=== PATIENT | male | born 1940 | race Caucasian/White ===

== ENCOUNTER 2023-10-21 14:47 | Inpatient (IN) ==
[2023-10-21 16:08] LABS: iSTAT Creatinine 1.4 mg/dl (0.6-1.3); iSTAT Hemoglobin 9.2 g/dl (14.0-18.0); iSTAT Ionized Calcium 1.21 mmol/l (1.12-1.32); iSTAT Potassium 4.6 mmol/L (3.3-5.0)
--- NOTE | 2023-10-21 16:14 | Electrocardiogram Report ---
Test Reason : Blood Pressure : / mmHG Vent. Rate : 064 BPM Atrial Rate : 064 BPM P-R Int : 126 ms QRS Dur : 084 ms QT Int : 400 ms P-R-T Axes : 073 031 023 degrees QTc Int : 412 ms Sinus rhythm with occasional Premature ventricular complexes Otherwise normal ECG When compared with ECG of 10-APR-2022 17:50, Sinus rhythm has replaced Atrial fibrillation Vent. rate has decreased BY 38 BPM Borderline criteria for Inferior infarct are no longer Present Confirmed by Porfirio Cervantes ([id number]) on 10/21/2023 4:14:47 PM Referred By: Confirmed By:Porfirio Cervantes
[2023-10-21] MEDS: ONDANSETRON INJ 2 MG/ML 2 ML VIAL IV STA (16:27)
[2023-10-21] MEDS: HYDROmorphone INJ 0.5 MG/0.5 ML SYR IV PRN (16:33)
[2023-10-21 16:44] LABS: Basophils # (auto) 0.04 K/uL (0.00-0.20); Basophils % (auto) 0.7 %; Eosinophils # (auto) 0.17 K/uL (0.00-0.50); Eosinophils % (auto) 2.8 %; Hematocrit (blood only) 29.3 % (42.0-52.0); Hemoglobin 9.7 g/dl (14.0-18.0); Immature Granulocytes # (auto) 0.02 K/uL (0.01-0.20); Immature Granulocytes % (auto) 0.3 %; Lymphocytes # (auto) 1.54 K/uL (1.20-3.40); Lymphocytes % (auto) 25.6 %; Mean Corpuscular Hemoglobin 31.5 pg (25.0-34.0); Mean Corpuscular Hgb Conc 33.1 g/dL (32.0-36.0); Mean Corpuscular Volume 95.1 fL (80.0-100.0); Mean Platelet Volume 9.3 fL (9.4-12.4); Monocytes # (auto) 0.56 K/uL (0.11-0.59); Monocytes % (auto) 9.3 %; Neutrophils # (auto) 3.68 K/uL (1.40-6.50); Neutrophils % (auto) 61.3 %; Platelet Count 253 K/uL (130-400); RDW Coefficient of Variation 13.7 % (11.5-14.5); RDW Standard Deviation 46.7 fL (36.4-46.3); Red Blood Count 3.08 M/uL (4.70-6.10); White Blood Count 6.01 K/ul (4.8-10.8)
[2023-10-21 16:53] LABS: Albumin Globulin Ratio 1.2 (0.9-2); Albumin Level 3.8 gm/dl (3.4-5.0); BUN Creatinine Ratio 17.5 (10-20); Bilirubin,Total 0.5 mg/dl (0.2-1.0); Calcium 9.2 mg/dl (8.6-10.3); Creatinine Clr Calc Pharmacy 45.1 ml/min; Est GFR (African American) 60.3 ml/min; Globulin 3.2 gm/dl (2.5-4.0); Potassium 4.5 mmol/L (3.5-5.1)
--- NOTE | 2023-10-21 17:25 | CT Scan Report ---
CT bony pelvis wo con CLINICAL HISTORY: fall last week, pain right hemipelvis, right hip r TECHNIQUE: Helical axial images of the pelvis were obtained and displayed at 5 and 1 mm intervals. Au tomated dose lowering techniques and/or adjustment according to patient size were utilized for this e xam. This exam was performed without intravenous contrast. CT DOSE: 949.3 mGy.cm COMPARISON: Comparison is made to CT abdomen pelvis 10/16/2023 FINDINGS: Bladder: Unremarkable. Reproductive organs: Unremarkable. Bowel: Diverticulosis is seen without diverticulitis. The appendix is normal. Lymph nodes Pelvic: Unremarkable. Mesenteric: Unremarkable. Peritoneum: Normal Vessels: Atherosclerotic calcifications are seen. Abdominal wall: Left fat containing inguinal hernia. Bones: Bilateral hip arthroplasties are seen. IMPRESSION: Degenerative changes are seen without evidence of acute fracture. Additional findings as above. ACT 112: Negative or not required by law. Electronically signed by: Flynn Ayoub M.D. 10/21/2023 5:23 PM
--- NOTE | 2023-10-21 19:27 | History & Physical Report ---
Date of Service October 21, 2023 Assessment & Plan (1) Type 2 diabetes mellitus: (2) Paroxysmal atrial fibrillation: (3) Lumbar transverse process fracture: (4) Coccyx contusion: Plan Patient is an 83-year-old gentleman man with acute lumbar pain and coccyx pain with ambulatory dysfunction secondary to a fall sustained approximately 10 days ago with imaging now revealing a right L5 transverse process fracture. Care for in the hospital Scheduled pain medications with Tylenol and tramadol, as needed oral Dilaudid Physical therapy and Occupational Therapy consultations Care management for home health versus rehab Continue home diabetes medications, his glucoses are well-controlled add sliding scale Continue other home medications as ordered. History of Present Illness Chief Complaint: Inability to walk and low back pain Primary Care Provider: Carroll Conley MD Patient is an 83-year-old gentleman presents to the emergency room with above complaint. He was in the emergency room on 10/16/2023 with similar complaint. Had a history at that time as at last week the patient was working out in the gym and weights slipped off as he was holding him and he fell down right on his coccyx. Imaging done on 10/16/2023 did not show any fracture. The patient was given some oxycodone and discharged home. Unfortunately, the patient's pain continued to increase. It was not responding to the oxycodone. Today he was found to be extremely difficult to walk. Return to the emergency room again for evaluation. Reimaging in the emergency room today showed a L5 transverse process fracture. Due to his uncontrolled pain and difficulty walking was referred to our service for further evaluation. Time my evaluation the patient's symptoms are significantly improved after receiving some Dilaudid. He otherwise he states has been doing well. Eating and drinking normally. Bowels and bladder been working normally for him. He denies any numbness or tingling down his legs and no weakness is set the pain was limiting his mobility. Allergies Allergy/AdvReac Type Severity Reaction Status Date / Time acetaminophen [From [place]] AdvReac Nausea Verified 04/25/23 14:22 hydrocodone [From [facility]] AdvReac Nausea Verified 04/25/23 14:22 Home Medications Medication Instructions Recorded Confirmed Type atorvastatin 80 mg tablet 80 mg PO DAILY 04/13/19 04/25/23 History metformin 500 mg tablet 1,000 mg PO BIDM 04/13/19 04/25/23 History nitroglycerin 0.4 mg sublingual 0.4 mg sublingual DIRECTED PRN 04/13/19 04/25/23 History tablet Chest Pain glimepiride 4 mg tablet 8 mg PO QAM 04/14/19 04/25/23 History zolpidem 5 mg tablet 5 mg PO HS PRN Sleep 04/14/19 04/25/23 History linagliptin 5 mg tablet (Tradjenta) 5 mg PO DAILY #90 tabs 03/31/20 04/25/23 Rx aspirin 81 mg tablet,delayed 81 mg PO DAILY PRN 04/01/21 04/25/23 History release (Adult Low Dose Aspirin) metoprolol succinate 25 mg 25 mg PO DAILY #90 tabs 11/06/22 04/25/23 Rx tablet,extended release 24 hr clopidogrel 75 mg tablet 75 mg PO DAILY #90 tabs 12/28/22 04/25/23 Rx oxycodone 5 mg tablet 5 mg PO Q8H PRN pain (scale score 10/16/23 Rx 7-10) #10 tabs Past Med/Surg History Problem List (Updated 10/21/23 @ 19:26 by Jacek Enriquez DO) Coccyx contusion Lumbar transverse process fracture Buttock pain (Acute) Fall (Acute) Syncope and collapse Paroxysmal atrial fibrillation Lightheadedness S/P TAVR (transcatheter aortic valve replacement) Exertional angina Type 2 diabetes mellitus GI bleed (Acute) Atrial fibrillation (Acute) Aortic stenosis S/P coronary artery stent placement CAD (coronary artery disease) Hypertension (Chronic) Hypercholesteremia (Chronic) Medical History Paroxysmal atrial fibrillation Paroxysmal ventricular tachycardia Aortic stenosis CAD (coronary artery disease) Osteoarthritis GERD (gastroesophageal reflux disease) Diabetes mellitus, type 2 Hypertension Hyperlipidemia GI bleed Surgical History H/O cataract extraction RIGHT EYE (02/01/18, [facility] [place] History of cardiac cath 2009 History of colonoscopy History of tonsillectomy History of total hip arthroplasty RT S/P coronary artery stent placement S/P inguinal hernia repair S/P TAVR (transcatheter aortic valve replacement) Social History Smoking Status: Never smoker Second Hand Exposure: No; Do You Dip or Chew Tobacco: No; Hx Alcohol Use: Yes Alcohol type: wine Hx Substance Use: No Preferred Language: Guyanese Communication Ability: Effective Doctor Of Radiology Required: No Beliefs That Will Affect Care: None Current Living Situation: Other Current Living Situation Comment: 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 Sclera clear Neck: Soft, no adenopathy Lungs: Clear to auscultation, decreased, no wheezes rales or rhonchi CV: S1-S2, regular Abdomen: Soft, nontender, nondistended Extremities: No significant edema Musculoskeletal: No significant joint tenderness, some mild tenderness to palpation over the lumbar sacral junction. Some mild paravertebral muscle tenderness, definitely improved since patient received pain medication Neuro: No focal deficits Psych: Cooperative, normal mood Results & Data Results & Data Vital Signs (Past 12 Hours) Vital Signs Temp Pulse Pulse Resp BP BP Pulse Ox 10/21/23 19:16 70 20 110/45 L 97 10/21/23 19:11 70 20 110/45 L 97 10/21/23 17:03 64 12 117/58 L 99 10/21/23 16:37 60 16 119/66 97 10/21/23 15:58 10/21/23 15:18 65 10/21/23 15:09 10/21/23 14:57 10/21/23 14:56 36.8 C 73 18 144/94 H 99 O2 Del Method 10/21/23 19:16 Room Air 10/21/23 19:11 Room Air 10/21/23 17:03 Room Air 10/21/23 16:37 Room Air 10/21/23 15:58 Room Air 10/21/23 15:18 10/21/23 15:09 Room Air 10/21/23 14:57 Room Air 10/21/23 14:56 Room Air Diagnostic Findings Reviewed imaging, laboratory and diagnostic studies. Pertinent findings as below. Pelvic CT did show a right L5 transverse process not on displaced fracture Personally reviewed EKG, sinus rhythm Reviewed records in [facility], baseline creatinine 1.3-1.4 Creatinine 1.26 Glucose 131 Hemoglobin 9.7
--- NOTE | 2023-10-21 19:46 | Emergency Department Note ---
Impression & Plan Fracture of L5 vertebra, Fall, Ambulatory dysfunction ED Provider Note NAME: DONNA CEBALLOS AGE: 83 SEX: Male INFORMANT: Patient ED PROVIDER(S): William Ureña MD CHIEF COMPLAINT: Right low back and hip pain PLAN: Disposition: Admitted Outpatient prescription management: none Referral: None MEDICAL DECISION MAKING: Patient presented because of pain. He notes the oxycodone given to him here did not help. He could not walk. Prior visit record reviewed. Patient had unremarkable labs done today. He was treated with Dilaudid and Zofran. He did feel somewhat better with this. I repeated CT imaging and found that the patient had an L5 transverse process fracture that was not seen previously. Suspect that this is the etiology of his pain as he is tender in that area. Given the fact that he cannot ambulate safely discussed further management in the hospital and patient in agreement. [facility] Patient was evaluated in the ER and admitted for further management. Care/management discussed with: integrated campaign manager Level of care consideration(s): After review of the information above and other included data, I feel the patient requires escalation of care to admission Triage Nursing notes: reviewed and agree them. Vital Signs: reviewed and remarkable for no significant abnormalities Additional History obtained from: none Chronic Medical/Social Conditions affecting care: CAD, hypertension Prior/ Outside/ External records reviewed: none Differential Diagnosis: Musculoskeletal, disc herniation, fracture, metastatic disease, cord compression, discitis, sciatica, cauda equina, infection, aortic disease, renal colic, gastrointestinal, as well as other pathologies. Diagnostics, independently interpreted by me: ECG: none Cardiac Monitoring: Cardiac monitoring ordered by me: The patient was placed on continuous cardiac monitoring and observed. It revealed a normal sinus rhythm at 70 beats per minute without ectopy or evidence of dysrhythmia. Medical decision rules: none Imaging studies: CT as above. Right L 5 transverse process fracture. HPI: 83 year old Male arrives for evaluation of right back and hip pain.. Patient was seen on the for similar complaints. CT imaging of the time was done and negative. Musculoskeletal source considered. Patient was given oxycodone. Despite that oxycodone he noted pain was not controlled. Describes his initial injury as falling several days prior to the ED visit on the . He states he fell backwards and landed on his buttocks. Patient denied any other injury or any new fall. He notes pain is at the point now where he cannot ambulate safely. Pt denies LOC, headache, visual changes, neck pain, chest pain, breathing difficulties, nausea, vomiting, abdominal pain, other extremity pain, numbness, urinary symptoms, bowel or bladder dysfunction, weakness, open wounds, active bleeding, or other complaints. PAST MEDICAL HISTORY: See Below, A-fib PAST SURGICAL HISTORY: See Below, TAVR SOCIAL HISTORY: See Below, retired HOME MEDICATIONS: See Below ALLERGIES: See Below VITALS: See Below PHYSICAL EXAMINATION: GENERAL: Awake, alert, uncomfortable-appearing, in no distress HENT: Normocephalic, atraumatic. Oropharynx unremarkable. EYES: Normal conjunctiva. Sclera non-icteric. NECK: Inspection normal. Non-tender. Supple. No nuchal rigidity. FROM. No masses. RESPIRATORY: Clear to auscultation. No wheezes. No rales. Normal respiratory effort. CARDIAC: Normal rate. Normal rhythm. No murmurs. No rubs. Extremities warm and well perfused. Pulses equal. No JVD. GI: Soft, non-distended. No tenderness to palpation. No rebound or guarding. No masses. RECTAL: Deferred. MUSCULOSKELETAL: Atraumatic. The back is symmetrical on inspection without obvious abnormality. There is no CVA tenderness to palpation. No joint edema. There is tenderness to palpation at the lumbosacral junction on the right. Mild right hip tenderness with range of motion well-preserved. Pelvis stable to rock. LOWER EXTREMITIES: Calves are equal size bilaterally and non-tender. No edema. No discoloration. NEURO: Normal sensorium. No sensory or motor deficits noted. No saddle anesthesia. SKIN: No rash or jaundice noted. PROCEDURES: none CRITICAL CARE: none OBSERVATION NOTE: none Past Med/Surg History Problem List (Updated 10/21/23 @ 19:46 by William Ureña MD) Ambulatory dysfunction (Acute) Fracture of L5 vertebra (Acute) Coccyx contusion Lumbar transverse process fracture Buttock pain (Acute) Fall (Acute) Syncope and collapse Paroxysmal atrial fibrillation Lightheadedness S/P TAVR (transcatheter aortic valve replacement) Exertional angina Type 2 diabetes mellitus GI bleed (Acute) Atrial fibrillation (Acute) Aortic stenosis S/P coronary artery stent placement CAD (coronary artery disease) Hypertension (Chronic) Hypercholesteremia (Chronic) Medical History Paroxysmal atrial fibrillation Paroxysmal ventricular tachycardia Aortic stenosis CAD (coronary artery disease) Osteoarthritis GERD (gastroesophageal reflux disease) Diabetes mellitus, type 2 Hypertension Hyperlipidemia GI bleed Surgical [place] [facility] [place] of cardiac cath 2009 History of colonoscopy History of tonsillectomy History of total hip arthroplasty RT S/P coronary artery stent placement S/P inguinal hernia repair S/P TAVR (transcatheter aortic valve replacement) Social History Smoking Status: Never smoker Second Hand Exposure: No; Do You Dip or Chew Tobacco: No; Hx Alcohol Use: Yes Alcohol type: wine Hx Substance Use: No Preferred Language: Nepalese Communication Ability: Effective Central Sterilization Technician Required: No Beliefs That Will Affect Care: None Current Living Situation: Other Current Living Situation Comment: 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 Feels Safe at Home: Yes Assistive Devices: None Allergies Allergies Allergy/AdvReac Type Severity Reaction Status Date / Time acetaminophen [From [place]] AdvReac Nausea Verified 04/25/23 14:22 hydrocodone [From [place]] AdvReac Nausea Verified 04/25/23 14:22 Home Meds Home Medications Medication Instructions Recorded Confirmed atorvastatin 80 mg tablet 80 mg PO DAILY 04/13/19 04/25/23 metformin 500 mg tablet 1,000 mg PO BIDM 04/13/19 04/25/23 nitroglycerin 0.4 mg sublingual 0.4 mg sublingual DIRECTED PRN 04/13/19 04/25/23 tablet Chest Pain glimepiride 4 mg tablet 8 mg PO QAM 04/14/19 04/25/23 zolpidem 5 mg tablet 5 mg PO HS PRN Sleep 04/14/19 04/25/23 aspirin 81 mg tablet,delayed 81 mg PO DAILY PRN 04/01/21 04/25/23 release (Adult Low Dose Aspirin) Previous Rx's Medication Instructions Recorded linagliptin 5 mg tablet (Tradjenta) 5 mg PO DAILY #90 tabs 03/31/20 metoprolol succinate 25 mg 25 mg PO DAILY #90 tabs 11/06/22 tablet,extended release 24 hr clopidogrel 75 mg tablet 75 mg PO DAILY #90 tabs 12/28/22 oxycodone 5 mg tablet 5 mg PO Q8H PRN pain (scale score 10/16/23 7-10) #10 tabs Results & Data (ED) Vital Signs Vital Signs - 24 hr 10/21/23 14:56 10/21/23 14:57 10/21/23 15:09 Temperature 36.8 C Temperature Source Oral Pulse Rate 73 Pulse Rate [Apical] Pulse Rate from SpO2 Sensor Pulse Rhythm [Apical] Pulse Strength [Apical] Respiratory Rate 18 Respiratory Effort / Characteristics Non-Labored Spontaneous Respiratory Depth Normal Blood Pressure 144/94 H Blood Pressure [Right Arm] Blood Pressure Mean 110 Blood Pressure Mean [Right Arm] Blood Pressure Position [Right Arm] Pulse Oximetry 99 Oxygen Delivery Method Room Air Room Air Room Air Sepsis Recent Fever Within 48 Hours No Sepsis New/Unexplained Change in Mental Status No Sepsis Action Taken by Nursing No Action Required 10/21/23 15:18 10/21/23 15:58 10/21/23 16:37 Temperature Temperature Source Pulse Rate 65 Pulse Rate [Apical] 60 Pulse Rate from SpO2 Sensor Pulse Rhythm [Apical] Pulse Strength [Apical] Respiratory Rate 16 Respiratory Effort / Characteristics Non-Labored Spontaneous Respiratory Depth Normal Blood Pressure Blood Pressure [Right Arm] 119/66 Blood Pressure Mean Blood Pressure Mean [Right Arm] 83 Blood Pressure Position [Right Arm] Pulse Oximetry 97 Oxygen Delivery Method Room Air Room Air Sepsis Recent Fever Within 48 Hours Sepsis New/Unexplained Change in Mental Status Sepsis Action Taken by Nursing 10/21/23 17:03 10/21/23 19:11 10/21/23 19:16 Temperature Temperature Source Pulse Rate 64 Pulse Rate [Apical] 70 70 Pulse Rate from SpO2 Sensor 60 Pulse Rhythm [Apical] Regular Regular Pulse Strength [Apical] Normal Normal Respiratory Rate 12 20 20 Respiratory Effort / Characteristics Non-Labored Spontaneous Non-Labored Spontaneous Respiratory Depth Normal Normal Blood Pressure 117/58 L Blood Pressure [Right Arm] 110/45 L 110/45 L Blood Pressure Mean 77 Blood Pressure Mean [Right Arm] 66 66 Blood Pressure Position [Right Arm] Sitting Pulse Oximetry 99 97 97 Oxygen Delivery Method Room Air Room Air Room Air Sepsis Recent Fever Within 48 Hours Sepsis New/Unexplained Change in Mental Status Sepsis Action Taken by Nursing Laboratory Data 10/21/23 15:12 10/21/23 15:12 Lab Results 10/21/23 10/21/23 Range/Units 15:12 15:23 WBC 6.01 (4.8-10.8) K/ul RBC 3.08 L (4.70-6.10) M/uL Hgb 9.7 L (14.0-18.0) g/dl POC Hgb 9.2 L (14.0-18.0) g/dl Hct 29.3 L (42.0-52.0) % POC Hct 27 L (42-52) % MCV 95.1 (80.0-100.0) fL MCH 31.5 (25.0-34.0) pg MCHC 33.1 (32.0-36.0) g/dL RDW Std Deviation 46.7 H (36.4-46.3) fL RDW Coeff of Jasvir 13.7 (11.5-14.5) % Plt Count 253 (130-400) K/uL MPV 9.3 L (9.4-12.4) fL Immature Gran % (Auto) 0.3 % Neut % (Auto) 61.3 % Lymph % (Auto) 25.6 % [place] % (Auto) 9.3 % Eos % (Auto) 2.8 % Baso % (Auto) 0.7 % Neut # (Auto) 3.68 (1.40-6.50) K/uL Lymph # (Auto) 1.54 (1.20-3.40) K/uL [place] # (Auto) 0.56 (0.11-0.59) K/uL Eos # (Auto) 0.17 (0.00-0.50) K/uL Baso # (Auto) 0.04 (0.00-0.20) K/uL Immature Gran # (Auto) 0.02 (0.01-0.20) K/uL POC Sodium 138 (135-144) mmol/L Sodium 137 (136-145) mmol/L POC Potassium 4.6 (3.3-5.0) mmol/L Potassium 4.5 (3.5-5.1) mmol/L POC Chloride 105 (101-112) mmol/L Chloride 106 (98-107) mmol/L Carbon Dioxide 24 (21-32) mmol/L POC Total CO2 22 L (24-31) mmol/L Anion Gap 7 (3-11) POC Anion Gap 17.0 (16-25) mmol/L POC BUN 20 H (7-18) mg/dl BUN 22 (6-23) mg/dl Creatinine 1.26 (0.6-1.4) mg/dl POC Creatinine 1.4 H (0.6-1.3) mg/dl Est Cr Clr Drug Dosing 45.1 ml/min Est GFR ( Amer) 60.3 ml/min Est GFR (Non-Af Amer) 52.0 ml/min BUN/Creatinine Ratio 17.5 (10-20) Glucose 131 H (70-99(Fasting)) mg/dl POC Glucose (other) 139 H (70-99) mg/dl Calcium 9.2 (8.6-10.3) mg/dl POC Ioniz Calcium Hermann 1.21 (1.12-1.32) mmol/l Total Bilirubin 0.5 (0.2-1.0) mg/dl AST 13 (13-39) U/L ALT 11 (7-52) U/L Alkaline Phosphatase 93 (34-104) U/L Total Protein 7.0 (6.0-8.3) gm/dl Albumin 3.8 (3.4-5.0) gm/dl Globulin 3.2 (2.5-4.0) gm/dl Albumin/Globulin Ratio 1.2 (0.9-2) Administered Medications Hydromorphone HCl (Hydromorphone Inj 0.5 Mg/0.5 Ml Syr) 0.5 mg IV Q15M PRN PRN Reason: Pain Stop: 11/04/23 16:02 Last Admin: 10/21/23 16:33 Dose: 0.5 mg Documented By: Discontinued Medications Ondansetron HCl (Ondansetron Inj 2 Mg/Ml 2 Ml Vial) 4 mg IV NOW STA Stop: 10/21/23 16:04 Last Admin: 10/21/23 16:27 Dose: 4 mg Documented By: Imaging Data Radiologist's Impression: Pelvis CT 10/21/23 16:03 CT bony pelvis wo con CLINICAL HISTORY: fall last week, pain right hemipelvis, right hip r TECHNIQUE: Helical axial images of the pelvis were obtained and displayed at 5 and 1 mm intervals. Automated dose lowering techniques and/or adjustment according to patient size were utilized for this exam. This exam was performed without intravenous contrast. CT DOSE: 949.3 mGy.cm COMPARISON: Comparison is made to CT abdomen pelvis 10/16/2023 FINDINGS: Bladder: Unremarkable. Reproductive organs: Unremarkable. Bowel: Diverticulosis is seen without diverticulitis. The appendix is normal. Lymph nodes Pelvic: Unremarkable. Mesenteric: Unremarkable. Peritoneum: Normal Vessels: Atherosclerotic calcifications are seen. Abdominal wall: Left fat containing inguinal hernia. Bones: Bilateral hip arthroplasties are seen. IMPRESSION: Degenerative changes are seen without evidence of acute fracture. Additional findings as above. ACT 112: Negative or not required by law. Electronically signed by: Flynn Ayoub M.D. 10/21/2023 5:23 PM Discharge Plan Visit Data Chief Complaint: Trauma Stated Complaint: TRAUMA ED Provider: William Ureña Discharge Problem: Fracture of L5 vertebra, Fall, Ambulatory dysfunction Forms Stand Alone Forms: [facility] [employer] Prescriptions Prescriptions: No Action metoprolol succinate 25 mg tablet extended release 24 hr 25 mg PO DAILY Qty: 90 3RF clopidogrel 75 mg tablet 75 mg PO DAILY Qty: 90 3RF Tradjenta 5 mg tablet 5 mg PO DAILY Qty: 90 3RF aspirin [Adult Low Dose Aspirin] 81 mg tablet,delayed release (DR/EC) 81 mg PO DAILY PRN glimepiride 4 mg tablet 8 mg PO QAM zolpidem 5 mg tablet 5 mg PO HS PRN (Reason: Sleep) atorvastatin 80 mg Tablet 80 mg PO DAILY metformin 500 mg Tablet 1,000 mg PO BIDM nitroglycerin 0.4 mg Tablet, Sublingual 0.4 mg sublingual DIRECTED PRN (Reason: Chest Pain) oxycodone 5 mg tablet 5 mg PO Q8H PRN (Reason: pain (scale score 7-10)) Qty: 10 0RF Rx Instructions: May cause sedation. Referrals Referrals: Carroll Conley MD [Primary Care Provider] -
--- OUTSIDE RECORDS SUMMARY | 2023-10-21 20:46 | External Medical Summary | Summary of Care ---
Author Name Unknown Organization [facility] Address [address] [place] [address] Phone [phone] Care Team Providers Care Drawing Kiln Operator Name Role Phone Carroll Conley MD Primary Care Provider + Reason for Visit * Reason Onset Date Comments Med Request 10/19/2023 Encounter Details Date Type Department Care Team (Late st Contact Info) Description 10/19/2023 Telephone [facility] [address] [facility] [place] [address] Inessa Still MD [address] [place] [address] Med Request Allergies Active Allergy Reactions Criticality Noted Date Comments Hydrocodone-Acetaminophen High 05/29/2019 Vomiting, dizziness, loss of balance, unable to stand, documented as of this encounter (statuses as of 10/20/2023) Medications Medication Sig Dispensed Refills Start Date End Date Status nitroglycerin (NITROSTAT) 0.4 MG SUBLIndications:Acu te RI ([facility]) 1 Tab Sublingual Every 5 minutes as needed for chest discomfort 25 Tab 6 04/07/2015 Active ONETOUCH DELICA LANCETS 33G MISCIndications:Typ e 2 diabetes mellitus with hemoglobin A1c goal of less than 8.0% ([facility]) Use to test blood once daily. Dx: E11.9 90 Each 3 02/23/2019 Active Glucose Blood In Vitro StripIndications:DM type 2 nursing care encounter ([facility]) tesing blood sugars once daily; E 11.9; non-insulin dependent 90 Strip 3 02/23/2019 Active Blood Glucose Monitoring Suppl (GIDEEN ULTRA 2) w/Device KITIndications:Type 2 diabetes mellitus with hemoglobin A1c goal of less than 8.0% ([facility]) Use to test blood glucose 2 times daily. Dx: E11.9 1 Kit 06/08/2019 Active Additional Information Patient taking differently: Use to test blood glucose one time daily. Dx: E11.9, Informant: Patient, Reported on 08/19/2020 clopidogrel (PLAVIX) 75 MG TabletIndications:T ype 2 diabetes mellitus with hemoglobin A1c goal of less than 7.0% (HCC) TAKE 1 TABLET BY MOUTH EVERY DAY 90 Tab 3 12/14/2019 Active Vitamin B 12 500 MCG Oral Tablet Take 2 Tabs by mouth daily. 05/22/2020 Active Amoxicillin 500 MG Oral Capsule (Amoxil)Indications :S/P TAVR (transcatheter aortic valve replacement) Take 4 capsules by mouth 1 hour prior to dental work 4 Cap 5 07/24/2020 Active Vitamin D 25 MCG (1000 UT) Oral TabletIndications:C losed fracture of sacrum, unspecified portion of sacrum, initial encounter ([facility]) TAKE 1 TABLET BY MOUTH EVERY DAY 90 Tablet 1 02/16/2021 Active Metoprolol Succinate ER 25 MG Oral Tablet Extended Release 24 Hour (toPROL XL) TAKE 1 TABLET BY MOUTH EVERY DAY 90 Tablet 3 02/24/2021 Active Zolpidem Tartrate 5 MG Oral Tablet (Ambien)Indications :Chronic insomnia TAKE 1 TABLET BY MOUTH EVERY DAY AT BEDTIME NEEDED FOR SLEEP 30 Tablet 06/03/2022 Active Acetaminophen 500 MG Oral Tablet (Tylenol)Indication s:History of total hip replacement, bilateral,Hip pain, right Take 2 Tablets by mouth every 8 hours as needed for Pain, Moderate. 100 Tablet 08/02/2022 Active Benzonatate 200 MG Oral CapsuleIndications: Upper respiratory tract infection, unspecified type Take 1 Capsule by mouth 3 times a day as needed for Cough. 50 Capsule 1 03/29/2023 Active metFORMIN HCl 500 MG Oral Tablet (Glucophage)Indicat ions:Type 2 diabetes mellitus with hemoglobin A1c goal of less than 7.0% ([facility]) TAKE 2 TABLETS BY MOUTH TWICE A DAY 360 Tablet 1 06/13/2023 Active Tradjenta 5 MG Oral Tablet (linaGLIPtin)Indica tions:Type 2 diabetes mellitus with hemoglobin A1c goal of less than 8.0% (HCC) TAKE 1 TABLET BY MOUTH EVERY DAY IN THE MORNING 90 Tablet 1 07/11/2023 Active Atorvastatin Calcium 80 MG Oral Tablet (Lipitor)Indication s:Dyslipidemia, goal LDL below 70 TAKE 1 TABLET BY MOUTH EVERY DAY 90 Tablet 1 08/05/2023 Active Glimepiride 4 MG Oral Tablet (Amaryl)Indications :Type 2 diabetes mellitus with hemoglobin A1c goal of less than 8.0% (HCC) TAKE 2 TABLETS BY MOUTH DAILY WITH BREAKFAST 180 Tablet 2 10/11/2023 Active oxyCODONE HCl 5 MG Oral Tablet (Oxy IR)Indications:Butt ock pain Take 1 Tablet by mouth every 8 hours as needed for Pain, Severe. 30 Tablet 10/19/2023 Active documented as of this encounter (statuses as of 10/20/2023) Active Problems Problem Noted Date Diagnosed Date Type 2 diabetes mellitus wit h stage 3a chronic kidney disease, without long-term current use of insulin 04/06/2023 Multiple thyroid nodules 04/06/2023 Chronic kidney disease, stage 3a 04/13/2021 Overview: Per CKD protocol Elevated prostate specific antigen (PSA) 021 BPH without obstruction/lower urinary tract symp toms 12/31/2020 S/P TAVR (transcatheter aortic valve replacement ) 07/10/2020 Atherosclerosis of [place] co ronary artery of [place] heart without angina pectoris 05/29/2019 PAF (paroxysmal atrial fibrillation) 12/30/2017 History of GI bleed 04/19/2017 Old RI (myocardial infarction) 04/19/2017 Mixed hearing loss of right ear 01/22/2016 History of placement of ear tubes 01/22/2016 S/P total hip arthroplasty 10/10/2014 Type 2 diabetes mellitus wit h hemoglobin A1c goal of less than 8.0% 12/25/2013 Overview: ICD-10 update of inactive term S/P angioplasty with stent 01/30/2011 Overview: GUNNER LM & p LAD in 01/2011 Stent to RCA and LAD x 3 on 01/23/2020 Dyslipidemia, goal LDL below 70 01/28/2011 documented as of this encounter (statuses as of 10/20/2023) Resolved Problems Problem Noted Date Diagnosed Date Resolved Date Sacral fracture, closed 12/31/202001/03 Atherosclerotic heart diseas e of [place] coronary artery with other forms of angina pectoris 01/21/2020 04/06/2023 Aortic valve stenosis 10/19/20192023 Type 2 diabetes mellitus with hyperglycemia 05/29/2019 05/20/2020 Thyroid nodule 06/08/2018 10/11/2023 Postoperative anemia due to acute blood loss 9 07/08/2021 Impacted cerumen of right ear 01/22/2016 10/19/2017 Gastrointestinal hemorrhage with melena 11/16/2014 04/19/2017 Anemia 11/16/2014 12/31/2020 Postoperative hemorrhagic shock 10/11/2014 04/19/2017 Osteoarthritis of right hip 10/10/2014 04/06/2023 CAD (coronary artery disease ), [place] coronary artery 10/10/2014 12/31/2014 Chronic serous otitis media 05/11/2014 04/06/2023 Hip pain 05/21/2013 04/19/2017 Loss of height 04/05/2013 04/19/2017 Accelerate Clinical Trial*[id number] 10/02/2012 04/23/2015 Overview: ACCELERATE STUDY. Project # [id number], ASSISTANT PLANT CONTROL OPERATOR: Chepe Campos MD. CRC: ANIL Daniels. SUMMARY: To test the hypothesis that Evacetrapib 130 mg, in comparison to placebo, reduces the risk of major adverse coronary events in high-risk vascular disease patients. CONTACTS: During normal business hours, contact study staff at ; after hours Pharmacist Critical Care via the [facility] hospital cherry picker operator [phone]. 24-hour Global Study Helpline: [phone]. Lipid levels should not be ordered/obtained while this subject is in the Accelerate study. Lipids are being managed in a blinded fashion. If lipid levels are inadvertently obtained, it is important that test results are NOT provided to the patient, study doctor, medical staff services coordinator, or other study team members. Restricted meds while in the study: 1) niacin > 250 mg, 2) gemfibrozil with a potent [id number]. Type 2 diabetes mellitus wit h hemoglobin A1c goal of 7.0%-8.0% 09/17/2012 12/25/2013 Overview: ICD-10 update of inactive term Type 2 diabetes mellitus wit h hemoglobin A1c goal of 7.0%-8.0% 06/16/2012 09/17/2012 Overview: ICD-10 update of inactive term Acute inferolateral myocardial infarction 01/28/2011 04/19/2017 CAD. Inferolateral RI treate d with bare metal stenting of distal RCA at [facility] on 01/24/2011. Severe left main and LAD disease noted at that time 01/28/2011 07/23/2022 Overview: And 2020: drug eluting stent x 1 to right coronary artery and drug eluting stents x 3 to left anterior descending coronary artery on 01/23/[address] Ulloa SUDDEN HEARING LOSS (left) 04/21/2009 0 09/12/2018 Type 2 diabetes mellitus wit h hemoglobin A1c goal of less than 7.0% 04/16/2009 06/16/2012 Overview: ICD-10 update of inactive term documented as of this encounter (statuses as of 10/20/2023) Immunizations Name Administration Dates Next Due COVID-19 mRNA, LNP-s, No Pre serve, 2-Dose Series ([employer] Public Safety) 02/04/2021,06/13/2020,05/17/2020 Pneumococcal Conjugate Vacc, 13 Valent (Prevnar) 06/10/2014 Pneumococcal Polysaccharide PPV23 (Pneumovax) 03/21/2013 Season Influenza, Quad, PF, Adjuvanted, 65+ Yrs, IM (FLUAD) 01/21/2020 Seasonal Influenza Virus Vac cine, Unspecified Formulation 12/31/2020,01/21/2020,02/23/2019,12/22,01/13/2017,01/07/2016,02/08/2011 Seasonal Influenza, PF, 6 M & above, IM , (FluLaval or Fluzone) 12/22/2017,01/13/2017 Seasonal Influenza, Quadriva lent Hd (Fluzone Hd) 12/13/2022,01/29/2022,12/31/2020 Seasonal Influenza, Quadriva lent Hd, 65+ Yrs 01/29/2022,12/31/2020,01/21/2020,02/23 Seasonal Influenza, Quadriva lent, No Preserve, IM 01/07/2016,12/31/2014 Seasonal Influenza, Split, I IV3, With Preserve, Inj 04/18/2014,12/19/2012,02/03/2012,02/08 Seasonal Influenza, Trivalen t, Adjuvanted, 65+ yrs 02/23/2019 TDAP (age 10 and older)(Boostrix) 07/08/2021 documented as of this encounter Social History Tobacco Use Types Packs/Day Years Used Date Smoking Tobacco: Never Smokeless Tobacco: Never Alcohol Use Standard Drinks/Week Comments Yes 0 (1 standard drink = 0.6 oz pure alcohol) 1 glass of wine per week per patient PHQ-2 Answer Date Recorded PHQ Adult Total Score 1 10/11/2023 Hunger Vital Sign Answer Date Recorded Within the past 12 months, y ou worried that your food would run out before you got the money to buy more. Never true 08/03/19 23 Within the past 12 months, t he food you bought just didn't last and you didn't have money to get more. Never true 08/02/2022 Utilities Answer Date Recorded Do you have trouble paying y our heating, water, or electric bill? (Adult - for ages 18 years and over) Not on file 09/20/2023 Is your family able to pay t he heat, water, or electric bill? (Household - for ages 0-17 years) Not on file 09/20/2023 Does your family have access to good internet? (Household - for ages 0-17 years) Not on file 09/20/2023 Social Connections Answer Date Recorded How often do you feel lonely or isolated from those around you? (Adult - for ages 18 years and over) Not on file 09/20/2023 Sex and Gender Information Value Date Recorded Sex Assigned at Male 09/12/2018 1:59 PM EDT Gender Identity Male 09/12/2018 1:59 PM EDT Sexual Orientation Straight 09/12/2018 1: 59 PM EDT Job Start Date Occupation Industry Not on file Not on file Not on file documented as of this encounter Functional Status Functional Status Response Date of Assess ment Are you deaf or do you have serious difficulty hearing? No-hearring aids 04/17/2018 Are you blind or do you have serious difficulty seeing, even when wearing glasses? No 04/17/2018 Do you have serious difficul ty walking or climbing stairs? (5 years old or older) Yes 04/17/2018 Do you have difficulty dress ing or bathing? (5 years old or older) No 04/17/2018 Because of a physical, menta l, or emotional condition, do you have difficulty doing errands alone such as visiting a doctor s office or shopping? (15 years old or older) No 04/17/19 19 Cognitive Status Response Date of Assessm ent Because of a physical, menta l, or emotional condition, do you have serious difficulty concentrating, remembering, or making decisions? (5 years old or older) No 04/17/2018 documented as of this encounter Miscellaneous Notes * Telephone Encounter - Mery Tony MED ASSIST - 10/20/2023 7:40 AM EDT Called patient, left message to return call. Myg sent * Addendum Note - Inessa Still MD - 10/19/2023 6:20 PM EDTAddended by: INESSA STILL on: 10/19/2023 06:20 PM Modules accepted: Orders * Telephone Encounter - Inessa Still MD - 10/19/2023 6:19 PM EDT Noted. Yes, we did talk about continuing oxycodone and use it for few more days. If no further improvement or symptoms gets worse, to let us or PCP know and ER if severe s/s any time. Script sent to [facility]. Please inform. Thanks. * Telephone Encounter - Nhi Morin LPN - 10/19/2023 5:54 PM EDT Patient was seen by Dr. Still yesterday. It was discussed how he was given 10 tabs of Oxycodone 5 mg and he needed more but the note does not specifically state whether Dr. Still was going to order the medication for the patient. Dr. Still, please advise. * Telephone Encounter - Nasrin Randolph PHARM Tech - 10/19/2023 5:33 PM EDT Pt requesting HIGH PRIORITY due to severe pain Pt went to Yesterday and asked for a pain medication to be prescribed. Pt called today yelling that he went to the pharmacy and there was no prescription . Pt is in severe pain Pt asking for a pain medication to be sent to pharmacy tomorrow Please advise pt when approved Thank you, Nasrin Randolph [facility] Prop Worker II [facility] 10/19/2023,5:36 PM documented in this encounter Plan of Treatment Upcoming Encounters Date Type Department Care Team (Late st Contact Info) Description 01/03/2024 1:40 PM EDT Office Visit Podiatry [facility] [address] [facility] [place] [address] Julia Livingston DPM [address] [place] [phone] 05/29/2024 2:40 PM EST Office Visit General Internal Medicine [facility] Yin [facility] [address] [facility] [place] [address] Carroll Conley MD [address] [facility] [place] [address] Health Maintenance Due Date Last Done Comments Zoster Vaccines (1 of 2) 1989 COVID-19 Vaccine (2022- season) 2022 02/04/2021, 06/13/2020, 05/17/2020 Influenza Vaccine (FLU shot) (#1) 2023 12/13/2022, 01/29/2022, 01/29/2022, Additional history exists B-12 04/06/2024 04/06/2023, 05/0 04/2022, 01/29/2022, Additional history exists Diabetic Eye Exam 04/11/2024 04/11/2023, , 04/09/2022, Additional history exists GFR 04/12/2024 10/11/2023, 0 06/2023, 03/31/2023, Additional history exists HbA1c 04/12/2024 10/11/2023, 0 06/2023, 08/02/2022, Additional history exists Albumin/Creatinine Ratio 10/10/2024 024, 08/02/2022, 07/08/2021, Additional history exists CKD HGB USE SMARTSET 47545 10/10/202410/10, 10/11/2023, 03/31/2023, Additional history exists CKD PHOS USE SMARTSET 05467 10/10/2024 07/0 12/2023, 08/02/2022, 07/08/2021, Additional history exists Depression Screening 10/10/2024 10/11/2023, 01/01/20 15 Diabetic Foot Exam 10/10/2024 10/11/2023, 1 , 08/19/2020, Additional history exists DTaP,Tdap,and Td Vaccines (2 - Td or Tdap) 07/09/2031 07/08/2021 Pneumococcal Vaccine: 65+ Years Completed 06/10/2014, 03/21/2013 RETIRED - COLONOSCOPY-EVERY 5 YRS AGES 18-100 Discontinued 03/25/2015, 10/23/2009 HPV (Gardasil) Vaccine Aged Out No lo nger eligible based on patient's age to complete this topic Hepatitis B Vaccine Aged Out No longe r eligible based on patient's age to complete this topic MENINGOCOCCAL (MENACTRA/MENVEO) Aged Out No longer eligible based on patient's age to complete this topic documented as of this encounter Medical Devices Implanted Type Area Booker Device Identifier Shelf Expiration Date Model / Serial / Lot Pope Catarino Martinez Implanted:Qty: 1 on 05/13/2014 by Jose Alejandro Olivo MD at OR [facility] Right: Ear 07/03/2023 [id number] / / [id number] Trident Fermín Cluster Cup 60 - [id number] Implanted:Qty: 1 on 10/10/2014 by Jose Burton MD at OR [facility] Right: Hip [employer]IX[employer] : ORTHOPAEDICS 502-03-60F / / Screw Acetabular 6.5mm Tricia 25m - [id number] Implanted:Qty: 2 on 10/10/2014 by Jose Burton MD at OR [facility] Right: Hip [employer] : ORTHOPAEDICS 1445-3494-1 / / Trident Acetabular X3 0 36 F - [id number] Implanted:Qty: 1 on 10/10/2014 by Jose Burton MD at OR [facility] Right: Hip [employer]IX[employer] : ORTHOPAEDICS 623-00-36F / / Hip Hd Jeremiah Chaney Md D 36/+75 - [id number] Implanted:Qty: 1 on 10/10/2014 by Jose Burton MD at OR [facility] Right: Hip [employer]IX[employer] : ORTHOPAEDICS 07/03/2019 6570-0-736 / / [id number] Stem Hip Sz6 - [id number] Implanted:Qty: 1 on 10/10/2014 by Jose Burton MD at OR [facility] Right: Hip [employer] : ORTHOPAEDICS 08/02/2019 [id number] / / [id number] Screw Acetabular 6.5mm Tricia 25m - [id number] Implanted:Qty: 1 on 04/17/2018 by Ismael Schroeder MD at OR [facility] Left: Hip [employer] : ORTHOPAEDICS 06/05/[id number] / / [id number] Bone Screw Cancellous 65 16 - [id number] Implanted:Qty: 1 on 04/17/2018 by Ismael Schroeder MD at OR [facility] Left: Hip [employer] : ORTHOPAEDICS 11/03/202220296925-8306-1 / / [id number] Hip Stem Secur Max Ang 127 10 - [id number] Implanted:Qty: 1 on 04/17/2018 by Ismael Schroeder MD at OR [facility] Left: Hip [employer] : ORTHOPAEDICS 10/23/2022 [id number] / / [id number] Windmill Mechanic Plt Trochan 100 2 2 Cable - [id number] Implanted:Qty: 1 on 04/17/2018 by Ismael Schroeder MD at OR [facility] Left: Hip [employer] : ORTHOPAEDICS 12/21/2022 6704-3-082 / / [id number] Sleeve Cable 2.0mm - [id number] Implanted:Qty: 1 on 04/17/2018 by Ismael Schroeder MD at OR [facility] Left: Hip [employer]IXON : ORTHOPAEDICS 10/25/2022 6704-8-240 / / [id number] Hip Fem Hd Blox D Uni Taper 40 - [id number] Implanted:Qty: 1 on 04/17/2018 by Ismael Schroeder MD at OR [facility] Left: Hip [employer] : ORTHOPAEDICS 12/21/2022 6519-1-040 / / [id number] Sleeve Adptr +5 Univ C Taper - [id number] Implanted:Qty: 1 on 04/17/2018 by Ismael Schroeder MD at OR [facility] Left: Hip [employer] : ORTHOPAEDICS 10/14/2021 19-0005T / / [id number] Hip Trident Fermín Cluster 60 - [id number] Implanted:Qty: 1 on 04/17/2018 by Ismael Schroeder MD at OR [facility] Left: Hip [employer] : ORTHOPAEDICS 05/23/2022 502-11-60G / / [id number] Trident Acetabular X3 0 40 G - [id number] Implanted:Qty: 1 on 04/17/2018 by Ismael Schroeder MD at OR [facility] Left: Hip [employer]IX[employer] : ORTHOPAEDICS 12/23/2022 623-00-40G / / [id number] Screw Acetabular 6.5mm Tricia 25m - [id number] Implanted:Qty: 1 on 04/17/2018 by Ismael Schroeder MD at OR [facility] Left: Hip [employer] : ORTHOPAEDICS 01/15/2023 6789-9346-1 / / [id number] Balloon Cath Pacing 6zyo000gb - [id number] Implanted:Qty: 1 on 07/10/2020 at CARDIAC [facility]S [facility] CR BARD : MEDICAL [id number] 06/01/2022 [id number] / / [id number] Proglide Perclose 60913-43 X10 - [id number] Implanted:Qty: 1 on 07/10/2020 at [facility]IAC [facility]S [facility] : VASCULAR DEVICES [id number] 08/01/2021 59560-94 / / [id number] Proglide Perclose 56003-62 X10 - [id number] Implanted:Qty: 1 on 07/10/2020 at [facility]AC [facility]S [facility] : VASCULAR DEVICES [id number] 08/01/2021 56039-22 / / [id number] Valve Waleska 3 Ultra 26mm - [id number] Implanted:Qty: 1 on 07/10/2020 at CARD[facility]AC [facility]S [facility] [employer] [id number] / / Proglide Perclose 41291-92 X10 - [id number] Implanted:Qty: 1 on 07/10/2020 at [facility]AC [facility]S [facility] : VASCULAR DEVICES [id number] 01/01/2022 58429-93 / / [id number] documented as of this encounter Visit Diagnoses Diagnosis Buttock pain- Primary Mylagia and myositis, unspecified documented in this encounter Advance Directives * Full Code (Latest Code Status on File) Date Activated Date Inactivated Comments 07/10/2020 3:43 PM 07/11/2020 5:11 PM This order ref lects the patients wishes and were consensually agreed upon. * Full Code Date Activated Date Inactivated Comments 01/23/2020 11:43 AM 01/24/2020 5:05 PM This orde r reflects the patients wishes and were consensually agreed upon. Question Answer Comments Discussion of Advance Directives occurred with: Not Discussed Does the patient have a Living Will? No Does the patient have Health Care Power of Attor mary? No * Full Code Date Activated Date Inactivated Comments 04/17/2018 10:32 PM 04/21/2018 6:25 PM This order reflects the patients wishes and were consensually agreed upon. Question Answer Comments Discussion of Advance Directives occurred with: Patient Does the patient have a Living Will? No Does the patient have Health Care Power of Attor mary? No * Full Code Date Activated Date Inactivated Comments 11/16/2014 6:44 PM 11/18/2014 6:26 PM This order r eflects the patients wishes and were consensually agreed upon. Question Answer Comments Discussion of Advance Directives occurred with: Patient Does the patient have a Living Will? No Does the patient have Health Care Power of Attor mary? No * Full Code Date Activated Date Inactivated Comments 10/10/2014 11:22 AM 10/12/2014 8:13 PM This order r eflects the patients wishes and were consensually agreed upon. Question Answer Comments Discussion of Advance Directives occurred with: Not Discussed Does the patient have a Living Will? No Does the patient have Health Care Power of Attor mary? No Care Teams Drawing Kiln Operator Relationship Specialty Start Date End Date Carroll Conley MD [address] [place] [address] PCP - General Internal Medicine 06/16/12 documented as of this encounter
--- OUTSIDE RECORDS SUMMARY | 2023-10-21 20:46 | External Medical Summary | Summary of Care ---
Author Name Unknown Organization [facility] Address [address] [place] [address] Phone [phone] Care Team Providers Care Metal Polisher Name Role Phone Carroll Conley MD Primary Care Provider + Reason for Visit * Reason Onset Date Comments Med Request 10/19/2023 Encounter Details Date Type Department Care Team (Late st Contact Info) Description 10/19/2023 Telephone General Internal Medicine [facility] [address] [facility] [place] [address] Inessa Still MD [address] [place] [address] Med Request Allergies Active Allergy Reactions Criticality Noted Date Comments Hydrocodone-Acetaminophen High 05/29/2019 Vomiting, dizziness, loss of balance, unable to stand, documented as of this encounter (statuses as of 10/19/2023) Medications Medication Sig Dispensed Refills Start Date End Date Status nitroglycerin (NITROSTAT) 0.4 MG SUBLIndications:Acu te VT ([facility]) 1 Tab Sublingual Every 5 minutes as needed for chest discomfort 25 Tab 6 04/07/2015 Active ONETOUCH DELICA LANCETS 33G MISCIndications:Typ e 2 diabetes mellitus with hemoglobin A1c goal of less than 8.0% ([facility]) Use to test blood once daily. Dx: E11.9 90 Each 3 02/23/2019 Active Glucose Blood In Vitro StripIndications:DM type 2 nursing care encounter ([facility]) tesing blood sugars once daily; E 11.9; non-insulin dependent 90 Strip 3 02/23/2019 Active Blood Glucose Monitoring Suppl (Hair Scynce ULTRA 2) w/Device KITIndications:Type 2 diabetes mellitus with hemoglobin A1c goal of less than 8.0% ([facility]) Use to test blood glucose 2 times [...] sacrum, unspecified portion of sacrum, initial encounter ([facility]) TAKE 1 TABLET BY MOUTH EVERY DAY [...] hemoglobin A1c goal of less than 7.0% ([facility]) TAKE 2 TABLETS BY MOUTH TWICE A [...] as of this encounter (statuses as of 10/19/2023) Active Problems Problem Noted Date Diagnosed Date Type 2 diabetes mellitus wit h stage 3a chronic kidney disease, without long-term current use of insulin 04/06/2023 Multiple thyroid nodules 04/06/2023 Chronic kidney disease, stage 3a 04/13/2021 Overview: Per CKD protocol Elevated prostate specific antigen (PSA) 021 BPH without obstruction/lower urinary tract symp toms 12/31/2020 S/P TAVR (transcatheter aortic valve replacement ) 07/10/2020 Atherosclerosis of [place] 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 05/29/2019 PAF (paroxysmal atrial fibrillation) 12/30/2017 History of GI bleed 04/19/2017 Old VT (myocardial infarction) 04/19/2017 Mixed hearing loss of [...] as of this encounter (statuses as of 10/19/2023) Resolved Problems Problem Noted Date Diagnosed Date Resolved Date Sacral fracture, closed 12/31/202001/03 Atherosclerotic heart diseas e of [place] coronary artery with other forms of angina [...] 10/10/2014 04/06/2023 CAD (coronary artery disease ), [place] coronary artery 10/10/2014 12/31/2014 Chronic serous otitis media 05/11/2014 04/06/2023 Hip pain 05/21/2013 04/19/2017 Loss of height 04/05/2013 04/19/2017 Accelerate Clinical Trial*[id number] 10/02/2012 04/23/2015 Overview: ACCELERATE STUDY. Project # [id number], ORGANIZATIONAL EFFECTIVENESS CONSULTANT: Chepe Campos MD. CRC: ANIL Daniels. SUMMARY: To test the hypothesis that Evacetrapib 130 mg, in comparison to placebo, reduces the risk of major adverse coronary events in high-risk vascular disease patients. CONTACTS: During normal business hours, contact study staff at ; after hours Putty Maker via the [facility] [place] heading machine operator [phone]. 24-hour Global Study Helpline: [phone]. Lipid levels should not be ordered/obtained while this subject is in the Accelerate study. Lipids are being managed in a blinded fashion. If lipid levels are inadvertently obtained, it is important that test results are NOT provided to the patient, study doctor, cash applications coordinator, or other study team members. Restricted meds while in the study: 1) niacin > 250 mg, 2) gemfibrozil with a potent MTL4G-imqaapoze. Type 2 diabetes mellitus wit h hemoglobin A1c goal of 7.0%-8.0% 09/17/2012 12/25/2013 Overview: ICD-10 update of inactive term Type 2 diabetes mellitus wit h hemoglobin A1c goal of 7.0%-8.0% 06/16/2012 09/17/2012 Overview: ICD-10 update of inactive term Acute inferolateral myocardial infarction 01/28/2011 04/19/2017 CAD. Inferolateral VT treate d with bare metal stenting of distal RCA at [facility] on 01/24/2011. Severe left main and LAD [...] as of this encounter (statuses as of 10/19/2023) Immunizations Name Administration Dates Next Due COVID-19 mRNA, LNP-s, No Pre serve, 2-Dose Series (boolino) 02/04/2021,06/13/2020,05/17/2020 Pneumococcal Conjugate Vacc, 13 Valent (Prevnar) [...] as of this encounter Miscellaneous Notes * Addendum Note - Inessa Still MD [...] severe s/s any time. Script sent to [facility]. Please inform. Thanks. * Telephone Encounter - [...] advise pt when approved Thank you, Nasrin Randolph, commutator v ring assembler Regulatory Administrator II [facility]) 10/19/2023,5:36 PM documented in this encounter Plan of Treatment Upcoming Encounters Date Type Department Care Team (Late st Contact Info) Description 01/03/2024 1:40 PM EDT Office Visit Podiatry [facility] [address] [facility] [place] [phone] Julia Livingston DPM [address] [facility] [place] [address] 05/29/2024 2:40 PM EST Office Visit General Internal Medicine [facility] [address] [facility] [place] [address] Carroll Conley MD [address] [facility] [place] [address] Health Maintenance Due Date Last Done Comments Zoster Vaccines (1 of 2) 1989 COVID-19 Vaccine (2022- season) 2022 02/04/2021, 06/13/2020, 05/17/2020 Influenza Vaccine (FLU shot) (#1) 2023 12/13/2022, 01/29/2022, 01/29/2022, Additional history exists B-12 04/06/2024 04/06/2023, 050 04/2022, 01/29/2022, Additional history exists Diabetic Eye Exam 04/11/2024 04/11/2023, , 04/09/2022, Additional history exists GFR 04/12/2024 10/11/2023, 0 06/2023, 03/31/2023, Additional history exists HbA1c 04/12/2024 10/11/2023, 0 06/2023, 08/02/2022, Additional history exists Albumin/Creatinine Ratio 10/10/2024 024, 08/02/2022, 07/08/2021, Additional history exists CKD HGB USE SMARTSET 39349 10/10/202410/10, 10/11/2023, 03/31/2023, Additional history exists CKD PHOS USE SMARTSET 06504 10/10/20240 12/2023, 08/02/2022, 07/08/2021, Additional history exists Depression [...] this encounter Medical Devices Implanted Type Area Associate Director Of Development Device Identifier Shelf Expiration Date Model / Serial / Lot Brenner Beveled Grommet Implanted:Qty: 1 on 05/13/2014 by Jose Alejandro Olivo MD at [facility] Right: Ear 07/03/2023 [id number] / / [id number] Trident Fermín Cluster Cup 60 - [id number] Implanted:Qty: 1 on 10/10/2014 [place] Burton [place] [facility] [place]: Hip [employer] : ORTHOPAEDICS 502-03-60F / / Screw Acetabular 6.5mm Tricia 25m - [id number] Implanted:Qty: 2 on 10/10/2014 by Jose Burton MD [place] [facility] [place]: Hip [employer] : ORTHOPAEDICS 1563-2818-1 / / Trident Acetabular X3 0 36 F - [id number] Implanted:Qty: 1 on 10/10/2014 by Jose Burton MD at [place] [facility] [place]: Hip [employer] : ORTHOPAEDICS 623-00-36F / / Hip Hd Jeremiah Alumina Md D 36/+75 - [id number] Implanted:Qty: 1 on 10/10/2014 by Jose Burton MD at [place] [facility] [place]: Hip [employer] : ORTHOPAEDICS 07/03/2019 6570-0-736 / / [id number] Stem Hip Sz6 - [id number] Implanted:Qty: 1 on 10/10/2014 by Jose Burton MD at [place] [facility] [place]: Hip [employer] : ORTHOPAEDICS 08/02/2019 0406-8288 / / [id number] Screw Acetabular 6.5mm Tricia 25m - [id number] Implanted:Qty: 1 on 04/17/2018 by Ismael Schroeder MD at [place] [facility] [place]: Hip [employer] : ORTHOPAEDICS 06/05/202220294136-1439- / / [id number] Bone Screw Cancellous 65 16 - [id number] Implanted:Qty: 1 on 04/17/2018 by Ismael Schroeder MD at [place] [facility] [place]: Hip [employer] : ORTHOPAEDICS 11/03/20227460-6825- / / [id number] Hip Stem Secur Max Ang 127 10 - [id number] Implanted:Qty: 1 on 04/17/2018 by Ismael Schroeder MD at [place] [facility] [place]: Hip [employer] : ORTHOPAEDICS 10/23/2022 6052-1035S / / [id number] Customer Advocate Plt Trochan 100 2 2 Cable - [id number] Implanted:Qty: 1 on 04/17/2018 by Ismael Schroeder MD at [place] [facility] [place]: Hip [employer] : ORTHOPAEDICS 12/21/2022 6704-3-082 / / [id number] Sleeve Cable 2.0mm - [id number] Implanted:Qty: 1 on 04/17/2018 by Ismael Schroeder MD [place] [facility] [place]: Hip [employer] : ORTHOPAEDICS 10/25/2022 6704-8-240 / / [id number] Hip Fem Hd Blox D Uni Taper 40 - [id number] Implanted:Qty: 1 on 04/17/2018 by Ismael Schroeder MD at [place] [facility] [place]: Hip [employer] : ORTHOPAEDICS 12/21/2022 6519-1-040 / / [id number] Sleeve Adptr +5 Univ C Taper - [id number] Implanted:Qty: 1 on 04/17/2018 by Ismael Schroeder MD at [place] [facility] [place]: Hip [employer] : ORTHOPAEDICS 10/14/2021 19-0005T / / [id number] Hip Trident Fermín Cluster 60 - [id number] Implanted:Qty: 1 on 04/17/2018 by Ismael Schroeder MD at [place] [facility] [place]: Hip [employer] : ORTHOPAEDICS 05/23/2022 502-11-60G / / [id number] Trident Acetabular X3 0 40 G - [id number] Implanted:Qty: 1 on 04/17/2018 by Ismael Schroeder MD at [place] [facility] [place]: Hip [employer] : ORTHOPAEDICS 12/23/2022 623-00-40G / / [id number] Screw Acetabular 6.5mm Tricia 25m - [id number] Implanted:Qty: 1 on 04/17/2018 by Ismael Schroeder MD at [place] [facility] [place]: Hip [employer] : ORTHOPAEDICS 01/15/2023 5930-9407-1 / / [id number] Balloon Cath Pacing 2idr571pi - [id number] Implanted:Qty: 1 on 07/10/2020 at [facility] MEDICAL [id number] 06/01/2022 [id number] / / [id number] Proglide Perclose 42416-24 X10 - [id number] Implanted:Qty: 1 on 07/10/2020 at [facility] VASCULAR DEVICES [id number] 08/01/2021 99239-74 / / [id number] Proglide Perclose 84944-70 X10 - [id number] Implanted:Qty: 1 on 07/10/2020 at [facility] VASCULAR DEVICES [id number] 08/01/2021 95546-11 / / [id number] Valve [place] 3 Ultra 26mm - [id number] Implanted:Qty: 1 on 07/10/2020 at [facility] [employer] [id number] / / Proglide Perclose 89491-38 X10 - [id number] Implanted:Qty: 1 on 07/10/2020 at [facility] VASCULAR DEVICES [id number] 01/01/2022 25075-07 / / [id number] documented as of this encounter Visit Diagnoses [...] Power of Attor mary? No Care Teams Metal Polisher Relationship Specialty Start Date End Date Carroll Conley MD [address] [place] [address] PCP - General Internal Medicine 06/16/12 documented as of this encounter
--- OUTSIDE RECORDS SUMMARY | 2023-10-21 20:46 | External Medical Summary | Summary of Care ---
Author Name Unknown Organization [facility] Address [address] [place] [address] Phone [phone] Care Team Providers Care Parts Inspector Name Role Phone Carroll Conley MD Primary Care Provider + Reason for Visit * Reason Comments Emergency Department Follow-Up Continues to have lower back pain-requesting refills of oxycodone Encounter Details Date Type Department Care Team (Late st Contact Info) Description 10/18/2023 1:20 PM EDT Office Visit General Internal Medicine [facility] [place] [address] [place] [address] Inessa Still MD [address] [place] [address] Buttock pain*; Personal history of fall Allergies Active Allergy Reactions Criticality Noted Date Comments Hydrocodone-Acetaminophen High 05/29/2019 Vomiting, dizziness, loss of balance, unable to stand, documented as of this encounter (statuses as of 10/19/2023) Medications Medication Sig Dispensed Refills Start Date End Date Status nitroglycerin (NITROSTAT) 0.4 MG SUBLIndications:Acu te CT ([facility]) 1 Tab Sublingual Every 5 minutes as needed for chest discomfort 25 Tab 6 04/07/2015 Active ONETOUCH DELICA LANCETS 33G MISCIndications:Typ e 2 diabetes mellitus with hemoglobin A1c goal of less than 8.0% ([facility]) Use to test blood once daily. Dx: E11.9 90 Each 3 02/23/2019 Active Glucose Blood In Vitro StripIndications:DM type 2 nursing care encounter (HCC) tesing blood sugars once daily; E 11.9; non-insulin dependent 90 Strip 3 02/23/2019 Active Blood Glucose Monitoring Suppl (ElyssafregoriUCH ULTRA 2) w/Device KITIndications:Type 2 diabetes mellitus with hemoglobin A1c goal of less than 8.0% (HCC) Use to test blood glucose 2 times daily. Dx: E11.9 1 Kit 06/08/2019 Active Additional Information Patient taking differently: Use to test blood glucose one time daily. Dx: E11.9, Informant: Patient, Reported on 08/19/2020 clopidogrel (PLAVIX) 75 MG TabletIndications:T ype 2 diabetes mellitus with hemoglobin A1c goal of less than 7.0% ([facility]) TAKE 1 TABLET BY MOUTH EVERY DAY [...] portion of sacrum, initial encounter ([facility]) TAKE 1 TABLET BY MOUTH EVERY DAY [...] goal of less than 7.0% ([facility]) TAKE 2 TABLETS BY MOUTH TWICE A [...] WITH BREAKFAST 180 Tablet 2 10/11/2023 Active documented as of this encounter (statuses [...] aortic valve replacement ) 07/10/2020 Atherosclerosis of [place] co ronary artery of [place] heart without angina pectoris 05/29/2019 PAF (paroxysmal atrial fibrillation) 12/30/2017 History of GI bleed 04/19/[address] (myocardial infarction) 04/19/2017 Mixed hearing loss of [...] closed 12/31/202001/03 Atherosclerotic heart diseas e of [place] coronary artery with other forms of angina [...] 10/10/2014 04/06/2023 CAD (coronary artery disease ), [place] coronary artery 10/10/2014 12/31/2014 Chronic serous otitis media 05/11/2014 04/06/2023 Hip pain 05/21/2013 04/19/2017 Loss of height 04/05/2013 04/19/2017 Accelerate Clinical Trial*[id number] 10/02/2012 04/23/2015 Overview: ACCELERATE STUDY. Project # [id number], CUTTER APPRENTICE HAND: Chepe Campos MD. CRC: ANIL Daniels. SUMMARY: To test the hypothesis that Evacetrapib 130 mg, in comparison to placebo, reduces the risk of major adverse coronary events in high-risk vascular disease patients. CONTACTS: During normal business hours, contact study staff at ; after hours Benefit Specialist via the [facility] hospital rip/mould operator [phone]. 24-hour Global Study Helpline: [phone]. Lipid levels should not be ordered/obtained while this subject is in the Accelerate study. Lipids are being managed in a blinded fashion. If lipid levels are inadvertently obtained, it is important that test results are NOT provided to the patient, study doctor, implant coordinator, or other study team members. Restricted meds while in the study: 1) niacin > 250 mg, 2) gemfibrozil with a potent [id number]. Type 2 diabetes mellitus wit h hemoglobin A1c goal of 7.0%-8.0% 09/17/2012 12/25/2013 Overview: ICD-10 update of inactive term Type 2 diabetes mellitus wit h hemoglobin A1c goal of 7.0%-8.0% 06/16/2012 09/17/2012 Overview: ICD-10 update of inactive term Acute inferolateral myocardial infarction 01/28/2011 04/19/[address] treate d with bare metal stenting of distal RCA at [facility] on 01/24/2011. Severe left main and LAD [...] mRNA, LNP-s, No Pre serve, 2-Dose Series (Ranku) 02/04/2021,06/13/2020,05/17/2020 Pneumococcal Conjugate Vacc, 13 Valent (Prevnar) [...] on file documented as of this encounter Last Filed Vital Signs Vital Sign Reading Time Taken Comments Blood Pressure 102/58 10/18/2023 1:06 PM EDT Pulse 84 10/18/2023 1:06 PM EDT Temperature 36.6 C (97.8 F) 10/18/2023 1:06 PM ED T Respiratory Rate 16 10/18/2023 1:06 PM EDT Oxygen Saturation - - Inhaled Oxygen Concentration - - Weight 75.8 kg (167 lb) 10/18/2023 1:06 PM EDT Height 177.8 cm (5' 10") 10/18/2023 1:06 PM EDT Body Mass Index 23.96 10/18/2023 1:06 PM EDT documented in this encounter Functional Status Functional Status Response [...] No 04/17/2018 documented as of this encounter Progress Notes * Inessa Still MD - 10/18/2023 1:03 PM EDT HPI: Michele Rivers is a 83 year old male with history of type 2 diabetes mellitus, CAD, history ofold CT, paroxysmal atrial fibrillation, status post TAVR, BPH, CKD, history of multiple thyroid nodules, hyperlipidemia, history of angioplasty with stent, history of GI bleed, status post total hip arthroplasty who presents with: No chief complaint on file. As per review of the chart and discussion with the patient, he ended up in [facility] ER on 10/16/23 as had worsening pain in buttock region. Pt states 4 day sprior to going to ER he was at the gym. He was pulling the equipment, it was malfunctioned and pt fell backwards onto his buttocks and no head injuries. Pt was able to stand though and walk. He had ongoing pain locally especially when he sits or with certain movements. Pt was using lidocaine topically. Has hx of intolerance to vicodin but was able to use oxycodone inthe past. CT Abd pelvis was done to rule out pelvic fracture but it turned to be negative.pt had large fat containing left inguinal hernia. Moderate to severe multi level degenerative changes of lumber spine. Severe atherosclerotic disease. No aneurysm. Vitals were stable in ER. Received a dose of po oxycodone in ER. Pt was discharged home on oxycodone 5 mg orally every 8 hourly dispense 10. Pt was advised to continue all the other regular meds. Denies any dizziness, chestpain, sob, palpitation. Discussed to watch bp as its on low side today. 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 History of placement of ear tubes History of GI bleed Old CT (myocardial infarction) PAF (paroxysmal atrial fibrillation) ([facility]) Atherosclerosis of [place] coronary artery of [place] heart without angina pectoris S/P TAVR (transcatheter aortic valve replacement) Elevated prostate specific antigen (PSA) BPH without obstruction/lower urinary tract symptoms Chronic kidney disease, stage 3a ([facility]) Type 2 diabetes mellitus with stage 3a chronic kidney disease, without long-term current use of insulin ([facility]) Multiple thyroid nodules Current Outpatient Medications Medication Sig Dispense Refill nitroglycerin (NITROSTAT) 0.4 MG SUBL 1 Tab Sublingual Every 5 minutes as needed for chest discomfort 25 Tab 6 ONETOUCH DELICA LANCETS 33G MIS Use to test blood once daily. Dx: E11.9 90 Each 3 Glucose Blood In Vitro Strip tesing blood sugars once daily; E 11.9; non-insulin dependent 90 Strip3 Blood Glucose Monitoring Suppl (TuggTOUCH ULTRA 2) w/Device KIT Use to test blood glucose 2 times daily. Dx: E11.9 (Patient taking differently: Use to test blood glucose one time daily. Dx: E11.9) 1 Kit 0 clopidogrel (PLAVIX) 75 MG Tablet TAKE 1 TABLET BY MOUTH EVERY DAY 90 Tab 3 Vitamin B 12 500 MCG Oral Tablet Take 2 Tabs by mouth daily. Amoxicillin 500 MG Oral Capsule (Amoxil) Take 4 capsules by mouth 1 hour prior to dental work 4 Cap5 Vitamin D 25 MCG (1000 UT) Oral Tablet TAKE 1 TABLET BY MOUTH EVERY DAY 90 Tablet 1 Metoprolol Succinate ER 25 MG Oral Tablet Extended Release 24 Hour (toPROL XL) TAKE 1 TABLET BY MOUTH EVERY DAY 90 Tablet 3 Zolpidem Tartrate 5 MG Oral Tablet (Ambien) TAKE 1 TABLET BY MOUTH EVERY DAY AT BEDTIME NEEDED FOR SLEEP 30 Tablet 0 Acetaminophen 500 MG Oral Tablet (Tylenol) Take 2 Tablets by mouth every 8 hours as needed for Pain, Moderate. 100 Tablet 0 Benzonatate 200 MG Oral Capsule Take 1 Capsule by mouth 3 times a day as needed for Cough. 50 Capsule 1 metFORMIN HCl 500 MG Oral Tablet (Glucophage) TAKE 2 TABLETS BY MOUTH TWICE A DAY 360 Tablet 1 Tradjenta 5 MG Oral Tablet (linaGLIPtin) TAKE 1 TABLET BY MOUTH EVERY DAY IN THE MORNING 90 Tablet 1 Atorvastatin Calcium 80 MG Oral Tablet (Lipitor) TAKE 1 TABLET BY MOUTH EVERY DAY 90 Tablet 1 Glimepiride 4 MG Oral Tablet (Amaryl) TAKE 2 TABLETS BY MOUTH DAILY WITH BREAKFAST 180 Tablet 2 No current facility-administered medications for this visit. The patient's medication list was reviewed and updated as needed. Review of patient's allergies indicates: Allergen Reactions [place] [Hydrocodone-Acetaminophen] Vomiting, dizziness, loss of balance, unable to stand, Past Medical History: Diagnosis Date Acute CT, inferolateral wall (HCC) 01/24/2011 3 stents (RCA at [facility], LAD, left main [facility]) Aortic valve stenosis 10/19/2019 Atherosclerosis of [place] coronary artery of [place] heart without angina pectoris 05/29/2019 BPH without obstruction/lower urinary tract symptoms 12/31/2020 Chronic serous otitis media DM type 2, goal A1C below 8.0 12/25/2013 Dyslipidemia, goal LDL below 70 01/28/2011 History of GI bleed 04/19/[address] (myocardial infarction) 04/19/2017 Osteoarthritis of right hip PAF (paroxysmal atrial fibrillation) (HCC) 12/30/2017 Postoperative anemia due to acute blood loss 04/18/2018 SUDDEN HEARING LOSS (left) 02/27/2008 Social History Socioeconomic History Marital status: Single Number of children: 0 Occupational History 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 Employer: [employer] 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 Employer: [employer] Tobacco Use Smoking status: Never Smokeless tobacco: Never Vaping Use Vaping status: Never Used Substance and Sexual Activity Alcohol use: Yes Comment: 1 glass of wine per week per patient Drug use: No Sexual activity: Yes Partners: Female Social Determinants of Health Food Insecurity: No Food Insecurity (08/02/2022) Hunger Vital Sign Worried About Running Out of Food in the Last Year: Never true Ran Out of Food in the Last Year: Never true Social Connections Family History Problem Relation Name Age of Onset Other (dementia) Mother Heart Disorder Father Hypertension Father grandmother Other ( of natural causes) Father both parents All system negative except as per hpi. OBJECTIVE: Blood pressure 102/58, pulse 84, temperature 36.6 C (97.8 F), resp. rate 16, height 1.778 m (5'10"), weight 75.8 kg (167 lb). PHYSICAL EXAM: Lungs Clear Heart s2 s2 normal. Gait normal but slow Defer gluteal area or local check up. States no bruise or open area. ASSESSMENT AND PLAN: Buttock pain (Primary) Slightly better. Advised local ice pack. Avoid local pressure. Strongly advised to use cane or walker all the time. States percocet helps him and needs more pills. Advised stool softner to use as needed. Fall precautions and hydration advied. Personal history of fall As above. Bp is slightly low today while on current dose fo metoprolol. No dizziness, chestpain, sob. Continue hydration, if needed, can cut down the dose of metoprolol to half pill daily. Keep f/u with cardiology. States sees [facility]. Recent 2 D echo last week was stable. Discussed bp check in 2 weeks with us. Inessa Still MD documented in this encounter Nursing Notes * Alina Arroyo LPN - 10/18/2023 1:06 PM EDT The patient has been properly identified by confirmation of name and date of . Chief Complaint Patient presents with Emergency Department Follow-Up Continues to have lower back pain-requesting refills of oxycodone documented in this encounter Plan of Treatment Upcoming Encounters Date Type Department Care Team (Late st Contact Info) Description 01/03/2024 1:40 PM EDT Office Visit Podiatry [facility] [address] [place] [address] Julia Livingston DPM [address] [place] [address] 05/29/2024 2:40 PM EST Office Visit General Internal Medicine [facility] [address] [place] [address] [facility]ley [facility] [address] [facility] [address] Health Maintenance Due Date Last Done Comments Zoster Vaccines (1 of 2) 1989 COVID-19 Vaccine ( season) 2022 02/04/2021, 06/13/2020, 05/17/2020 Influenza Vaccine (FLU shot) (#1) 2023 12/13/2022, 01/29/2022, 01/29/2022, Additional history exists B-12 04/06/2024 04/06/2023, 05/04/2022, 01/29/2022, Additional history exists Diabetic Eye Exam 04/11/2024 04/11/2023, , 04/09/2022, Additional history exists GFR 04/12/2024 10/11/2023, 0 06/2023, 03/31/2023, Additional history exists HbA1c 04/12/2024 10/11/2023, 0 06/2023, 08/02/2022, Additional history exists Albumin/Creatinine Ratio 10/10/2024 072 024, 08/02/2022, 07/08/2021, Additional history exists CKD HGB USE SMARTSET 84745 10/10/202410/10, 10/11/2023, 03/31/2023, Additional history exists CKD PHOS USE SMARTSET 70528 10/10/2024 07/0 12/2023, 08/02/2022, 07/08/2021, Additional history [...] this encounter Medical Devices Implanted Type Area Substation Technician Device Identifier Shelf Expiration Date Model / Serial / Lot Pope Catarino Tylermmet Implanted:Qty: 1 on 05/13/2014 by Jose Alejandro Olivo MD [place] [facility] [place]: Ear 07/03/2023 [id number] / / [id number] Trident Fermín Cluster Cup 60 - [id number] Implanted:Qty: 1 on 10/10/2014 by Jose Burton MD [place] [facility] Right: Hip [place] : ORTHOPAEDICS 502-03-60F / / Screw Acetabular 6.5mm Tricia 25m - [id number] Implanted:Qty: 2 on 10/10/2014 by Jose Burton MD [place] [facility] [place]: Hip [place] : ORTHOPAEDICS 3819-9800-1 / / Trident Acetabular X3 0 36 F - [id number] Implanted:Qty: 1 on 10/10/2014 by Jose Burton MD [place] [facility] [place]: Hip [place] : ORTHOPAEDICS 623-00-36F / / Hip Hd Jeremiah Rivera 36/+75 - [id number] Implanted:Qty: 1 on 10/10/2014 by Jose Burton MD [place] [facility] [place]: Hip [place] : ORTHOPAEDICS 07/03/2019 6570-0-736 / / [id number] Stem Hip Sz6 - [id number] Implanted:Qty: 1 on 10/10/2014 by Jose Burton MD [place] [facility] [place]: Hip [place] : ORTHOPAEDICS 08/02/2019 2965-6958 / / [id number] Screw Acetabular 6.5mm Tricia 25m - [id number] Implanted:Qty: 1 on 04/17/2018 by Ismael Schroeder MD [place] [facility] [place]: Hip [place] : ORTHOPAEDICS 06/05/202220294807-9410-1 / / [id number] Screw Cancellous 65 16 - [id number] Implanted:Qty: 1 on 04/17/2018 by Ismael Schroeder MD [place] [facility] [place]: Hip [employer] : ORTHOPAEDICS 11/03/202220298305-6316-1 / / [id number] Hip Stem Secur Max Ang 127 10 - [id number] Implanted:Qty: 1 on 04/17/2018 by Ismael Schroeder MD [place] [facility] [place]: Hip [place] : ORTHOPAEDICS 10/23/2022 [id number] / / [id number] Inside Sales Agent Plt Trochan 100 2 2 Cable - [id number] Implanted:Qty: 1 on 04/17/2018 by Ismael Scrhoeder MD at [place] [facility] [place]: Hip [employer] : ORTHOPAEDICS 12/21/2022 6704-3-082 / / [id number] Sleeve Cable 2.0mm - [id number] Implanted:Qty: 1 on 04/17/2018 by Ismael Schroeder MD [place] [facility] [place]: Hip [place] : ORTHOPAEDICS 10/25/2022 6704-8-240 / / [id number] Hip Fem Hd Blox D Uni Taper 40 - [id number] Implanted:Qty: 1 on 04/17/2018 by Ismael Schroeder MD at [place] [facility] [place]: Hip [place] : ORTHOPAEDICS 12/21/2022 6519-1-040 / / [id number] Sleeve Adptr +5 Univ C Taper - [id number] Implanted:Qty: 1 on 04/17/2018 by Ismael Schroeder MD at [place] [facility] [place]: Hip [place] : ORTHOPAEDICS 10/14/2021 19-0005T / / [id number] Hip Trident Fermín Cluster 60 - [id number] Implanted:Qty: 1 on 04/17/2018 by Ismael Schroeder MD [place] [facility] [place]: Hip [place] : ORTHOPAEDICS 05/23/2022 502-11-60G / / [id number] Trident Acetabular X3 0 40 G - [id number] Implanted:Qty: 1 on 04/17/2018 by Ismael Schroeder MD [place] [facility] [place]: Hip [place] : ORTHOPAEDICS 12/23/2022 623-00-40G / / [id number] Screw Acetabular 6.5mm Tricia 25m - [id number] Implanted:Qty: 1 on 04/17/2018 by Ismael Schroeder MD at [place] [facility] [place]: Hip [place] : ORTHOPAEDICS 01/15/2023 7009-0634-1 / / [id number] Balloon Cath Pacing [id number] - [id number] Implanted:Qty: 1 on 07/10/2020 at [facility] : MEDICAL [id number] 06/01/2022 [id number] / / [id number] Proglide Perclose 98170-65 X10 - [id number] Implanted:Qty: 1 on 07/10/2020 at [facility] : VASCULAR DEVICES [id number] 08/01/2021 79798-23 / / [id number] Proglide Perclose 83212-22 X10 - [id number] Implanted:Qty: 1 on 07/10/2020 at [facility] : VASCULAR DEVICES [id number] 08/01/2021 66991-05 / / [id number] Valve [place] 3 Ultra 26mm - [id number] Implanted:Qty: 1 on 07/10/2020 at [facility] [employer] [id number] / / Proglide Perclose 98997-20 X10 - [id number] Implanted:Qty: 1 on 07/10/2020 at [facility] : VASCULAR DEVICES [id number] 01/01/2022 93856-95 / / [id number] documented as of this encounter Visit Diagnoses Diagnosis Buttock pain- Primary Mylagia and myositis, unspecified Personal history of fall documented in this encounter Advance Directives * [...] Power of Attor mary? No Care Teams Parts Inspector Relationship Specialty Start Date End Date Carroll Conley MD [address] [place] [address] PCP - General Internal Medicine 06/16/12 documented as of this encounter
--- OUTSIDE RECORDS SUMMARY | 2023-10-21 20:46 | External Medical Summary | Summary of Care ---
Author Name Unknown Organization [facility] Address [address] [place] [address] Phone [phone] Care Team Providers Care Commissioned Sales Associate Name Role Phone Carroll Conley MD Primary Care Provider + Reason for Visit * Reason Onset Date Comments Med Request 10/19/2023 Encounter Details Date Type Department Care Team (Late st Contact Info) Description 10/19/2023 [facility] [place] [address] Inessa Still MD [address] [place] [address] Med Request Allergies Active Allergy Reactions Criticality Noted Date Comments Hydrocodone-Acetaminophen High 05/29/2019 Vomiting, dizziness, loss of balance, unable to stand, documented as of this encounter (statuses as of 10/19/2023) Medications Medication Sig Dispensed Refills Start Date End Date Status nitroglycerin (NITROSTAT) 0.4 MG SUBLIndications:Acu te OR ([facility]) 1 Tab Sublingual Every 5 minutes as needed for chest discomfort 25 Tab 6 04/07/2015 Active ONETOUCH DELICA LANCETS 33G MISCIndications:Typ e 2 diabetes mellitus with hemoglobin A1c goal of less than 8.0% ([facility]) Use to test blood once daily. Dx: E11.9 90 Each 3 02/23/2019 Active Glucose Blood In Vitro StripIndications:DM type 2 nursing care encounter ([facility]) tesing blood sugars once daily; E 11.9; non-insulin dependent 90 Strip 3 02/23/2019 Active Blood Glucose Monitoring Suppl (MarketPage ULTRA 2) w/Device KITIndications:Type 2 diabetes mellitus with hemoglobin A1c goal of less than 8.0% ([facility]) Use to test blood glucose 2 times [...] sacrum, unspecified portion of sacrum, initial encounter ([facility]) TAKE 1 TABLET BY MOUTH EVERY DAY [...] hemoglobin A1c goal of less than 7.0% ([facility]) TAKE 2 TABLETS BY MOUTH TWICE A [...] aortic valve replacement ) 07/10/2020 Atherosclerosis of [place] ronary artery of [place] heart without angina pectoris 05/29/2019 PAF (paroxysmal atrial fibrillation) 12/30/2017 History of GI bleed 04/19/2017 Old OR (myocardial infarction) 04/19/2017 Mixed hearing loss of [...] closed 12/31/202001/03 Atherosclerotic heart diseas e of [place] coronary artery with other forms of angina [...] 10/10/2014 04/06/2023 CAD (coronary artery disease ), [place] coronary artery 10/10/2014 12/31/2014 Chronic serous otitis media 05/11/2014 04/06/2023 Hip pain 05/21/2013 04/19/2017 Loss of height 04/05/2013 04/19/2017 Accelerate Clinical Trial*[id number] 10/02/2012 04/23/2015 Overview: ACCELERATE STUDY. Project # [id number], WAREHOUSE SPECIALIST: Chepe Campos MD. CRC: ANIL Daniels. SUMMARY: To test the hypothesis that Evacetrapib 130 mg, in comparison to placebo, reduces the risk of major adverse coronary events in high-risk vascular disease patients. CONTACTS: During normal business hours, contact study staff at ; after hours Dairy Cattle Farm Worker via the [facility] hospital facsimile operator [phone]. 24-hour Global Study Helpline: [phone]. Lipid levels should not be ordered/obtained while this subject is in the Accelerate study. Lipids are being managed in a blinded fashion. If lipid levels are inadvertently obtained, it is important that test results are NOT provided to the patient, study doctor, junior project coordinator, or other study team members. Restricted meds while in the study: 1) niacin > 250 mg, 2) gemfibrozil with a potent [id number]. Type 2 diabetes mellitus wit h hemoglobin A1c goal of 7.0%-8.0% 09/17/2012 12/25/2013 Overview: ICD-10 update of inactive term Type 2 diabetes mellitus wit h hemoglobin A1c goal of 7.0%-8.0% 06/16/2012 09/17/2012 Overview: ICD-10 update of inactive term Acute inferolateral myocardial infarction 01/28/2011 04/19/2017 CAD. Inferolateral OR treate d with bare metal stenting of distal RCA at [facility] on 01/24/2011. Severe left main and LAD disease noted at that time 01/28/2011 07/23/2022 Overview: duplicate And 2020: drug eluting stent x 1 [...] mRNA, LNP-s, No Pre serve, 2-Dose Series ([place]) 02/04/2021,06/13/2020,05/17/2020 Pneumococcal Conjugate Vacc, 13 Valent (Prevnar) [...] encounter Miscellaneous Notes * Telephone Encounter - [facility] [...] pt when approved Thank you, Nasrin Randolph [facility] Toll Transmission Worker II [facility] 10/19/2023,5:36 PM documented in this encounter Plan of Treatment Upcoming Encounters Date Type Department Care Team (Late st Contact Info) Description 01/03/2024 1:40 PM EDT Office Visit Podiatry [facility] [address] [place] [address] Julia Livingston DPM [address] [address] 05/29/2024 2:40 PM EST Office Visit General Internal Medicine [facility] [address] [place] [address] Carroll Conley MD 200 [facility] [place] [address] Health Maintenance Due Date Last Done Comments Zoster Vaccines (1 of 2) 1989 COVID-19 Vaccine ( - 2022-24 season) 2022 02/04/2021, 06/13/2020, 05/17/2020 Influenza Vaccine (FLU shot) (#1) 2023 12/13/2022, 01/29/2022, 01/29/2022, Additional history exists B-12 04/06/2024 04/06/2023, 05/0 04/2022, 01/29/2022, Additional history exists Diabetic Eye Exam 04/11/2024 04/11/2023, , 04/09/2022, Additional history exists GFR 04/12/2024 10/11/2023, 0 06/2023, 03/31/2023, Additional history exists HbA1c 04/12/2024 10/11/2023, 0 06/2023, 08/02/2022, Additional history exists Albumin/Creatinine Ratio 10/10/2024 07 024, 08/02/2022, 07/08/2021, Additional history exists CKD HGB USE SMARTSET 31677 10/10/202410/10, 10/11/2023, 03/31/2023, Additional history exists CKD PHOS USE SMARTSET 73726 10/10/2024 07/0 12/2023, 08/02/2022, 07/08/2021, Additional history [...] this encounter Medical Devices Implanted Type Area Mainspring Torque Tester Device Identifier Shelf Expiration Date Model / Serial / Lot Beveled Grommet Implanted:Qty: 1 on 05/13/2014 by Jose Alejandro Olivo MD at OR [facility] Right: Ear 07/03/2023 [id number] / / [id number] Trident Fermín Cluster Cup 60 - [id number] Implanted:Qty: 1 on 10/10/2014 by Jose Burton MD at OR [facility] Right: Hip NIXON : ORTHOPAEDICS 50203-60F / / Screw Acetabular 6.5mm Tricia 25m - [id number] Implanted:Qty: 2 on 10/10/2014 by Jose Burton MD at OR [facility] Right: Hip NIXON : ORTHOPAEDICS / / Trident Acetabular X3 0 36 F - [id number] Implanted:Qty: 1 on 10/10/2014 by Jose Burton MD at OR [facility] Right: Hip NIXON : ORTHOPAEDICS 623-00-36F / / Hip Lul Chaney Md D 36/+75 - [id number] Implanted:Qty: 1 on 10/10/2014 by Jose Burton MD at OR [facility] Right: Hip NIXON : ORTHOPAEDICS 07/03/2019 6570-0-736 / / [id number] Stem Hip Sz6 - [id number] Implanted:Qty: 1 on 10/10/2014 by Jose Burton MD at OR [facility] Right: Hip NIXON : ORTHOPAEDICS 08/02/2019 9715-6152 / / [id number] Screw Acetabular 6.5mm Tricia 25m - [id number] Implanted:Qty: 1 on 04/17/2018 by Ismael Schroeder MD at OR [facility] Left: Hip NIXON : ORTHOPAEDICS 06/05/20227592-3514-1 / / [id number] Bone Screw Cancellous 65 16 - [id number] Implanted:Qty: 1 on 04/17/2018 by Ismael Schroeder MD at OR [facility] Left: Hip NIXON : ORTHOPAEDICS 11/03/2022 7843-0690-1 / / [id number] Hip Stem Secur Max Ang 127 10 - [id number] Implanted:Qty: 1 on 04/17/2018 by Ismael Schroeder MD at OR [facility] Left: Hip NIXON : ORTHOPAEDICS 10/23/2022 6052-1035S / / [id number] Hotel Attendant Plt Trochan 100 2 2 Cable - [id number] Implanted:Qty: 1 on 04/17/2018 by Ismael Schroeder MD at OR [facility] Left: Hip NIXON : ORTHOPAEDICS 12/21/2022 6704-3-082 / / [id number] Sleeve Cable 2.0mm - [id number] Implanted:Qty: 1 on 04/17/2018 by Ismael Schroeder MD at OR [facility] Left: Hip NIXON : ORTHOPAEDICS 10/25/2022 6704-8-240 / / [id number] Hip Fem Hd Blox D Uni Taper 40 - [id number] Implanted:Qty: 1 on 04/17/2018 by Ismael Schroeder MD at OR [facility] Left: Hip NIXON : ORTHOPAEDICS 12/21/2022 6519-1-040 / / [id number] Sleeve Adptr +5 Univ C Taper - [id number] Implanted:Qty: 1 on 04/17/2018 by Ismael Schroeder MD at OR [facility] Left: Hip NIXON : ORTHOPAEDICS 10/14/2021 19-0005T / / [id number] Hip Trident Fermín Cluster 60 - [id number] Implanted:Qty: 1 on 04/17/2018 by Ismael Schroeder MD at OR [facility] Left: Hip NIXON : ORTHOPAEDICS 05/23/2022 502-11-60G / / [id number] Trident Acetabular X3 0 40 G - [id number] Implanted:Qty: 1 on 04/17/2018 by Ismael Schroeder MD at OR [facility] Left: Hip NIXON : ORTHOPAEDICS 12/23/2022 623-00-40G / / [id number] Screw Acetabular 6.5mm Tricia 25m - [id number] Implanted:Qty: 1 on 04/17/2018 by Ismael Schroeder MD at OR [facility] Left: Hip NIXON : ORTHOPAEDICS 01/15/2023 5525-6595-1 / / [id number] Balloon Cath Pacing 8aip085ai - [id number] Implanted:Qty: 1 on 07/10/2020 at [facility] BARD : MEDICAL [id number] 06/01/2022 191593D / / [id number] Proglide Perclose 12925-21 X10 - [id number] Implanted:Qty: 1 on 07/10/2020 at [facility] : VASCULAR DEVICES [id number] 08/01/2021 61174-85 / / [id number] Proglide Perclose 70317-49 X10 - [id number] Implanted:Qty: 1 on 07/10/2020 at [facility] : VASCULAR DEVICES [id number] 08/01/2021 71601-47 / / [id number] Valve [place] 3 Ultra 26mm - [id number] Implanted:Qty: 1 on 07/10/2020 at [facility] [employer] [id number] / / Proglide Perclose 46211-89 X10 - [id number] Implanted:Qty: 1 on 07/10/2020 at [facility] : VASCULAR DEVICES [id number] 01/01/2022 05667-20 / / [id number] documented as of this encounter Advance Directives * Full Code [...] Power of Attor mary? No Care Teams Commissioned Sales Associate Relationship Specialty Start Date End Date Carroll Conley MD [address] [place] [address] PCP - General Internal Medicine 06/16/12 documented as of this encounter
--- OUTSIDE RECORDS SUMMARY | 2023-10-21 20:46 | External Medical Summary | Summary of Care ---
Author Name Unknown Organization [facility] Address [address] [place] [address] Phone [phone] Care Team Providers Care Medical Lab Technician Name Role Phone Carroll Conley MD Primary Care Provider + Reason for Visit * Reason Comments Emergency Department Follow-Up Continues to have lower back pain-requesting refills of oxycodone Encounter Details Date Type Department Care Team (Late st Contact Info) Description 10/18/2023 1:20 PM EDT Office Visit General Internal Medicine [facility] [address] [facility] [address] [place] [address] Inessa Still MD [address] [facility] [place] [address] Buttock pain*; Personal history of fall Allergies Active Allergy Reactions Criticality Noted Date Comments Hydrocodone-Acetaminophen High 05/29/2019 Vomiting, dizziness, loss of balance, unable to stand, documented as of this encounter (statuses as of 10/18/2023) Medications Medication Sig Dispensed Refills Start Date End Date Status nitroglycerin (NITROSTAT) 0.4 MG SUBLIndications:Acu te SC ([facility]) 1 Tab Sublingual Every 5 minutes as needed for chest discomfort 25 Tab 6 04/07/2015 Active ONETOUCH DELICA LANCETS 33G MISCIndications:Typ e 2 diabetes mellitus with hemoglobin A1c goal of less than 8.0% ([facility]) Use to test blood once daily. Dx: E11.9 90 Each 3 02/23/2019 Active Glucose Blood In Vitro StripIndications:DM type 2 nursing care encounter (HCC) tesing blood sugars once daily; E 11.9; non-insulin dependent 90 Strip 3 02/23/2019 Active Blood Glucose Monitoring Suppl (CatervaUCH ULTRA 2) w/Device KITIndications:Type 2 diabetes mellitus [...] hemoglobin A1c goal of less than 7.0% ([facility]) TAKE 1 TABLET BY MOUTH EVERY DAY [...] sacrum, unspecified portion of sacrum, initial encounter ([facility]) TAKE 1 TABLET BY MOUTH EVERY DAY [...] hemoglobin A1c goal of less than 7.0% ([facility]) TAKE 2 TABLETS BY MOUTH TWICE A [...] as of this encounter (statuses as of 10/18/2023) Active Problems Problem Noted Date Diagnosed Date Type 2 diabetes mellitus wit h stage 3a chronic kidney disease, without long-term current use of insulin 04/06/2023 Multiple thyroid nodules 04/06/2023 Chronic kidney disease, stage 3a 04/13/2021 Overview: Per CKD protocol Elevated prostate specific antigen (PSA) 021 BPH without obstruction/lower urinary tract symp toms 12/31/2020 S/P TAVR (transcatheter aortic valve replacement ) 07/10/2020 Atherosclerosis of [place] co ronary artery of [place] heart without angina pectoris 05/29/2019 PAF (paroxysmal atrial fibrillation) 12/30/2017 History of GI bleed 04/19/2017 Old SC (myocardial infarction) 04/19/2017 Mixed hearing loss of [...] as of this encounter (statuses as of 10/18/2023) Resolved Problems Problem Noted Date Diagnosed Date Resolved Date Sacral fracture, closed 12/31/202001/03 Atherosclerotic heart diseas e of [place] coronary artery with other forms of angina [...] 10/10/2014 04/06/2023 CAD (coronary artery disease ), [place] coronary artery 10/10/2014 12/31/2014 Chronic serous otitis media 05/11/2014 04/06/2023 Hip pain 05/21/2013 04/19/2017 Loss of height 04/05/2013 04/19/2017 Accelerate Clinical Trial*[id number] 10/02/2012 04/23/2015 Overview: ACCELERATE STUDY. Project # [id number], BUCKLE INSPECTOR: Chepe Campos MD. CRC: ANIL Daniels. SUMMARY: To test the hypothesis that Evacetrapib 130 mg, in comparison to placebo, reduces the risk of major adverse coronary events in high-risk vascular disease patients. CONTACTS: During normal business hours, contact study staff at ; after hours Boil Off Worker via the [facility] hospital operator assistant i cementing [phone]. 24-hour Global Study Helpline: [phone]. Lipid levels should not be ordered/obtained while this subject is in the Accelerate study. Lipids are being managed in a blinded fashion. If lipid levels are inadvertently obtained, it is important that test results are NOT provided to the patient, study doctor, program coordinator, or other study team members. Restricted meds while in the study: 1) niacin > 250 mg, 2) gemfibrozil with a potent [id number]-lttgwicze. Type 2 diabetes mellitus wit h hemoglobin A1c goal of 7.0%-8.0% 09/17/2012 12/25/2013 Overview: ICD-10 update of inactive term Type 2 diabetes mellitus wit h hemoglobin A1c goal of 7.0%-8.0% 06/16/2012 09/17/2012 Overview: ICD-10 update of inactive term Acute inferolateral myocardial infarction 01/28/2011 04/19/2017 CAD. Inferolateral SC treate d with bare metal stenting of distal RCA at [facility] on 01/24/2011. Severe left main and LAD [...] as of this encounter (statuses as of 10/18/2023) Immunizations Name Administration Dates Next Due COVID-19 mRNA, LNP-s, No Pre serve, 2-Dose Series (BotanoCap) 02/04/2021,06/13/2020,05/17/2020 Pneumococcal Conjugate Vacc, 13 Valent (Prevnar) [...] type 2 diabetes mellitus, CAD, history ofold SC, paroxysmal atrial fibrillation, status post TAVR, BPH, CKD, history of multiple thyroid nodules, hyperlipidemia, history of angioplasty with stent, history of GI bleed, status post total hip arthroplasty who presents with: No chief complaint on file. As per review of the chart and discussion with the patient, he ended up in [facility] ER on 10/16/23 as had worsening pain [...] hemoglobin A1c goal of less than 8.0% ([facility]) S/P total hip arthroplasty Mixed hearing loss of right ear History of placement of ear tubes History of GI bleed Old SC (myocardial infarction) PAF (paroxysmal atrial fibrillation) ([facility]) Atherosclerosis of [place] coronary artery of [place] heart without angina pectoris S/P TAVR (transcatheter aortic valve replacement) Elevated prostate specific antigen (PSA) BPH without obstruction/lower urinary tract symptoms Chronic kidney disease, stage 3a ([facility]) Type 2 diabetes mellitus with stage 3a chronic kidney disease, without long-term current use of insulin ([facility]) Multiple thyroid nodules Current Outpatient Medications Medication [...] dependent 90 Strip3 Blood Glucose Monitoring Suppl (PBC LasersTOUCH ULTRA 2) w/Device KIT Use to test [...] Review of patient's allergies indicates: Allergen Reactions Aubrey [Hydrocodone-Acetaminophen] Vomiting, dizziness, loss of balance, unable to stand, Past Medical History: Diagnosis Date Acute SC, inferolateral wall (HCC) 01/24/2011 3 stents (RCA at [facility], LAD, left main [facility]) Aortic valve stenosis 10/19/2019 Atherosclerosis of [place] coronary artery of [place] heart without angina pectoris 05/29/2019 BPH without obstruction/lower urinary tract symptoms 12/31/2020 Chronic serous otitis media DM type 2, goal A1C below 8.0 12/25/2013 Dyslipidemia, goal LDL below 70 01/28/2011 History of GI bleed 04/19/2017 Old SC (myocardial infarction) 04/19/2017 Osteoarthritis of right hip PAF (paroxysmal atrial fibrillation) (HCC) 12/30/2017 Postoperative anemia due to acute blood loss 04/18/2018 SUDDEN HEARING LOSS (left) 02/27/2008 Social History Socioeconomic History Marital status: Single Number of children: 0 Occupational History 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 Keep f/u with cardiology. [facility]. Recent 2 D echo last week was stable. Discussed bp check in 2 weeks with us. Inesas Still MD documented in this encounter Nursing [...] 01/03/2024 1:40 PM EDT Office Visit Podiatry [facility] [address] [place] [address] Julia Livingston DPM [address] [place] [address] 05/29/2024 2:40 PM EST Office Visit General Internal Medicine [facility] [address] [facility] [place] [address] Carroll Conley MD [address] [facility] [address] Health Maintenance Due Date Last Done Comments [...] Additional history exists CKD HGB USE SMARTSET 07875 10/10/202410/10, 10/11/2023, 03/31/2023, Additional history exists CKD PHOS USE SMARTSET 06725 10/10/2024 07/0 12/2023, 08/02/2022, 07/08/2021, Additional history [...] this encounter Medical Devices Implanted Type Area Grails Web Application Developer Device Identifier Shelf Expiration Date Model / Serial / Lot Pope Catarino Tylermmet Implanted:Qty: 1 on 05/13/2014 by Jose Alejandro Olivo MD at OR [facility] Right: Ear 07/03/2023 [id number] / / [id number] Trident Fermín Cluster Cup 60 - [id number] Implanted:Qty: 1 on 10/10/2014 by Jose Burton MD at OR [facility] Right: Hip NIXON : ORTHOPAEDICS 502-03-60F / / Screw Acetabular 6.5mm Tricia 25m - [id number] Implanted:Qty: 2 on 10/10/2014 by Jose Burton MD at OR [facility] Right: Hip NIXON : ORTHOPAEDICS 5354-0095-1 / / Trident Acetabular X3 0 36 F - [id number] Implanted:Qty: 1 on 10/10/2014 by Jose Burton MD at OR [facility] Right: Hip NIXON : ORTHOPAEDICS 623-00-36F / / Hip Hd Jeremiah Rivera 36/+75 - [id number] Implanted:Qty: 1 on 10/10/2014 by Jose Burton MD at OR [facility] Right: Hip NIXON : ORTHOPAEDICS 07/03/2019 6570-0-736 / / [id number] Stem Hip Sz6 - [id number] Implanted:Qty: 1 on 10/10/2014 by Jose Burton MD at OR [facility] Right: Hip NIXON : ORTHOPAEDICS 08/02/2019 6611-1118 / / [id number] Screw Acetabular 6.5mm Tricia 25m - [id number] Implanted:Qty: 1 on 04/17/2018 by Ismael Schroeder MD at OR [facility] Left: Hip NIXON : ORTHOPAEDICS 06/05/202220298964-3060-1 / / [id number] Bone Screw Cancellous 65 16 - [id number] Implanted:Qty: 1 on 04/17/2018 by Ismael Schroeder MD at OR [facility] Left: Hip NIXON : ORTHOPAEDICS 11/03/202220293351-1506-1 / / [id number] Hip Stem Secur Max Ang 127 10 - [id number] Implanted:Qty: 1 on 04/17/2018 by Ismael Schroeder MD at OR [facility] Left: Hip NIXON : ORTHOPAEDICS 10/23/2022 6052-1035S / / [id number] Streetcar Motorman Plt Trochan 100 2 2 Cable - [id number] Implanted:Qty: 1 on 04/17/2018 by Ismael Schroeder MD at OR [facility] Left: Hip NIXON : ORTHOPAEDICS 12/21/2022 6704-3-082 / / [id number] Sleeve Cable 2.0mm - [id number] Implanted:Qty: 1 on 04/17/2018 by Ismael Schroeder MD at OR [facility] Left: Hip NIXON : ORTHOPAEDICS 10/25/2022 6704-8-240 / / [id number] Hip Fem Hd Blox D Uni Taper 40 - [id number] Implanted:Qty: 1 on 04/17/2018 by Ismael Schroeder MD at OR [facility] Left: Hip NIXON : ORTHOPAEDICS 12/21/2022 6519-1-040 / / [id number] Sleeve Adptr +5 Univ C Taper - [id number] Implanted:Qty: 1 on 04/17/2018 by Ismael Schroeder MD at OR [facility] Left: Hip NIXON : ORTHOPAEDICS 10/14/2021 19-0005T / / [id number] Hip Trident Fermín Cluster 60 - [id number] Implanted:Qty: 1 on 04/17/2018 by Ismael Schroeder MD at OR [facility] Left: Hip NIXON : ORTHOPAEDICS 05/23/2022 502-11-60G / / [id number] Trident Acetabular X3 0 40 G - [id number] Implanted:Qty: 1 on 04/17/2018 by Ismael Schroeder MD at OR [facility] Left: Hip NIXON : ORTHOPAEDICS 12/23/2022 623-00-40G / / [id number] Screw Acetabular 6.5mm Tricia 25m - [id number] Implanted:Qty: 1 on 04/17/2018 by Ismael Schroeder MD at OR [facility] Left: Hip NIXON : ORTHOPAEDICS 01/15/2023 5745-9973-1 / / [id number] Balloon Cath Pacing [id number] - [id number] Implanted:Qty: 1 on 07/10/2020 at [facility] BARD : MEDICAL [id number] 06/01/2022 443130L / / [id number] Proglide Perclose 62719-40 X10 - [id number] Implanted:Qty: 1 on 07/10/2020 at [facility] : VASCULAR DEVICES [id number] 08/01/2021 53069-87 / / [id number] Proglide Perclose 99536-78 X10 - [id number] Implanted:Qty: 1 on 07/10/2020 at [facility] : VASCULAR DEVICES [id number] 08/01/2021 80218-67 / / [id number] Valve Wales[place] 3 Ultra 26mm - [id number] Implanted:Qty: 1 on 07/10/2020 at [facility] [employer] [id number] / / Proglide Perclose 05149-57 X10 - [id number] Implanted:Qty: 1 on 07/10/2020 at [facility] : VASCULAR DEVICES [id number] 01/01/2022 44272-08 / / [id number] documented as of this encounter Visit Diagnoses [...] Power of Attor mary? No Care Teams Medical Lab Technician Relationship Specialty Start Date End Date Carroll Conley MD [address] [place] [address] PCP - General Internal Medicine 06/16/12 documented as of this encounter
--- OUTSIDE RECORDS SUMMARY | 2023-10-21 20:46 | External Medical Summary | Summary of Care ---
Author Name Unknown Organization [facility] Address [address] [place] [address] Phone [phone] Care Team Providers Care Care Advocate Name Role Phone Carroll Conley MD Primary Care Provider + Reason for Visit * Reason Onset Date Comments Med Request 10/19/2023 Encounter Details Date Type Department Care Team (Late st Contact Info) Description 10/19/2023 [facility]phone [facility] [place] [address] Inessa Still MD [address] [place] [address] Med Request Allergies Active Allergy Reactions Criticality Noted Date Comments Hydrocodone-Acetaminophen High 05/29/2019 Vomiting, dizziness, loss of balance, unable to stand, documented as of this encounter (statuses as of 10/19/2023) Medications Medication Sig Dispensed Refills Start Date End Date Status nitroglycerin (NITROSTAT) 0.4 MG SUBLIndications:Acu te [place] ([facility]) 1 Tab Sublingual Every 5 minutes as needed for chest discomfort 25 Tab 6 04/07/2015 Active ONETOUCH DELICA LANCETS 33G MISCIndications:Typ e 2 diabetes mellitus with hemoglobin A1c goal of less than 8.0% ([facility]) Use to test blood once daily. Dx: E11.9 90 Each 3 02/23/2019 Active Glucose Blood In Vitro StripIndications:DM type 2 nursing care encounter ([facility]) tesing blood sugars once daily; E 11.9; non-insulin dependent 90 Strip 3 02/23/2019 Active Blood Glucose Monitoring Suppl (Connectipity ULTRA 2) w/Device KITIndications:Type 2 diabetes mellitus with hemoglobin A1c goal of less than 8.0% ([facility]) Use to test blood glucose 2 times [...] sacrum, unspecified portion of sacrum, initial encounter ([facility]) TAKE 1 TABLET BY MOUTH EVERY DAY [...] hemoglobin A1c goal of less than 7.0% ([facility]) TAKE 2 TABLETS BY MOUTH TWICE A [...] aortic valve replacement ) 07/10/2020 Atherosclerosis of [place] co ronary artery of [place] heart without angina pectoris 05/29/2019 PAF (paroxysmal atrial fibrillation) 12/30/2017 History of GI bleed 04/19/2017 Old [place] (myocardial infarction) 04/19/2017 Mixed hearing loss of [...] closed 12/31/202001/03 Atherosclerotic heart diseas e of [place] coronary artery with other forms of angina [...] 10/10/2014 04/06/2023 CAD (coronary artery disease ), [place] coronary artery 10/10/2014 12/31/2014 Chronic serous otitis media 05/11/2014 04/06/2023 Hip pain 05/21/2013 04/19/2017 Loss of height 04/05/2013 04/19/2017 Accelerate Clinical Trial*[id number] 10/02/2012 04/23/2015 Overview: ACCELERATE STUDY. Project # [id number], CRYSTAL GROWER: Chepe Campos MD. CRC: ANIL Daniels. SUMMARY: To test the hypothesis that Evacetrapib 130 mg, in comparison to placebo, reduces the risk of major adverse coronary events in high-risk vascular disease patients. CONTACTS: During normal business hours, contact study staff at ; after hours Meat Carrier via the [facility] hospital stitch bonder machine operator helper [phone]. 24-hour Global Study Helpline: [phone]. Lipid levels should not be ordered/obtained while this subject is in the Accelerate study. Lipids are being managed in a blinded fashion. If lipid levels are inadvertently obtained, it is important that test results are NOT provided to the patient, study doctor, store coordinator, or other study team members. Restricted meds while in the study: 1) niacin > 250 mg, 2) gemfibrozil with a potent [id number]. Type 2 diabetes mellitus wit h hemoglobin A1c goal of 7.0%-8.0% 09/17/2012 12/25/2013 Overview: ICD-10 update of inactive term Type 2 diabetes mellitus wit h hemoglobin A1c goal of 7.0%-8.0% 06/16/2012 09/17/2012 Overview: ICD-10 update of inactive term Acute inferolateral myocardial infarction 01/28/2011 04/19/2017 CAD. Inferolateral [place] treate d with bare metal stenting of distal RCA at [facility] on 01/24/2011. Severe left main [...] mRNA, LNP-s, No Pre serve, 2-Dose Series (MyBuys) 02/04/2021,06/13/2020,05/17/2020 Pneumococcal Conjugate Vacc, 13 Valent (Prevnar) [...] encounter Miscellaneous Notes * Telephone Encounter - Nhi Morin LPN [...] pt when approved Thank you, Nasrin Randolph CPhT Retail Stock Clerk II [facility]) 10/19/2023,5:36 PM documented in this encounter Plan of Treatment Upcoming Encounters Date Type Department Care Team (Late st Contact Info) Description 01/03/2024 1:40 PM EDT Office Visit Podiatry [facility] [address] [place] [address] Julia Livingston, AUBREY [address] [place] [address] 05/29/2024 2:40 PM EST Office Visit General Internal Medicine [facility] 200 [facility] [place] [address] Carroll Conley MD 200 [facility] [place] [address] Health Maintenance Due Date Last Done Comments [...] 03/31/2023, Additional history exists HbA1c 04/12/2024 10/11/2023, 01/0 06/2023, 08/02/2022, Additional history exists Albumin/Creatinine Ratio 10/10/2024 072 024, 08/02/2022, 07/08/2021, Additional history exists CKD HGB USE SMARTSET 16973 10/10/202410/10, 10/11/2023, 03/31/2023, Additional history exists CKD PHOS USE SMARTSET 15135 10/10/2024 07/0 12/2023, 08/02/2022, 07/08/2021, Additional history [...] this encounter Medical Devices Implanted Type Area Software Solutions Architect Device Identifier Shelf Expiration Date Model / Serial / Lot Brenner Beveled Grommet Implanted:Qty: 1 on 05/13/2014 by Jose Alejandro Olivo MD at OR [facility] Right: Ear 07/03/2023 [id number] / / [id number] Trident Fermín Cluster Cup 60 - [id number] Implanted:Qty: 1 on 10/10/2014 by Jose Burton MD at OR [facility] Right: Hip NIXON : ORTHOPAEDICS 502-03-60F / / Screw Acetabular 6.5mm Tricia 25m - [id number] Implanted:Qty: 2 on 10/10/2014 by Jose Burton MD at OR [facility] Right: Hip NIXON : ORTHOPAEDICS 4331-2032-1 / / Trident Acetabular X3 0 36 F - [id number] Implanted:Qty: 1 on 10/10/2014 by Jose Burton MD at OR [facility] Right: Hip NIXON : ORTHOPAEDICS 623-00-36F / / Hip Lul Chaney Md D 36/+75 - [id number] Implanted:Qty: 1 on 10/10/2014 by Jose Burton MD at OR [facility] Right: Hip NIXON : ORTHOPAEDICS 07/03/2019 6570-0-736 / / [id number] Stem Hip Sz6 - [id number] Implanted:Qty: 1 on 10/10/2014 by Jose Burton MD at OR [facility] Right: Hip NIXON : ORTHOPAEDICS 08/02/2019 8596-3022 / / [id number] Screw Acetabular 6.5mm Tricia 25m - [id number] Implanted:Qty: 1 on 04/17/2018 by Ismale Schroeder MD at OR [facility] Left: Hip NIXON : ORTHOPAEDICS 06/05/202220298219-3955-1 / / [id number] Bone Screw Cancellous 65 16 - [id number] Implanted:Qty: 1 on 04/17/2018 by Ismael Schroeder MD at OR [facility] Left: Hip NIXON : ORTHOPAEDICS 11/03/202220295782-6951-1 / / [id number] Hip Stem Secur Max Ang 127 10 - [id number] Implanted:Qty: 1 on 04/17/2018 by Ismael Schroeder MD at OR [facility] Left: Hip NIXON : ORTHOPAEDICS 10/23/2022 6052-1035S / / [id number] Touch Up Edger Plt Trochan 100 2 2 Cable - [id number] Implanted:Qty: 1 on 04/17/2018 by Ismael Schroeder MD at OR [facility] Left: Hip NIXON : ORTHOPAEDICS 12/21/2022 6704-3-082 / / [id number] Sleeve Cable 2.0mm - [id number] Implanted:Qty: 1 on 04/17/2018 by Ismael Schroeder MD at OR [facility] Left: Hip NIXON : ORTHOPAEDICS 10/25/2022 6704-8-240 / / [id number] Hip Fem Hd Blox D Uni Taper 40 - [id number] Implanted:Qty: 1 on 04/17/2018 by Ismael Schroeder MD at OR [facility] Left: Hip NIXON : ORTHOPAEDICS 12/21/2022 6519-1-040 / / [id number] Sleeve Adptr +5 Univ C Taper - [id number] Implanted:Qty: 1 on 04/17/2018 by Ismael Schroeder MD at OR [facility] Left: Hip NIXON : ORTHOPAEDICS 10/14/2021 19-0005T / / [id number] Hip Trident Fermín Cluster 60 - [id number] Implanted:Qty: 1 on 04/17/2018 by Ismael Schroeder MD at OR [facility] Left: Hip NIXON : ORTHOPAEDICS 05/23/2022 502-11-60G / / [id number] Trident Acetabular X3 0 40 G - [id number] Implanted:Qty: 1 on 04/17/2018 by Ismael Schroeder MD at OR [facility] Left: Hip NIXON : ORTHOPAEDICS 12/23/2022 623-00-40G / / [id number] Screw Acetabular 6.5mm Tricia 25m - [id number] Implanted:Qty: 1 on 04/17/2018 by Ismael Schroeder MD at OR [facility] Left: Hip NIXON : ORTHOPAEDICS 01/15/2023 1848-0796-1 / / [id number] Balloon Cath Pacing [id number] - [id number] Implanted:Qty: 1 on 07/10/2020 at [facility] : MEDICAL [id number] 06/01/2022 576754T / / [id number] Proglide Perclose 45218-43 X10 - [id number] Implanted:Qty: 1 on 07/10/2020 at [facility] : VASCULAR DEVICES [id number] 08/01/2021 06658-90 / / [id number] Proglide Perclose 77522-39 X10 - [id number] Implanted:Qty: 1 on 07/10/2020 at [facility] : VASCULAR DEVICES [id number] 08/01/2021 97561-63 / / [id number] Valve Waleska 3 Ultra 26mm - [id number] Implanted:Qty: 1 on 07/10/2020 at [facility] [employer] [id number] / / Proglide Perclose 25722-72 X10 - [id number] Implanted:Qty: 1 on 07/10/2020 at [facility] : VASCULAR DEVICES [id number] 01/01/2022 67410-92 / / [id number] documented as of this encounter Advance Directives [...] Power of Attor mary? No Care Teams Care Advocate Relationship Specialty Start Date End Date Carroll Conley MD 200 [facility] [place], [place] [address] PCP - General Internal Medicine 06/16/12 documented as of this encounter
--- OUTSIDE RECORDS SUMMARY | 2023-10-21 20:46 | External Medical Summary | Summary of Care ---
Author Name Unknown Organization [facility] Address [address] [place] [address] Phone [phone] Care Team Providers Care Snaker Driving Horses Name Role Phone Carroll Conley MD Primary Care Provider + Reason for Visit * Reason Comments Emergency Department Follow-Up Continues to have lower back pain-requesting refills of oxycodone Encounter Details Date Type Department Care Team (Late st Contact Info) Description 10/18/2023 1:20 PM EDT Office Visit General Internal Medicine [facility] [address] [facility] [address] [place] [address] Inessa Still MD [address] [facility] [place] [address] Buttock pain*; Personal history of fall Allergies Active Allergy Reactions Criticality Noted Date Comments Hydrocodone-Acetaminophen High 05/29/2019 Vomiting, dizziness, loss of balance, unable to stand, documented as of this encounter (statuses as of 10/18/2023) Medications Medication Sig Dispensed Refills Start Date End Date Status nitroglycerin (NITROSTAT) 0.4 MG SUBLIndications:Acu te [place] ([facility]) 1 Tab Sublingual Every 5 minutes as needed for chest discomfort 25 Tab 6 04/07/2015 Active ONETOUCH DELICA LANCETS 33G MISCIndications:Typ e 2 diabetes mellitus with hemoglobin A1c goal of less than 8.0% ([facility]) Use to test blood once daily. Dx: E11.9 90 Each 3 02/23/2019 Active Glucose Blood In Vitro StripIndications:DM type 2 nursing care encounter (HCC) tesing blood sugars once daily; E 11.9; non-insulin dependent 90 Strip 3 02/23/2019 Active Blood Glucose Monitoring Suppl (CombiMatrixUCH ULTRA 2) w/Device KITIndications:Type 2 diabetes mellitus [...] hemoglobin A1c goal of less than 7.0% ([facility]) TAKE 1 TABLET BY MOUTH EVERY DAY [...] sacrum, unspecified portion of sacrum, initial encounter ([facility]) TAKE 1 TABLET BY MOUTH EVERY DAY [...] hemoglobin A1c goal of less than 7.0% ([facility]) TAKE 2 TABLETS BY MOUTH TWICE A [...] aortic valve replacement ) 07/10/2020 Atherosclerosis of [place] co ronary artery of [place] heart without angina pectoris 05/29/2019 PAF (paroxysmal atrial fibrillation) 12/30/2017 History of GI bleed 04/19/2017 Old [place] (myocardial infarction) 04/19/2017 Mixed hearing loss of [...] closed 12/31/202001/03 Atherosclerotic heart diseas e of [place] coronary artery with other forms of angina [...] 10/10/2014 04/06/2023 CAD (coronary artery disease ), [place] coronary artery 10/10/2014 12/31/2014 Chronic serous otitis media 05/11/2014 04/06/2023 Hip pain 05/21/2013 04/19/2017 Loss of height 04/05/2013 04/19/2017 Accelerate Clinical Trial*[id number] 10/02/2012 04/23/2015 Overview: ACCELERATE STUDY. Project # [id number], ACROBATIC DANCER: Chepe Campos MD. CRC: ANIL Daniels. SUMMARY: To test the hypothesis that Evacetrapib 130 mg, in comparison to placebo, reduces the risk of major adverse coronary events in high-risk vascular disease patients. CONTACTS: During normal business hours, contact study staff at ; after hours Central Office Equipment Engineer via the [facility] hospital catalyst operator chief [phone]. 24-hour Global Study Helpline: [phone]. Lipid levels should not be ordered/obtained while this subject is in the Accelerate study. Lipids are being managed in a blinded fashion. If lipid levels are inadvertently obtained, it is important that test results are NOT provided to the patient, study doctor, medical education coordinator, or other study team members. Restricted meds while in the study: 1) niacin > 250 mg, 2) gemfibrozil with a potent [id number]. Type 2 diabetes mellitus wit h hemoglobin A1c goal of 7.0%-8.0% 09/17/2012 12/25/2013 Overview: ICD-10 update of inactive term Type 2 diabetes mellitus wit h hemoglobin A1c goal of 7.0%-8.0% 06/16/2012 09/17/2012 Overview: ICD-10 update of inactive term Acute inferolateral myocardial infarction 01/28/2011 04/19/2017 CAD. Inferolateral [place] treate d with bare metal stenting of distal RCA at [facility] on 01/24/2011. Severe left main and [...] mRNA, LNP-s, No Pre serve, 2-Dose Series ([employer]) 02/04/2021,06/13/2020,05/17/2020 Pneumococcal Conjugate Vacc, 13 Valent (Prevnar) [...] as of this encounter Progress Notes * Insesa Still MD - 10/18/2023 1:03 PM EDT HPI: Michele Rivers is a 83 year old male with history of type 2 diabetes mellitus, CAD, history ofold [place], paroxysmal atrial fibrillation, status post TAVR, BPH, CKD, history of multiple thyroid nodules, hyperlipidemia, history of angioplasty with stent, history of GI bleed, status post total hip arthroplasty who presents with: No chief complaint on file. As per review of the chart and discussion with the patient, he ended up in [facility] ER on 10/16/23 as had worsening pain [...] hemoglobin A1c goal of less than 8.0% ([facility]) S/P total hip arthroplasty Mixed hearing loss of right ear History of placement of ear tubes History of GI bleed [place] (myocardial infarction) PAF (paroxysmal atrial fibrillation) ([facility]) Atherosclerosis of [place] coronary artery of [place] heart without angina pectoris S/P TAVR (transcatheter aortic valve replacement) Elevated prostate specific antigen (PSA) BPH without obstruction/lower urinary tract symptoms Chronic kidney disease, stage 3a ([facility]) Type 2 diabetes mellitus with stage 3a chronic kidney disease, without long-term current use of insulin ([facility]) Multiple thyroid nodules Current Outpatient Medications Medication [...] dependent 90 Strip3 Blood Glucose Monitoring Suppl ([employer]en [employer] CapitalTOUCH ULTRA 2) w/Device KIT Use to test [...] Review of patient's allergies indicates: Allergen Reactions [place] [Hydrocodone-Acetaminophen] Vomiting, dizziness, loss of balance, unable to stand, Past Medical History: Diagnosis Date Acute [place], inferolateral wall (HCC) 01/24/2011 3 stents (RCA at [facility], LAD, left main [facility]) Aortic valve stenosis 10/19/2019 Atherosclerosis of [place] coronary artery of [place] heart without angina pectoris 05/29/2019 BPH without obstruction/lower urinary tract symptoms 12/31/2020 Chronic serous otitis media DM type 2, goal A1C below 8.0 12/25/2013 Dyslipidemia, goal LDL below 70 01/28/2011 History of GI bleed 04/19/2017 Old [place] (myocardial infarction) 04/19/2017 Osteoarthritis of right hip PAF (paroxysmal atrial fibrillation) (HCC) 12/30/2017 Postoperative anemia due to acute blood loss 04/18/2018 SUDDEN HEARING LOSS (left) 02/27/2008 Social History Socioeconomic History Marital status: Single Number of children: 0 Occupational History 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 Keep f/u with cardiology. States sees [facility]. Recent 2 D echo last week [...] 01/03/2024 1:40 PM EDT Office Visit Podiatry [facility] [address] [place] [address] Julia Livingston DPM [address] [place] [address] 05/29/2024 2:40 PM EST Office Visit General Internal Medicine [facility] [address] [facility] [place] [address] Carroll Conley MD [facility] [address] Health Maintenance Due Date Last Done Comments [...] Additional history exists CKD HGB USE SMARTSET 84903 10/10/202410/10, 10/11/2023, 03/31/2023, Additional history exists CKD PHOS USE SMARTSET 77714 10/10/2024 07/0 12/2023, 08/02/2022, 07/08/2021, Additional history [...] this encounter Medical Devices Implanted Type Area Hypoid Gear Generator Device Identifier Shelf Expiration Date Model / Serial / Lot Pope Catarino Tylermmet Implanted:Qty: 1 on 05/13/2014 by Jose Alejandro Olivo MD at [place] [facility] Right: Ear 07/03/2023 [id number] / / [id number] Trident Fermín Cluster Cup 60 - [id number] Implanted:Qty: 1 on 10/10/2014 by Jose Burton MD at OR [facility] Right: Hip NIXON : ORTHOPAEDICS 502-03-60F / / Screw Acetabular 6.5mm Tricia 25m - [id number] Implanted:Qty: 2 on 10/10/2014 by Jose Burton MD at OR [facility] Right: Hip NIXON : ORTHOPAEDICS 6752-1643-1 / / Trident Acetabular X3 0 36 F - [id number] Implanted:Qty: 1 on 10/10/2014 by Jose Burton MD at OR [facility] Right: Hip NIXON : ORTHOPAEDICS 623-00-36F / / Hip Hd Jeremiah Rivera 36/+75 - [id number] Implanted:Qty: 1 on 10/10/2014 by Jose Burton MD at OR [facility] Right: Hip NIXON : ORTHOPAEDICS 07/03/2019 6570-0-736 / / [id number] Stem Hip Sz6 - [id number] Implanted:Qty: 1 on 10/10/2014 by Jose Burton MD at OR [facility] Right: Hip NIXON : ORTHOPAEDICS 08/02/2019 7144-2910 / / [id number] Screw Acetabular 6.5mm Tricia 25m - [id number] Implanted:Qty: 1 on 04/17/2018 by Ismael Schroeder MD at OR [facility] Left: Hip NIXON : ORTHOPAEDICS 06/05/202220291261-8666-1 / / [id number] Bone Screw Cancellous 65 16 - [id number] Implanted:Qty: 1 on 04/17/2018 by Ismael Schroeder MD at OR [facility] Left: Hip NIXON : ORTHOPAEDICS 11/03/202220298420-1856-1 / / [id number] Hip Stem Secur Max Ang 127 10 - [id number] Implanted:Qty: 1 on 04/17/2018 by Ismael Schroeder MD at OR [facility] Left: Hip NIXON : ORTHOPAEDICS 10/23/2022 6052-1035S / / [id number] Video Game Producer Plt Trochan 100 2 2 Cable - [id number] Implanted:Qty: 1 on 04/17/2018 by Ismael Schroeder MD at OR [facility] Left: Hip NIXON : ORTHOPAEDICS 12/21/2022 6704-3-082 / / [id number] Sleeve Cable 2.0mm - [id number] Implanted:Qty: 1 on 04/17/2018 by Ismael Schroeder MD at OR [facility] Left: Hip NIXON : ORTHOPAEDICS 10/25/2022 6704-8-240 / / [id number] Hip Fem Hd Blox D Uni Taper 40 - [id number] Implanted:Qty: 1 on 04/17/2018 by Ismael Schroeder MD at OR [facility] Left: Hip NIXON : ORTHOPAEDICS 12/21/2022 6519-1-040 / / [id number] Sleeve Adptr +5 Univ C Taper - [id number] Implanted:Qty: 1 on 04/17/2018 by Ismael Schroeder MD at OR [facility] Left: Hip NIXON : ORTHOPAEDICS 10/14/2021 19-0005T / / [id number] Hip Trident Fermín Cluster 60 - [id number] Implanted:Qty: 1 on 04/17/2018 by Ismael Schroeder MD at OR [facility] Left: Hip NIXON : ORTHOPAEDICS 05/23/2022 502-11-60G / / [id number] Trident Acetabular X3 0 40 G - [id number] Implanted:Qty: 1 on 04/17/2018 by Ismael Schroeder MD at OR [facility] Left: Hip NIXON : ORTHOPAEDICS 12/23/2022 623-00-40G / / [id number] Screw Acetabular 6.5mm Tricia 25m - [id number] Implanted:Qty: 1 on 04/17/2018 by Ismael Schroeder MD at OR [facility] Left: Hip NIXON : ORTHOPAEDICS 01/15/2023 1557-5461-1 / / [id number] Balloon Cath Pacing [id number] - [id number] Implanted:Qty: 1 on 07/10/2020 at [facility] : MEDICAL [id number] 06/01/2022 544777Z / / [id number] Proglide Perclose 85694-15 X10 - [id number] Implanted:Qty: 1 on 07/10/2020 at [facility] : VASCULAR DEVICES [id number] 08/01/2021 86194-34 / / [id number] Proglide Perclose 94035-31 X10 - [id number] Implanted:Qty: 1 on 07/10/2020 at [facility] : VASCULAR DEVICES [id number] 08/01/2021 94654-02 / / [id number] Valve Waleska 3 Ultra 26mm - [id number] Implanted:Qty: 1 on 07/10/2020 at [facility] [employer] [id number] / / Proglide Perclose 57800-99 X10 - [id number] Implanted:Qty: 1 on 07/10/2020 at [facility] VASCULAR DEVICES [id number] 01/01/2022 21048-94 / / [id number] documented as of this encounter Visit Diagnoses [...] Power of Attor mary? No Care Teams Snaker Driving Horses Relationship Specialty Start Date End Date Carroll Conley MD [address] [place] [address] PCP - General Internal Medicine 06/16/12 documented as of this encounter
[2023-10-21] MEDS: ENOXAPARIN INJ 40 MG/0.4 ML SYR SQ SCH (20:53)
[2023-10-21] MEDS ORDERED: ZOLPIDEM TARTRATE 5 MG TAB PO PRN (21:12)
[2023-10-21] MEDS ORDERED: GLUCAGON FOR INJ 1 MG VIAL SQ PRN (21:12)
[2023-10-21] MEDS ORDERED: DEXTROSE 50% 50 ML SYRINGE IV PRN (21:12)
[2023-10-21] MEDS ORDERED: GLUCOSE 10 TAB/TUBE PO PRN (21:12)
[2023-10-21] MEDS ORDERED: CARBOHYDRATES FOR HYPOGLYCEMIA PO PRN (21:12)
[2023-10-21] MEDS ORDERED: POLYETHYLENE (MIRALAX) 17 GM PACK PO PRN (21:12)
[2023-10-21] MEDS ORDERED: ALUMINUM/MAGNESIUM SUSP 30 ML UDC PO PRN (21:12)
[2023-10-21] MEDS ORDERED: ONDANSETRON INJ 2 MG/ML 2 ML VIAL IV PRN (21:12)
[2023-10-21] MEDS ORDERED: GLUCOSE 40% GEL 15 GM TUBE PO PRN (21:12)
[2023-10-21] MEDS: ACETAMINOPHEN 500 MG TAB PO SCH (21:34)
[2023-10-21] MEDS: traMADol HCL 50 MG TABLET PO SCH (21:34)
[2023-10-21] MEDS: INSULIN ASPART PER UNIT CHARGE SC SCH (21:58)
[2023-10-21] MEDS: HYDROmorphone HCL 2 MG TAB PO PRN (22:36)
[2023-10-22 07:52] LABS: BUN Creatinine Ratio 21.5 (10-20); Calcium 8.8 mg/dl (8.6-10.3); Creatinine Clr Calc Pharmacy 43.7 ml/min; Est GFR (African American) 58.1 ml/min; Est GFR (Non-African American) 50.1 ml/min; Potassium 4.6 mmol/L (3.5-5.1)
[2023-10-22] MEDS ORDERED: metFORMIN HCL 500 MG TAB PO SCH (08:00)
[2023-10-22] MEDS: METOPROLOL SUCC 25MG EXT REL TAB PO SCH (08:24)
[2023-10-22] MEDS: ATORVASTATIN 40 MG TAB PO SCH (08:24)
[2023-10-22] MEDS: CLOPIDOGREL BISULFATE 75 MG TAB PO SCH (08:25)
[2023-10-22] MEDS ORDERED: NON-FORMULARY MEDICATION (Linagliptin [Tradjenta] 5 mg tablet) PO SCH (09:00)
[2023-10-22] MEDS ORDERED: GLIMEPIRIDE 2 MG TAB PO SCH (09:00)
--- NOTE | 2023-10-22 11:43 | Orthopedic Consultation ---
Date of Service October 22, 2023 Assessment & Plan (1) Buttock pain: (2) Fall: (3) Lumbar transverse process fracture: (4) Low back pain: History of Present Illness Reason for Consultation: L5 transverse process fracture right, low back pain. Requesting Physician: . Attending Physician: Hudson Stacy MD 83 year old Male arrives for evaluation of right back and hip pain.. Patient was seen on the for similar complaints. CT imaging of the time was done and negative. Musculoskeletal source considered. Patient was given oxycodone. Despite that oxycodone he noted pain was not controlled. Describes his initial injury as falling several days prior to the ED visit on the . He states he fell backwards and landed on his buttocks. Patient denied any other injury or any new fall. Patient states that he was not having any significant symptoms prior to the fall, he notes this morning his symptoms are improved versus yesterday when he arrived at the emergency room. He denies any significant lower extremities but states the pain starts in his lumbosacral spine on the right will radiate to the buttock upper posterior thigh. Exam reveals the patient to have pain indicated in the area as stated, he has strength that is 5/5 for E[facility] ankle plantar dorsiflexion, knee extension and flexion, hip flexion. He does have some pain on elevating the right leg mostly in the lumbosacral spine buttock region. No focal areas of sensory loss. CT bony pelvis wo con October, CLINICAL HISTORY: fall last week, pain right hemipelvis, right hip r TECHNIQUE: Helical axial images of the pelvis were obtained and displayed at 5 and 1 mm intervals. Automated dose lowering techniques and/or adjustment according to patient size were utilized for this exam. This exam was performed without intravenous contrast. CT DOSE: 949.3 mGy.cm COMPARISON: Comparison is made to CT abdomen pelvis 10/16/2023 FINDINGS: Bladder: Unremarkable. Reproductive organs: Unremarkable. Bowel: Diverticulosis is seen without diverticulitis. The appendix is normal. Lymph nodes Pelvic: Unremarkable. Mesenteric: Unremarkable. Peritoneum: Normal Vessels: Atherosclerotic calcifications are seen. Abdominal wall: Left fat containing inguinal hernia. Bones: Bilateral hip arthroplasties are seen. IMPRESSION: Degenerative changes are seen with right L5 transverse process nondisplaced fracture is seen. CT scans of the pulmonary pelvis along with review of review of CT scan of the abdomen and pelvis from October 15 was performed, this my separate interpretation, this reveals the patient to have a right transverse process fracture at L5. There are degenerative changes at the remaining levels, but no evidence of compression fracture. Some disc degeneration is established chronic in nature at L5-S1, due to disc space loss height there is some foraminal narrowing. Impression: 6 days from fall with continued low back pain is the main complaint in the right lumbosacral spine with radiation to the upper right thigh. Plan: In talking with the patient today, he notes that he is improved today versus he was yesterday, and Occupational Therapy had just completed and with assistance he was able to mobilize with a walker but only to the bathroom. I related to the patient that I would have recommendations of additional medication options, these might be helpful relative to reducing his symptoms, and if he is able to get to a reasonable level of mobilization may be able to be discharged to home with appropriate medications, or considerations might need to be made for rehab. Eventual follow-up in the office with any additional imaging can be performed the patient does not continue to to improve. In addition to the oxycodone and Dilaudid, consideration could be made for a muscle relaxer, tizanidine 4 mg 1 3 times daily, and considerations for a taper dose steroid or Toradol. Allergies Allergy/AdvReac Type Severity Reaction Status Date / Time acetaminophen [From [place]] AdvReac Nausea Verified 04/25/23 14:22 hydrocodone [From [place]] AdvReac Nausea Verified 04/25/23 14:22 Home Medications Medication Instructions Recorded Confirmed Type atorvastatin 80 mg tablet 80 mg PO DAILY 04/13/19 10/21/23 History metformin 500 mg tablet 1,000 mg PO BIDM 04/13/19 10/21/23 History nitroglycerin 0.4 mg sublingual 0.4 mg sublingual DIRECTED PRN 04/13/19 10/21/23 History tablet Chest Pain glimepiride 4 mg tablet 8 mg PO QAM 04/14/19 10/21/23 History zolpidem 5 mg tablet 5 mg PO HS PRN Sleep 04/14/19 10/21/23 History linagliptin 5 mg tablet (Tradjenta) 5 mg PO DAILY #90 tabs 03/31/20 10/21/23 Rx aspirin 81 mg tablet,delayed 81 mg PO DAILY PRN Other 04/01/21 10/21/23 History release (Adult Low Dose Aspirin) metoprolol succinate 25 mg 25 mg PO DAILY #90 tabs 11/06/22 10/21/23 Rx tablet,extended release 24 hr clopidogrel 75 mg tablet 75 mg PO DAILY #90 tabs 12/28/22 10/21/23 Rx oxycodone 5 mg tablet 5 mg PO Q8H PRN pain (scale score 10/16/23 10/21/23 Rx 7-10) #10 tabs Past Med/Surg History Problem List (Updated 10/22/23 @ 11:53 by Armand Barnes MD) Low back pain Ambulatory dysfunction (Acute) Fracture of L5 vertebra (Acute) Coccyx contusion Lumbar transverse process fracture Buttock pain (Acute) Fall (Acute) Syncope and collapse Paroxysmal atrial fibrillation Lightheadedness S/P TAVR (transcatheter aortic valve replacement) Exertional angina Type 2 diabetes mellitus GI bleed (Acute) Atrial fibrillation (Acute) Aortic stenosis S/P coronary artery stent placement CAD (coronary artery disease) Hypertension (Chronic) Hypercholesteremia (Chronic) Medical History Paroxysmal atrial fibrillation Paroxysmal ventricular tachycardia Aortic stenosis CAD (coronary artery disease) Osteoarthritis GERD (gastroesophageal reflux disease) Diabetes mellitus, type 2 Hypertension Hyperlipidemia GI bleed Surgical [place] [facility] [place] of cardiac cath 2010 History of colonoscopy History of tonsillectomy History of total hip arthroplasty RT S/P coronary artery stent placement S/P inguinal hernia repair S/P TAVR (transcatheter aortic valve replacement) Social History Smoking Status: Never smoker Second Hand Exposure: No; Do You Dip or Chew Tobacco: No; Hx Alcohol Use: Yes Alcohol type: wine Hx Substance Use: No Preferred Language: Danish Communication Ability: Effective Manager Books Required: No Beliefs That Will Affect Care: None Current Living Situation: Other Current Living Situation Comment: 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 Physical Exam . Results & Data Results & Data Laboratory Results . Diagnostic Findings . PG Care Time/CCT Total # of Minutes Spent Total Time Spent with Patient: Total time spent is greater than 50% in coordination of care (as documented) at patient's floor/unit and/or counseling patient: Coding Level of Care Code 71004 IN/OBS CONSULT LVL 3,45M Diagnoses Buttock pain M79.18 Fall W19.XXXA Lumbar transverse process fracture S32.009A Low back pain M54.50
--- NOTE | 2023-10-22 15:19 | Hospitalist Progress Note ---
Date of Service October 22, 2023 Assessment & Plan (1) Fall: Plan: Patient is an 83-year-old gentleman man with acute lumbar pain and coccyx pain with ambulatory dysfunction secondary to a fall sustained approximately 10 days ago with imaging now revealing a right L5 transverse process fracture. Status post mechanical fall about 6 days prior to admission Acute back pain with radiation to the right leg significant since yesterday Noted to have fracture of right lumbar 5 transverse process Pain is reasonably controlled with current medication Denies any bladder and/or bowel problem and does not have any focal neurodeficit on examination Appreciate orthospine input and recommendation Will start muscle relaxants and tapering course of prednisone PT OT evaluation and possible placement (2) Lumbar transverse process fracture: Plan: As above (3) Type 2 diabetes mellitus: Plan: Continue home diabetes medications, his glucoses are well-controlled add sliding scale Continue other home medications as ordered. (4) Paroxysmal atrial fibrillation: Plan: Rate is controlled Not on any anticoagulation Continue beta-eric (5) Coccyx contusion: (6) Aortic stenosis: Plan: No acute symptoms (7) S/P TAVR (transcatheter aortic valve replacement): Plan: Will continue aspirin and Plavix Plan DVT prophylaxis subcu Lovenox CODE STATUS full Admission and Anticipated Discharge Date Admission Date: October 21, 2023 Subjective ,10/22/2023 The patient was seen and examined in medical floor He has had a fall with right-sided lower back pain and radiation to the legs No symptoms prior to the fall,he is as tripped and fell Pain seems to be under control Review of Systems Review of Systems: All systems reviewed and are unremarkable except as noted below Physical Exam Physical Exam: Lying in bed without any acute distress Constitutional: well developed, well nourished, + ill appearing and average body habitus Eyes: PERRL, conjunctivae normal, anicteric sclerae ENMT: external ear and nose normal, oropharynx normal Neck: trachea midline, no thyromegaly Respiratory: no respiratory distress Auscultation: lungs clear to auscultation bilaterally Cardiovascular: Rate/Rhythm: regular rate and regular rhythm Heart Sounds: normal S1 and normal S2; no murmur Extremities: no edema Gastrointestinal (Abdomen): Inspection/Auscultation: normal bowel sounds; abdomen not distended Percussion/Palpation: abdomen soft; abdomen nontender Musculoskeletal: No significant localized tenderness and does not have any radiation of pain during my examination Neurologic: normal touch/pain/proprioception and moves all extremities; no focal motor deficits Psychiatric: A+Ox3, euthymic affect Lymphatic: no cervical or axillary lymphadenopathy Results & Data Results & Data Vital Signs (Past 12 Hours) Vital Signs Temp Pulse Resp BP Pulse Ox O2 Del Method 10/22/23 14:29 36.6 C 85 16 110/68 96 Room Air 10/22/23 08:24 68 95 Room Air 10/22/23 07:16 36.4 C L 58 L 16 109/64 96 Room Air Laboratory Results Short CBC 10/21/23 Range/Units 15:12 WBC 6.01 (4.8-10.8) K/ul Hgb 9.7 L (14.0-18.0) g/dl Hct 29.3 L (42.0-52.0) % Plt Count 253 (130-400) K/uL BMP 10/21/23 10/22/23 15:12 06:36 Sodium 137 139 Potassium 4.5 4.6 Chloride 106 107 Carbon Dioxide 24 27 BUN 22 28 H Creatinine 1.26 1.30 Glucose 131 H 253 H Calcium 9.2 8.8 Liver Function 10/21/23 Range/Units 15:12 Total Bilirubin 0.5 (0.2-1.0) mg/dl AST 13 (13-39) U/L ALT 11 (7-52) U/L Alkaline Phosphatase 93 (34-104) U/L Albumin 3.8 (3.4-5.0) gm/dl Medications Administered Current Inpatient Medications Acetaminophen (Acetaminophen 500 Mg Tab) 1,000 mg PO TID [facility] Stop: 11/20/23 21:11 Last Admin: 10/22/23 13:30 Dose: 1,000 mg Al Hydrox/Mg Hydrox/Simethicone (Aluminum/Magnesium Susp 30 Ml Udc) 30 ml PO Q6H PRN PRN Reason: Dyspepsia Stop: 11/20/23 21:11 Atorvastatin Calcium (Atorvastatin 40 Mg Tab) 80 mg PO DAILY [facility] Stop: 11/21/23 08:59 Last Admin: 10/22/23 08:24 Dose: 80 mg Clopidogrel Bisulfate (Clopidogrel Bisulfate 75 Mg Tab) 75 mg PO DAILY [facility] Stop: 11/21/23 08:59 Last Admin: 10/22/23 08:25 Dose: 75 mg Dextrose (Dextrose 50% 50 Ml Syringe) 25 - 50 ml IV UD PRN; Protocol PRN Reason: Hypoglycemia Protocol Stop: 11/20/23 21:11 Enoxaparin Sodium (Enoxaparin Inj 40 Mg/0.4 Ml Syr) 40 mg SQ Q24H [facility] Stop: 11/20/23 19:59 Last Admin: 10/21/23 20:53 Dose: Not Given Glucagon (Glucagon For Inj 1 Mg Vial) 1 mg SQ UD PRN; Protocol PRN Reason: Hypoglycemia Protocol Stop: 11/20/23 21:11 Glucose (Glucose 40% Gel 15 Gm Tube) 15 - 30 gm PO UD PRN; Protocol PRN Reason: Hypoglycemia Protocol Stop: 11/20/23 21:11 Glucose (Glucose 10 Tab/Tube) 4 - 8 tab PO UD PRN; Protocol PRN Reason: Hypoglycemia Treatment Stop: 11/20/23 21:11 Hydromorphone HCl (Hydromorphone Hcl 2 Mg Tab) 2 mg PO Q3H PRN PRN Reason: severe Pain Stop: 11/04/23 21:11 Last Admin: 10/22/23 11:16 Dose: 2 mg Insulin Aspart (Insulin Aspart Per Unit Charge) 0 units SC ACHS [facility] Stop: 11/20/23 21:11 Last Admin: 10/22/23 12:04 Dose: Not Given Metoprolol Succinate (Metoprolol Succ 25mg Ext Rel Tab) 25 mg PO DAILY [facility] Stop: 11/21/23 08:59 Last Admin: 10/22/23 08:24 Dose: 25 mg Miscellaneous (Carbohydrates For Hypoglycemia ) 15 - 30 gm PO UD PRN PRN Reason: Hypoglycemia Protocol Stop: 11/20/23 21:11 Ondansetron HCl (Ondansetron Inj 2 Mg/Ml 2 Ml Vial) 4 mg IV Q6H PRN PRN Reason: Nausea Stop: 11/20/23 21:11 Polyethylene Glycol (Polyethylene (Miralax) 17 Gm Pack) 17 gm PO DAILY PRN PRN Reason: Constipation Stop: 11/20/23 21:11 Tramadol HCl (Tramadol Hcl 50 Mg Tablet) 25 mg PO TID [facility] Stop: 11/20/23 21:11 Last Admin: 10/22/23 13:30 Dose: 25 mg Zolpidem Tartrate (Zolpidem Tartrate 5 Mg Tab) 5 mg PO HS PRN PRN Reason: Sleep Stop: 11/20/23 21:11
[2023-10-22] MEDS: predniSONE 20 MG TAB PO SCH (16:03)
[2023-10-22] MEDS: tiZANidine HCL 4 MG TABLET PO SCH (20:50)
[2023-10-23] MEDS: oxyCODONE HCL IR 5 MG TAB (IMMEDIATE RELEASE) PO PRN (10:37)
--- NOTE | 2023-10-23 16:00 | Hospitalist Progress Note ---
Date of Service October 23, 2023 Assessment & Plan (1) Fall: Plan: Patient is an 83-year-old gentleman man with acute lumbar pain and coccyx pain with ambulatory dysfunction secondary to a fall sustained approximately 10 days ago with imaging now revealing a right L5 transverse process fracture. Status post mechanical fall about 6 days prior to admission Acute back pain with radiation to the right leg significant since yesterday Noted to have fracture of right lumbar 5 transverse process Pain is reasonably controlled with current medication Denies any bladder and/or bowel problem and does not have any focal neurodeficit on examination Appreciate orthospine input and recommendation Will start muscle relaxants and tapering course of prednisone PT OT evaluation and possible placement Remains medically stable Started oral oxycodone for better pain control as he was taking that medicine at home Likely discharge tomorrow May need placement (2) Lumbar transverse process fracture: Plan: As above (3) Type 2 diabetes mellitus: Plan: Continue home diabetes medications, his glucoses are well-controlled add sliding scale Continue other home medications as ordered. (4) Paroxysmal atrial fibrillation: Plan: Rate is controlled Not on any anticoagulation Continue beta-eric (5) Coccyx contusion: (6) Aortic stenosis: Plan: No acute symptoms (7) S/P TAVR (transcatheter aortic valve replacement): Plan: Will continue aspirin and Plavix Plan DVT prophylaxis subcu Lovenox CODE STATUS full Admission and Anticipated Discharge Date Admission Date: October 21, 2023 Subjective ,10/22/2023 The patient was seen and examined in medical floor He has had a fall with right-sided lower back pain and radiation to the legs No symptoms prior to the fall,he is as tripped and fell Pain seems to be under control 10/23/2023 The patient was seen and examined in the medical floor His pain in the lower back has increased today and all primary is not taking care of the pain He was taking oxycodone at home and will be rescheduled Denies any other symptoms Review of Systems Review of Systems: All systems reviewed and are unremarkable except as noted below Physical Exam Physical Exam: Lying in bed without any acute distress Constitutional: well developed, well nourished, + ill appearing and average body habitus Eyes: PERRL, conjunctivae normal, anicteric sclerae ENMT: external ear and nose normal, oropharynx normal Neck: trachea midline, no thyromegaly Respiratory: no respiratory distress Auscultation: lungs clear to auscultation bilaterally Cardiovascular: Rate/Rhythm: regular rate and regular rhythm Heart Sounds: normal S1 and normal S2; no murmur Extremities: no edema Gastrointestinal (Abdomen): Inspection/Auscultation: normal bowel sounds; abdomen not distended Percussion/Palpation: abdomen soft; abdomen nontender Neurologic: normal touch/pain/proprioception and moves all extremities; no focal motor deficits Psychiatric: A+Ox3, euthymic affect Lymphatic: no cervical or axillary lymphadenopathy Results & Data Results & Data Vital Signs (Past 12 Hours) Vital Signs Temp Pulse Resp BP Pulse Ox O2 Del Method 10/23/23 14:30 36.6 C 71 16 94/50 L 94 Room Air 10/23/23 10:41 Room Air 10/23/23 10:08 75 10/23/23 07:05 36.4 C L 58 L 16 106/64 95 Room Air Medications Administered Current Inpatient Medications Acetaminophen (Acetaminophen 500 Mg Tab) 1,000 mg PO TID [facility] Stop: 11/20/23 21:11 Last Admin: 10/23/23 13:21 Dose: 1,000 mg Al Hydrox/Mg Hydrox/Simethicone (Aluminum/Magnesium Susp 30 Ml Udc) 30 ml PO Q6H PRN PRN Reason: Dyspepsia Stop: 11/20/23 21:11 Atorvastatin Calcium (Atorvastatin 40 Mg Tab) 80 mg PO DAILY [facility] Stop: 11/21/23 08:59 Last Admin: 10/23/23 07:42 Dose: 80 mg Clopidogrel Bisulfate (Clopidogrel Bisulfate 75 Mg Tab) 75 mg PO DAILY [facility] Stop: 11/21/23 08:59 Last Admin: 10/23/23 07:43 Dose: 75 mg Dextrose (Dextrose 50% 50 Ml Syringe) 25 - 50 ml IV UD PRN; Protocol PRN Reason: Hypoglycemia Protocol Stop: 11/20/23 21:11 Enoxaparin Sodium (Enoxaparin Inj 40 Mg/0.4 Ml Syr) 40 mg SQ Q24H [facility] Stop: 11/20/23 19:59 Last Admin: 10/22/23 20:51 Dose: Not Given Glucagon (Glucagon For Inj 1 Mg Vial) 1 mg SQ UD PRN; Protocol PRN Reason: Hypoglycemia Protocol Stop: 11/20/23 21:11 Glucose (Glucose 40% Gel 15 Gm Tube) 15 - 30 gm PO UD PRN; Protocol PRN Reason: Hypoglycemia Protocol Stop: 11/20/23 21:11 Glucose (Glucose 10 Tab/Tube) 4 - 8 tab PO UD PRN; Protocol PRN Reason: Hypoglycemia Treatment Stop: 11/20/23 21:11 Hydromorphone HCl (Hydromorphone Hcl 2 Mg Tab) 2 mg PO Q3H PRN PRN Reason: severe Pain Stop: 11/04/23 21:11 Last Admin: 10/23/23 13:20 Dose: 2 mg Insulin Aspart (Insulin Aspart Per Unit Charge) 0 units SC ACHS [facility] Stop: 11/20/23 21:11 Last Admin: 10/23/23 12:10 Dose: 7 units Metoprolol Succinate (Metoprolol Succ 25mg Ext Rel Tab) 25 mg PO DAILY [facility] Stop: 11/21/23 08:59 Last Admin: 10/23/23 10:25 Dose: 25 mg Miscellaneous (Carbohydrates For Hypoglycemia ) 15 - 30 gm PO UD PRN PRN Reason: Hypoglycemia Protocol Stop: 11/20/23 21:11 Ondansetron HCl (Ondansetron Inj 2 Mg/Ml 2 Ml Vial) 4 mg IV Q6H PRN PRN Reason: Nausea Stop: 11/20/23 21:11 Oxycodone HCl (Oxycodone Hcl Ir 5 Mg Tab (Immediate Release)) 5 mg PO Q8H PRN PRN Reason: pain (scale score 7-10) Stop: 11/06/23 10:23 Last Admin: 10/23/23 10:37 Dose: 5 mg Polyethylene Glycol (Polyethylene (Miralax) 17 Gm Pack) 17 gm PO DAILY PRN PRN Reason: Constipation Stop: 11/20/23 21:11 Prednisone (Prednisone 20 Mg Tab) 40 mg PO DAILY [facility] Stop: 11/21/23 15:29 Last Admin: 10/23/23 07:44 Dose: 40 mg Tizanidine HCl (Tizanidine Hcl 4 Mg Tablet) 4 mg PO TID [facility] Stop: 11/21/23 20:59 Last Admin: 10/23/23 13:21 Dose: 4 mg Zolpidem Tartrate (Zolpidem Tartrate 5 Mg Tab) 5 mg PO HS PRN PRN Reason: Sleep Stop: 11/20/23 21:11
--- NOTE | 2023-10-24 13:10 | Hospitalist Progress Note ---
Date of Service October 24, 2023 Assessment & Plan (1) Fall: Plan: Patient is an 83-year-old gentleman man with acute lumbar pain and coccyx pain with ambulatory dysfunction secondary to a fall sustained approximately 10 days ago with imaging now revealing a right L5 transverse process fracture. Status post mechanical fall about 6 days prior to admission Acute back pain with radiation to the right leg significant since yesterday Noted to have fracture of right lumbar 5 transverse process Pain is reasonably controlled with current medication Denies any bladder and/or bowel problem and does not have any focal neurodeficit on examination Appreciate orthospine input and recommendation Will start muscle relaxants and tapering course of prednisone PT OT evaluation and possible placement Remains medically stable Started oral oxycodone for better pain control as he was taking that medicine at home His pain seems to be reasonably controlled He has had physical therapy and recommended home (2) Lumbar transverse process fracture: Plan: As above (3) Type 2 diabetes mellitus: Plan: Continue home diabetes medications, his glucoses are well-controlled add sliding scale Continue other home medications as ordered. (4) Paroxysmal atrial fibrillation: Plan: Rate is controlled Not on any anticoagulation Continue beta-eric (5) Coccyx contusion: (6) Aortic stenosis: Plan: No acute symptoms (7) S/P TAVR (transcatheter aortic valve replacement): Plan: Will continue aspirin and Plavix Plan DVT prophylaxis subcu Lovenox CODE STATUS full Admission and Anticipated Discharge Date Admission Date: October 21, 2023 Subjective ,10/22/2023 The patient was seen and examined in medical floor He has had a fall with right-sided lower back pain and radiation to the legs No symptoms prior to the fall,he is as tripped and fell Pain seems to be under control 10/23/2023 The patient was seen and examined in the medical floor His pain in the lower back has increased today and all primary is not taking care of the pain He was taking oxycodone at home and will be rescheduled Denies any other symptoms 10/24/2023 The patient was seen and examined in medical floor Denies any significant symptoms Has been ambulating in the room without difficulties Review of Systems Review of Systems: All systems reviewed and are unremarkable except as noted below Physical Exam Physical Exam: Lying in bed without any acute distress Constitutional: well developed, well nourished, + ill appearing and average body habitus Eyes: PERRL, conjunctivae normal, anicteric sclerae ENMT: external ear and nose normal, oropharynx normal Neck: trachea midline, no thyromegaly Respiratory: no respiratory distress Auscultation: lungs clear to auscultation bilaterally Cardiovascular: Rate/Rhythm: regular rate and regular rhythm Heart Sounds: normal S1 and normal S2; no murmur Extremities: no edema Gastrointestinal (Abdomen): Inspection/Auscultation: normal bowel sounds; abdomen not distended Percussion/Palpation: abdomen soft; abdomen nontender Neurologic: normal touch/pain/proprioception and moves all extremities; no focal motor deficits Psychiatric: A+Ox3, euthymic affect Lymphatic: no cervical or axillary lymphadenopathy Results & Data Results & Data Vital Signs (Past 12 Hours) Vital Signs Temp Pulse Resp BP Pulse Ox O2 Del Method 10/24/23 11:19 36.5 C 57 L 17 94/54 L 96 Room Air 10/24/23 08:44 72 150/70 H 10/24/23 07:23 36.5 C 56 L 17 154/72 H 97 Room Air
--- NOTE | 2023-10-25 08:15 | Discharge Summary ---
Date of Service October 25, 2023 Admission HPI Per Admitting Provider Patient is an 83-year-old gentleman presents to the emergency room with above complaint. He was in the emergency room on 10/16/2023 with similar complaint. Had a history at that time as at last week the patient was working out in the gym and weights slipped off as he was holding him and he fell down right on his coccyx. Imaging done on 10/16/2023 did not show any fracture. The patient was given some oxycodone and discharged home. Unfortunately, the patient's pain continued to increase. It was not responding to the oxycodone. Today he was found to be extremely difficult to walk. Return to the emergency room again for evaluation. Reimaging in the emergency room today showed a L5 transverse process fracture. Due to his uncontrolled pain and difficulty walking was referred to our service for further evaluation. Time my evaluation the patient's symptoms are significantly improved after receiving some Dilaudid. He otherwise he states has been doing well. Eating and drinking normally. Bowels and bladder been working normally for him. He denies any numbness or tingling down his legs and no weakness is set the pain was limiting his mobility. Admission Exam Per Admitting Provider Physical Exam: Constitutional: Alert, nontoxic HEENT: Mucous membranes moist. Sclera clear Neck: Soft, no adenopathy Lungs: Clear to auscultation, decreased, no wheezes rales or rhonchi CV: S1-S2, regular Abdomen: Soft, nontender, nondistended Extremities: No significant edema Musculoskeletal: No significant joint tenderness, some mild tenderness to palpation over the lumbar sacral junction. Some mild paravertebral muscle tenderness, definitely improved since patient received pain medication Neuro: No focal deficits Psych: Cooperative, normal mood Principal Diagnosis Status post fall,# Rt L5 transverse process Discharge Exam Lying in bed without any acute distress Constitutional well developed, well nourished, + ill appearing and average body habitus Eyes PERRL, conjunctivae normal, anicteric sclerae ENMT external ear and nose normal, oropharynx normal Neck trachea midline, no thyromegaly Respiratory no respiratory distress Auscultation: lungs clear to auscultation bilaterally Cardiovascular Rate/Rhythm: regular rate and regular rhythm Heart Sounds: normal S1 and normal S2; no murmur Extremities: no edema Gastrointestinal (Abdomen) Inspection/Auscultation: normal bowel sounds; abdomen not distended Percussion/Palpation: abdomen soft; abdomen nontender Neurologic normal touch/pain/proprioception and moves all extremities; no focal motor deficits Psychiatric A+Ox3, euthymic affect Lymphatic no cervical or axillary lymphadenopathy Discharge Data Allergies Allergy/AdvReac Type Severity Reaction Status Date / Time acetaminophen [From [place]] AdvReac Nausea Verified 04/25/23 14:22 hydrocodone [From [place]] AdvReac Nausea Verified 04/25/23 14:22 Consultations 10/21/23 18:43 ED Decision to Admit Stat 10/22/23 08:56 Consult Orthopedic Spine Surgery Routine Ordered Studies 10/21/23 16:03 CT bony pelvis wo con Stat Hospital Course (1) Fall: Patient is an 83-year-old gentleman man with acute lumbar pain and coccyx pain with ambulatory dysfunction secondary to a fall sustained approximately 10 days ago with imaging now revealing a right L5 transverse process fracture. Status post mechanical fall about 6 days prior to admission Acute back pain with radiation to the right leg significant since yesterday Noted to have fracture of right lumbar 5 transverse process Pain is reasonably controlled with current medication Denies any bladder and/or bowel problem and does not have any focal neurodeficit on examination Appreciate orthospine input and recommendation Will start muscle relaxants and tapering course of prednisone PT OT evaluation and possible placement Remains medically stable Started oral oxycodone for better pain control as he was taking that medicine at home His pain seems to be reasonably controlled He has had physical therapy and recommended home (2) Lumbar transverse process fracture: As above (3) Type 2 diabetes mellitus: Continue home diabetes medications, his glucoses are well-controlled add sliding scale Continue other home medications as ordered. (4) Paroxysmal atrial fibrillation: Rate is controlled Not on any anticoagulation Continue beta-eric (5) Coccyx contusion: (6) Aortic stenosis: No acute symptoms (7) S/P TAVR (transcatheter aortic valve replacement): Will continue aspirin and Plavix Plan DVT prophylaxis subcu Lovenox CODE STATUS full Total Time Total Time Spent Total Time Spent (In Minutes): 35 minutes Discharge Plan Discharge Items Patient Disposition: Home - Self-Care Reason For Visit: BACK PAIN Discharge Diagnosis: Status post fall,# Rt L5 transverse process Condition on Discharge: Fair Activity: Resume your previous activity Non-emergency contact: Primary Care Provider Call non-emergency contact if: you have any medication questions and your symptoms worsen Follow-up/Referrals: Carroll Conley MD [Primary Care Provider] - (Date & Time 11/02/2023 5:20 PM Provider Carroll Conley MD Department General Internal Medicine [facility] ) Diet: Carb Consistent or DM2 Addtl Attending Provider Instructions: Please take precautions to avoid falls Try to use less of narcotic pain medications to avoid constipation, confusion falls and addiction Please keep appointment with your healthcare providers If your back pain is not any better please make an appointment with orthopedic surgeon for a follow-up Pending Studies at Discharge: No Stand-Alone Forms: My DocSend, Smoking Cessation Medications and DC Order Prescriptions: New tizanidine 4 mg Tablet 4 mg PO TID PRN (Reason: Spasms) Qty: 30 0RF prednisone 10 mg tablet 10 mg PO UD Qty: 18 0RF Rx Instructions: 3 p.o. daily for 2 days, 2 p.o. daily for 2 days, 1 p.o. daily for 2 days Continued clopidogrel 75 mg tablet 75 mg PO DAILY Qty: 90 3RF metoprolol succinate 25 mg tablet extended release 24 hr 25 mg PO DAILY Qty: 90 3RF Rx Instructions: last filled 07/24/23 Tradjenta 5 mg tablet 5 mg PO DAILY Qty: 90 3RF aspirin [Adult Low Dose Aspirin] 81 mg tablet,delayed release (DR/EC) 81 mg PO DAILY PRN (Reason: Other) Rx Instructions: unable to verify glimepiride 4 mg tablet 8 mg PO QAM zolpidem 5 mg tablet 5 mg PO HS PRN (Reason: Sleep) Rx Instructions: unable to verify atorvastatin 80 mg Tablet 80 mg PO DAILY metformin 500 mg Tablet 1,000 mg PO BIDM nitroglycerin 0.4 mg Tablet, Sublingual 0.4 mg sublingual DIRECTED PRN (Reason: Chest Pain) Rx Instructions: unable to verify oxycodone 5 mg tablet 5 mg PO Q8H PRN (Reason: pain (scale score 7-10)) Qty: 10 0RF Rx Instructions: May cause sedation. Discharge Orders: Discharge Order (Routine); Ordered 10/24/23 Ordered By: Hudson Stacy Admission Data Admit Date/Time: 10/21/23 20:00 Attending Provider: Hudson Stacy Admit Provider: Jacek Enriquez Primary Care Provider: Carroll Conley Other Providers: Jacek Enriquez; Armand Barnes Other Interventions: Discharge Summary Assessment (RN) Last Done: 10/24/23 16:07
== END 2023-10-24 18:46 | disposition home health service (06) | DRG 552 ==
LOC: ED 14:47 → SUATTDRO 20:00 → 3W 20:00

== ENCOUNTER 2024-05-27 21:59 | Observation (INO) ==
--- OUTSIDE RECORDS SUMMARY | 2024-05-27 22:04 | External Medical Summary | Summary of Care ---
Author Name Unknown Organization [facility] Address [address] [place] [address] Phone [phone] Care Team Providers Care Accountant Tax Name Role Phone Carroll Conley MD Primary Care Provider + Reason for Visit * Reason Onset Date Comments Medication Question 05/17/2024 Encounter Details Date Type Department Care Team (Late st Contact Info) Description 05/17/2024 Telephone General Internal Medicine [facility] [place] [address] [facility] [place] [phone] Carroll Conley MD [address] [facility] [place] [address] Medication Question Allergies Active Allergy Reactions Criticality Noted Date Comments Acetaminophen Nausea/vomiting 11/04/2021 Hydrocodone Nausea/vomiting 11/04/2021 Hydrocodone-Acetaminophen High 05/29/2019 Vomiting, dizziness, loss of balance, unable to stand, documented as of this encounter (statuses as of 05/22/2024) Medications nitroglycerin (NITROSTAT) 0.4 MG SUBLIndications :Acute ME ([facility]) 1 Tab Sublingual Every 5 minutes as needed for chest discomfort 25 Tab 6 6 Active ONETOUCH DELICA LANCETS 33G MISCIndications :Type 2 diabetes mellitus with hemoglobin A1c goal of less than 8.0% ([facility]) Use to test blood once daily. Dx: E11.9 90 Each 3 9 Active Glucose Blood In Vitro StripIndication s:DM type 2 nursing care encounter (HCC) tesing blood sugars once daily; E 11.9; non-insulin dependent 90 Strip 3 9 Active Blood Glucose Monitoring Suppl (Mastodon C ULTRA 2) w/Device KITIndications: Type 2 diabetes mellitus with hemoglobin A1c goal of less than 8.0% (HCC) Use to test blood glucose 2 times daily. Dx: E11.9 1 Kit 0 Active Additional Information Patient taking differently: Use to test blood glucose one time daily. Dx: E11.9, Informant: Patient, Reported on 05/15/2024 clopidogrel (PLAVIX) 75 MG TabletIndicatio ns:Type 2 diabetes mellitus with hemoglobin A1c goal of less than 7.0% ([facility]) TAKE 1 TABLET BY MOUTH EVERY DAY 90 Tab 3 0 Active Vitamin B 12 500 MCG Oral Tablet Take 2 Tabs by mouth daily. 1 Active Amoxicillin 500 MG Oral Capsule (Amoxil)Indicat ions:S/P TAVR (transcatheter aortic valve replacement) Take 4 capsules by mouth 1 hour prior to dental work 4 Cap 5 1 Active Vitamin D 25 MCG (1000 UT) Oral TabletIndicatio ns:Closed fracture of sacrum, unspecified portion of sacrum, initial encounter ([facility]) TAKE 1 TABLET BY MOUTH EVERY DAY 90 Tablet 1 1 Active Zolpidem Tartrate 5 MG Oral Tablet (Ambien)Indicat ions:Chronic insomnia TAKE 1 TABLET BY MOUTH EVERY DAY AT BEDTIME NEEDED FOR SLEEP 30 Tablet 3 Active Acetaminophen 500 MG Oral Tablet (Tylenol)Indica tions:History of total hip replacement, bilateral,Hip pain, right Take 2 Tablets by mouth every 8 hours as needed for Pain, Moderate. 100 Tablet 3 Active Glimepiride 4 MG Oral Tablet (Amaryl)Indicat ions:Type 2 diabetes mellitus with hemoglobin A1c goal of less than 8.0% ([facility]) TAKE 2 TABLETS BY MOUTH DAILY WITH BREAKFAST 180 Tablet 2 4 Active Aspirin 81 MG Oral Tablet Delayed Release (Aspirin 81) Take 1 Tablet by mouth in the morning. Active Lidocaine 4 % External Patch (Salonpas Pain Relieving)Indic ations:Closed fracture of transverse process of lumbar vertebra with routine healing, subsequent encounter,Perso nal history of fall,Hospital discharge follow-up Place 1 Patch over 12 hours topically on the skin daily. Use till better 30 Patch 4 Active Additional Information Patient not taking.Reported on 05/15/2024 metFORMIN HCl 500 MG Oral Tablet (Glucophage)Ind ications:Type 2 diabetes mellitus with hemoglobin A1c goal of less than 7.0% (HCC) TAKE 2 TABLETS BY MOUTH TWICE A DAY 360 Tablet 1 4 Active Atorvastatin Calcium 80 MG Oral Tablet (Lipitor)Indica tions:Dyslipide omar, goal LDL below 70 TAKE 1 TABLET BY MOUTH EVERY DAY 90 Tablet 3 4 Active linaGLIPtin 5 MG Oral Tablet (Tradjenta)Chen cations:Type 2 diabetes mellitus with hemoglobin A1c goal of less than 8.0% (HCC) Take 1 Tablet by mouth in the morning. 90 Tablet 1 4 Active tiZANidine HCl 4 MG Oral Tablet (Zanaflex)Indic ations:Closed fracture of transverse process of lumbar vertebra with routine healing, subsequent encounter,Perso nal history of fall,Hospital discharge follow-up TAKE 1/2-1 TABLET BY MOUTH EVERY 8 HOURS NEEDED FOR PAIN 30 Tablet 4 Active Metoprolol Succinate ER 25 MG Oral Tablet Extended Release 24 Hour (toPROL XL) Take 1 Tablet by mouth in the morning. 90 Tablet 3 5 Active Gabapentin 100 MG Oral Capsule (Neurontin) Take 1 capsule by mouth in the morning, 1 capsule by mouth in the afternoon, and 3 capsules by mouth at bedtime 150 Capsule 5 Active oxyCODONE HCl 5 MG Oral Tablet (Oxy IR)Indications: Buttock pain Take 1 Tablet by mouth every 8 hours as needed for Pain, Severe. 9 Tablet 5 Active oxyCODONE HCl 5 MG Oral Tablet (Oxy IR)Indications: Buttock pain Take 1 Tablet by mouth every 8 hours as needed for Pain, Severe. 30 Tablet 5 025 Discontin ued(Refil l) documented as of this encounter (statuses as of 05/22/2024) Active Problems Problem Noted Date Diagnosed Date Mild nonproliferative diabet ic retinopathy of both eyes without macular edema associated with type 2 diabetes mellitus 04/13/2024 Essential (primary) hypertension 03/20/2024 Type 2 diabetes mellitus wit h stage 3a chronic kidney disease, without long-term current use of insulin 04/06/2023 Multiple thyroid nodules 04/06/2023 Chronic kidney disease, stage 3a 04/13/2021 Overview: Per CKD protocol Elevated prostate specific antigen (PSA) 021 BPH without obstruction/lower urinary tract symp toms 12/31/2020 S/P TAVR (transcatheter aortic valve replacement ) 07/10/2020 Atherosclerosis of [place] co ronary artery of [place] heart without angina pectoris 05/29/2019 PAF (paroxysmal atrial fibrillation) 12/30/2017 History of GI bleed 04/19/2017 Old ME (myocardial infarction) 04/19/2017 Mixed hearing loss of right ear 01/22/2016 History of placement of ear tubes 01/22/2016 S/P total hip arthroplasty 10/10/2014 Type 2 diabetes mellitus wit h hemoglobin A1c goal of less than 8.0% 12/25/2013 Overview (07/31/2015): ICD-10 update of inactive term S/P angioplasty with stent 01/30/2011 Overview (01/23/2020): GUNNER LM & p LAD in 01/2011 Stent to RCA and LAD x 3 on 01/23/2020 Dyslipidemia, goal LDL below 70 01/28/2011 documented as of this encounter (statuses as of 05/22/2024) Resolved Problems Problem Noted Date Diagnosed Date Resolved Date Sacral fracture, closed 12/31/202001/03 Atherosclerotic heart diseas e of [place] coronary artery with other forms of angina [...] 10/10/2014 04/06/2023 CAD (coronary artery disease ), [place] coronary artery 10/10/2014 12/31/2014 Chronic serous otitis media 05/11/2014 04/06/2023 Hip pain 05/21/2013 04/19/2017 Loss of height 04/05/2013 04/19/2017 Accelerate Clinical Trial*[id number] 10/02/2012 04/23/2015 Overview (10/02/2012): ACCELERATE STUDY. Project # [id number], HEALTH AND FITNESS PROFESSOR: Chepe Campos MD. CRC: ANIL Daniels. SUMMARY: To test the hypothesis that Evacetrapib 130 mg, in comparison to placebo, reduces the risk of major adverse coronary events in high-risk vascular disease patients. CONTACTS: During normal business hours, contact study staff at ; after hours [employer] via the [facility] foxing cutting machine operator [phone]. 24-hour Global Study Helpline: [phone]. Lipid levels should not be ordered/obtained while this subject is in the Accelerate study. Lipids are being managed in a blinded fashion. If lipid levels are inadvertently obtained, it is important that test results are NOT provided to the patient, study doctor, electronic funds transfer coordinator, or other study team members. Restricted meds while in the study: 1) niacin > 250 mg, 2) gemfibrozil with a potent [id number]-tzetetyey. Type 2 diabetes mellitus wit h hemoglobin A1c goal of 7.0%-8.0% 09/17/2012 12/25/2013 Overview (07/31/2015): ICD-10 update of inactive term Type 2 diabetes mellitus wit h hemoglobin A1c goal of 7.0%-8.0% 06/16/2012 09/17/2012 Overview (07/31/2015): ICD-10 update of inactive term Acute inferolateral myocardial infarction 01/28/2011 04/19/2017 CAD. Inferolateral ME treate d with bare metal stenting of distal RCA at [facility] on 01/24/2011. Severe left main and LAD disease noted at that time 01/28/2011 07/23/2022 Overview (07/23/2022): And 2019: drug eluting stent x 1 to right coronary artery and drug eluting stents x 3 to left anterior descending coronary artery on 01/23/[address] Ulloa SUDDEN HEARING LOSS (left) 04/21/2009 0 09/12/2018 Type 2 diabetes mellitus wit h hemoglobin A1c goal of less than 7.0% 04/16/2009 06/16/2012 Overview (07/29/2015): ICD-10 update of inactive term documented as of this encounter (statuses as of 05/22/2024) Immunizations Name Administration Dates Next Due COVID-19 mRNA, LNP-s, No Pre serve, 2-Dose Series (Resourcing Edge) 02/04/2021,06/13/2020,05/17/2020 Pneumococcal Conjugate Vacc, 13 Valent (Prevnar) 06/10/2014 Pneumococcal Polysaccharide PPV23 (Pneumovax) 03/21/2013 Season Influenza, Quad, PF, Adjuvanted, 65+ Yrs, IM (FLUAD) 01/21/2020 Seasonal Influenza Vac., MDV , IM, 0.5 mL (Fluzone) 04/18/2014,12/19/2012,02/03/2012,02/08 Seasonal Influenza Virus Vac cine, Unspecified Formulation 12/31/2020,01/21/2020,02/23/2019,12/22,01/13/2017,01/07/2016,02/08/2011 Seasonal Influenza, High Dos e, Trivalent, PF, IM (Fluzone HD) 01/11/2024 Seasonal Influenza, PF, 6 M & above, IM , (FluLaval or Fluzone) 12/22/2017,01/13/2017 Seasonal Influenza, Quadriva lent Hd (Fluzone Hd) 12/13/2022,01/29/2022,12/31/2020 Seasonal Influenza, Quadriva lent Hd, 65+ Yrs 01/29/2022,12/31/2020,01/21/2020,02/23 Seasonal Influenza, Quadriva lent, No Preserve, IM 01/07/2016,12/31/2014 Seasonal Influenza, Trivalen t, Adjuvanted, 65+ YRS, PF, (Fluad) 02/23/2019 TDAP (age 10 and older)(Boostrix) 07/08/2021 documented as of this encounter Social History Tobacco Use Types Packs/Day Years Used Date Smoking Tobacco: Never Smokeless Tobacco: Never Alcohol Use Standard Drinks/Week Comments Yes 0 (1 standard drink = 0.6 oz pure alcohol) 1 glass of wine per week per patient PHQ-2 Answer Date Recorded PHQ Adult Total Score 0 03/07/2024 Hunger Vital Sign Answer Date Recorded Within the past 12 months, y ou worried that your food would run out before you got the money to buy more. Never true 12/22/19 24 Within the past 12 months, t he food you bought just didn't last and you didn't have money to get more. Never true 12/22/2023 Childcare Answer Date Recorded Do you feel overwhelmed with taking care of a child, family member or friend? No 12/22/2023 Does your family need help f inding childcare? (Household - for ages 0-17 years) Not on file 12/22/2023 Clothing Answer Date Recorded Have you been unable to get clothing when it was really needed? No 12/22/2023 Is your family able to get c lothes or diapers when needed? (Household - for ages 0-17 years) Not on file 12/22/2023 Personal Safety Answer Date Recorded Do you feel unsafe or have concerns for your saf ety? No 12/22/2023 Do you have concerns for you r family's safety? (Household - for ages 0-17 years) Not on file 12/22/2023 Utilities Answer Date Recorded Do you have trouble paying y our heating, water, or electric bill? No 12/22/2023 Is your family able to pay t he heat, water, or electric bill? (Household - for ages 0-17 years) Not on file 12/22/2023 Does your family have access to good internet? (Household - for ages 0-17 years) Not on file 12/22/2023 Employment Status Answer Date Recorded Are you unemployed or without regular income? No 12/22/2023 Does the household have a re gular source of income? (Household - for ages 0-17 years) Not on file 12/22/2023 Social Connections Answer Date Recorded How often do you feel lonely or isolated from th ose around you? Rarely 12/22/2023 Financial Resource Strain Answer Date R ecorded Do you have any trouble payi ng for your medications, or do you think you might in the future? No 12/22/2023 Does your family have troubl e paying for medicine? (Household - for ages 0-17 years) Not on file 12/22/2023 Transportation Needs Answer Date Record ed Do you have trouble getting a ride to medical visits or work? (Adult - for ages 18 years and over) Not on file 12/22/2023 Does your family have a hard time getting a ride to doctors visits? (Household - for ages 0-17 years) Not on file 12/22/2023 Has lack of transportation k ept you from medical appointments, meetings, work, or from getting things needed for daily living? Check all that apply. No 12/22/2023 Do you (or your family) have trouble finding or paying for a ride (transportation)? (Household - for ages 0-17 years) Not on file 12/22/2023 Housing Stability Answer Date Recorded Do you currently live in a s helter or have no steady place to sleep at night? No 12/22/2023 Do you think you are at risk of becoming homeless? (Adult - for ages 18 years and over) Not on file 12/22/2023 Does your family worry about paying for your home or becoming homeless? (Household - for ages 0-17 years) Not on file 0 12/22/2023 Are you homeless or worried that you might be in the future? No 12/22/2023 Are you (or your family) jordan eless or worried that you might be in the future? (Household - for ages 0-17 years) Not on file Food Insecurity Answer Date Recorded Do you need food for this week? No 12/22/2023 Are you able to get enough f ood for your family? (Household - for ages 0-17 years) Not on file 12/22/2023 Does your family need food t his week? (Household - for ages 0-17 years) Not on file 12/22/2023 Do you always have enough fo od for your family? (Household - for ages 0-17 years) Not on file 12/22/2023 Food Insecurity Answer Date Recorded Within the past 12 months, y ou worried that your food would run out before you got the money to buy more. Never true 12/22/19 24 Within the past 12 months, t he food you bought just didn't last and you didn't have money to get more. Never true 12/22/2023 Do you need food for this week? 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 Answer Date of Assessment Author No 04/17/2018 10:44 PM Thea Gonzales RN * Are you blind or do you have serious difficulty seeing, even when wearing glasses? Answer Date of Assessment Author No 04/17/2018 10:44 PM Thea Gonzales RN * Do you have serious difficulty walking or climbing stairs? (5 years old or older) Answer Date of Assessment Author Yes 04/17/2018 10:44 PM Thea Gonzales RN * Do you have difficulty dressing or bathing? (5 years old or older) Answer Date of Assessment Author No 04/17/2018 10:44 PM Thea Gonzales RN * Because of a physical, mental, or emotional condition, do you have difficulty doing errands alone such as visiting a doctors office or shopping? (15 years old or older) Answer Date of Assessment Author No 04/17/2018 10:44 PM Thea Gonzales RN documented as of this encounter Mental Status * Because of a physical, mental, or emotional condition, do you have serious difficulty concentrating, remembering, or making decisions? (5 years old or older) Answer Entry Date Author No 04/17/2018 10:44 PM EST Garrett, Thea C, RN documented in this encounter Miscellaneous Notes * Telephone Encounter - Jeff MaribellGYPSY Powers - 05/22/2024 1:41 PM EST Pt returning call, advised PCP called in rest of Oxycodone. Pt verbalized understanding. Thank you, Maribell Aguilar Senior Net Developer [facility] 05/22/2024, 1:41 PM * Telephone Encounter - Keon Wang RN - 05/18/2024 2:01 PM EST Attempted to call patient, there was no answer, left voicemail. When patient returns call, ok for DAVID to relay message, please refer to below documentation. If needed, can transfer to dedicated nurse line. Please inform patient that Dr. Conley sent in prescription for the rest of the oxycodone. * Telephone Encounter - Carroll Conley MD - 05/18/2024 1:48 PM EST Done I have reviewed the patients controlled substance dispensing history in the Prescription Drug Monitoring Program in compliance with the [place] regulations before prescribing a controlled substance. Last Tox Screen Results: No results found. However, due to the size of the patient record, not all encounters were searched.Please check Results Review for a complete set of results. * Telephone Encounter - Jonathan Botello forging press lever tender - 05/17/2024 5:25 PM EST Pt called stating he was shorted by 9 pills last month for his RX Oxycodone 5 mg. Called [facility] and confirmed this. PT needs DR to write script for last 9 tabs and send in for fill.Any questions please contact pt . Thank You, Jonathan Botello [facility] Senior Net Developer [facility] 05/17/2024, 5:28 PM documented in this encounter Plan of Treatment Upcoming Encounters Date Type Department Care Team (Late st Contact Info) Description 05/29/2024 2:40 PM EST Office Visit General Internal Medicine [facility] [place] [address] [place] [address] Carroll Conley MD [address] [facility] [place] [address] 06/02/2024 4:00 PM EST Imaging Radiology [facility] [address] [place] [phone] 06/08/2024 2:00 PM EST Office Visit Interventional Pain Center [facility] [address] [place] [phone] Noris Alford PA-C [address] [place] [address] 07/10/2024 1:20 PM EDT Office Visit Podiatry [facility] [address] [place] [phone] Julia Livingston DPM [address] [place] [address] 03/12/2025 1:30 PM EST Nurse Only Ancillary [facility] [place] [address] [place] [address] [place], Nurse Annual Wellness [facility] [address] [facility] [place] [address] Health Maintenance Due Date Last Done Comments B-12 04/06/2024 04/06/2023, 0504/2022, 01/29/2022, Additional history exists GFR 04/12/2024 10/11/2023, 0 06/2023, 03/31/2023, Additional history exists HbA1c 04/12/2024 10/11/2023, 06/2023, 08/02/2022, Additional history exists Albumin/Creatinine Ratio 10/10/2024 024, 08/02/2022, 07/08/2021, Additional history exists CKD HGB USE SMARTSET 05789 10/10/202410/10, 10/11/2023, 03/31/2023, Additional history exists CKD PHOS USE SMARTSET 69718 10/10/2024 07/0 12/2023, 08/02/2022, 07/08/2021, Additional history exists Diabetic Foot Exam 10/10/2024 10/11/2023, 1 , 08/19/2020, Additional history exists Adult Wellness Visit 03/07/2025 03/07/2024, 05/28/19 22 Depression Screening 03/07/2025 03/07/2024, 10/11/2023, 12/31/2014 Diabetic Eye Exam 04/12/2025 04/12/2024, , 04/09/2022, Additional history exists DTap/Tdap Vaccines (2 - Td or Tdap) 07/09/2031 07/08/2021 Pneumococcal Vaccine: 50+ Years Completed 06/10/2014, 03/21/2013 RETIRED - COLONOSCOPY-EVERY 5 YRS AGES 18-100 Discontinued 03/25/2015, 10/23/2009 COVID-19 Vaccine Discontinued 02/04/2021, 03/2021, 05/17/2020 Influenza Vaccine (FLU shot) Completed 01/11/2024, 01/11/2024, 12/13/2022, Additional history exists HPV (Gardasil) Vaccine Aged Out No lo nger eligible based on patient's age to complete this topic Hepatitis B Vaccine Aged Out No longe r eligible based on patient's age to complete this topic MENINGOCOCCAL (MENACTRA/MENVEO) Aged Out No longer eligible based on patient's age to complete this topic Meningitis B Vaccine (Bexsero/Trumemba) Aged Out No longer eligible based on patient's age to complete this topic Zoster Vaccines Discontinued documented as of this encounter Medical Devices Implanted Type Area Marketing Project Manager Device Identifier Shelf Expiration Date Model / Serial / Lot Brenner Beveled Grommet Implanted:Qty: 1 on 05/13/2014 by Jose Alejandro Olivo MD [place] [facility] [place]: Ear 07/03/2023 [id number] / / [id number] Trident Fermín Cluster Cup 60 - [id number] Implanted:Qty: 1 on 10/10/2014 by Jose Burton MD at [place] [facility] Right: Hip [employer] : ORTHOPAEDICS 502-03-60F / / Screw Acetabular 6.5mm Tricia 25m - [id number] Implanted:Qty: 2 on 10/10/2014 by Jose Burton MD at [place] [facility] Right: Hip [employer] : ORTHOPAEDICS 2505-2821-1 / / Trident Acetabular X3 0 36 F - [id number] Implanted:Qty: 1 on 10/10/2014 by Jose Burton MD at [place] [facility] Right: Hip [employer] : ORTHOPAEDICS 623-00-36F / / Hip Hd Jeremiah Chaney Md D 36/+75 - [id number] Implanted:Qty: 1 on 10/10/2014 by Jose Burton MD at [place] [facility] Right: Hip [employer] : ORTHOPAEDICS 07/03/2019 6570-0-736 / / [id number] Stem Hip Sz6 - [id number] Implanted:Qty: 1 on 10/10/2014 by Jose Burton MD at [place] [facility] Right: Hip [employer] : ORTHOPAEDICS 08/02/2019 0158-8828 / / [id number] Screw Acetabular 6.5mm Tricia 25m - [id number] Implanted:Qty: 1 on 04/17/2018 by Ismael Schroeder MD at [place] [facility] Left: Hip [employer] : ORTHOPAEDICS 06/05/202220291297-0786-1 / / [id number] Bone Screw Cancellous 65 16 - [id number] Implanted:Qty: 1 on 04/17/2018 by Ismael Schroeder MD at [place] [facility] Left: Hip [employer] : ORTHOPAEDICS 11/03/202220298541-3552-1 / / [id number] Hip Stem Secur Max Ang 127 10 - [id number] Implanted:Qty: 1 on 04/17/2018 by Ismael Schroeder MD at [place] [facility] Left: Hip [employer] : ORTHOPAEDICS 10/23/2022 [id number] / / [id number] Potato Seed Cutter Plt Trochan 100 2 2 Cable - [id number] Implanted:Qty: 1 on 04/17/2018 by Ismael Schroeder MD at [place] [facility] Left: Hip [employer] : ORTHOPAEDICS 12/21/2022 6704-3-082 / / [id number] Sleeve Cable 2.0mm - [id number] Implanted:Qty: 1 on 04/17/2018 by Ismael Schroeder MD at [place] [facility] Left: Hip [employer] : ORTHOPAEDICS 10/25/2022 6704-8-240 / / [id number] Hip Fem Hd Blox D Uni Taper 40 - [id number] Implanted:Qty: 1 on 04/17/2018 by Ismael Schroeder MD at [place] [facility] Left: Hip [employer] : ORTHOPAEDICS 12/21/2022 6519-1-040 / / [id number] Sleeve Adptr +5 Univ C Taper - [id number] Implanted:Qty: 1 on 04/17/2018 by Ismael Schroeder MD at [place] [facility] Left: Hip [employer] : ORTHOPAEDICS 10/14/2021 [id number] / / [id number] Hip Trident Fermín Cluster 60 - [id number] Implanted:Qty: 1 on 04/17/2018 by Ismael Schroeder MD at [place] [facility] [place]: Hip [employer] : ORTHOPAEDICS 05/23/2022 502-11-60G / / [id number] Trident Acetabular X3 0 40 G - [id number] Implanted:Qty: 1 on 04/17/2018 by Ismael Schroeder MD at [place] [facility] [place]: Hip [employer] : ORTHOPAEDICS 12/23/2022 623-00-40G / / [id number] Screw Acetabular 6.5mm Tricia 25m - [id number] Implanted:Qty: 1 on 04/17/2018 by Ismael Schroeder MD at [place] [facility] [place]: Hip [employer] : ORTHOPAEDICS 01/15/2023 8577-5124-1 / / [id number] Balloon Cath Pacing [id number] - [id number] Implanted:Qty: 1 on 07/10/2020 at [facility] [place] BARD : MEDICAL [id number] 06/01/2022 [id number] / / [id number] Proglide Perclose 27297-51 X10 - [id number] Implanted:Qty: 1 on 07/10/2020 at [facility] : VASCULAR DEVICES [id number] 08/01/2021 36342-60 / / [id number] Proglide Perclose 11569-84 X10 - [id number] Implanted:Qty: 1 on 07/10/2020 at [facility] : VASCULAR DEVICES [id number] 08/01/2021 75378-27 / / [id number] Valve [place] 3 Ultra 26mm - [id number] Implanted:Qty: 1 on 07/10/2020 at [facility] [employer] [id number] / / Proglide Perclose 64137-62 X10 - [id number] Implanted:Qty: 1 on 07/10/2020 at [facility] VASCULAR DEVICES [id number] 01/01/2022 73537-53 / / [id number] documented as of this encounter Visit Diagnoses Diagnosis Buttock pain Mylagia and myositis, unspecified documented in this [...] Power of Attor mary? No Care Teams Accountant Tax Relationship Specialty Start Date End Date Carroll Conley MD [address] [place] [address] PCP - General Internal Medicine 06/16/12 documented as of this encounter
--- OUTSIDE RECORDS SUMMARY | 2024-05-27 22:05 | External Medical Summary | Summary of Care ---
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 Name Role Phone Carroll Conley MD Primary Care Provider + Reason for Visit * Reason Onset Date Comments Medication Question 05/17/2024 Encounter Details Date Type Department Care Team (Late st Contact Info) Description 05/17/2024 [facility]phone [facility] [address] [facility] [place] [address] Carroll Conley MD [address] [facility] [place] [address] Medication Question Allergies Active Allergy Reactions Criticality Noted Date Comments Acetaminophen Nausea/vomiting 11/04/2021 Hydrocodone Nausea/vomiting 11/04/2021 Hydrocodone-Acetaminophen High 05/29/2019 Vomiting, dizziness, loss of balance, unable to stand, documented as of this encounter (statuses as of 05/18/2024) Medications nitroglycerin (NITROSTAT) 0.4 MG SUBLIndications :Acute LA ([facility]) 1 Tab Sublingual Every 5 minutes as needed for chest discomfort 25 Tab 6 6 Active ONETOUCH DELICA LANCETS 33G MISCIndications :Type 2 diabetes mellitus with hemoglobin A1c goal of less than 8.0% ([facility]) Use to test blood once daily. Dx: E11.9 90 Each 3 9 Active Glucose Blood In Vitro StripIndication s:DM type 2 nursing care encounter (HCC) tesing blood sugars once daily; E 11.9; non-insulin dependent 90 Strip 3 9 Active Blood Glucose Monitoring Suppl ([employer] ULTRA 2) w/Device KITIndications: Type 2 diabetes [...] hemoglobin A1c goal of less than 7.0% ([facility]) TAKE 1 TABLET BY MOUTH EVERY DAY [...] sacrum, unspecified portion of sacrum, initial encounter ([facility]) TAKE 1 TABLET BY MOUTH EVERY DAY [...] hemoglobin A1c goal of less than 8.0% ([facility]) TAKE 2 TABLETS BY MOUTH DAILY WITH [...] as of this encounter (statuses as of 05/18/2024) Active Problems Problem Noted Date Diagnosed Date [...] aortic valve replacement ) 07/10/2020 Atherosclerosis of [place] co ronary artery of [place] heart without angina pectoris 05/29/2019 PAF (paroxysmal atrial fibrillation) 12/30/2017 History of GI bleed 04/19/2017 Old LA (myocardial infarction) 04/19/2017 Mixed hearing loss of [...] as of this encounter (statuses as of 05/18/2024) Resolved Problems Problem Noted Date Diagnosed Date Resolved Date Sacral fracture, closed 12/31/202001/03 Atherosclerotic heart diseas e of [place] coronary artery with other forms of angina [...] 10/10/2014 04/06/2023 CAD (coronary artery disease ), [place] coronary artery 10/10/2014 12/31/2014 Chronic serous otitis media 05/11/2014 04/06/2023 Hip pain 05/21/2013 04/19/2017 Loss of height 04/05/2013 04/19/2017 Accelerate Clinical Trial*[id number] 10/02/2012 04/23/2015 Overview (10/02/2012): ACCELERATE STUDY. Project # [id number], ONLINE MERCHANDISER: Chepe Campos MD. CRC: ANIL Daniels. SUMMARY: To test the hypothesis that Evacetrapib 130 mg, in comparison to placebo, reduces the risk of major adverse coronary events in high-risk vascular disease patients. CONTACTS: During normal business hours, contact study staff at ; after hours [place] [employer] Captain via the [facility] hospital necktie operator pockets and pieces [phone]. 24-hour Global Study Helpline: [phone]. Lipid levels should not be ordered/obtained while this subject is in the Accelerate study. Lipids are being managed in a blinded fashion. If lipid levels are inadvertently obtained, it is important that test results are NOT provided to the patient, study doctor, cosmetic account coordinator, or other study team members. Restricted meds while in the study: 1) niacin > 250 mg, 2) gemfibrozil with a potent [id number]-mihnkoiae. Type 2 diabetes mellitus wit h hemoglobin A1c goal of 7.0%-8.0% 09/17/2012 12/25/2013 Overview (07/31/2015): ICD-10 update of inactive term Type 2 diabetes mellitus wit h hemoglobin A1c goal of 7.0%-8.0% 06/16/2012 09/17/2012 Overview (07/31/2015): ICD-10 update of inactive term Acute inferolateral myocardial infarction 01/28/2011 04/19/2017 CAD. Inferolateral LA treate d with bare metal stenting of distal RCA at [facility] on 01/24/2011. 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 Last Tox Screen Results: No results found. However, due to the size of the patient record, not all encounters were searched.Please check Results Review for a complete set of results. * Telephone Encounter - Jonathan Botello credit collections specialist - 05/17/2024 5:25 PM EST Pt called stating he was shorted by 9 pills last month for his RX Oxycodone 5 mg. Called [facility] and confirmed this. PT needs DR to write script for last 9 tabs and send in for fill.Any questions please contact pt . Thank You, Jonathan Botello [facility] Pressure Washer II [facility] 05/17/2024, 5:28 PM documented in this encounter Plan of Treatment Upcoming Encounters Date Type Department Care Team (Late st Contact Info) Description 05/21/2024 2:00 PM EST Office Visit Orthopaedics [facility] [address] [place] [phone] Franklin Jain MD [address] [place] [phone] 05/29/2024 2:40 PM EST Office Visit General Internal Medicine [facility] [address] [place] [address] Carroll Conley MD [address] [facility] [place] [address] 06/02/2024 4:00 PM EST Imaging Radiology [address] [place] [phone] 06/08/2024 2:00 PM EST Office Visit Interventional Pain Center [facility] [address] [place] [phone] Noris Alford PA-C [address] [place] [address] 07/10/2024 1:20 PM EDT Office Visit Podiatry [facility] [address] [place] [phone] Julia Livingston DPM [address] [place] [address] 03/12/2025 1:30 PM EST Nurse Only Ancillary [facility] [address] [facility] [place] [address] Park, Nurse Annual Wellness [address] [facility] [place] [address] Health Maintenance Due Date Last Done Comments B-12 04/06/2024 04/06/2023, 04/2022, 01/29/2022, Additional history exists GFR 04/12/2024 10/11/2023, 06/2023, 03/31/2023, Additional history exists HbA1c 04/12/2024 10/11/2023, 06/2023, 08/02/2022, Additional history exists Albumin/Creatinine Ratio 10/10/2024 072 024, 08/02/2022, 07/08/2021, Additional history exists CKD HGB USE SMARTSET 04836 10/10/202410/10, 10/11/2023, 03/31/2023, Additional history exists CKD PHOS USE SMARTSET 59490 10/10/2024 07/0 12/2023, 08/02/2022, 07/08/2021, Additional history exists Diabetic Foot Exam 10/10/2024 10/11/2023, 1 , 08/19/2020, Additional history exists Adult Wellness Visit 03/07/2025 03/07/2024, 05/28/19 Depression Screening 03/07/2025 03/07/2024, 10/11/2023, 12/31/2014 Diabetic [...] this encounter Medical Devices Implanted Type Area Rice Drier Device Identifier Shelf Expiration Date Model / Serial / Lot Brenner Beveled Grommet Implanted:Qty: 1 on 05/13/2014 by Jose Alejandro Olivo MD at [facility] Right: Ear 07/03/2023 [id number] / / [id number] Trident Fermín Cluster Cup 60 - [id number] Implanted:Qty: 1 on 10/10/2014 by Jose Burton MD at [facility] Right: Hip NIXON : ORTHOPAEDICS 502-03-60F / / Screw Acetabular 6.5mm Tricia 25m - [id number] Implanted:Qty: 2 on 10/10/2014 by Jose Burton MD at [facility] Right: Hip NIXON : ORTHOPAEDICS 7918-6336-1 / / Trident Acetabular X3 0 36 F - [id number] Implanted:Qty: 1 on 10/10/2014 by Jose Burton MD at [facility] Right: Hip NIXON : ORTHOPAEDICS 623-00-36F / / Hip Hd Nk Alumina Md D 36/+75 - [id number] Implanted:Qty: 1 on 10/10/2014 by Jose Burton MD at [facility] Right: Hip NIXON : ORTHOPAEDICS 07/03/2019 6570-0-736 / / [id number] Stem Hip Sz6 - [id number] Implanted:Qty: 1 on 10/10/2014 by Jose Burton MD at [facility] Right: Hip [employer]IXON : ORTHOPAEDICS 08/02/2019 8225-1570 / / [id number] Screw Acetabular 6.5mm Tricia 25m - [id number] Implanted:Qty: 1 on 04/17/2018 by Ismael Schroeder MD at [facility] Left: Hip NIXON : ORTHOPAEDICS 06/05/202220290185-7145-1 / / [id number] Bone Screw Cancellous 65 16 - [id number] Implanted:Qty: 1 on 04/17/2018 by Ismael Schroeder MD at [facility] Left: Hip NIXON : ORTHOPAEDICS 11/03/202220293971-2726-1 / / [id number] Hip Stem Secur Max Ang 127 10 - [id number] Implanted:Qty: 1 on 04/17/2018 by Ismael Schroeder MD at [facility] Left: Hip NIXON : ORTHOPAEDICS 10/23/2022 6052-1035S / / [id number] Farm Equipment Assembler Plt Trochan 100 2 2 Cable - [id number] Implanted:Qty: 1 on 04/17/2018 by Ismael Schroeder MD at [facility] Left: Hip NIXON : ORTHOPAEDICS 12/21/2022 6704-3-082 / / [id number] Sleeve Cable 2.0mm - [id number] Implanted:Qty: 1 on 04/17/2018 by Ismael Schroeder MD at [facility] Left: Hip NIXON : ORTHOPAEDICS 10/25/2022 6704-8-240 / / [id number] Hip Fem Hd Blox D Uni Taper 40 - [id number] Implanted:Qty: 1 on 04/17/2018 by Ismael Schroeder MD at [facility] Left: Hip NIXON : ORTHOPAEDICS 12/21/2022 6519-1-040 / / [id number] Sleeve Adptr +5 Univ C Taper - [id number] Implanted:Qty: 1 on 04/17/2018 by Ismael Schroeder MD at [facility] Left: Hip NIXON : ORTHOPAEDICS 10/14/2021 19-0005T / / [id number] Hip Trident Fermín Cluster 60 - [id number] Implanted:Qty: 1 on 04/17/2018 by Ismael Schroeder MD at [facility] Left: Hip NIXON : ORTHOPAEDICS 05/23/2022 502-11-60G / / [id number] Trident Acetabular X3 0 40 G - [id number] Implanted:Qty: 1 on 04/17/2018 by Ismael Schroeder MD at [facility] Left: Hip NIXON : ORTHOPAEDICS 12/23/2022 623-00-40G / / [id number] Screw Acetabular 6.5mm Tricia 25m - [id number] Implanted:Qty: 1 on 04/17/2018 by Ismael Schroeder MD at [facility] Left: Hip NIXON : ORTHOPAEDICS 01/15/2023 7227-3254-1 / / [id number] Balloon Cath Pacing [id number] - [id number] Implanted:Qty: 1 on 07/10/2020 at [facility] CR BARD : MEDICAL [id number] 06/01/2022 [id number] / / [id number] Proglide Perclose 12370-57 X10 - [id number] Implanted:Qty: 1 on 07/10/2020 at [facility] VASCULAR DEVICES [id number] 08/01/2021 63330-18 / / [id number] Proglide Perclose 89898-08 X10 - [id number] Implanted:Qty: 1 on 07/10/2020 at [facility] VASCULAR DEVICES [id number] 08/01/2021 84483-86 / / [id number] Valve [place] 3 Ultra 26mm - [id number] Implanted:Qty: 1 on 07/10/2020 at [facility] [employer] [id number] / / Proglide Perclose 78978-17 X10 - [id number] Implanted:Qty: 1 on 07/10/2020 at [facility] VASCULAR DEVICES [id number] 01/01/2022 30600-71 / / [id number] documented as of this encounter Visit Diagnoses [...] Power of Attor mary? No Care Teams Dry Cell Assembly Machine Tender Relationship Specialty Start Date End Date Carroll Conley MD [address] [place] [address] PCP - General Internal Medicine 06/16/12 documented as of this encounter
--- NOTE | 2024-05-27 22:12 | Emergency Department Note ---
Impression & Plan Syncope, Atrial fibrillation with rapid ventricular response, Elevated troponin I level, Acute hyperglycemia ED Provider Note NAME: DONNA CEBALLOS AGE: 83 SEX: M : 1940 ARRIVES VIA: Ambulance INFORMANT: Patient, EMS ED PROVIDER(S): Porfirio Dueñas DO CHIEF COMPLAINT: Near syncope HPI: The patient is an 83-year-old male who presented to the emergency department by ambulance after having an episode of near syncope. The patient was shopping. He became very weak and lightheaded. He went to sit down at the store and thinks he may have passed out. The patient did not look well to the people working at the store so he was brought in by ambulance. The workers called 911. The patient at this time states he feels much better. He denies having any headache nausea or vomiting. He denies having any chest pain or difficulty breathing. He does feel that his heart is racing. ROS: See above HPI for pertinent positives & negatives. A total of 10 systems reviewed and were otherwise negative. PAST MEDICAL HISTORY: See Below PAST SURGICAL HISTORY: See Below FAMILY HISTORY: See Below SOCIAL HISTORY: See Below HOME MEDICATIONS: See Below ALLERGIES: See Below VITALS: See Below PHYSICAL EXAMINATION: GENERAL: Patient is awake alert in no acute distress patient is resting comfortably and showing no signs of anxiety EYES: The conjunctivae are clear. The pupils are round and reactive. EARS, NOSE, MOUTH AND THROAT: The nose is without any evidence of any deformity. NECK: The neck is nontender and supple. RESPIRATORY: Normal respiratory effort is noted there is no evidence of wheezing rhonchi or rales CARDIOVASCULAR: Tachycardic and irregular heart sounds were noted auscultation. There is no definite murmur. GASTROINTESTINAL: The abdomen is soft. Abdomen is nontender. MUSCULOSKELETAL/EXTREMITIES: There is no evidence of gross deformity full range of motion is noted in the hips and shoulders. SKIN: There was a shingles rash on the left side of the chest. NEUROLOGIC: Patient is awake alert and oriented x3. Strength was symmetric. Speech was clear. There is no facial droop. MEDICAL DECISION MAKING: The patient is an 84-year-old male who was recently diagnosed with shingles who presented to the emergency department after having a near syncope/syncopal episode. The patient has been taking pain medication as well as steroids. He has lots of pain over the area where the rashes. He was at a local store and had an episode where he became very weak. He also had palpitations and appeared to be in rapid atrial fibrillation upon arrival. The patient was treated with IV fluids IV magnesium as well as IV Cardizem. He was reevaluated multiple times. I discussed the patient's laboratory and radiographic studies with him. Given his new diagnosis of the shingles I think this is why his condition may be out of control. His blood sugar is elevated likely because of the steroids. He was feeling much better on reevaluation and his heart rate was improved. I discussed his condition with the on-call [facility]. They have agreed to evaluate the patient in the emergency department. Triage Nursing notes reviewed. Prior medical records reviewed Vital Signs: reviewed and remarkable for no significant abnormalities Differential diagnosis: Premature contractions, electrolyte abnormality, cardiac dysrhythmia, thyroid dysfunction, pulmonary embolism, infection, gastrointestinal, as well as other pathologies. ER treatment provided: See below Diagnostics interpreted by me: ECG: EKG was obtained in the emergency department. My interpretation is atrial fibrillation with RVR and a pulse rate of [address] abnormalities were noted. There were no PVCs noted. Cardiac Monitoring: An order was placed for continuous cardiac monitoring. The monitor shows a rate of 73 bpm with sinus rhythm. Laboratory studies: As stated above and show below. Imaging studies: See below. Radiographic imaging was reviewed by myself Consultation(s): I discussed this case with Dr. Martines who is on-call for the [facility] group. ED COURSE: Procedures: none Critical Care: I have personally spent greater than 35 minutes of critical care time in the direct management of this patient. This includes bedside care, interpretation of diagnostic studies, and testing, discussion with consultants, patient, and family members, and other required patient management activities. This 35 minutes is in excess of all separately billable procedures. Past Med/Surg History Problem List (Updated 05/27/24 @ 23:45 by Porfirio Dueñas DO) Acute hyperglycemia (Acute) Elevated troponin I level (Acute) Atrial fibrillation with rapid ventricular response (Acute) Syncope (Acute) Herpes zoster (Acute) Ischial bursitis Piriformis syndrome Low back pain Ambulatory dysfunction (Acute) Fracture of L5 vertebra (Acute) Coccyx contusion Lumbar transverse process fracture Fall (Acute) Syncope and collapse Paroxysmal atrial fibrillation Lightheadedness S/P TAVR (transcatheter aortic valve replacement) Exertional angina Type 2 diabetes mellitus GI bleed (Acute) Atrial fibrillation (Acute) Aortic stenosis S/P coronary artery stent placement CAD (coronary artery disease) Hypertension (Chronic) Hypercholesteremia (Chronic) Medical History Paroxysmal ventricular tachycardia Osteoarthritis GERD (gastroesophageal reflux disease) Diabetes mellitus, type 2 Hypertension Hyperlipidemia Surgical History S/P inguinal hernia repair H/O cataract extraction RIGHT E[place]02[place]/18[place] [facility] [place] History of total hip arthroplasty RT History of colonoscopy History of tonsillectomy History of cardiac cath 2010 Social History Smoking Status: Never smoker Second Hand Exposure: No; Do You Dip or Chew Tobacco: No; Hx Alcohol Use: Yes Alcohol type: wine Hx Substance Use: No Preferred Language: Syriac Communication Ability: Effective Sports Physiologist Required: No Beliefs That Will Affect Care: None Current Living Situation: Other Current Living Situation Comment: 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 Feels Safe at Home: Yes Assistive Devices: None, Cane and Walker Allergies Allergies Allergy/AdvReac Type Severity Reaction Status Date / Time acetaminophen [From [facility]] AdvReac Nausea Verified 12/19/23 09:26 hydrocodone [From [facility]] AdvReac Nausea Verified 12/19/23 09:26 Home Meds Home Medications Medication Instructions Recorded Confirmed atorvastatin 80 mg tablet 80 mg PO DAILY 04/13/19 12/19/23 metformin 500 mg tablet 1,000 mg PO BIDM 04/13/19 12/19/23 nitroglycerin 0.4 mg sublingual 0.4 mg sublingual DIRECTED PRN 04/13/19 12/19/23 tablet Chest Pain glimepiride 4 mg tablet 8 mg PO QAM 04/14/19 12/19/23 zolpidem 5 mg tablet 5 mg PO HS PRN Sleep 04/14/19 12/19/23 aspirin 81 mg tablet,delayed 81 mg PO DAILY PRN Other 04/01/21 12/19/23 release (Adult Low Dose Aspirin) Previous Rx's Medication Instructions Recorded linagliptin 5 mg tablet (Tradjenta) 5 mg PO DAILY #90 tabs 03/31/20 oxycodone 5 mg tablet 5 mg PO Q8H PRN pain (scale score 10/16/23 7-10) #10 tabs tizanidine 4 mg tablet 4 mg PO TID PRN Spasms #30 tabs 10/24/23 metoprolol succinate 25 mg 25 mg PO DAILY #90 tabs 10/25/23 tablet,extended release 24 hr clopidogrel 75 mg tablet 75 mg PO DAILY #90 tabs 03/12/24 methylprednisolone 4 mg tablets in 4 mg PO DIRECTED #21 ea 05/19/24 a dose pack (Medrol (Josemanuel)) oxycodone-acetaminophen 5 mg-325 1 tab PO Q6H PRN pain #10 tabs 05/19/25 mg tablet (Percocet) oxycodone-acetaminophen 5 mg-325 1 tab PO Q6H PRN pain #20 tabs 05/19/25 mg tablet (Percocet) Results & Data (ED) Vital Signs Vital Signs - 24 hr 05/27/24 22:09 05/27/24 22:09 05/27/24 22:09 Temperature 37 C Temperature Source Oral Pulse Rate 136 H Pulse Rate from SpO2 Sensor Pulse Rhythm Irregular Respiratory Rate 18 Respiratory Effort / Characteristics Non-Labored Respiratory Depth Normal Respiratory Pattern Regular Blood Pressure 144/93 H Blood Pressure Mean 110 Pulse Oximetry 98 Oxygen Delivery Method Room Air Room Air Room Air Sepsis Recent Fever Within 48 Hours No Sepsis New/Unexplained Change in Mental Status No Sepsis Action Taken by Nursing No Action Required 05/27/24 22:14 05/27/24 22:30 05/27/24 23:00 Temperature Temperature Source Pulse Rate 147 H Pulse Rate from SpO2 Sensor Pulse Rhythm Respiratory Rate Respiratory Effort / Characteristics Respiratory Depth Respiratory Pattern Blood Pressure 124/85 133/87 Blood Pressure Mean 90 97 Pulse Oximetry Oxygen Delivery Method Sepsis Recent Fever Within 48 Hours Sepsis New/Unexplained Change in Mental Status Sepsis Action Taken by Nursing 05/27/24 23:15 Temperature Temperature Source Pulse Rate 99 H Pulse Rate from SpO2 Sensor 51 L Pulse Rhythm Respiratory Rate 20 Respiratory Effort / Characteristics Respiratory Depth Respiratory Pattern Blood Pressure Blood Pressure Mean Pulse Oximetry 98 Oxygen Delivery Method Room Air Sepsis Recent Fever Within 48 Hours Sepsis New/Unexplained Change in Mental Status Sepsis Action Taken by Half-Way Medications Current Medication List: was personally reviewed by me Laboratory Data Attestation: I reviewed the patient's lab results. 05/27/24 22:20 05/27/24 22:20 Lab Results 05/27/24 Range/Units 22:20 WBC 8.29 (4.8-10.8) K/ul RBC 3.91 L (4.70-6.10) M/uL Hgb 12.1 L (14.0-18.0) g/dl Hct 35.5 L (42.0-52.0) % MCV 90.8 (80.0-100.0) fL MCH 30.9 (25.0-34.0) pg MCHC 34.1 (32.0-36.0) g/dL RDW Std Deviation 44.4 (36.4-46.3) fL RDW Coeff of Jasvir 14.0 (11.5-14.5) % Plt Count 164 (130-400) K/uL MPV 9.4 (9.4-12.4) fL Immature Gran % (Auto) 0.5 % Neut % (Auto) 68.9 % Lymph % (Auto) 21.7 % [place] % (Auto) 7.2 % Eos % (Auto) 1.3 % Baso % (Auto) 0.4 % Neut # (Auto) 5.71 (1.40-6.50) K/uL Lymph # (Auto) 1.80 (1.20-3.40) K/uL [place] # (Auto) 0.60 H (0.11-0.59) K/uL Eos # (Auto) 0.11 (0.00-0.50) K/uL Baso # (Auto) 0.03 (0.00-0.20) K/uL Immature Gran # (Auto) 0.04 (0.01-0.20) K/uL PT Cancelled INR Cancelled APTT Cancelled PTT Ratio Cancelled Sodium 134 L (136-145) mmol/L Potassium 4.0 (3.5-5.1) mmol/L Chloride 96 L (98-107) mmol/L Carbon Dioxide 29 (21-32) mmol/L Anion Gap 9 (3-11) BUN 28 H (6-23) mg/dl Creatinine 1.46 H (0.6-1.4) mg/dl Est Cr Clr Drug Dosing 32.2 ml/min eGFR 47.13 BUN/Creatinine Ratio 19.2 (10-20) Glucose 397 H* (70-99(Fasting)) mg/dl Calcium 9.5 (8.6-10.3) mg/dl Magnesium 1.6 L (1.7-2.4) mg/dl Total Bilirubin 0.9 (0.2-1.0) mg/dl AST 14 (13-39) U/L ALT 17 (7-52) U/L Alkaline Phosphatase 76 (34-104) U/L Troponin I High Sens 68.1 H* (0-20) pg/ml Total Protein 6.9 (6.0-8.3) gm/dl Albumin 4.0 (3.4-5.0) gm/dl Globulin 2.9 (2.5-4.0) gm/dl Albumin/Globulin Ratio 1.4 (0.9-2) TSH 2.038 (0.300-4.500) uIu/ml Administered Medications Magnesium Sulfate/Dextrose (Magnesium Sulfate / D5w) 1 gm in 100 mls @ 100 mls/hr IV NOW STA Stop: 05/28/24 00:38 Last Admin: 05/28/24 00:07 Dose: 100 mls/hr Documented By: Discontinued Medications Diltiazem HCl (Diltiazem Hcl 5 Mg/Ml 5 Ml Vial) 10 mg IV NOW STA Stop: 05/27/24 22:13 Last Admin: 05/27/24 22:28 Dose: 10 mg Documented By: DARLING Co-signed By: JAIMIE Diltiazem HCl (Diltiazem Hcl 5 Mg/Ml 5 Ml Vial) 10 mg IV NOW STA Stop: 05/27/24 23:44 Last Admin: 05/28/24 00:08 Dose: 10 mg Documented By: Co-signed By: COURTNEY Sodium Chloride (Nss) 500 mls @ 999 mls/hr IV .Q31M ONE Stop: 05/27/24 22:42 Last Infusion: 05/27/24 23:01 Dose: Infused Documented By: Admin: 05/27/24 22:28 Dose: 999 mls/hr Documented By: DARLING Sodium Chloride (Nss) 500 mls @ 999 mls/hr IV .Q31M ONE Stop: 05/28/24 00:09 Last Admin: 05/28/24 00:07 Dose: 999 mls/hr Documented By: Oxycodone HCl (Oxycodone Hcl Ir 5 Mg Tab (Immediate Release)) 5 mg PO NOW STA Stop: 05/27/24 23:44 Last Admin: 05/28/24 00:06 Dose: 5 mg Documented By: Imaging Data Attestation: I personally reviewed and interpreted this imaging study as follows: My Impression: 1 view chest x-ray was obtained in the emergency department. My interpretation is no free air or definite infiltrate, final report below. Radiologist's Impression: Chest X-Ray 05/27/24 22:09 Exam(s): XR CXR 1 VIEW EXAM: XR Chest, 1 View CLINICAL HISTORY: Reason for exam: weakness. TECHNIQUE: Frontal view of the chest. COMPARISON: No relevant prior studies available. FINDINGS: Lungs: Slightly coarse interstitial markings in the lungs. No acute focal infiltrate or consolidation is seen. Pleural space: Unremarkable. No pneumothorax. Heart: Previous coronary stenting. No cardiomegaly. Mediastinum: Unremarkable. Normal mediastinal contour. Bones/joints: Mild degenerative changes in both shoulders. No acute fracture. Vasculature: The aortic arch is mildly calcified. Tubes, lines and devices: Previous transcatheter aortic valvuloplasty. Upper abdomen: Unremarkable as visualized. No pneumoperitoneum under the diaphragm. IMPRESSION: No acute findings in the chest. Electronically signed by: Abrahan Guaman MD 05/28/24 00:06 AM Discharge Plan Visit Data Chief Complaint: Weakness Stated Complaint: WEAKNESS, NEAR SYNCOPAL ED Provider: Porfirio Dueñas Discharge Problem: Syncope, Atrial fibrillation with rapid ventricular response, Elevated troponin I level, Acute hyperglycemia Patient Disposition: Being Evaluated by Hospitalist Forms Stand Alone Forms: My [facility] Prescriptions Prescriptions: No Action metoprolol succinate 25 mg tablet extended release 24 hr 25 mg PO DAILY Qty: 90 3RF Rx Instructions: last filled 07/24/23 clopidogrel 75 mg tablet 75 mg PO DAILY Qty: 90 3RF Tradjenta 5 mg tablet 5 mg PO DAILY Qty: 90 3RF aspirin [Adult Low Dose Aspirin] 81 mg tablet,delayed release (DR/EC) 81 mg PO DAILY PRN (Reason: Other) Rx Instructions: unable to verify glimepiride 4 mg tablet 8 mg PO QAM zolpidem 5 mg tablet 5 mg PO HS PRN (Reason: Sleep) Rx Instructions: unable to verify atorvastatin 80 mg Tablet 80 mg PO DAILY metformin 500 mg Tablet 1,000 mg PO BIDM nitroglycerin 0.4 mg Tablet, Sublingual 0.4 mg sublingual DIRECTED PRN (Reason: Chest Pain) Rx Instructions: unable to verify oxycodone 5 mg tablet 5 mg PO Q8H PRN (Reason: pain (scale score 7-10)) Qty: 10 0RF Rx Instructions: May cause sedation. tizanidine 4 mg Tablet 4 mg PO TID PRN (Reason: Spasms) Qty: 30 0RF oxycodone-acetaminophen [Percocet] 5-325 mg tablet 1 tab PO Q6H PRN (Reason: pain) Qty: 20 0RF methylprednisolone [Medrol (Josemanuel)] 4 mg tablets,dose pack 4 mg PO DIRECTED Qty: 21 0RF oxycodone-acetaminophen [Percocet] 5-325 mg tablet 1 tab PO Q6H PRN (Reason: pain) Qty: 10 0RF Referrals Referrals: Carroll Conley MD [Primary Care Provider] -
[2024-05-27] MEDS: SODIUM CHLORIDE 0.9% 500 ML IV ONE (22:28)
[2024-05-27] MEDS: dilTIAZem HCl 5 MG/ML 5 ML VIAL IV STA (22:28)
[2024-05-27 22:46] LABS: Basophils # (auto) 0.03 K/uL (0.00-0.20); Basophils % (auto) 0.4 %; Eosinophils # (auto) 0.11 K/uL (0.00-0.50); Eosinophils % (auto) 1.3 %; Hematocrit (blood only) 35.5 % (42.0-52.0); Hemoglobin 12.1 g/dl (14.0-18.0); Immature Granulocytes # (auto) 0.04 K/uL (0.01-0.20); Immature Granulocytes % (auto) 0.5 %; Lymphocytes % (auto) 21.7 %; Mean Corpuscular Hemoglobin 30.9 pg (25.0-34.0); Mean Corpuscular Hgb Conc 34.1 g/dL (32.0-36.0); Mean Corpuscular Volume 90.8 fL (80.0-100.0); Mean Platelet Volume 9.4 fL (9.4-12.4); Monocytes % (auto) 7.2 %; Neutrophils # (auto) 5.71 K/uL (1.40-6.50); Neutrophils % (auto) 68.9 %; Platelet Count 164 K/uL (130-400); RDW Standard Deviation 44.4 fL (36.4-46.3); Red Blood Count 3.91 M/uL (4.70-6.10); White Blood Count 8.29 K/ul (4.8-10.8)
[2024-05-27 23:36] LABS: Albumin Globulin Ratio 1.4 (0.9-2); BUN Creatinine Ratio 19.2 (10-20); Bilirubin,Total 0.9 mg/dl (0.2-1.0); Calcium 9.5 mg/dl (8.6-10.3); Creatinine Clr Calc Pharmacy 32.2 ml/min; Globulin 2.9 gm/dl (2.5-4.0); Magnesium 1.6 mg/dl (1.7-2.4); Thyroid Stimulating Hormone 2.038 uIu/ml (0.300-4.500); Total Protein 6.9 gm/dl (6.0-8.3); Troponin I High Sensitivity 68.1 pg/ml (0-20)
[2024-05-28] MEDS: oxyCODONE HCL IR 5 MG TAB (IMMEDIATE RELEASE) PO STA (00:06)
[2024-05-28] MEDS: SODIUM CHLORIDE 0.9% 500 ML IV ONE (00:07)
[2024-05-28] MEDS: MAGNESIUM SULFATE / D5W 1 GM/100 ML BAG IV STA (00:07)
--- NOTE | 2024-05-28 00:07 | XRay Report ---
Exam(s): XR CXR 1 VIEW EXAM: XR Chest, 1 View CLINICAL HISTORY: Reason for exam: weakness. TECHNIQUE: Frontal view of the chest. COMPARISON: No relevant prior studies available. FINDINGS: Lungs: Slightly coarse interstitial markings in the lungs. No acute focal infiltrate or consolidation is seen. Pleural space: Unremarkable. No pneumothorax. Heart: Previous coronary stenting. No cardiomegaly. Mediastinum: Unremarkable. Normal mediastinal contour. Bones/joints: Mild degenerative changes in both shoulders. No acute fracture. Vasculature: The aortic arch is mildly calcified. Tubes, lines and devices: Previous transcatheter aortic valvuloplasty. Upper abdomen: Unremarkable as visualized. No pneumoperitoneum under the diaphragm. IMPRESSION: No acute findings in the chest. Electronically signed by: Abrahan Guaman MD 05/28/24 00:06 AM
[2024-05-28] MEDS: dilTIAZem HCl 5 MG/ML 5 ML VIAL IV STA (00:08)
[2024-05-28] MEDS ORDERED: DEXTROSE 50% 50 ML SYRINGE IV PRN (00:37)
[2024-05-28] MEDS ORDERED: GLUCOSE 40% GEL 15 GM TUBE PO PRN (00:37)
[2024-05-28] MEDS ORDERED: GLUCOSE 10 TAB/TUBE PO PRN (00:37)
[2024-05-28] MEDS ORDERED: CARBOHYDRATES FOR HYPOGLYCEMIA PO PRN (00:37)
[2024-05-28] MEDS ORDERED: GLUCAGON FOR INJ 1 MG VIAL SQ PRN (00:37)
[2024-05-28 01:02] LABS: Partial Thromboplastin Ratio 0.9; Partial Thromboplastin Time 23 Seconds (21-31); Prothrombin Time 11.1 Seconds (9.0-12.0)
[2024-05-28] MEDS: LANTUS PER UNIT CHARGE SQ STA (01:26)
[2024-05-28] MEDS: INSULIN ASPART PER UNIT CHARGE SC SCH (01:27)
[2024-05-28] MEDS: SODIUM CHLORIDE 0.9% 1,000 ML IV ONE (01:30)
[2024-05-28 03:09] LABS: Appearance Urine Clear (Clear); Bacteria Urine Automated None Seen (None Seen); Bilirubin Urine Negative (Negative); Blood Urine Negative (Negative); Cast Urine Automated 0-2 /lpf (0-2); Color Urine Yellow; Epithelial Cell Urine Auto 0-2 /hpf (0-2); Glucose Urine UA 3+ (Negative); Ketones Urine 1+ (Negative); Leukocyte Esterase Urine Negative (Negative); Nitrite Urine Negative (Negative); Protein Urine Trace (Negative); RBC Urine Automated 0-2 /hpf (0-2); Specific Gravity Urine 1.022 (1.000-1.030); Urobilinogen Urine Negative (Negative); WBC Urine Automated 0-5 /hpf (0-5)
--- NOTE | 2024-05-28 04:08 | History & Physical Report ---
Date of Service May 28, 2024 Assessment & Plan (1) Atrial fibrillation with rapid ventricular response: Plan: Recurrent atrial flutter secondary to hyperglycemia status post recent steroid Rx for shingles, DM2 on oral medications, suboptimal control as of last hemoglobin A1c of 7.8 last year. Patient not on anticoagulation secondary to bleeding risk as per records. chronic diastolic heart failure (EF 60 to 65%, TTE 2023 ), patient on the dry side Troponin elevation secondary to illness in the setting of kidney dysfunction hx CAD status post stent aortic stenosis status post TAVR, mild MR hypertension, stable hyperlipidemia, on statin Rx OBS Admit to PCU Titrate home beta-eric Cardiology consult re: recurrent AF/AFl (Patient known to [facility].) Monitor creatinine response to IVF Basal bolus insulin, ISS BG goal 1 10-1 40, carb count coverage, updating hemoglobin A1c DVT prophylaxis. Heparin subcu Full code Text document was generated using waygum voice recognition software. It may contain grammatical or spelling errors. Kindly contact undersigned for clarification of any documentation item in question. History of Present Illness Chief Complaint: Near syncope, Primary Care Provider: Carroll Conley MD History obtained from patient and records. Medical history significant for chronic diastolic heart failure (EF 60 to 65%, TTE 2023 ), CAD status post stent, aortic stenosis status post TAVR, mild MR, PAF not on anticoagulation secondary to bleeding risk, hypertension, hyperlipidemia, duodenal ulcer as per records, DM2 on oral medications, BPH. Last confinement October 2023 for lumbar fracture secondary to fall. For lumbar fracture secondary to fall. 3 weeks ago, patient noted painful rash on his left back and torso. Valtrex and gabapentin course prescribed by PCP. Lesions drying already but patient with worsening chest pain over lesion site. Patient consulted ER 10 days ago. Discharged on Medrol Dosepak. Patient was shopping yesterday when he experienced generalized weakness and lightheadedness. He had to sit down at a store because he thought he was going to pass out. Denies chest pain or SOB. Polyuria noted at home. Patient noted to be in rapid A-fib upon arrival at the ER Heart rate 130s. Diltiazem bolus administered at the ER. Heart rate currently 80s. 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 Allergies Allergy/AdvReac Type Severity Reaction Status Date / Time acetaminophen [From [place]] AdvReac Nausea Verified 12/19/23 09:26 hydrocodone [From [place]] AdvReac Nausea Verified 12/19/23 09:26 Home Medications Medication Instructions Recorded Confirmed Type atorvastatin 80 mg tablet 80 mg PO DAILY 04/13/19 05/28/24 History metformin 500 mg tablet 1,000 mg PO BIDM 04/13/19 05/28/24 History nitroglycerin 0.4 mg sublingual 0.4 mg sublingual DIRECTED PRN 04/13/1905/28 History tablet Chest Pain glimepiride 4 mg tablet 8 mg PO QDB 04/14/19 05/28/24 History zolpidem 5 mg tablet 5 mg PO HS PRN Sleep 04/14/19 05/28/24 History oxycodone 5 mg tablet 5 mg PO Q8H PRN pain (scale score 10/16/23 05/28/24 Rx 7-10) #10 tabs clopidogrel 75 mg tablet 75 mg PO DAILY #90 tabs 03/12/24 05/28/24 Rx acetaminophen 500 mg tablet 500 mg PO Q8 PRN mod pain 05/28/24 05/28/24 History gabapentin 300 mg capsule 100 mg PO UD 05/28/24 05/28/24 History linagliptin 5 mg tablet (Tradjenta) 5 mg PO QAM 05/28/24 05/28/24 History metoprolol succinate 25 mg 25 mg PO QAM 05/28/24 05/28/24 History tablet,extended release 24 hr tizanidine 4 mg tablet 2 - 4 mg PO Q8 PRN Pain 05/28/24 05/28/24 History Past Med/Surg History Problem List (Updated 05/27/24 @ 23:45 by Porfirio Dueñas DO) Acute hyperglycemia (Acute) Elevated troponin I level (Acute) Atrial fibrillation with rapid ventricular response (Acute) Syncope (Acute) Herpes zoster (Acute) Ischial bursitis Piriformis syndrome Low back pain Ambulatory dysfunction (Acute) Fracture of L5 vertebra (Acute) Coccyx contusion Lumbar transverse process fracture Fall (Acute) Syncope and collapse Paroxysmal atrial fibrillation Lightheadedness S/P TAVR (transcatheter aortic valve replacement) Exertional angina Type 2 diabetes mellitus GI bleed (Acute) Atrial fibrillation (Acute) Aortic stenosis S/P coronary artery stent placement CAD (coronary artery disease) Hypertension (Chronic) Hypercholesteremia (Chronic) Medical History Paroxysmal ventricular tachycardia Osteoarthritis GERD (gastroesophageal reflux disease) Diabetes mellitus, type 2 Hypertension Hyperlipidemia Surgical History S/P inguinal hernia repair H/O cataract extraction RIGHT EYE (02/01/18, [facility] [place]) History of total hip arthroplasty RT History of colonoscopy History of tonsillectomy History of cardiac cath 2009 Social History Smoking Status: Never smoker Second Hand Exposure: No; Do You Dip or Chew Tobacco: No; Hx Alcohol Use: No Hx Substance Use: No Preferred Language: Sri Lankan Communication Ability: Effective Chauffeur Required: No Beliefs That Will Affect Care: None Current Living Situation: Other Current Living Situation Comment: Roommate Other Information That Helps Us Care for You: No Feels Safe at Home: Yes Safety Concerns: Feels Safe At This Time Assistive Devices: Glasses, Hearing Aid - Bilateral and Walker Review of Systems Review of Systems: As per HPI, all other systems reviewed and negative Physical Exam Physical Exam: GENERAL: Comfortable, pleasant, no respiratory distress SKIN: Normal color, warm HEENT: Alopecia, pink palpebral conjunctivae, no ptosis, dry buccal mucosa NECK : Supple, no tenderness CHEST : Dried crusting lesions over back, CTA, no tenderness HEART : irregular, systolic murmur ABDOMEN: Some distention, nontender EXTREMITIES : No LE swelling/tenderness, palpable pulses, no other conspicuous deformities noted NEUROLOGIC : Coherent, no facial asymmetry, no other gross focality Results & Data Results & Data Vital Signs (Past 12 Hours) Vital Signs Temp Pulse Resp BP Pulse Ox O2 Del Method 05/28/24 03:00 108/68 05/28/24 03:00 75 18 98 Room Air 05/28/24 02:30 137/81 05/28/24 02:30 79 05/28/24 01:30 75 14 98 Room Air 05/28/24 01:00 133/79 05/28/24 01:00 74 17 05/28/24 00:48 84 05/27/24 23:15 99 H 20 98 Room Air 05/27/24 23:00 133/87 05/27/24 22:30 124/85 05/27/24 22:14 147 H 05/27/24 22:09 Room Air 05/27/24 22:09 Room Air 05/27/24 22:09 37 C 136 H 18 144/93 H 98 Room Air Laboratory Results Laboratory Results WBC 8.29 K/ul (4.8-10.8) 05/27/24 22:20 RBC 3.91 M/uL (4.70-6.10) L 05/27/24 22:20 Hgb 12.1 g/dl (14.0-18.0) L 05/27/24 22:20 Hct 35.5 % (42.0-52.0) L 05/27/24 22:20 MCV 90.8 fL (80.0-100.0) 05/27/24 22:20 MCH 30.9 pg (25.0-34.0) 05/27/24 22:20 MCHC 34.1 g/dL (32.0-36.0) 05/27/24 22:20 RDW Std Deviation 44.4 fL (36.4-46.3) 05/27/24 22:20 RDW Coeff of Jasvir 14.0 % (11.5-14.5) 05/27/24 22:20 Plt Count 164 K/uL (130-400) 05/27/24 22:20 MPV 9.4 fL (9.4-12.4) 05/27/24 22:20 Immature Gran % (Auto) 0.5 % 05/27/24 22:20 Neut % (Auto) 68.9 % 05/27/24 22:20 Lymph % (Auto) 21.7 % 05/27/24 22:20 [place] % (Auto) 7.2 % 05/27/24 22:20 Eos % (Auto) 1.3 % 05/27/24 22:20 Baso % (Auto) 0.4 % 05/27/24 22:20 Neut # (Auto) 5.71 K/uL (1.40-6.50) 05/27/24 22:20 Lymph # (Auto) 1.80 K/uL (1.20-3.40) 05/27/24 22:20 [place] # (Auto) 0.60 K/uL (0.11-0.59) H 05/27/24 22:20 Eos # (Auto) 0.11 K/uL (0.00-0.50) 05/27/24 22:20 Baso # (Auto) 0.03 K/uL (0.00-0.20) 05/27/24 22:20 Immature Gran # (Auto) 0.04 K/uL (0.01-0.20) 05/27/24 22:20 PT 11.1 Seconds (9.0-12.0) 05/28/24 00:10 INR 1.0 (0.9-1.1) 05/28/24 00:10 APTT 23 Seconds (21-31) 05/28/24 00:10 PTT Ratio 0.9 05/28/24 00:10 Sodium 134 mmol/L (136-145) L 05/27/24 22:20 Potassium 4.0 mmol/L (3.5-5.1) 05/27/24 22:20 Chloride 96 mmol/L (98-107) L 05/27/24 22:20 Carbon Dioxide 29 mmol/L (21-32) 05/27/24 22:20 Anion Gap 9 (3-11) 05/27/24 22:20 BUN 28 mg/dl (6-23) H 05/27/24 22:20 Creatinine 1.46 mg/dl (0.6-1.4) H 05/27/24 22:20 Est Cr Clr Drug Dosing 32.2 ml/min 05/27/24 22:20 eGFR 47.13 05/27/24 22:20 BUN/Creatinine Ratio 19.2 (10-20) 05/27/24 22:20 Glucose 397 mg/dl (70-99(Fasting)) H* 05/27/24 22:20 POC Glucose 367 mg/dl (70-99) H* 05/28/24 01:18 Calcium 9.5 mg/dl (8.6-10.3) 05/27/24 22:20 Magnesium 1.6 mg/dl (1.7-2.4) L 05/27/24 22:20 Total Bilirubin 0.9 mg/dl (0.2-1.0) 05/27/24 22:20 AST 14 U/L (13-39) 05/27/24 22:20 ALT 17 U/L (7-52) 05/27/24 22:20 Alkaline Phosphatase 76 U/L (34-104) 05/27/24 22:20 Troponin I High Sens 69.1 pg/ml (0-20) H* 05/28/24 00:10 Total Protein 6.9 gm/dl (6.0-8.3) 05/27/24 22:20 Albumin 4.0 gm/dl (3.4-5.0) 05/27/24 22:20 Globulin 2.9 gm/dl (2.5-4.0) 05/27/24 22:20 Albumin/Globulin Ratio 1.4 (0.9-2) 05/27/24 22:20 TSH 2.038 uIu/ml (0.300-4.500) 05/27/24 22:20 Urine Color Yellow 05/28/24 02:56 Urine Appearance Clear (Clear) 05/28/24 02:56 Urine pH 6.0 (4.5-7.5) 05/28/24 02:56 Ur Specific [place] 1.022 (1.000-1.030) 05/28/24 02:56 Urine Protein Trace (Negative) H 05/28/24 02:56 Urine Glucose (UA) 3+ (Negative) H 05/28/24 02:56 Urine Ketones 1+ (Negative) H 05/28/24 02:56 Urine Blood Negative (Negative) 05/28/24 02:56 Urine Nitrite Negative (Negative) 05/28/24 02:56 Urine Bilirubin Negative (Negative) 05/28/24 02:56 Urine Urobilinogen Negative (Negative) 05/28/24 02:56 Ur Leukocyte Esterase Negative (Negative) 05/28/24 02:56 Urine WBC (Auto) 0-5 /hpf (0-5) 05/28/24 02:56 Urine RBC (Auto) 0-2 /hpf (0-2) 05/28/24 02:56 U Hyaline Cast (Auto) 0-2 /lpf (0-2) 05/28/24 02:56 U Epithel Cells (Auto) 0-2 /hpf (0-2) 05/28/24 02:56 Urine Bacteria (Auto) None Seen (None Seen) 05/28/24 02:56 Impressions Chest X-Ray 05/27/24 22:09 Exam(s): XR CXR 1 VIEW EXAM: XR Chest, 1 View CLINICAL HISTORY: Reason for exam: weakness. TECHNIQUE: Frontal view of the chest. COMPARISON: No relevant prior studies available. FINDINGS: Lungs: Slightly coarse interstitial markings in the lungs. No acute focal infiltrate or consolidation is seen. Pleural space: Unremarkable. No pneumothorax. Heart: Previous coronary stenting. No cardiomegaly. Mediastinum: Unremarkable. Normal mediastinal contour. Bones/joints: Mild degenerative changes in both shoulders. No acute fracture. Vasculature: The aortic arch is mildly calcified. Tubes, lines and devices: Previous transcatheter aortic valvuloplasty. Upper abdomen: Unremarkable as visualized. No pneumoperitoneum under the diaphragm. IMPRESSION: No acute findings in the chest. Electronically signed by: Abrahan Guaman MD 05/28/24 00:06 AM Diagnostic Findings EKG as per my interpretation :Rate 130, atrial flutter normal axis, nonspecific T wave abnormalities
[2024-05-28] MEDS ORDERED: ZOLPIDEM TARTRATE 5 MG TAB PO PRN (04:11)
[2024-05-28] MEDS ORDERED: PROMETHAZINE 6.25 MG/50.25 ML BAG IV PRN (04:12)
[2024-05-28] MEDS ORDERED: ACETAMINOPHEN 325 MG TAB PO PRN (04:41)
[2024-05-28] MEDS: oxyCODONE HCL IR 5 MG TAB (IMMEDIATE RELEASE) PO PRN (06:08)
[2024-05-28] MEDS: HEPARIN SOD 5,000 UNIT/0.5 ML VIAL SQ SCH (06:37)
[2024-05-28 08:07] LABS: Basophils # (auto) 0.03 K/uL (0.00-0.20); Basophils % (auto) 0.4 %; Eosinophils # (auto) 0.11 K/uL (0.00-0.50); Eosinophils % (auto) 1.5 %; Hematocrit (blood only) 32.1 % (42.0-52.0); Hemoglobin 11.1 g/dl (14.0-18.0); Immature Granulocytes # (auto) 0.03 K/uL (0.01-0.20); Immature Granulocytes % (auto) 0.4 %; Lymphocytes # (auto) 2.17 K/uL (1.20-3.40); Lymphocytes % (auto) 30.2 %; Mean Corpuscular Hemoglobin 31.6 pg (25.0-34.0); Mean Corpuscular Hgb Conc 34.6 g/dL (32.0-36.0); Mean Corpuscular Volume 91.5 fL (80.0-100.0); Mean Platelet Volume 9.5 fL (9.4-12.4); Monocytes # (auto) 0.63 K/uL (0.11-0.59); Monocytes % (auto) 8.8 %; Neutrophils # (auto) 4.22 K/uL (1.40-6.50); Neutrophils % (auto) 58.7 %; Platelet Count 166 K/uL (130-400); RDW Coefficient of Variation 13.7 % (11.5-14.5); RDW Standard Deviation 43.7 fL (36.4-46.3); Red Blood Count 3.51 M/uL (4.70-6.10); White Blood Count 7.19 K/ul (4.8-10.8)
[2024-05-28] MEDS ORDERED: PHARMACY GLYCEMIC MGMT CONSULT PRN (08:42)
[2024-05-28 08:51] LABS: Estimated Average Glucose 318 mg/dl; Hemoglobin A1C 12.7 % (4.5-5.6)
[2024-05-28] MEDS ORDERED: GABAPENTIN 300 MG CAP PO SCH ×2 (09:00→21:00)
[2024-05-28 09:07] LABS: BUN Creatinine Ratio 18.9 (10-20); Creatinine Clr Calc Pharmacy 42.3 ml/min; Potassium 3.9 mmol/L (3.5-5.1)
[2024-05-28] MEDS: ATORVASTATIN 40 MG TAB PO SCH (09:13)
[2024-05-28] MEDS: GABAPENTIN 100 MG CAP PO SCH (09:13)
[2024-05-28] MEDS: CLOPIDOGREL BISULFATE 75 MG TAB PO SCH (09:13)
[2024-05-28] MEDS: METOPROLOL SUCC 25MG EXT REL TAB PO SCH (09:13)
[2024-05-28] MEDS: METOPROLOL TARTRATE 1 MG/ML VIAL IV STA (09:57)
--- NOTE | 2024-05-28 11:05 | Cardiology Consultation ---
Date of Consultation May 28, 2024 Assessment & Plan (1) Atrial fibrillation with rapid ventricular response: Pt has known cardiac history of CAD, coronary stents in 2010, and s/p TAVR for aortic stenosis, and paroxysmal ventricular tachycardia and a-fib. Pt is rate controlled on metoprolol 25mg at home, but not taking anticoagulation due to increased bleeding risk. Pt was diagnosed with herpes zoster in early May and placed on oral prednisone and oxycodone by his PCP. Pt reports finishing predni briane a few days ago, but continues on oxycodone daily for pain. In ED, pt was found to be dehydrated with elevated BSG and given 2L IVF. Pt also presented with elevated troponin in setting of a-fib with RVR. He was given IV magnesium and cardizem. Today, patient remains in a-fib with intermittent RVR, however he is reportedly asymptomatic. BP's have been soft in the 110s/60s. - Increase PO metoprolol by 12.5 mg q6h starting at 37.5mg until rate is controlled - Diltazem 10mg IV PRN for RVR >180 Supervising Physician Co-Signing Physician Notes Pt seen and examined. Agree with assessment and plan as outlined by Dr. Tobin. Impression 1. Atrial flutter with a rapid ventricular response -Would increase his beta-eric dose. -No long-term anticoagulation as he had a life-threatening GI bleed previously. 2. Coronary artery disease -Quiescent on medical management. 3. s/p TAVR -Proper function on echocardiogram performed back in October. History of Present Illness Reason for Consultation: Afib with RVR Requesting Physician: Shawn John MD Attending Physician: Charanjit Capps MD History of Present Illness Pt is an 84 yo male with PMH of OA, GERD. DM2, HTN, HLD, paroxysmal ventricular tachycardia, paroxysmal afib, s/p coronary stents in 2010, aortic stenosis s/p TAVR, recently dx with herpes zoster and treated with prednisone and oxycodone. Pt reports making at trip the the supermarket yesterday and suddenly feeling tired and weak. He sat on a bench in the store and found he was too weak to stand back up and walk to his car. He believes at one point he passed out, but denies fall or trauma. Store employees called EMS and he was transported to [facility] ED. Since IVF in the ED, he has felt that his strength and energy have returned to normal. During his episode at the store, he denies chest pain, radiating pain to shoulder/jaw/back, palpitations, dizziness, nausea, or numbness/tingling. Currently, pt's primary complaint is pain from shingles rash at left sided mid back. Allergies Allergy/AdvReac Type Severity Reaction Status Date / Time acetaminophen [From [place]] AdvReac Nausea Verified 12/19/23 09:26 hydrocodone [From [place]] AdvReac Nausea Verified 12/19/23 09:26 Home Medications Medication Instructions Recorded Confirmed Type atorvastatin 80 mg tablet 80 mg PO DAILY 04/13/19 05/28/24 History metformin 500 mg tablet 1,000 mg PO BIDM 04/13/19 05/28/24 History nitroglycerin 0.4 mg sublingual 0.4 mg sublingual DIRECTED PRN 04/13/19 05/28/24 History tablet Chest Pain glimepiride 4 mg tablet 8 mg PO QDB 04/14/19 05/28/24 History zolpidem 5 mg tablet 5 mg PO HS PRN Sleep 04/14/19 05/28/24 History oxycodone 5 mg tablet 5 mg PO Q8H PRN pain (scale score 10/16/23 05/28/24 Rx 7-10) #10 tabs clopidogrel 75 mg tablet 75 mg PO DAILY #90 tabs 03/12/24 05/28/24 Rx acetaminophen 500 mg tablet 500 mg PO Q8 PRN mod pain 05/28/24 05/28/24 History gabapentin 300 mg capsule 100 mg PO UD 05/28/24 05/28/24 History linagliptin 5 mg tablet (Tradjenta) 5 mg PO QAM 05/28/24 05/28/24 History metoprolol succinate 25 mg 25 mg PO QAM 05/28/24 05/28/24 History tablet,extended release 24 hr tizanidine 4 mg tablet 2 - 4 mg PO Q8 PRN Pain 05/28/24 05/28/24 History Patient History Medical History Paroxysmal ventricular tachycardia Osteoarthritis GERD (gastroesophageal reflux disease) Diabetes mellitus, type 2 Hypertension Hyperlipidemia Surgical History S/P inguinal hernia repair H/O cataract extraction RIGHT EYE (02/01/18, [facility] [place] History of total hip arthroplasty RT History of colonoscopy History of tonsillectomy History of cardiac cath 2010 Social History Smoking Status: Never smoker Second Hand Exposure: No; Do You Dip or Chew Tobacco: No; Hx Alcohol Use: No Hx Substance Use: No Preferred Language: Vietnamese Communication Ability: Effective Group Exercise Instructor Required: No Beliefs That Will Affect Care: None Current Living Situation: Other Current Living Situation Comment: Roommate Other Information That Helps Us Care for You: No Feels Safe at Home: Yes Safety Concerns: Feels Safe At This Time Assistive Devices: Glasses, Hearing Aid - Bilateral and Walker Review of Systems Constitutional: As per HPI Physical Exam Physical Exam: Vital signs reviewed. General: Well-appearing, in no significant distress. He is in hospital bed leaning to right side. HEENT: No scleral icterus, PERRLA, neck supple. No JVD noted. Mucus membranes are moist. Cardiovascular: Irregular rate and rhythm noted on monitor during exam as well as with auscultation and manual pulse check, no extra sounds. 2+ radial and pedal pulses Pulmonary: Clear to auscultation bilaterally, normal work of breathing. Abdomen: Soft, nontender, nondistended, positive bowel sounds. Musculoskeletal: Atraumatic, no peripheral edema. Neurologic: Patient awake alert and oriented x 3, full strength in all 4 extremities. Cranial nerves II through VII grossly intact. Skin: Warm, dry, vesicular rash noted at left posterior torso at approx T8-9 dermatome Results & Data Vital Signs (Past 12 Hours) Vital Signs Temp Pulse Pulse Resp BP BP Pulse Ox 05/28/24 07:39 102 H 05/28/24 06:14 36.4 C L 80 18 112/73 98 05/28/24 04:32 76 05/28/24 03:00 108/68 05/28/24 03:00 75 18 98 05/28/24 02:30 137/81 05/28/24 02:30 79 05/28/24 01:30 75 14 98 05/28/24 01:00 133/79 05/28/24 01:00 74 17 05/28/24 00:48 84 05/27/24 23:15 99 H 20 98 05/27/24 23:00 133/87 O2 Del Method 05/28/24 07:39 05/28/24 06:14 Room Air 05/28/24 04:32 05/28/24 03:00 05/28/24 03:00 Room Air 05/28/24 02:30 05/28/24 02:30 05/28/24 01:30 Room Air 05/28/24 01:00 05/28/24 01:00 05/28/24 00:48 05/27/24 23:15 Room Air 05/27/24 23:00 Laboratory Results 05/28/24 05/28/24 05/28/24 Range/Units 08:33 07:07 02:56 WBC 7.19 (4.8-10.8) K/ul RBC 3.51 L (4.70-6.10) M/uL Hgb 11.1 L (14.0-18.0) g/dl Hct 32.1 L (42.0-52.0) % MCV 91.5 (80.0-100.0) fL MCH 31.6 (25.0-34.0) pg MCHC 34.6 (32.0-36.0) g/dL RDW Std Deviation 43.7 (36.4-46.3) fL RDW Coeff of Jasvir 13.7 (11.5-14.5) % Plt Count 166 (130-400) K/uL MPV 9.5 (9.4-12.4) fL Immature Gran % (Auto) 0.4 % Neut % (Auto) 58.7 % Lymph % (Auto) 30.2 % [place] % (Auto) 8.8 % Eos % (Auto) 1.5 % Baso % (Auto) 0.4 % Neut # (Auto) 4.22 (1.40-6.50) K/uL Lymph # (Auto) 2.17 (1.20-3.40) K/uL [place] # (Auto) 0.63 H (0.11-0.59) K/uL Eos # (Auto) 0.11 (0.00-0.50) K/uL Baso # (Auto) 0.03 (0.00-0.20) K/uL Immature Gran # (Auto) 0.03 (0.01-0.20) K/uL PT INR APTT PTT Ratio Sodium 139 (136-145) mmol/L Potassium 3.9 (3.5-5.1) mmol/L Chloride 104 (98-107) mmol/L Carbon Dioxide 30 (21-32) mmol/L Anion Gap 5 (3-11) BUN 21 (6-23) mg/dl Creatinine 1.11 D (0.6-1.4) mg/dl Est Cr Clr Drug Dosing 42.3 ml/min eGFR 65.07 BUN/Creatinine Ratio 18.9 (10-20) Glucose 98 (70-99(Fasting)) mg/dl POC Glucose 162 H (70-99) mg/dl Estimat Average Glucose mg/dl Hemoglobin A1c (4.5-5.6) % Calcium 9.0 (8.6-10.3) mg/dl Magnesium (1.7-2.4) mg/dl Total Bilirubin (0.2-1.0) mg/dl AST (13-39) U/L ALT (7-52) U/L Alkaline Phosphatase (34-104) U/L Troponin I High Sens (0-20) pg/ml Total Protein (6.0-8.3) gm/dl Albumin (3.4-5.0) gm/dl Globulin (2.5-4.0) gm/dl Albumin/Globulin Ratio (0.9-2) TSH (0.300-4.500) uIu/ml Urine Color Yellow Urine Appearance Clear (Clear) Urine pH 6.0 (4.5-7.5) Ur Specific [place] 1.022 (1.000-1.030) Urine Protein Trace H (Negative) Urine Glucose (UA) 3+ H (Negative) Urine Ketones 1+ H (Negative) Urine Blood Negative (Negative) Urine Nitrite Negative (Negative) Urine Bilirubin Negative (Negative) Urine Urobilinogen Negative (Negative) Ur Leukocyte Esterase Negative (Negative) Urine WBC (Auto) 0-5 (0-5) /hpf Urine RBC (Auto) 0-2 (0-2) /hpf U Hyaline Cast (Auto) 0-2 (0-2) /lpf U Epithel Cells (Auto) 0-2 (0-2) /hpf Urine Bacteria (Auto) None Seen (None Seen) 05/28/24 05/28/24 05/28/24 Range/Units 01:18 01:17 00:10 WBC (4.8-10.8) K/ul RBC (4.70-6.10) M/uL Hgb (14.0-18.0) g/dl Hct (42.0-52.0) % MCV (80.0-100.0) fL MCH (25.0-34.0) pg MCHC (32.0-36.0) g/dL RDW Std Deviation (36.4-46.3) fL RDW Coeff of Jasvir (11.5-14.5) % Plt Count (130-400) K/uL MPV (9.4-12.4) fL Immature Gran % (Auto) % Neut % (Auto) % Lymph % (Auto) % [place] % (Auto) % Eos % (Auto) % Baso % (Auto) % Neut # (Auto) (1.40-6.50) K/uL Lymph # (Auto) (1.20-3.40) K/uL [place] # (Auto) (0.11-0.59) K/uL Eos # (Auto) (0.00-0.50) K/uL Baso # (Auto) (0.00-0.20) K/uL Immature Gran # (Auto) (0.01-0.20) K/uL PT 11.1 INR 1.0 APTT 23 PTT Ratio 0.9 Sodium (136-145) mmol/L Potassium (3.5-5.1) mmol/L Chloride (98-107) mmol/L Carbon Dioxide (21-32) mmol/L Anion Gap (3-11) BUN (6-23) mg/dl Creatinine (0.6-1.4) mg/dl Est Cr Clr Drug Dosing ml/min eGFR BUN/Creatinine Ratio (10-20) Glucose (70-99(Fasting)) mg/dl POC Glucose 367 H* 375 H* (70-99) mg/dl Estimat Average Glucose mg/dl Hemoglobin A1c (4.5-5.6) % Calcium (8.6-10.3) mg/dl Magnesium (1.7-2.4) mg/dl Total Bilirubin (0.2-1.0) mg/dl AST (13-39) U/L ALT (7-52) U/L Alkaline Phosphatase (34-104) U/L Troponin I High Sens 69.1 H* (0-20) pg/ml Total Protein (6.0-8.3) gm/dl Albumin (3.4-5.0) gm/dl Globulin (2.5-4.0) gm/dl Albumin/Globulin Ratio (0.9-2) TSH (0.300-4.500) uIu/ml Urine Color Urine Appearance (Clear) Urine pH (4.5-7.5) Ur Specific [place] (1.000-1.030) Urine Protein (Negative) Urine Glucose (UA) (Negative) Urine Ketones (Negative) Urine Blood (Negative) Urine Nitrite (Negative) Urine Bilirubin (Negative) Urine Urobilinogen (Negative) Ur Leukocyte Esterase (Negative) Urine WBC (Auto) (0-5) /hpf Urine RBC (Auto) (0-2) /hpf U Hyaline Cast (Auto) (0-2) /lpf U Epithel Cells (Auto) (0-2) /hpf Urine Bacteria (Auto) (None Seen) 05/27/24 Range/Units 22:20 WBC 8.29 (4.8-10.8) K/ul RBC 3.91 L (4.70-6.10) M/uL Hgb 12.1 L (14.0-18.0) g/dl Hct 35.5 L (42.0-52.0) % MCV 90.8 (80.0-100.0) fL MCH 30.9 (25.0-34.0) pg MCHC 34.1 (32.0-36.0) g/dL RDW Std Deviation 44.4 (36.4-46.3) fL RDW Coeff of Jasvir 14.0 (11.5-14.5) % Plt Count 164 (130-400) K/uL MPV 9.4 (9.4-12.4) fL Immature Gran % (Auto) 0.5 % Neut % (Auto) 68.9 % Lymph % (Auto) 21.7 % [place] % (Auto) 7.2 % Eos % (Auto) 1.3 % Baso % (Auto) 0.4 % Neut # (Auto) 5.71 (1.40-6.50) K/uL Lymph # (Auto) 1.80 (1.20-3.40) K/uL [place] # (Auto) 0.60 H (0.11-0.59) K/uL Eos # (Auto) 0.11 (0.00-0.50) K/uL Baso # (Auto) 0.03 (0.00-0.20) K/uL Immature Gran # (Auto) 0.04 (0.01-0.20) K/uL PT Cancelled INR Cancelled APTT Cancelled PTT Ratio Cancelled Sodium 134 L (136-145) mmol/L Potassium 4.0 (3.5-5.1) mmol/L Chloride 96 L (98-107) mmol/L Carbon Dioxide 29 (21-32) mmol/L Anion Gap 9 (3-11) BUN 28 H (6-23) mg/dl Creatinine 1.46 H (0.6-1.4) mg/dl Est Cr Clr Drug Dosing 32.2 ml/min eGFR 47.13 BUN/Creatinine Ratio 19.2 (10-20) Glucose 397 H* (70-99(Fasting)) mg/dl POC Glucose (70-99) mg/dl Estimat Average Glucose 318 mg/dl Hemoglobin A1c 12.7 H (4.5-5.6) % Calcium 9.5 (8.6-10.3) mg/dl Magnesium 1.6 L (1.7-2.4) mg/dl Total Bilirubin 0.9 (0.2-1.0) mg/dl AST 14 (13-39) U/L ALT 17 (7-52) U/L Alkaline Phosphatase 76 (34-104) U/L Troponin I High Sens 68.1 H* (0-20) pg/ml Total Protein 6.9 (6.0-8.3) gm/dl Albumin 4.0 (3.4-5.0) gm/dl Globulin 2.9 (2.5-4.0) gm/dl Albumin/Globulin Ratio 1.4 (0.9-2) TSH 2.038 (0.300-4.500) uIu/ml Urine Color Urine Appearance (Clear) Urine pH (4.5-7.5) Ur Specific [place] (1.000-1.030) Urine Protein (Negative) Urine Glucose (UA) (Negative) Urine Ketones (Negative) Urine Blood (Negative) Urine Nitrite (Negative) Urine Bilirubin (Negative) Urine Urobilinogen (Negative) Ur Leukocyte Esterase (Negative) Urine WBC (Auto) (0-5) /hpf Urine RBC (Auto) (0-2) /hpf U Hyaline Cast (Auto) (0-2) /lpf U Epithel Cells (Auto) (0-2) /hpf Urine Bacteria (Auto) (None Seen) PG Care Time/CCT Total # of Minutes Spent Total Time Spent with Patient: Total time spent is greater than 50% in coordination of care (as documented) at patient's floor/unit and/or counseling patient: Coding Level of Care Code 77276 INT INP/OBS CARE MIN Diagnoses Atrial fibrillation with rapid ventricular response I48.91
--- NOTE | 2024-05-28 13:18 | Pharmacy Report ---
Pharmacy Glycemic Short Note 2 - Date of Service May 28, 2024 - Glycemic Short BSG Results (Last 24 hours): 05/27/24 05/28/24 05/28/24 22:20 01:17 01:18 Glucose 397 H* POC Glucose 375 H* 367 H* 05/28/24 05/28/24 05/28/24 07:07 08:33 12:18 Glucose 98 POC Glucose 162 H 180 H OUTPATIENT ANTIDIABETIC REGIMEN: * Metformin 1 gm BID, Tradjenta 5 mg qAM, glimeperide 8 mg * A1c 12.7% 05/27/24 ASSESSMENT: * Patient admitted with Afib with RVR. Initial BSG on labs elevated in the high 300s. Improved this morning. BSGs have been 162-180 mg/dL * Received 15 units of lantus this morning, will set scale for PM up to weight based stress of 2, hold if BSGs < 160 mg/dL * Tightened carb ratio and loosened correction factor; now ~ weight stress of 2- will monitor change PLAN FOR INPATIENT GLYCEMIC CONTROL: * Hold outpatient oral diabetes medications * Basal insulin * Lantus 15 units this AM, lantus scale PM 0-5-10 units x 1 hs * Bolus insulin * NovoLog per scale ACHS or Q6hrs while NPO * Goal Range: Low 110 mg/dL - High 140 mg/dL * Correction Factor: 30 mg/dL/unit * Nutritional / Prandial insulin per carb ratio of 1 unit per 11 grams CHO consumed
--- NOTE | 2024-05-28 15:36 | Hospitalist Progress Note ---
Date of Service May 28, 2024 Assessment & Plan (1) Atrial fibrillation with rapid ventricular response: Plan: Per admitting service notes with addendum: Recurrent atrial flutter secondary to hyperglycemia status post recent steroid Rx for shingles, DM2 on oral medications, suboptimal control as of last hemoglobin A1c of 7.8 last year. Patient not on anticoagulation secondary to bleeding risk as per records. Currently heart rate controlled Continue unusual Toprol-XL 25 mg p.o. daily Cardiology service consult chronic diastolic heart failure (EF 60 to 65%, TTE 2023 ), patient on the dry side Troponin elevation secondary to illness in the setting of kidney dysfunction -- 68, 69 hx CAD status post stent aortic stenosis status post TAVR, mild MR hypertension, stable hyperlipidemia, on statin Rx Hyperglycemia Likely secondary to prednisone Check A1c Insulin sliding scale Pharmacy glycemic control DVT prophylaxis. Heparin subcu Full code Admission and Anticipated Discharge Date Admission Date: May 28, 2024 Subjective Follow-up for A-fib, etc. Seen resting in bed, comfortable, reading newspaper States he feels better overall Denies chest pain, shortness of breath, palpitations, dizziness Denies headache, cough, fevers or chills No other new symptom Review of Systems Review of Systems: all noted and negative except for above Physical Exam Physical Exam: General- oriented x 3, not in distress, speaks in sentences with no effort or accessory muscle use Eyes- anicteric Neck- no JVD Lungs- clear breath sounds bilaterally, no rales/wheezes Heart- normal rate, irregularly irregular rhythm; no murmurs Abdomen- normal bowel sounds, nondistended, soft, nontender Extremities- no pretibial edema, no calf tenderness Back-healing rash, with erythema, scab Neuro- alert, oriented x 3; no gross focal neurologic deficits Skin- warm & dry Results & Data Results & Data Vital Signs (Past 12 Hours) Vital Signs Temp Pulse Pulse Resp BP BP Pulse Ox 05/28/24 13:00 77 05/28/24 13:00 05/28/24 11:45 36.8 C 05/28/24 11:36 77 17 98 05/28/24 11:20 116/66 05/28/24 10:30 105/64 05/28/24 10:03 103 H 19 05/28/24 10:00 122/60 05/28/24 08:30 78 19 108/67 05/28/24 07:57 120 H 18 100/74 92 05/28/24 07:39 102 H 05/28/24 06:14 36.4 C L 80 18 112/73 98 05/28/24 04:32 76 O2 Del Method 05/28/24 13:00 05/28/24 13:00 Room Air 05/28/24 11:45 05/28/24 11:36 Room Air 05/28/24 11:20 05/28/24 10:30 05/28/24 10:03 05/28/24 10:00 05/28/24 08:30 05/28/24 07:57 Room Air 05/28/24 07:39 05/28/24 06:14 Room Air 05/28/24 04:32 all noted and reviewed including below
--- NOTE | 2024-05-28 15:47 | Electrocardiogram Report ---
Test Reason : Blood Pressure : */* mmHG Vent. Rate : 128 BPM Atrial Rate : 300 BPM P-R Int : * ms QRS Dur : 78 ms QT Int : 280 ms P-R-T Axes : 211 30 87 degrees QTcB Int : 408 ms Atrial flutter with variable A-V block Nonspecific T wave abnormality Abnormal ECG When compared with ECG of 21-Oct-2023 15:17, Atrial flutter has replaced Sinus rhythm Vent. rate has increased by 64 bpm Nonspecific T wave abnormality, worse in Inferior leads Nonspecific T wave abnormality now evident in Lateral leads Confirmed by Porfirio Cervantes ([id number]) on 05/28/2024 3:46:31 PM Referred By: REFERRED SELF Confirmed By: Porfirio Cervantes
[2024-05-28] MEDS: LANTUS PER UNIT CHARGE SQ SCH (20:39)
[2024-05-28] MEDS: GABAPENTIN 300 MG CAP PO SCH (20:41)
[2024-05-29 07:21] LABS: Basophils # (auto) 0.03 K/uL (0.00-0.20); Basophils % (auto) 0.4 %; Eosinophils # (auto) 0.15 K/uL (0.00-0.50); Eosinophils % (auto) 2.1 %; Hematocrit (blood only) 32.9 % (42.0-52.0); Hemoglobin 11.3 g/dl (14.0-18.0); Immature Granulocytes # (auto) 0.02 K/uL (0.01-0.20); Immature Granulocytes % (auto) 0.3 %; Lymphocytes # (auto) 1.84 K/uL (1.20-3.40); Lymphocytes % (auto) 25.4 %; Mean Corpuscular Hemoglobin 31.4 pg (25.0-34.0); Mean Corpuscular Hgb Conc 34.3 g/dL (32.0-36.0); Mean Corpuscular Volume 91.4 fL (80.0-100.0); Mean Platelet Volume 9.3 fL (9.4-12.4); Monocytes # (auto) 0.58 K/uL (0.11-0.59); Neutrophils # (auto) 4.61 K/uL (1.40-6.50); Neutrophils % (auto) 63.8 %; Platelet Count 147 K/uL (130-400); RDW Coefficient of Variation 13.9 % (11.5-14.5); RDW Standard Deviation 45.2 fL (36.4-46.3); White Blood Count 7.23 K/ul (4.8-10.8)
[2024-05-29 07:37] LABS: BUN Creatinine Ratio 20.7 (10-20); Calcium 8.2 mg/dl (8.6-10.3); Creatinine Clr Calc Pharmacy 39.3 ml/min; Magnesium 1.8 mg/dl (1.7-2.4); Potassium 3.6 mmol/L (3.5-5.1)
[2024-05-29] MEDS: MAGNESIUM SULFATE / D5W 1 GM/100 ML BAG IV SCH (08:19)
[2024-05-29] MEDS: POTASSIUM CHLORIDE CRTAB 20 MEQ TABCR PO STA (08:19)
[2024-05-29] MEDS: LANTUS PER UNIT CHARGE SQ SCH (08:20)
[2024-05-29] MEDS ORDERED: METOPROLOL TARTRATE 1 MG/ML VIAL IV STA (08:40)
[2024-05-29 10:58] VITALS: BP 154/74; PULSE 89; RESP 16; TEMP 97.9; O2SAT 96
--- NOTE | 2024-05-29 13:24 | Discharge Summary ---
Discharge Summary Date of Service May 29, 2024 Principal Dx & Hospital Course #1 = Principal Diagnosis (1) Atrial fibrillation with rapid ventricular response: Per admitting service notes with addendum: Recurrent atrial flutter secondary to hyperglycemia status post recent steroid Rx for shingles, DM2 on oral medications, suboptimal control as of last hemoglobin A1c of 7.8 last year. Patient not on anticoagulation secondary to bleeding risk as per records. Currently heart rate controlled -Cardiology service consult, appreciate recs -discharge on slightly higher dose of metoprolol chronic diastolic heart failure (EF 60 to 65%, TTE 2023 ), patient on the dry side Troponin elevation secondary to illness in the setting of kidney dysfunction hx CAD status post stent aortic stenosis status post TAVR, mild MR hypertension, stable hyperlipidemia, on statin Rx Hyperglycemia Likely secondary to prednisone Check A1c Insulin sliding scale Pharmacy glycemic control Notes For Next Care Provider 84-year-old male with past medical history of chronic diastolic heart failure (EF 60 to 65%, TTE 2023 ), CAD status post stent, aortic stenosis status post TAVR, mild MR, PAF not on anticoagulation secondary to bleeding risk, hypertension, hyperlipidemia, duodenal ulcer as per records, DM2 on oral medications, BPH who presented for fall. Found to be in afib with RVR, admitted to PCU for further workup. Cardiology consulted, rates much improved. On 05/29/2024 after discussion with cardiology patient medically stable for discharge home. Medication Changes From Visit -increased metroprolol Admission HPI Per Admitting Provider History obtained from patient and records. Medical history significant for chronic diastolic heart failure (EF 60 to 65%, TTE 2023 ), CAD status post stent, aortic stenosis status post TAVR, mild MR, PAF not on anticoagulation secondary to bleeding risk, hypertension, hyperlipidemia, duodenal ulcer as per records, DM2 on oral medications, BPH. Last confinement October 2023 for lumbar fracture secondary to fall. For lumbar fracture secondary to fall. 3 weeks ago, patient noted painful rash on his left back and torso. Valtrex and gabapentin course prescribed by PCP. Lesions drying already but patient with worsening chest pain over lesion site. Patient consulted ER 10 days ago. Discharged on Medrol Dosepak. Patient was shopping yesterday when he experienced generalized weakness and lightheadedness. He had to sit down at a store because he thought he was going to pass out. Denies chest pain or SOB. Polyuria noted at home. Patient noted to be in rapid A-fib upon arrival at the ER Heart rate 130s. Diltiazem bolus administered at the ER. Heart rate currently 80s. 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 External ears normal. No rhinorrhea. Moist mucous membranes. Neck: Supple, full range of motion, no observable masses, No meningeal sign. Lungs: No Respiratory distress. CV: irregular rhythtn, regular rate Abdomen: Soft, nondistended, No rebound tenderness. MSK: No joint swelling, no redness. Skin: No rashes, petechiae, lesions. Normal color per patient. Neuro: Normal Gait, Grossly intact. Psych: Appropriate for situation. Updated Medication List Medication Instructions Recorded Confirmed Type atorvastatin 80 mg tablet 80 mg PO DAILY 04/13/19 05/28/24 History metformin 500 mg tablet 1,000 mg PO BIDM 04/13/19 05/28/24 History nitroglycerin 0.4 mg sublingual 0.4 mg sublingual DIRECTED PRN 04/13/19 05/28/24 History tablet Chest Pain glimepiride 4 mg tablet 8 mg PO QDB 04/14/19 05/28/24 History zolpidem 5 mg tablet 5 mg PO HS PRN Sleep 04/14/19 05/28/24 History oxycodone 5 mg tablet 5 mg PO Q8H PRN pain (scale score 10/16/23 05/28/24 Rx 7-10) #10 tabs clopidogrel 75 mg tablet 75 mg PO DAILY #90 tabs 03/12/24 05/28/24 Rx acetaminophen 500 mg tablet 500 mg PO Q8 PRN mod pain 05/28/24 05/28/24 History gabapentin 300 mg capsule 100 mg PO UD 05/28/24 05/28/24 History linagliptin 5 mg tablet (Tradjenta) 5 mg PO QAM 05/28/24 05/28/24 History metoprolol succinate 25 mg 25 mg PO QAM 05/28/24 05/28/24 History tablet,extended release 24 hr tizanidine 4 mg tablet 2 - 4 mg PO Q8 PRN Pain 05/28/24 05/28/24 History Hospital Stay Data Consultations 05/27/24 23:42 ED Decision to Admit Stat 05/28/24 04:17 Consult Cardiology Routine Pending Results Patient Have Any Pending Studies at Discharge: No Discharge Instructions Given to Patient (Per Discharging Provider) 1. Please follow up with cardiology. 2. Please take medications as prescribed. Total Time Total Time Spent Total Time Spent (In Minutes): I spent a total of 40 minutes in direct patient care, including [id number]-rd-rdtg time with the patient and/or family, reviewing medical records, ordering and reviewing diagnostic tests, and coordinating care with other healthcare providers. This time includes: history taking, physical examination, medical decision making, counseling, ECG interpretation, imaging interpretation, lab interpretation, orders, and education, excluding time spent in the performance of separately billed services.
[2024-05-29] MEDS ORDERED: METOPROLOL TARTRATE 25 MG TAB PO SCH (14:00)
[2024-05-29] MEDS ORDERED: LANTUS PER UNIT CHARGE SQ SCH (16:30)
== END 2024-05-29 15:42 | disposition home or self-care (01) | DRG 309 ==
LOC: ED 21:59 → EDINP 21:59 → SUATTDRO 05-28 04:10 → EDINP 05-28 04:41 → 1E 05-28 11:28 → SUATTDRO 05-28 16:28

== ENCOUNTER 2024-07-21 20:41 | Observation (INO) ==
--- OUTSIDE RECORDS SUMMARY | 2024-07-21 20:47 | External Medical Summary | Summary of Care ---
Author Name Unknown Organization [facility] Address [address] [place] [address] Phone [phone] Care Team Providers Care Change Advisor Name Role Phone Carroll Conley MD Primary Care Provider + Reason for Visit * Reason Onset Date Comments Appointment 07/18/2024 Encounter Details Date Type Department Care Team (Late st Contact Info) Description 07/18/20[address] [place] [address] Tawny Arndt, RT (R) Appointment Allergies Active Allergy Reactions Criticality Noted Date Comments Acetaminophen Nausea/vomiting 11/04/2021 Hydrocodone Nausea/vomiting 11/04/2021 Hydrocodone-Acetaminophen High 05/29/2019 Vomiting, dizziness, loss of balance, unable to stand, documented as of this encounter (statuses as of 07/18/2024) Medications nitroglycerin (NITROSTAT) 0.4 MG SUBLIndications: Acute OH ([facility]) 1 Tab Sublingual Every 5 minutes as needed for chest discomfort 25 Tab 6 6 Active ONETOUCH DELICA LANCETS 33G MISCIndications: Type 2 diabetes mellitus with hemoglobin A1c goal of less than 8.0% ([facility]) Use to test blood once daily. Dx: E11.9 90 Each 3 9 Active Glucose Blood In Vitro StripIndications :DM type 2 nursing care encounter (HCC) tesing blood sugars once daily; E 11.9; non-insulin dependent 90 Strip 3 9 Active Blood Glucose Monitoring Suppl (Clover ULTRA 2) w/Device KITIndications:T ype 2 diabetes mellitus with hemoglobin A1c goal of less than 8.0% (HCC) Use to test blood glucose 2 times daily. Dx: E11.9 1 Kit 0 Active Additional Information Patient taking differently: Use to test blood glucose one time daily. Dx: E11.9, Informant: Patient, Reported on 06/19/2024 clopidogrel (PLAVIX) 75 MG TabletIndication s:Type 2 diabetes mellitus with hemoglobin A1c goal of less than 7.0% ([facility]) TAKE 1 TABLET BY MOUTH EVERY DAY 90 Tab 3 0 Active Vitamin B 12 500 MCG Oral Tablet Take 2 Tabs by mouth daily. 1 Active Amoxicillin 500 MG Oral Capsule (Amoxil)Indicati ons:S/P TAVR (transcatheter aortic valve replacement) Take 4 capsules by mouth 1 hour prior to dental work 4 Cap 5 1 Active Vitamin D 25 MCG (1000 UT) Oral TabletIndication s:Closed fracture of sacrum, unspecified portion of sacrum, initial encounter ([facility]) TAKE 1 TABLET BY MOUTH EVERY DAY 90 Tablet 1 1 Active Zolpidem Tartrate 5 MG Oral Tablet (Ambien)Indicati ons:Chronic insomnia TAKE 1 TABLET BY MOUTH EVERY DAY AT BEDTIME NEEDED FOR SLEEP 30 Tablet 3 Active Additional Information Patient not taking.Reported on 06/19/2024 Glimepiride 4 MG Oral Tablet (Amaryl)Indicati ons:Type 2 diabetes mellitus with hemoglobin A1c goal of less than 8.0% (HCC) TAKE 2 TABLETS BY MOUTH DAILY WITH BREAKFAST 180 Tablet 2 4 Active Atorvastatin Calcium 80 MG Oral Tablet (Lipitor)Indicat ions:Dyslipidemi a, goal LDL below 70 TAKE 1 TABLET BY MOUTH EVERY DAY 90 Tablet 3 4 Active Metoprolol Succinate ER 25 MG Oral Tablet Extended Release 24 Hour (toPROL XL) Take 1 Tablet by mouth in the morning. 90 Tablet 3 5 Active Lidocaine 4 % External Patch (Salonpas Pain Relieving)Indica tions:Herpes zoster with other complication Place 1 Patch over 12 hours topically on the skin daily. Use till better 30 Patch 5 Active metFORMIN HCl 500 MG Oral Tablet (Glucophage)Chen cations:Type 2 diabetes mellitus with hemoglobin A1c goal of less than 7.0% (HCC) TAKE 2 TABLETS BY MOUTH TWICE A DAY 360 Tablet 1 5 Active Gabapentin 100 MG Oral Capsule (Neurontin)Indic ations:Herpes zoster with other complication 2 pills by mouth three times a day 180 Capsule 1 5 Active linaGLIPtin 5 MG Oral Tablet (Tradjenta)Indic ations:Type 2 diabetes mellitus with hemoglobin A1c goal of less than 8.0% (HCC) Take 1 Tablet by mouth in the morning. 90 Tablet 1 5 Active oxyCODONE-Acetam inophen 5-325 MG Oral Tablet (Percocet)Indica tions:Herpes zoster with other complication Take 1 Tablet by mouth every 8 hours as needed (Pain). 21 Tablet 5 Active documented as of this encounter (statuses as of 07/18/2024) Active Problems Problem Noted Date Diagnosed Date [...] aortic valve replacement ) 07/10/2020 Atherosclerosis of [place] co ronary artery of [place] heart without angina pectoris 05/29/2019 PAF (paroxysmal atrial fibrillation) 12/30/2017 History of GI bleed 04/19/2017 Old OH (myocardial infarction) 04/19/2017 Mixed hearing loss of [...] as of this encounter (statuses as of 07/18/2024) Resolved Problems Problem Noted Date Diagnosed Date Resolved Date Sacral fracture, closed 12/31/202001/03 Atherosclerotic heart diseas e of [place] coronary artery with other forms of angina [...] 10/10/2014 04/06/2023 CAD (coronary artery disease ), [place] coronary artery 10/10/2014 12/31/2014 Chronic serous otitis media 05/11/2014 04/06/2023 Hip pain 05/21/2013 04/19/2017 Loss of height 04/05/2013 04/19/2017 Accelerate Clinical Trial*[id number] 10/02/2012 04/23/2015 Overview (10/02/2012): ACCELERATE STUDY. Project # [id number], ELEVATOR RUNNER: Chepe Campos MD. CRC: ANIL Daniels. SUMMARY: To test the hypothesis that Evacetrapib 130 mg, in comparison to placebo, reduces the risk of major adverse coronary events in high-risk vascular disease patients. CONTACTS: During normal business hours, contact study staff at ; after hours Manager Of It via the [facility] cnc set up operator [phone]. 24-hour Global Study Helpline: [phone]. Lipid levels should not be ordered/obtained while this subject is in the Accelerate study. Lipids are being managed in a blinded fashion. If lipid levels are inadvertently obtained, it is important that test results are NOT provided to the patient, study doctor, tutor coordinator, or other study team members. Restricted meds while in the study: 1) niacin > 250 mg, 2) gemfibrozil with a potent [id number]. Type 2 diabetes mellitus wit h hemoglobin A1c goal of 7.0%-8.0% 09/17/2012 12/25/2013 Overview (07/31/2015): ICD-10 update of inactive term Type 2 diabetes mellitus wit h hemoglobin A1c goal of 7.0%-8.0% 06/16/2012 09/17/2012 Overview (07/31/2015): ICD-10 update of inactive term Acute inferolateral myocardial infarction 01/28/2011 04/19/2017 CAD. Inferolateral OH treate d with bare metal stenting of distal RCA at [facility] on 01/24/2011. Severe left [...] as of this encounter (statuses as of 07/18/2024) Immunizations Name Administration Dates Next Due COVID-19 mRNA, LNP-s, No Pre serve, 2-Dose Series (MobileSpan) 02/04/2021,06/13/2020,05/17/2020 Pneumococcal Conjugate Vacc, 13 Valent (Prevnar) [...] No 12/22/2023 Does the household have a [place] source of income? 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 (15 years old or older) Answer Date of Assessment Author No 04/17/2018 10:44 PM Thea Gonzales RN documented as of this encounter Mental Status * Because of a physical, mental, or emotional condition, do you have serious difficulty concentrating, remembering, or making decisions? (5 years old or older) Answer Entry Date Author No 04/17/2018 10:44 PM Thea Gonzales RN documented in this encounter Plan of Treatment Upcoming Encounters Date Type Department Care Team (Late st Contact Info) Description 07/23/2024 5:45 PM EDT Imaging Radiology [facility] 1st [facility] [address] [place] [address] 07/31/2024 2:20 PM EDT Office Visit Pharmacy, [facility] [address] [place] [address] Pharmacist, [facility] [address] [place] [address] 08/14/2024 2:00 PM EDT Office Visit Interventional Pain Center [facility] [address] [place] [address] Noris Alford PA-C [address] [place] [address] 10/11/2024 3:00 PM EDT Office Visit General Internal Medicine [facility] [address] [facility] [place] [address] Carroll Conley MD [address] [facility] [place] [id number] 03/12/2025 1:30 PM EST Nurse Only Ancillary [facility] [place] [address] [facility] [place] [address] Park, Nurse Annual Wellness [facility] [address] [facility] [place] [address] Health Maintenance Due Date Last Done Comments Albumin/Creatinine Ratio 10/10/2024 024, 08/02/2022, 07/08/2021, Additional history exists CKD PHOS USE SMARTSET 51701 10/10/2024 070 12/2023, 08/02/2022, 07/08/2021, Additional history exists Diabetic Foot Exam 10/10/2024 10/11/2023, 1 , 08/19/2020, Additional history exists HbA1c 12/07/2024 06/06/2024, 070 12/2023, 04/06/2023, Additional history exists Adult Wellness Visit 03/07/2025 03/07/2024, 05/28/19 22 Depression Screening 03/07/2025 03/07/2024, 10/11/2023, 12/31/2014 Diabetic Eye Exam 04/12/2025 04/12/2024, , 04/09/2022, Additional history exists B-12 06/06/2025 06/06/2024, 0 06/2023, 08/02/2022, Additional history exists CKD HGB USE SMARTSET 57193 06/06/202506/06, 06/06/2024, 10/11/2023, Additional history exists DTap/Tdap Vaccines (2 - [...] this encounter Medical Devices Implanted Type Area Carpenter Apprentice Device Identifier Shelf Expiration Date Model / Serial / Lot Brenner Beveled Grommet Implanted:Qty: 1 on 05/13/2014 by Jose Alejandro Olivo MD [place] [facility] Right: Ear 07/03/2023 [id number] / / [id number] Trident Fermín Cluster Cup 60 - [id number] Implanted:Qty: 1 on 10/10/2014 by Jose Burton MD at [place] [facility] Right: Hip [employer] : ORTHOPAEDICS 502-03-60F / / Screw Acetabular 6.5mm Tricia 25m - [id number] Implanted:Qty: 2 on 10/10/2014 by Jose Burton MD at [place] [facility] [place]: Hip [employer] : ORTHOPAEDICS 8682-0348-1 / / Trident Acetabular X3 0 36 F - [id number] Implanted:Qty: 1 on 10/10/2014 by Jose Burton MD at [place] [facility] Right: Hip [employer] : ORTHOPAEDICS 623-00-36F / / Hip Lul Chaney Md D 36/+75 - [id number] Implanted:Qty: 1 on 10/10/2014 by Jose Burton MD at [place] [facility] [place]: Hip [employer] : ORTHOPAEDICS 07/03/2019 6570-0-736 / / [id number] Stem Hip Sz6 - [id number] Implanted:Qty: 1 on 10/10/2014 by Jose Burton MD at [place] [facility] [place]: Hip [employer] : ORTHOPAEDICS 08/02/2019 [id number] / / [id number] Screw Acetabular 6.5mm Tricia 25m - [id number] Implanted:Qty: 1 on 04/17/2018 by Ismael Schroeder MD at [place] [facility] [place]: Hip [employer] : ORTHOPAEDICS 06/05/2022 2830-4892-1 / / [id number] Bone Screw Cancellous 65 16 - [id number] Implanted:Qty: 1 on 04/17/2018 by Ismael Schroeder MD at [place] [facility] [place]: Hip [employer] : ORTHOPAEDICS 11/03/2022 [id number] / / [id number] Hip Stem Secur Max Ang 127 10 - [id number] Implanted:Qty: 1 on 04/17/2018 by Ismael Schroeder MD at [place] [facility] [place]: Hip [employer] : ORTHOPAEDICS 10/23/2022 [id number] / / [id number] Strip Deburrer Plt Trochan 100 2 2 Cable - [id number] Implanted:Qty: 1 on 04/17/2018 by Ismael Schroeder MD at [place] [facility] [place]: Hip [employer] : ORTHOPAEDICS 12/21/2022 6704-3-082 / / [id number] Sleeve Cable 2.0mm - [id number] Implanted:Qty: 1 on 04/17/2018 by Ismael Schroeder MD at [place] [facility] [place]: Hip [employer] : ORTHOPAEDICS 10/25/2022 6704-8-240 / / [id number] Hip Fem Hd Blox D Uni Taper 40 - [id number] Implanted:Qty: 1 on 04/17/2018 by Ismael Schroeder MD at [place] [facility] [place]: Hip [employer] : ORTHOPAEDICS 12/21/2022 6519-1-040 / / [id number] Sleeve Adptr +5 Univ C Taper - [id number] Implanted:Qty: 1 on 04/17/2018 by Ismael Schroeder MD at [place] [facility] [place]: Hip [employer] : ORTHOPAEDICS 10/14/2021 [id number] / / [id number] Hip Trident Fermín Cluster 60 - [id number] Implanted:Qty: 1 on 04/17/2018 by Ismael Schroeder MD at [place] [facility] [place]: Hip [employer] : ORTHOPAEDICS 05/23/2022 502-11-60G / / [id number] Trident Acetabular X3 0 40 G - [id number] Implanted:Qty: 1 on 04/17/2018 by Ismael Schroeder MD at [place] [facility] [place]: Hip [employer] : ORTHOPAEDICS 12/23/2022 623-00-40G / / [id number] Screw Acetabular 6.5mm Tricia 25m - [id number] Implanted:Qty: 1 on 04/17/2018 by Ismael Schroeder MD at [place] [facility] [place]: Hip [employer] : ORTHOPAEDICS 01/15/2023 3757-9536-1 / / [id number] Balloon Cath Pacing [id number] - [id number] Implanted:Qty: 1 on 07/10/2020 at [facility] : MEDICAL [id number] 06/01/2022 [id number] / / [id number] Proglide Perclose 25973-20 X10 - [id number] Implanted:Qty: 1 on 07/10/2020 at [facility] [employer] [id number] 08/01/2021 83009-48 / / [id number] Proglide Perclose 51684-58 X10 - [id number] Implanted:Qty: 1 on 07/10/2020 at [facility] [id number] 08/01/2021 51389-07 / / [id number] Valve [place] 3 Ultra 26mm - [id number] Implanted:Qty: 1 on 07/10/2020 at [facility] [employer] [id number] / / Proglide Perclose 81823-43 X10 - [id number] Implanted:Qty: 1 on 07/10/2020 at [facility] [id number] 01/01/2022 32064-73 / / [id number] documented as of this encounter Advance Directives [...] Power of Attor mary? No Care Teams Change Advisor Relationship Specialty Start Date End Date Carroll Conley MD [address] [facility] [place] [address] PCP - General Internal Medicine 06/16/12 documented as of this encounter
--- OUTSIDE RECORDS SUMMARY | 2024-07-21 20:47 | External Medical Summary | Summary of Care ---
Author Name Unknown Organization [facility] Address [address] [place] [address] Phone [phone] Care Team Providers Care Human Resources Office Manager Name Role Phone Carroll Conley MD Primary Care Provider + Reason for Visit * Reason Onset Date Comments Medication Refill 07/10/2024 Encounter Details Date Type Department Care Team (Late st Contact Info) Description 07/10/2024 [facility] [address] [facility] [place] [phone] Carroll Conley MD [address] [facility] [id number] Type 2 diabetes mellitus with hemoglobin A1c goal of less than 8.0% ([facility]); Herpes zoster with other complication Allergies Active Allergy Reactions Criticality Noted Date Comments Acetaminophen Nausea/vomiting 11/04/2021 Hydrocodone Nausea/vomiting 11/04/2021 Hydrocodone-Acetaminophen High 05/29/2019 Vomiting, dizziness, loss of balance, unable to stand, documented as of this encounter (statuses as of 07/11/2024) Medications nitroglycerin (NITROSTAT) 0.4 MG SUBLIndications: Acute [place] (HCC) 1 Tab Sublingual Every 5 minutes as needed for chest discomfort 25 Tab 6 04/07/19 16 Active ONETOUCH DELICA LANCETS 33G MISCIndications: Type 2 diabetes mellitus with hemoglobin A1c goal of less than 8.0% ([facility]) Use to test blood once daily. Dx: E11.9 90 Each 3 02/24/20 19 Active Glucose Blood In Vitro StripIndications :DM type 2 nursing care encounter (HCC) tesing blood sugars once daily; E 11.9; non-insulin dependent 90 Strip 3 02/24/20 19 Active Blood Glucose Monitoring Suppl (A-Life [employer] ULTRA 2) w/Device KITIndications:T ype 2 diabetes mellitus with hemoglobin A1c goal of less than 8.0% ([facility]) Use to test blood glucose 2 times daily. Dx: E11.9 1 Kit 06/08/19 20 Active Additional Information Patient taking differently: Use to test blood glucose one time daily. Dx: E11.9, Informant: Patient, Reported on 06/19/2024 clopidogrel (PLAVIX) 75 MG TabletIndication s:Type 2 diabetes mellitus with hemoglobin A1c goal of less than 7.0% ([facility]) TAKE 1 TABLET BY MOUTH EVERY DAY 90 Tab 3 12/14/19 20 Active Vitamin B 12 500 MCG Oral Tablet Take 2 Tabs by mouth daily. 05/22/19 21 Active Amoxicillin 500 MG Oral Capsule (Amoxil)Indicati ons:S/P TAVR (transcatheter aortic valve replacement) Take 4 capsules by mouth 1 hour prior to dental work 4 Cap 5 07/25/19 21 Active Vitamin D 25 MCG (1000 UT) Oral TabletIndication s:Closed fracture of sacrum, unspecified portion of sacrum, initial encounter ([facility]) TAKE 1 TABLET BY MOUTH EVERY DAY 90 Tablet 1 02/17/20 21 Active Zolpidem Tartrate 5 MG Oral Tablet (Ambien)Indicati ons:Chronic insomnia TAKE 1 TABLET BY MOUTH EVERY DAY AT BEDTIME NEEDED FOR SLEEP 30 Tablet 06/04/19 23 Active Additional Information Patient not taking.Reported on 06/19/2024 Glimepiride 4 MG Oral Tablet (Amaryl)Indicati ons:Type 2 diabetes mellitus with hemoglobin A1c goal of less than 8.0% (HCC) TAKE 2 TABLETS BY MOUTH DAILY WITH BREAKFAST 180 Tablet 2 10/11/19 24 Active Atorvastatin Calcium 80 MG Oral Tablet (Lipitor)Indicat ions:Dyslipidemi a, goal LDL below 70 TAKE 1 TABLET BY MOUTH EVERY DAY 90 Tablet 3 02/02/20 24 Active Metoprolol Succinate ER 25 MG Oral Tablet Extended Release 24 Hour (toPROL XL) Take 1 Tablet by mouth in the morning. 90 Tablet 3 04/23/19 25 Active Lidocaine 4 % External Patch (Salonpas Pain Relieving)Indica tions:Herpes zoster with other complication Place 1 Patch over 12 hours topically on the skin daily. Use till better 30 Patch 06/07/19 25 Active metFORMIN HCl 500 MG Oral Tablet (Glucophage)Chen cations:Type 2 diabetes mellitus with hemoglobin A1c goal of less than 7.0% (HCC) TAKE 2 TABLETS BY MOUTH TWICE A DAY 360 Tablet 1 06/13/19 25 Active Gabapentin 100 MG Oral Capsule (Neurontin)Indic ations:Herpes zoster with other complication 2 pills by mouth three times a day 180 Capsule 1 06/12/19 25 Active linaGLIPtin 5 MG Oral Tablet (Tradjenta)Indic ations:Type 2 diabetes mellitus with hemoglobin A1c goal of less than 8.0% (HCC) Take 1 Tablet by mouth in the morning. 90 Tablet 1 07/12/19 25 Active oxyCODONE-Acetam inophen 5-325 MG Oral Tablet (Percocet)Indica tions:Herpes zoster with other complication Take 1 Tablet by mouth every 8 hours as needed (Pain). 21 Tablet 07/12/19 25 Active linaGLIPtin 5 MG Oral Tablet (Tradjenta)Indic ations:Type 2 diabetes mellitus with hemoglobin A1c goal of less than 8.0% (HCC) Take 1 Tablet by mouth in the morning. 90 Tablet 1 03/06/20 24 025 Discontin ued(Refil l) oxyCODONE-Acetam inophen 5-325 MG Oral Tablet (Percocet)Indica tions:Herpes zoster with other complication Take 1 Tablet by mouth every 8 hours as needed (Pain). 21 Tablet 07/04/19 25 025 Discontin ued(Refil l) documented as of this encounter (statuses as of 07/11/2024) Active Problems Problem Noted Date Diagnosed Date [...] aortic valve replacement ) 07/10/2020 Atherosclerosis of [place] co ronary artery of [place] heart without angina pectoris 05/29/2019 PAF (paroxysmal atrial fibrillation) 12/30/2017 History of GI bleed 04/19/2017 Old [place] (myocardial infarction) 04/19/2017 Mixed hearing loss of [...] as of this encounter (statuses as of 07/11/2024) Resolved Problems Problem Noted Date Diagnosed Date Resolved Date Sacral fracture, closed 12/31/202001/03 Atherosclerotic heart diseas e of [place] coronary artery with other forms of angina [...] 10/10/2014 04/06/2023 CAD (coronary artery disease ), [place] coronary artery 10/10/2014 12/31/2014 Chronic serous otitis media 05/11/2014 04/06/2023 Hip pain 05/21/2013 04/19/2017 Loss of height 04/05/2013 04/19/2017 Accelerate Clinical Trial*[id number] 10/02/2012 04/23/2015 Overview (10/02/2012): ACCELERATE STUDY. Project # [id number], DIETARY SUPERVISOR: Chepe Campos MD. CRC: ANIL Daniels. SUMMARY: To test the hypothesis that Evacetrapib 130 mg, in comparison to placebo, reduces the risk of major adverse coronary events in high-risk vascular disease patients. CONTACTS: During normal business hours, contact study staff at ; after hours [employer] Preparation Worker via the [facility] hospital baling machine operator [phone]. 24-hour Global Study Helpline: [phone]. Lipid levels should not be ordered/obtained while this subject is in the Accelerate study. Lipids are being managed in a blinded fashion. If lipid levels are inadvertently obtained, it is important that test results are NOT provided to the patient, study doctor, bariatric coordinator, or other study team members. Restricted meds while in the study: 1) niacin > 250 mg, 2) gemfibrozil with a potent LEW1A-oroysuphf. Type 2 diabetes mellitus wit h hemoglobin A1c goal of 7.0%-8.0% 09/17/2012 12/25/2013 Overview (07/31/2015): ICD-10 update of inactive term Type 2 diabetes mellitus wit h hemoglobin A1c goal of 7.0%-8.0% 06/16/2012 09/17/2012 Overview (07/31/2015): ICD-10 update of inactive term Acute inferolateral myocardial infarction 01/28/2011 04/19/2017 CAD. Inferolateral [place] treate d with bare metal stenting of distal RCA at [facility] on 01/24/2011. 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 Authorizing Provider: CARROLL CONLEY Ordering User: LORI NOWAK oxyCODONE-Acetaminophen 5-325 MG Oral Tabl*21 Tab*0 Sig: Take 1 Tablet by mouth every 8 hours as needed (Pain). Authorizing Provider: CARROLL CONLEY< BR> * Telephone Encounter - Carroll Conley MD - 07/11/2024 11:22 AM EDT Signed Prescriptions: Disp Refills linaGLIPtin 5 MG Oral Tablet (Tradjenta) 90 Tab*1 Sig: Take 1 Tablet by mouth in the morning. Authorizing Provider: CARROLL CONLEY Ordering User: LORI NOWAK oxyCODONE-Acetaminophen 5-325 MG Oral Tabl*21 Tab*0 Sig: Take 1 Tablet by mouth every 8 hours as needed (Pain). Authorizing Provider: CARROLL CONLEY< BR> * Telephone Encounter - Lori Nowak [facility] - 07/11/2024 11:17 AM EDT Pending Prescriptions: Disp Refills oxyCODONE-Acetaminophen 5-325 MG Oral Tabl*21 Tab*0 Sig: Take 1 Tablet by mouth every 8 hours as needed (Pain). Signed Prescriptions: Disp Refills linaGLIPtin 5 MG Oral Tablet (Tradjenta) 90 Tab*1 Sig: Take 1 Tablet by mouth in the morning. Authorizing Provider: CARROLL CONLEY Ordering User: LORI NOWAK * Telephone Encounter - Lori Nowak [facility] - 07/11/2024 11:15 AM EDT I have reviewed the patient’s controlled substance dispensing history in the Prescription Drug Monitoring Program in compliance with the [facility] regulations before prescribing a controlled substance. PDMP checked on 07/11/2024. Pending Prescriptions: Disp Refills oxyCODONE-Acetaminophen 5-325 MG Oral Tab*21 Tab*0 Sig: Take 1 Tablet by mouth every 8 hours as needed (Pain). Last Visit: 06/19/2024 (in office), Visit date not found (telemedicine) Next Visit: 10/11/2024 Date medication was last filled: 07/03/24 Date medication is due for refill: 07/10/24 Pharmacy: [id number] Is this request for a controlled substance? Yes and Urine Drug Screen Not completed Toxicology results: No results found. However, due to the size of the patient record, not all encounters were searched.Please check Results Review for a complete set of results. Please approve if appropriate. Thanks, Lori Nowak PharmD Clinical Pharmacist [facility] ([facility]) [phone] 07/11/2024 11:15 AM * Telephone Encounter - Marissa Dumont PHARM Tech - 07/10/2024 12:27 PM EDT Did you pend patient's preferred pharmacy and medication before forwarding?yes Pharmacy: [facility] [id number] Pending Prescriptions: Disp Refills linaGLIPtin 5 MG Oral Tablet (Tradjenta) 90 Tab*1 Sig: Take 1 Tablet by mouth in the morning. oxyCODONE-Acetaminophen 5-325 MG Oral Tab*21 Tab*0 Sig: Take 1 Tablet by mouth every 8 hours as needed (Pain). Last Visit: 06/19/2024 (in office), Visit date not found (telemedicine) Next Visit: 10/11/2024 If no future appointments scheduled, and last appointment is greater than a year ago, please schedule patient for a follow-up appointment Last date the medication was ordered: 03/06/2024, 07/03/2024 Is this request for a controlled substance?Yes, What was the last refill date 07/03/2024 w/ quantity 21 and dosage 5-325mg and Urine Drug Screen Not completed Urine Drug Screen:No results found. However, due to the size of the patient record, not all encounters were searched. Please check Results Review for a complete set of results. Patient Phone Numbers Labs: Lab Results Component Value Date/Time CREAT 1.1 06/06/2024 12:18 PM CREAT 1.1 01/24/2020 05:29 AM POTASSIUM 4.3 06/06/2024 12:18 PM POTASSIUM 4.0 01/24/2020 05:29 AM TSH 2.07 04/06/2023 04:27 PM TSH 2.44 10/19/2019 01:05 PM LDL 61 10/11/2023 04:05 PM LDL 71 01/23/2020 07:50 AM LDL NOT APPLICABLE 01/23/2020 07:50 AM ALT 19 06/06/2024 12:18 PM ALT 26 10/19/2019 01:05 PM HGBA1C 11.3 (H) 06/06/2024 12:18 PM HGBA1C 7.0 (H) 11/09/2019 12:07 PM documented in this encounter Plan of Treatment Upcoming Encounters Date Type Department Care Team (Late st Contact Info) Description 07/17/2024 1:20 PM EDT Office Visit Podiatry [facility] [address] [place] [phone] Julia Livingston DPM [address] [place] [address] 07/23/2024 5:45 PM EDT Imaging Radiology [address] [place] [phone] 07/31/2024 2:20 PM EDT Office Visit Pharmacy, [facility] [address] [place] [address] Pharmacist1, [facility] [address] [facility] [place] [address] 10/11/2024 3:00 PM EDT Office Visit General Internal Medicine [facility] [place] [address] [facility] [place] [address] Carroll Conley MD [address] [facility] [place] [address] 03/12/2025 1:30 PM EST Nurse Only Ancillary [facility] [place] [address] [facility] [place] [address] [place], Nurse Annual Wellness [facility] [address] [facility] [place] [address] Health Maintenance Due Date Last Done Comments Albumin/Creatinine Ratio 10/10/2024 072 024, 08/02/2022, 07/08/2021, Additional history exists CKD PHOS USE SMARTSET 89373 10/10/2024 07/0 12/2023, 08/02/2022, 07/08/2021, Additional history exists Diabetic Foot Exam 10/10/2024 10/11/2023, 1 , 08/19/2020, Additional history exists HbA1c 12/07/2024 06/06/2024, 12/2023, 04/06/2023, Additional history exists Adult Wellness Visit 03/07/2025 03/07/2024, 05/28/19 22 Depression Screening 03/07/2025 03/07/2024, 10/11/2023, 12/31/2014 Diabetic Eye Exam 04/12/2025 04/12/2024, , 04/09/2022, Additional history exists B-12 06/06/2025 06/06/2024, 06/2023, 08/02/2022, Additional history exists CKD HGB USE SMARTSET 75369 06/06/202506/06, 06/06/2024, 10/11/2023, Additional history exists DTap/Tdap [...] this encounter Medical Devices Implanted Type Area Supervisor Twisting Department Device Identifier Shelf Expiration Date Model / Serial / Lot Brenner Beveled Grommet Implanted:Qty: 1 on 05/13/2014 by Jose Alejandro Olivo MD at [facility] Right: Ear 07/03/2023 [id number] / / [id number] Trident Fermín Cluster Cup 60 - [id number] Implanted:Qty: 1 on 10/10/2014 by Jose Burton MD at [facility] Right: Hip [employer] : ORTHOPAEDICS 502-03-60F / / Screw Acetabular 6.5mm Tricia 25m - [id number] Implanted:Qty: 2 on 10/10/2014 by Jose Burton MD at [facility] Right: Hip [employer] : ORTHOPAEDICS 7677-9106-1 / / Trident Acetabular X3 0 36 F - [id number] Implanted:Qty: 1 on 10/10/2014 by Jose Burton MD at [facility] Right: Hip [employer] : ORTHOPAEDICS 623-00-36F / / Hip Hd Jeremiah Rivera 36/+75 - [id number] Implanted:Qty: 1 on 10/10/2014 by Jose Burton MD at [facility] Right: Hip [employer] : ORTHOPAEDICS 07/03/2019 6570-0-736 / / [id number] Stem Hip Sz6 - [id number] Implanted:Qty: 1 on 10/10/2014 by Jose Burton MD at [facility] Right: Hip [employer] : ORTHOPAEDICS 08/02/2019 7260-6530 / / [id number] Screw Acetabular 6.5mm Tricia 25m - [id number] Implanted:Qty: 1 on 04/17/2018 by Ismael Schroeder MD at [place] [facility] Left: Hip [employer] : ORTHOPAEDICS 06/05/202220299320-8638-1 / / [id number] Bone Screw Cancellous 65 16 - [id number] Implanted:Qty: 1 on 04/17/2018 by Ismael Schroeder MD at [facility] Left: Hip [employer] : ORTHOPAEDICS 11/03/202220293017-3511-1 / / [id number] Hip Stem Secur Max Ang 127 10 - [id number] Implanted:Qty: 1 on 04/17/2018 by Ismael Schroeder MD at [facility] Left: Hip [employer]IX[employer] : ORTHOPAEDICS 10/23/2022 6052-1035S / / [id number] Legislative Aide Plt Trochan 100 2 2 Cable - [id number] Implanted:Qty: 1 on 04/17/2018 by Ismael Schroeder MD at [place] [facility] Left: Hip [employer] : ORTHOPAEDICS 12/21/2022 6704-3-082 / / [id number] Sleeve Cable 2.0mm - [id number] Implanted:Qty: 1 on 04/17/2018 by Ismael Schroeder MD at [place] [facility] Left: Hip [employer] : ORTHOPAEDICS 10/25/2022 6704-8-240 / / [id number] Hip Fem Hd Blox D Uni Taper 40 - [id number] Implanted:Qty: 1 on 04/17/2018 by Ismael Schroeder MD at [facility] Left: Hip [employer] : ORTHOPAEDICS 12/21/2022 6519-1-040 / / [id number] Sleeve Adptr +5 Univ C Taper - [id number] Implanted:Qty: 1 on 04/17/2018 by Ismael Schroeder MD at [place] [facility] Left: Hip [employer] : ORTHOPAEDICS 10/14/2021 19-0005T / / [id number] Hip Trident Fermín Cluster 60 - [id number] Implanted:Qty: 1 on 04/17/2018 by Ismael Schroeder MD at [place] [facility] Left: Hip [employer] : ORTHOPAEDICS 05/23/2022 502-11-60G / / [id number] Trident Acetabular X3 0 40 G - [id number] Implanted:Qty: 1 on 04/17/2018 by Ismael Schroeder MD at [place] [facility] Left: Hip NIX[employer] : ORTHOPAEDICS 12/23/2022 623-00-40G / / [id number] Screw Acetabular 6.5mm Tricia 25m - [id number] Implanted:Qty: 1 on 04/17/2018 by Ismael Schroeder MD at [place] [facility] Left: Hip NIX[employer] : ORTHOPAEDICS 01/15/2023 4786-4163-1 / / [id number] Balloon Cath Pacing 2guc009um - [id number] Implanted:Qty: 1 on 07/10/[address] [facility] : MEDICAL [id number] 06/01/2022 [id number] / / [id number] Proglide Perclose 45845-03 X10 - [id number] Implanted:Qty: 1 on 07/10/2020 at [facility] : VASCULAR DEVICES [id number] 08/01/2021 30326-38 / / [id number] Proglide Perclose 75639-17 X10 - [id number] Implanted:Qty: 1 on 07/10/2020 at [facility] : VASCULAR DEVICES [id number] 08/01/2021 73747-67 / / [id number] Valve Waleska 3 Ultra 26mm - [id number] Implanted:Qty: 1 on 07/10/2020 at [facility] [employer] [id number] / / Proglide Perclose 47646-76 X10 - [id number] Implanted:Qty: 1 on 07/10/2020 at [facility] : VASCULAR DEVICES [id number] 01/01/2022 92373-50 / / [id number] documented as of this encounter Visit Diagnoses Diagnosis Type 2 diabetes mellitus with hemoglobin A1c goal of less than 8.0% (HCC) Herpes zoster with other complication documented in this encounter Advance Directives * [...] Power of Attor mary? No Care Teams Human Resources Office Manager Relationship Specialty Start Date End Date Carroll Conley MD [address] [place], [place] [phone] PCP - General Internal Medicine 06/16/12 documented as of this encounter
--- OUTSIDE RECORDS SUMMARY | 2024-07-21 20:47 | External Medical Summary | Summary of Care ---
Author Name Unknown Organization [facility] Address [address] [place] [address] Phone [phone] Care Team Providers Care Stick Inserter Name Role Phone Carroll Conley MD Primary Care Provider + Reason for Visit * Reason Onset Date Comments Appointment 07/18/2024 Encounter Details Date Type Department Care Team (Late st Contact Info) Description 07/18/2024 Telephone Interventional Pain Center, [facility] [address] [place] [address] Noris Alford PA-C [address] [place] [address] Appointment Allergies Active Allergy Reactions Criticality Noted Date Comments Acetaminophen Nausea/vomiting 11/04/2021 Hydrocodone Nausea/vomiting 11/04/2021 Hydrocodone-Acetaminophen High 05/29/2019 Vomiting, dizziness, loss of balance, unable to stand, documented as of this encounter (statuses as of 07/18/2024) Medications nitroglycerin (NITROSTAT) 0.4 MG SUBLIndications: Acute GA ([facility]) 1 Tab Sublingual Every 5 minutes as needed for chest discomfort 25 Tab 6 6 Active ONETOUCH DELICA LANCETS 33G MISCIndications: Type 2 diabetes mellitus with hemoglobin A1c goal of less than 8.0% ([facility]) Use to test blood once daily. Dx: E11.9 90 Each 3 11/22/201 9 Active Glucose Blood In Vitro StripIndications :DM type 2 nursing care encounter (HCC) tesing blood sugars once daily; E 11.9; non-insulin dependent 90 Strip 3 9 Active Blood Glucose Monitoring Suppl (AdvizzerUCH ULTRA 2) w/Device KITIndications:T ype 2 diabetes [...] sacrum, unspecified portion of sacrum, initial encounter (HCC) TAKE 1 TABLET BY MOUTH EVERY [...] aortic valve replacement ) 07/10/2020 Atherosclerosis of [place] co ronary artery of [place] heart without angina pectoris 05/29/2019 PAF (paroxysmal atrial fibrillation) 12/30/2017 History of GI bleed 04/19/2017 Old GA (myocardial infarction) 04/19/2017 Mixed hearing loss of [...] closed 12/31/202001/03 Atherosclerotic heart diseas e of [place] coronary artery with other forms of angina [...] 10/10/2014 04/06/2023 CAD (coronary artery disease ), [place] coronary artery 10/10/2014 12/31/2014 Chronic serous otitis media 05/11/2014 04/06/2023 Hip pain 05/21/2013 04/19/2017 Loss of height 04/05/2013 04/19/2017 Accelerate Clinical Trial*[id number] 10/02/2012 04/23/2015 Overview (10/02/2012): ACCELERATE STUDY. Project # [id number], TOBACCO HANGER: Chepe Campos MD. CRC: ANIL Daniels. SUMMARY: To test the hypothesis that Evacetrapib 130 mg, in comparison to placebo, reduces the risk of major adverse coronary events in high-risk vascular disease patients. CONTACTS: During normal business hours, contact study staff at ; after hours Automobile Tester via the [facility] doweling machine operator [phone]. 24-hour Global Study Helpline: [phone]. Lipid levels should not be ordered/obtained while this subject is in the Accelerate study. Lipids are being managed in a blinded fashion. If lipid levels are inadvertently obtained, it is important that test results are NOT provided to the patient, study doctor, human service coordinator, or other study team members. Restricted meds while in the study: 1) niacin > 250 mg, 2) gemfibrozil with a potent [id number]-apocziqgm. Type 2 diabetes mellitus wit h hemoglobin A1c goal of 7.0%-8.0% 09/17/2012 12/25/2013 Overview (07/31/2015): ICD-10 update of inactive term Type 2 diabetes mellitus wit h hemoglobin A1c goal of 7.0%-8.0% 06/16/2012 09/17/2012 Overview (07/31/2015): ICD-10 update of inactive term Acute inferolateral myocardial infarction 01/28/2011 04/19/2017 CAD. Inferolateral GA treate d with bare metal stenting of distal RCA at [facility] on 01/24/2011. 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 [place] or Noris Alford. documented in this encounter Plan of Treatment Upcoming Encounters Date Type Department Care Team (Late st Contact Info) Description 07/23/2024 5:45 PM EDT Imaging Radiology [address] [place] [phone] 07/31/2024 2:20 PM EDT [facility] [address] [place] [address] Pharmacist1, [facility] [address] [place] [address] 08/14/2024 2:00 PM EDT Office Visit Interventional Pain Center [facility] [address] [place] [phone] Noris Alford PA-C [address] [place] [address] 10/11/2024 3:00 PM EDT Office Visit General Internal Medicine [facility] [address] [place] [address] Carroll Conley MD [address] [place] [address] 03/12/2025 1:30 PM EST Nurse Only Ancillary [facility] [address] [place] [address] [place], Nurse Annual Wellness [facility] [address] [place] [address] Health Maintenance Due Date Last Done Comments Albumin/Creatinine Ratio 10/10/20242 024, 08/02/2022, 07/08/2021, Additional history exists CKD PHOS USE SMARTSET 14175 10/10/2024 07/0 12/2023, 08/02/2022, 07/08/2021, Additional history exists Diabetic Foot Exam 10/10/2024 10/11/2023, 1 , 08/19/2020, Additional history exists HbA1c 12/07/2024 06/06/2024, 07/0 12/2023, 04/06/2023, Additional history exists Adult Wellness Visit 03/07/2025 03/07/2024, 05/28/19 22 Depression Screening 03/07/2025 03/07/2024, 10/11/2023, 12/31/2014 Diabetic Eye Exam 04/12/2025 04/12/2024, , 04/09/2022, Additional history exists B-12 06/06/2025 06/06/2024, 06/2023, 08/02/2022, Additional history exists CKD HGB USE SMARTSET 60135 06/06/202506/06, 06/06/2024, 10/11/2023, Additional history exists DTap/Tdap [...] this encounter Medical Devices Implanted Type Area Director Search Marketing Strategies Device Identifier Shelf Expiration Date Model / Serial / Lot Brenner Beveled Grommet Implanted:Qty: 1 on 05/13/2014 by Jose Alejandro Olivo [place] [facility] [place] Ear 07/03/2023 [id number] / / [id number] Trident Fermín Cluster Cup 60 - [id number] Implanted:Qty: 1 on 10/10/2014 by Jose Burton MD [place] [facility] [place]: Hip [employer] : ORTHOPAEDICS 502-03-60F / / Screw Acetabular 6.5mm Tricia 25m - [id number] Implanted:Qty: 2 on 10/10/2014 by Jose Burton MD [place] [facility] [place]: Hip [employer] : ORTHOPAEDICS 7371-1889-1 / / Trident Acetabular X3 0 36 F - [id number] Implanted:Qty: 1 on 10/10/2014 by Jose Burton MD [place] [facility] [place]: Hip [employer] : ORTHOPAEDICS 623-00-36F / / Hip Hd Jeremiah Rivera 36/+75 - [id number] Implanted:Qty: 1 on 10/10/2014 by Jose Burton MD [place] [facility] [place]: Hip [employer] : ORTHOPAEDICS 07/03/2019 6570-0-736 / / [id number] Stem Hip Sz6 - [id number] Implanted:Qty: 1 on 10/10/2014 by Jose Burton MD [place] [facility] [place]: Hip [employer] : ORTHOPAEDICS 08/02/2019 3252-6918 / / [id number] Screw Acetabular 6.5mm Tricia 25m - [id number] Implanted:Qty: 1 on 04/17/2018 by Ismael Schroeder MD [place] [facility] [place]: Hip [employer] : ORTHOPAEDICS 06/05/2022 9815-7742-1 / / [id number] Bone Screw Cancellous 65 16 - [id number] Implanted:Qty: 1 on 04/17/2018 by Ismael Schroeder MD [place] [facility] [place]: Hip [employer] : ORTHOPAEDICS 11/03/2022 4358-3466-1 / / [id number] Hip Stem Secur Max Ang 127 10 - [id number] Implanted:Qty: 1 on 04/17/2018 by Ismael Schroeder MD [place] [facility] [place]: Hip [employer] : ORTHOPAEDICS 10/23/2022 [id number] / / [id number] Employment Counselor Plt Trochan 100 2 2 Cable - [id number] Implanted:Qty: 1 on 04/17/2018 by Ismael Schroeder MD [place] [facility] [place]: Hip [employer] : ORTHOPAEDICS 12/21/2022 6704-3-082 / / [id number] Sleeve Cable 2.0mm - [id number] Implanted:Qty: 1 on 04/17/2018 by Ismael Schroeder MD [place] [facility] [place]: Hip [employer] : ORTHOPAEDICS 10/25/2022 6704-8-240 / / [id number] Hip Fem Hd Blox D Uni Taper 40 - [id number] Implanted:Qty: 1 on 04/17/2018 by Ismael Schroeder MD [place] [facility] [place]: Hip [employer] : ORTHOPAEDICS 12/21/2022 6519-1-040 / / [id number] Sleeve Adptr +5 Univ C Taper - [id number] Implanted:Qty: 1 on 04/17/2018 by Ismael Schroeder MD [place] [facility] [place]: Hip [employer] : ORTHOPAEDICS 10/14/2021 19-0005T / / [id number] Hip Trident Fermín Cluster 60 - [id number] Implanted:Qty: 1 on 04/17/2018 by Ismael Schroeder MD [place] [facility] [place]: Hip [employer] : ORTHOPAEDICS 05/23/2022 502-11-60G / / [id number] Trident Acetabular X3 0 40 G - [id number] Implanted:Qty: 1 on 04/17/2018 by Ismael Schroeder MD [place] [facility] [place]: Hip [employer] : ORTHOPAEDICS 12/23/2022 623-00-40G / / [id number] Screw Acetabular 6.5mm Tricia 25m - [id number] Implanted:Qty: 1 on 04/17/2018 by Ismael Schroeder MD [place] [facility] [place]: Hip [employer] : ORTHOPAEDICS 01/15/2023 0410-5664-1 / / [id number] Balloon Cath Pacing 3pya519qf - [id number] Implanted:Qty: 1 on 07/10/2020 at [facility] [id number] 06/01/2022 [id number] / / [id number] Proglide Perclose 55605-82 X10 - [id number] Implanted:Qty: 1 on 07/10/2020 at [facility] [id number] 08/01/2021 38862-08 / / [id number] Proglide Perclose 30303-77 X10 - [id number] Implanted:Qty: 1 on 07/10/2020 at [facility] [id number] 08/01/2021 71221-04 / / [id number] Valve Wales[place] 3 Ultra 26mm - [id number] Implanted:Qty: 1 on 07/10/2020 at [facility] [employer] [id number] / / Proglide Perclose 33684-72 X10 - [id number] Implanted:Qty: 1 on 07/10/2020 at [facility]ULAR DEV[facility] [id number] 01/01/2022 99336-87 / / [id number] documented as of this encounter Advance Directives [...] Power of Attor mary? No Care Teams Stick Inserter Relationship Specialty Start Date End Date Carroll Conley MD [address] [place] [address] PCP - General Internal Medicine 06/16/12 documented as of this encounter
[2024-07-21 21:21] LABS: Basophils # (auto) 0.04 K/uL (0.00-0.20); Basophils % (auto) 0.6 %; Eosinophils # (auto) 0.17 K/uL (0.00-0.50); Eosinophils % (auto) 2.6 %; Hematocrit (blood only) 29.7 % (42.0-52.0); Hemoglobin 9.9 g/dl (14.0-18.0); Immature Granulocytes # (auto) 0.02 K/uL (0.01-0.20); Immature Granulocytes % (auto) 0.3 %; Lymphocytes # (auto) 2.14 K/uL (1.20-3.40); Lymphocytes % (auto) 33.3 %; Mean Corpuscular Hemoglobin 31.6 pg (25.0-34.0); Mean Corpuscular Hgb Conc 33.3 g/dL (32.0-36.0); Mean Corpuscular Volume 94.9 fL (80.0-100.0); Mean Platelet Volume 9.7 fL (9.4-12.4); Monocytes # (auto) 0.55 K/uL (0.11-0.59); Monocytes % (auto) 8.6 %; Neutrophils % (auto) 54.6 %; Platelet Count 149 K/uL (130-400); RDW Coefficient of Variation 15.1 % (11.5-14.5); Red Blood Count 3.13 M/uL (4.70-6.10); White Blood Count 6.42 K/ul (4.8-10.8)
[2024-07-21 21:40] LABS: Albumin Globulin Ratio 1.5 (0.9-2); Albumin Level 3.8 gm/dl (3.4-5.0); BUN Creatinine Ratio 19.1 (10-20); Bilirubin,Total 0.4 mg/dl (0.2-1.0); Calcium 9.2 mg/dl (8.6-10.3); Creatinine Clr Calc Pharmacy 39.9 ml/min; Globulin 2.5 gm/dl (2.5-4.0); Potassium 4.1 mmol/L (3.5-5.1); Total Protein 6.3 gm/dl (6.0-8.3)
[2024-07-21 21:46] LABS: Troponin I High Sensitivity 6.7 pg/ml (0-20)
--- NOTE | 2024-07-21 21:58 | Emergency Department Note ---
Impression & Plan Syncope, HTN (hypertension), Aortic stenosis ED Provider Note NAME: DONNA CEBALLOS AGE: 84 SEX: M : 1940 ARRIVES VIA: Ambulance INFORMANT: Patient ED PROVIDER(S): Alejandro Moss DO CHIEF COMPLAINT: Syncope HPI: Patient is a 84-year-old male with a past medical history of hyperglycemia, A-fib with RVR, GI bleed, aortic stenosis, CAD who presents to the ER for syncopal events per report. He was sitting in the pew at [employer] after sitting. He slumped over. They were unable to wake him up. He was found to be hypotensive via EMS and eventually woke up just prior to arrival to the ER via EMS. Patient does not remember any of this or the transportation to the ER. Patient denies any headache or change in vision. No chest pain or shortness of breath. No nausea, vomiting or diarrhea. No dysuria, urgency or frequency. No other exacerbating or remitting factors. No shaking or loss of control of bowel or bladder ADDITIONAL HISTORY OBTAINED: Per HPI Chronic Medical/Social Conditions Affecting Care: Per HPI PAST MEDICAL HISTORY:See Below PAST SURGICAL HISTORY:See Below FAMILY HISTORY:See Below SOCIAL HISTORY:See Below HOME MEDICATIONS:See Below ALLERGIES:See Below VITALS:See Below PHYSICAL EXAMINATION: GENERAL: Sitting up in bed, alert, well appearing, well nourished, no distress, non-toxic EYE EXAM: normal conjunctiva. PERRL and EOM's grossly intact. OROPHARYNX: no exudate, no erythema, lips, buccal mucosa, and tongue normal and mucous membranes are moist NECK: supple, no nuchal rigidity, no adenopathy, non-tender LUNGS: Clear to auscultation. Normal chest wall mechanics HEART: no murmurs, S1 normal and S2 normal ABDOMEN: abdomen soft, non-tender, normo-active bowel sounds, no masses, no rebound or guarding. UPPER EXTREMITIES: upper extremities are grossly normal. LOWER EXTREMITIES: No pitting edema. NEURO EXAM: Normal sensorium, cranial nerves II-XII grossly intact, normal speech, no gross weakness of arms, no weakness of legs. MEDICAL DECISION MAKING: Patient is an 84-year-old male who presents to the ER for period of unresponsiveness close to 20 minutes. He does not recall this event. There is no seizure activity. IV was established and blood work was obtained. Labs show no significant leukocytosis. Mild anemia at 9.9. BMP with slightly low mag at 1.6. LFTs and bilirubin were unremarkable. Troponin was negative. Lipase normal. EKG was nondiagnostic. Chest x-ray was clean. Patient was updated bedside discussed case with the hospitalist admitted for further evaluation management treatment. Please see Dr. Miranda's note. Consults/Care Managements Discussions: Per [facility] Triage Nursing notes reviewed. Limited review of prior medical records performed Vital Signs: reviewed and remarkable for no significant abnormalities Differential diagnosis: Differential diagnosis includes etiologies such as vasovagal event, infection, hypoglycemia, electrolyte abnormalities, cardiac sources, intracerebral event, toxicologic, neurologic, as well as others were entertained. ER treatment provided: See below Diagnostics interpreted by me include EKG and cardiac monitoring as listed below: -Cardiac Monitoring: An order was placed for continuous cardiac monitoring. The monitor shows a rate of 70 with sinus rhythm. -ECG: Sinus rhythm rate of 67 Normal axis No PVCs Poor baseline QTc 433 -Laboratory studies:Interpreted by me as stated above in MDM and shown below. Imaging studies: Xrays: As interpreted by me: Portable AP upright 1 view of the chest shows no focal M-Trate CTs show: none Procedures:none Critical Care: None Past Med/Surg History Problem List (Updated 07/21/24 @ 23:54 by Alejandro Moss DO) HTN (hypertension) (Acute) Syncope (Acute) Cervical radiculopathy Acute hyperglycemia (Acute) Elevated troponin I level (Acute) Atrial fibrillation with rapid ventricular response (Acute) Syncope (Acute) Ischial bursitis Piriformis syndrome Low back pain Ambulatory dysfunction (Acute) Fracture of L5 vertebra (Acute) Coccyx contusion Lumbar transverse process fracture Fall (Acute) Syncope and collapse Paroxysmal atrial fibrillation Lightheadedness S/P TAVR (transcatheter aortic valve replacement) Exertional angina Type 2 diabetes mellitus GI bleed (Acute) Atrial fibrillation (Acute) Aortic stenosis (Acute) S/P coronary artery stent placement CAD (coronary artery disease) Hypertension (Chronic) Hypercholesteremia (Chronic) Medical History Paroxysmal ventricular tachycardia Osteoarthritis GERD (gastroesophageal reflux disease) Diabetes mellitus, type 2 Hypertension Hyperlipidemia Surgical History S/P inguinal hernia repair H/O cataract extraction [place] [facility] [place] History of total hip arthroplasty RT History of colonoscopy History of tonsillectomy History of cardiac cath 2010 Social History Smoking Status: Never smoker Second Hand Exposure: No; Do You Dip or Chew Tobacco: No; Hx Alcohol Use: No Hx Substance Use: No Preferred Language: Bur[place]ian Communication Ability: Effective Central Melt Specialist Required: No Beliefs That Will Affect Care: None Current Living Situation: Other Current Living Situation Comment: lives with friend Feels Safe at Home: Yes Assistive Devices: Cane and Walker Allergies Allergies Allergy/AdvReac Type Severity Reaction Status Date / Time hydrocodone [From [place]] AdvReac Mild Nausea Verified 07/21/24 22:04 Home Meds Home Medications Medication Instructions Recorded Confirmed atorvastatin 80 mg tablet 80 mg PO DAILY 04/13/19 07/21/24 metformin 500 mg tablet 1,000 mg PO BIDM 04/13/19 07/21/24 glimepiride 4 mg tablet 8 mg PO QDB 04/14/19 07/21/24 linagliptin 5 mg tablet (Tradjenta) 5 mg PO QAM 05/28/24 07/21/24 amoxicillin 500 mg capsule 2,000 mg PO DIRECTED PRN 1 HR 07/21/24 07/21/24 PRIOR TO DENTAL WORK cholecalciferol (vitamin D3) 25 25 mcg PO DAILY 07/21/24 07/21/24 mcg (1,000 unit) capsule (Vitamin D3) cyanocobalamin (vitamin B-12) 500 500 mcg PO DAILY 07/21/24 07/21/24 mcg tablet (Vitamin B-12) gabapentin 100 mg capsule 200 mg PO TID 07/21/24 07/21/24 lidocaine 4 % topical patch 1 patch topical DAILY PRN Pain 07/21/24 07/21/24 metoprolol succinate 25 mg 25 mg PO QAM 07/21/24 07/21/24 tablet,extended release 24 hr nitroglycerin 0.4 mg sublingual 0.4 mg sublingual DIRECTED PRN 07/21/24 07/21/24 tablet (Nitrostat) Chest Pain oxycodone-acetaminophen 5 mg-325 1 tab PO Q8H PRN Pain 07/21/24 07/21/24 mg tablet Previous Rx's Medication Instructions Recorded clopidogrel 75 mg tablet 75 mg PO DAILY #90 tabs 03/12/24 Results & Data (ED) Vital Signs Vital Signs - 24 hr 07/21/24 20:50 07/21/24 21:01 07/21/24 21:03 Temperature 36.6 C Temperature Source Oral Pulse Rate 67 66 Pulse Rate from SpO2 Sensor 66 Respiratory Rate 13 14 Respiratory Effort / Characteristics Non-Labored Spontaneous Respiratory Depth Normal Blood Pressure 106/61 106/65 Blood Pressure Mean 76 78 Pulse Oximetry 100 99 100 Oxygen Delivery Method Room Air Room Air Sepsis Recent Fever Within 48 Hours No Sepsis New/Unexplained Change in Mental Status N/A Sepsis Action Taken by Nursing No Action Required 07/21/24 21:05 07/21/24 21:15 07/21/24 21:30 Temperature Temperature Source Pulse Rate 66 69 66 Pulse Rate from SpO2 Sensor 66 Respiratory Rate 16 19 Respiratory Effort / Characteristics Respiratory Depth Blood Pressure 137/86 Blood Pressure Mean 103 Pulse Oximetry 100 100 Oxygen Delivery Method Room Air Sepsis Recent Fever Within 48 Hours Sepsis New/Unexplained Change in Mental Status Sepsis Action Taken by Nursing 07/21/24 22:00 07/21/24 23:00 Temperature Temperature Source Pulse Rate 66 105 H Pulse Rate from SpO2 Sensor 66 Respiratory Rate 22 20 Respiratory Effort / Characteristics Respiratory Depth Blood Pressure 141/75 H 142/96 H Blood Pressure Mean 93 111 Pulse Oximetry 100 98 Oxygen Delivery Method Sepsis Recent Fever Within 48 Hours Sepsis New/Unexplained Change in Mental Status Sepsis Action Taken by Nursing Laboratory Data 07/21/24 21:00 07/21/24 21:00 Lab Results 07/21/24 Range/Units 21:00 WBC 6.42 (4.8-10.8) K/ul RBC 3.13 L (4.70-6.10) M/uL Hgb 9.9 L (14.0-18.0) g/dl Hct 29.7 L (42.0-52.0) % MCV 94.9 (80.0-100.0) fL MCH 31.6 (25.0-34.0) pg MCHC 33.3 (32.0-36.0) g/dL RDW Std Deviation 53.0 H (36.4-46.3) fL RDW Coeff of Jasvir 15.1 H (11.5-14.5) % Plt Count 149 (130-400) K/uL MPV 9.7 (9.4-12.4) fL Immature Gran % (Auto) 0.3 % Neut % (Auto) 54.6 % Lymph % (Auto) 33.3 % Culberson % (Auto) 8.6 % Eos % (Auto) 2.6 % Baso % (Auto) 0.6 % Neut # (Auto) 3.50 (1.40-6.50) K/uL Lymph # (Auto) 2.14 (1.20-3.40) K/uL Culberson # (Auto) 0.55 (0.11-0.59) K/uL Eos # (Auto) 0.17 (0.00-0.50) K/uL Baso # (Auto) 0.04 (0.00-0.20) K/uL Immature Gran # (Auto) 0.02 (0.01-0.20) K/uL Sodium 137 (136-145) mmol/L Potassium 4.1 (3.5-5.1) mmol/L Chloride 105 (98-107) mmol/L Carbon Dioxide 27 (21-32) mmol/L Anion Gap 5 (3-11) BUN 26 H (6-23) mg/dl Creatinine 1.36 (0.6-1.4) mg/dl Est Cr Clr Drug Dosing 39.9 ml/min eGFR 51.00 BUN/Creatinine Ratio 19.1 (10-20) Glucose 154 H (70-99(Fasting)) mg/dl Calcium 9.2 (8.6-10.3) mg/dl Magnesium 1.6 L (1.7-2.4) mg/dl Total Bilirubin 0.4 (0.2-1.0) mg/dl AST 19 (13-39) U/L ALT 19 (7-52) U/L Alkaline Phosphatase 78 (34-104) U/L Troponin I High Sens 6.7 (0-20) pg/ml Total Protein 6.3 (6.0-8.3) gm/dl Albumin 3.8 (3.4-5.0) gm/dl Globulin 2.5 (2.5-4.0) gm/dl Albumin/Globulin Ratio 1.5 (0.9-2) Lipase 26 (11-82) U/L Administered Medications Discontinued Medications Sodium Chloride (Nss) 1,000 mls @ 100 mls/hr IV .Q10H ONE Stop: 07/22/24 07:57 Last Admin: 07/21/24 22:38 Dose: 100 mls/hr Documented By: JOMAR Magnesium Sulfate/Dextrose (Magnesium Sulfate / D5w) 1 gm in 100 mls @ 50 mls/hr IV ONE ONE Stop: 07/22/24 00:44 Last Infusion: 07/22/24 01:21 Dose: Infused Documented By: Admin: 07/21/24 23:11 Dose: 50 mls/hr Documented By: TRINI Insulin Aspart (Insulin Aspart Per Unit Charge) 0 units SC ACHS RUBEN Stop: 08/21/24 00:45 Last Admin: 07/22/24 01:33 Dose: 7 units Documented By: TRINI Co-signed By: BARBARA Insulin Glargine (Lantus Per Unit Charge) 5 units SQ BID RUBEN Stop: 08/21/24 00:45 Last Admin: 07/22/24 01:33 Dose: 5 units Documented By: TRINI Co-signed By: BARBARA Metoprolol Succinate (Metoprolol Succ 25mg Ext Rel Tab) 25 mg PO NOW STA Stop: 07/21/24 23:05 Last Admin: 07/21/24 23:32 Dose: 25 mg Documented By: TRINI Metoprolol Tartrate (Metoprolol Tartrate 1 Mg/Ml Vial) 2.5 mg IV NOW STA Stop: 07/22/24 01:13 Last Admin: 07/22/24 01:34 Dose: 2.5 mg Documented By: TRINI Oxycodone HCl (Oxycodone Hcl Ir 5 Mg Tab (Immediate Release)) 5 mg PO Q4H PRN PRN Reason: Pain Stop: 08/05/24 00:30 Last Admin: 07/22/24 04:12 Dose: 5 mg Documented By: TRINI Oxycodone HCl (Oxycodone Hcl Ir 5 Mg Tab (Immediate Release)) 5 mg PO NOW STA Stop: 07/22/24 00:32 Last Admin: 07/22/24 00:37 Dose: 5 mg Documented By: TRINI Discharge Plan Visit Data Chief Complaint: Syncope Stated Complaint: Syncope ED Provider: Alejandro Moss Discharge Problem: Syncope, HTN (hypertension), Aortic stenosis Patient Disposition: Admitted As Inpatient Discharge Instructions Interventions: ED Discharge Assessment Last Done: 07/22/24 00:46 Discharge Problem: Syncope Qualifiers: Syncope type: unspecified Qualified Code(s): R55 - Syncope and collapse HTN (hypertension) Qualifiers: Hypertension type: unspecified Qualified Code(s): I10 - Essential (primary) hypertension Aortic stenosis Qualifiers: Cardiac valve disease etiology: etiology unspecified Qualified Code(s): I35.0 - Nonrheumatic aortic (valve) stenosis
[2024-07-21 22:36] LABS: Magnesium 1.6 mg/dl (1.7-2.4)
[2024-07-21] MEDS: SODIUM CHLORIDE 0.9% 1,000 ML IV ONE (22:38)
--- NOTE | 2024-07-21 23:05 | History & Physical Report ---
Date of Service July 21, 2024 Assessment & Plan (1) Syncope: Plan: Syncope Likely from hypotension Possible orthostasis secondary to hypovolemia (mild creatinine increased from baseline) Possible autonomic neuropathy, history DM 2 on oral medications, suboptimal control as of recent hemoglobin A1c of 11.3 from June 2024 chronic diastolic heart failure (EF 60 to 65%, TTE 2023 ), patient clinically dry hx CAD status post stent aortic stenosis status post TAVR mild MR from TTE 2023 PAF not on anticoagulation secondary to life-threatening GI bleed as per records hypertension, BP currently on the lower side hyperlipidemia, on statin Rx duodenal ulcer as per records Chronic anemia, hemoglobin slightly lower than baseline, patient denies overt bleeding symptoms postherpetic neuralgia, controlled on home regimen OBS Admit to PCU Check orthostatic vitals IVF Basal bolus insulin, ISS BG goal 1 10-1 40, carb count coverage DVT prophylaxis. SCDs Re: History life-threatening GI bleed Full code Text document was generated using [employer] voice recognition software. It may contain grammatical or spelling errors. Kindly contact undersigned for clarification of any documentation item in question. History of Present Illness Chief Complaint: Syncope Primary Care Provider: Carroll Conley MD History obtained from patient and records. Medical history significant for chronic diastolic heart failure (EF 60 to 65%, TTE 2023 ), CAD status post stent, aortic stenosis status post TAVR, mild MR, PAF not on anticoagulation secondary to bleeding risk, hypertension, hyperlipidemia, duodenal ulcer as per records, DM2 on oral medications, chronic anemia (baseline hemoglobin 10-11), postherpetic neuralgia, BPH. Last confinement May 2024 for recurrent atrial flutter attributed to hyperglycemia secondary to steroid injection for shingles. Patient found to be slumped over and unresponsive at [facility] today. Patient does not recall events prior to episode. Denies headache, dizziness, chest pain, SOB, abdominal pain, bleeding. No new medications. SBP 80s, BSG 160s upon EMS arrival. Patient brought to ER for evaluation. 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 Allergies Allergy/AdvReac Type Severity Reaction Status Date / Time hydrocodone [From [place]] AdvReac Mild Nausea Verified 07/21/24 22:04 Home Medications Medication Instructions Recorded Confirmed Type atorvastatin 80 mg tablet 80 mg PO DAILY 04/13/19 07/21/24 History metformin 500 mg tablet 1,000 mg PO BIDM 04/13/19 07/21/24 History glimepiride 4 mg tablet 8 mg PO QDB 04/14/19 07/21/24 History clopidogrel 75 mg tablet 75 mg PO DAILY #90 tabs 03/12/24 07/21/24 Rx linagliptin 5 mg tablet (Tradjenta) 5 mg PO QAM 05/28/24 07/21/24 History amoxicillin 500 mg capsule 2,000 mg PO DIRECTED PRN 1 HR 07/21/24 07/21/24 History PRIOR TO DENTAL WORK cholecalciferol (vitamin D3) 25 25 mcg PO DAILY 07/21/24 07/21/24 History mcg (1,000 unit) capsule (Vitamin D3) cyanocobalamin (vitamin B-12) 500 500 mcg PO DAILY 07/21/24 07/21/24 History mcg tablet (Vitamin B-12) gabapentin 100 mg capsule 200 mg PO TID 07/21/24 07/21/24 History lidocaine 4 % topical patch 1 patch topical DAILY PRN Pain 07/21/24 07/21/24 History metoprolol succinate 25 mg 25 mg PO QAM 07/21/24 07/21/24 History tablet,extended release 24 hr nitroglycerin 0.4 mg sublingual 0.4 mg sublingual DIRECTED PRN 07/21/24 07/21/24 History tablet (Nitrostat) Chest Pain oxycodone-acetaminophen 5 mg-325 1 tab PO Q8H PRN Pain 07/21/24 07/21/24 History mg tablet Past Med/Surg History Problem List (Updated 07/21/24 @ 23:54 by Alejandro Moss DO) HTN (hypertension) (Acute) Syncope (Acute) Cervical radiculopathy Acute hyperglycemia (Acute) Elevated troponin I level (Acute) Atrial fibrillation with rapid ventricular response (Acute) Syncope (Acute) Ischial bursitis Piriformis syndrome Low back pain Ambulatory dysfunction (Acute) Fracture of L5 vertebra (Acute) Coccyx contusion Lumbar transverse process fracture Fall (Acute) Syncope and collapse Paroxysmal atrial fibrillation Lightheadedness S/P TAVR (transcatheter aortic valve replacement) Exertional angina Type 2 diabetes mellitus GI bleed (Acute) Atrial fibrillation (Acute) Aortic stenosis (Acute) S/P coronary artery stent placement CAD (coronary artery disease) Hypertension (Chronic) Hypercholesteremia (Chronic) Medical History Paroxysmal ventricular tachycardia Osteoarthritis GERD (gastroesophageal reflux disease) Diabetes mellitus, type 2 Hypertension Hyperlipidemia Surgical History S/P inguinal hernia repair H/O cataract extraction RIGHT EYE (02/01/18, [facility] [place] History of total hip arthroplasty RT History of colonoscopy History of tonsillectomy History of cardiac cath 2009 Social History Smoking Status: Never smoker Second Hand Exposure: No; Do You Dip or Chew Tobacco: No; Hx Alcohol Use: No Hx Substance Use: No Preferred Language: Citizen [place] Communication Ability: Effective Licsw Required: No Beliefs That Will Affect Care: None Current Living Situation: Other Current Living Situation Comment: lives with friend Feels Safe at Home: Yes Assistive Devices: Cane and Walker Review of Systems Review of Systems: As per HPI, all other systems reviewed and negative Physical Exam Physical Exam: GENERAL: Comfortable, pleasant, no respiratory distress SKIN: Pallor, warm HEENT: Alopecia, pale palpebral conjunctivae, no ptosis, dry buccal mucosa NECK : Supple, no tenderness CHEST : Dried crusting lesions over back, CTA, no tenderness HEART : Tachycardic, systolic murmur ABDOMEN: Some distention, nontender EXTREMITIES : No LE swelling/tenderness, palpable pulses, no other conspicuous deformities noted NEUROLOGIC : Coherent, no facial asymmetry, no other gross focality Results & Data Results & Data Vital Signs (Past 12 Hours) Vital Signs Temp Pulse Resp BP Pulse Ox O2 Del Method 07/21/24 22:00 66 22 141/75 H 100 07/21/24 21:30 66 19 137/86 100 07/21/24 21:15 69 16 100 Room Air 07/21/24 21:05 66 07/21/24 21:03 66 14 106/65 100 07/21/24 21:01 99 Room Air 07/21/24 20:50 36.6 C 67 13 106/61 100 Room Air Laboratory Results Laboratory Results WBC 6.42 K/ul (4.8-10.8) 07/21/24 21:00 RBC 3.13 M/uL (4.70-6.10) L 07/21/24 21:00 Hgb 9.9 g/dl (14.0-18.0) L 07/21/24 21:00 Hct 29.7 % (42.0-52.0) L 07/21/24 21:00 MCV 94.9 fL (80.0-100.0) 07/21/24 21:00 MCH 31.6 pg (25.0-34.0) 07/21/24 21:00 MCHC 33.3 g/dL (32.0-36.0) 07/21/24 21:00 RDW Std Deviation 53.0 fL (36.4-46.3) H 07/21/24 21:00 RDW Coeff of Jasvir 15.1 % (11.5-14.5) H 07/21/24 21:00 Plt Count 149 K/uL (130-400) 07/21/24 21:00 MPV 9.7 fL (9.4-12.4) 07/21/24 21:00 Immature Gran % (Auto) 0.3 % 07/21/24 21:00 Neut % (Auto) 54.6 % 07/21/24 21:00 Lymph % (Auto) 33.3 % 07/21/24 21:00 Stoddard % (Auto) 8.6 % 07/21/24 21:00 Eos % (Auto) 2.6 % 07/21/24 21:00 Baso % (Auto) 0.6 % 07/21/24 21:00 Neut # (Auto) 3.50 K/uL (1.40-6.50) 07/21/24 21:00 Lymph # (Auto) 2.14 K/uL (1.20-3.40) 07/21/24 21:00 Stoddard # (Auto) 0.55 K/uL (0.11-0.59) 07/21/24 21:00 Eos # (Auto) 0.17 K/uL (0.00-0.50) 07/21/24 21:00 Baso # (Auto) 0.04 K/uL (0.00-0.20) 07/21/24 21:00 Immature Gran # (Auto) 0.02 K/uL (0.01-0.20) 07/21/24 21:00 Sodium 137 mmol/L (136-145) 07/21/24 21:00 Potassium 4.1 mmol/L (3.5-5.1) 07/21/24 21:00 Chloride 105 mmol/L (98-107) 07/21/24 21:00 Carbon Dioxide 27 mmol/L (21-32) 07/21/24 21:00 Anion Gap 5 (3-11) 07/21/24 21:00 BUN 26 mg/dl (6-23) H 07/21/24 21:00 Creatinine 1.36 mg/dl (0.6-1.4) 07/21/24 21:00 Est Cr Clr Drug Dosing 39.9 ml/min 07/21/24 21:00 eGFR 51.00 07/21/24 21:00 BUN/Creatinine Ratio 19.1 (10-20) 07/21/24 21:00 Glucose 154 mg/dl (70-99(Fasting)) H 07/21/24 21:00 Calcium 9.2 mg/dl (8.6-10.3) 07/21/24 21:00 Magnesium 1.6 mg/dl (1.7-2.4) L 07/21/24 21:00 Total Bilirubin 0.4 mg/dl (0.2-1.0) 07/21/24 21:00 AST 19 U/L (13-39) 07/21/24 21:00 ALT 19 U/L (7-52) 07/21/24 21:00 Alkaline Phosphatase 78 U/L (34-104) 07/21/24 21:00 Troponin I High Sens 6.7 pg/ml (0-20) 07/21/24 21:00 Total Protein 6.3 gm/dl (6.0-8.3) 07/21/24 21:00 Albumin 3.8 gm/dl (3.4-5.0) 07/21/24 21:00 Globulin 2.5 gm/dl (2.5-4.0) 07/21/24 21:00 Albumin/Globulin Ratio 1.5 (0.9-2) 07/21/24 21:00 Lipase 26 U/L (11-82) 07/21/24 21:00 Diagnostic Findings EKG as per my interpretation : Rate 70, atrial flutter, normal axis, T wave flattening inferior leads (1) Syncope Syncope type: unspecified Qualified Code(s): R55 - Syncope and collapse
[2024-07-21] MEDS: MAGNESIUM SULFATE / D5W 1 GM/100 ML BAG IV ONE (23:11)
[2024-07-21] MEDS: METOPROLOL SUCC 25MG EXT REL TAB PO STA (23:32)
[2024-07-22] MEDS ORDERED: traMADol HCL 50 MG TABLET PO PRN (00:07)
[2024-07-22] MEDS: oxyCODONE HCL IR 5 MG TAB (IMMEDIATE RELEASE) PO STA (00:37)
[2024-07-22] MEDS ORDERED: DEXTROSE 50% 50 ML SYRINGE IV PRN (00:46)
[2024-07-22] MEDS ORDERED: GLUCAGON FOR INJ 1 MG VIAL SQ PRN (00:46)
[2024-07-22] MEDS ORDERED: GLUCOSE 40% GEL 15 GM TUBE PO PRN (00:46)
[2024-07-22] MEDS ORDERED: GLUCOSE 10 TAB/TUBE PO PRN (00:46)
[2024-07-22] MEDS ORDERED: CARBOHYDRATES FOR HYPOGLYCEMIA PO PRN (00:46)
[2024-07-22 00:51] LABS: Appearance Urine Clear (Clear); Bilirubin Urine Negative (Negative); Blood Urine Negative (Negative); Color Urine Yellow; Glucose Urine UA Trace (Negative); Ketones Urine Trace (Negative); Leukocyte Esterase Urine Negative (Negative); Nitrite Urine Negative (Negative); Protein Urine Negative (Negative); Specific Gravity Urine 1.008 (1.000-1.030); Urobilinogen Urine Negative (Negative)
[2024-07-22] MEDS: LANTUS PER UNIT CHARGE SQ SCH (01:33)
[2024-07-22] MEDS: INSULIN ASPART PER UNIT CHARGE SC SCH (01:33)
[2024-07-22] MEDS: METOPROLOL TARTRATE 1 MG/ML VIAL IV STA (01:34)
--- NOTE | 2024-07-22 01:50 | XRay Report ---
Exam(s): XR CXR 1 VIEW EXAM: XR Chest, 1 View CLINICAL HISTORY: Reason for exam: Chest pain, nonspecific. TECHNIQUE: Frontal view of the chest. COMPARISON: Prior chest x-ray from May 27, 2024. FINDINGS: Lungs: Mild to moderate peribronchial thickening of the central bronchi. Increased interstitial opacities in the lower lobes. No consolidation. Pleural space: Unremarkable. No pneumothorax. Heart: Unremarkable. No cardiomegaly. Mediastinum: Unremarkable. Normal mediastinal contour. Bones/joints: Unremarkable. No acute fracture. IMPRESSION: Bronchitis, which may be infectious or inflammatory etiologies. No consolidation or pleural effusion. Electronically signed by: Yara Saini MD 07/22/24 01:50 AM
[2024-07-22] MEDS: oxyCODONE HCL IR 5 MG TAB (IMMEDIATE RELEASE) PO PRN (04:12)
[2024-07-22 04:14] VITALS: PULSE 72
[2024-07-22 06:19] VITALS: BP 152/80; RESP 16; TEMP 99.3; O2SAT 97
[2024-07-22] MEDS ORDERED: LANTUS PER UNIT CHARGE SQ SCH (06:45)
--- NOTE | 2024-07-22 06:58 | Communication Note ---
Date of Service: July 22, 2024 6 AM Made aware by RN of patient request to leave hospital to AGAINST MEDICAL ADVICE. Transient bradycardia heart rate 40s orthostatic vitals as per RN. Patient insistent on leaving hospital because of Tuesday commitment to his spiritism. Patient not willing to wait for morning provider. I told patient I would recommend he stay in the hospital until morning labs drawn and resulted. I also recommended getting his learning analyst to see him during stay given episodic bradycardia in light of syncopal event. Patient intent on departing hospital AGAINST MEDICAL ADVICE despite explanations provided and citation of risks/possible consequences arising from decision to leave AMA which include recurrent syncope, hypotension, readmission, and as an extreme end result. Patient signed AMA form.
--- NOTE | 2024-07-22 07:00 | Discharge Summary ---
Date of Service July 22, 2024 Admission HPI Per Admitting Provider History obtained from patient and records. Medical history significant for chronic diastolic heart failure (EF 60 to 65%, TTE 2023 ), CAD status post stent, aortic stenosis status post TAVR, mild MR, PAF not on anticoagulation secondary to bleeding risk, hypertension, hyperlipidemia, duodenal ulcer as per records, DM2 on oral medications, chronic anemia (baseline hemoglobin 10-11), postherpetic neuralgia, BPH. Last confinement May 2024 for recurrent atrial flutter attributed to hyperglycemia secondary to steroid injection for shingles. Patient found to be slumped over and unresponsive at [facility] today. Patient does not recall events prior to episode. Denies headache, dizziness, chest pain, SOB, abdominal pain, bleeding. No new medications. SBP 80s, BSG 160s upon EMS arrival. Patient brought to ER for evaluation. 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 Discharge Data Consultations 07/21/24 21:48 ED Decision to Admit Stat Hospital Course (1) Syncope: Syncope Likely from hypotension Possible orthostasis secondary to hypovolemia (mild creatinine increased from baseline) Possible autonomic neuropathy, history DM 2 on oral medications, suboptimal control as of recent hemoglobin A1c of 11.3 from June 2024 chronic diastolic heart failure (EF 60 to 65%, TTE 2023 ), patient clinically dry hx CAD status post stent aortic stenosis status post TAVR mild MR from TTE 2023 PAF not on anticoagulation secondary to life-threatening GI bleed as per records hypertension, BP currently on the lower side hyperlipidemia, on statin Rx duodenal ulcer as per records Chronic anemia, hemoglobin slightly lower than baseline, patient denies overt bleeding symptoms postherpetic neuralgia, controlled on home regimen OBS Admit to med/tele Check orthostatic vitals IVF Basal bolus insulin, ISS BG goal 1 10-1 40, carb count coverage DVT prophylaxis. SCDs Re: History life-threatening GI bleed Full code (Preceding documentation as per admitting provider.) 07/22, 6 AM Made aware by RN of patient request to leave hospital to AGAINST MEDICAL ADVICE. Transient bradycardia heart rate 40s orthostatic vitals as per RN. Patient insistent on leaving hospital because of [place] commitment to his [employer]. Patient not willing to wait for morning provider. I told patient I would recommend he stay in the hospital until morning labs dra baptiste and resulted. I also recommended getting his site planner to see him during stay given episodic bradycardia in light of syncopal event. Patient intent on departing hospital AGAINST MEDICAL ADVICE despite explanations provided and citation of risks/possible consequences arising from decision to leave AMA which include recurrent syncope, hypotension, readmission, and as an extreme end result. Patient signed AMA form. Total time to prepare this discharge summary was less than 10 minutes. Text document was generated using [employer] voice recognition software. It may contain grammatical or spelling errors. Kindly contact undersigned for clarification of any documentation item in question.
--- NOTE | 2024-07-22 07:16 | Electrocardiogram Report ---
Test Reason : Blood Pressure : */* mmHG Vent. Rate : 71 BPM Atrial Rate : 300 BPM P-R Int : * ms QRS Dur : 82 ms QT Int : 376 ms P-R-T Axes : 78 22 26 degrees QTcB Int : 408 ms Atrial flutter Cannot rule out Anterior infarct , age undetermined Abnormal ECG When compared with ECG of 15-Jun-2024 11:01, Atrial flutter has replaced Sinus rhythm Nonspecific T wave abnormality, improved in Inferior leads Confirmed by Ismael Nielson ([id number]) on 07/22/2024 7:16:23 AM Referred By: REFERRED SELF Confirmed By: Ismael Nielson
[2024-07-22] MEDS ORDERED: GABAPENTIN 100 MG CAP PO SCH (09:00)
[2024-07-22] MEDS ORDERED: ENOXAPARIN INJ 30 MG/0.3 ML SYR SQ SCH (09:00)
[2024-07-22] MEDS ORDERED: CYANOCOBALAMIN (B-12) 500 MCG TABLET PO SCH (09:00)
[2024-07-22] MEDS ORDERED: ATORVASTATIN 40 MG TAB PO SCH (09:00)
[2024-07-22] MEDS ORDERED: METOPROLOL SUCC 25MG EXT REL TAB PO SCH (09:00)
[2024-07-22] MEDS ORDERED: CLOPIDOGREL BISULFATE 75 MG TAB PO SCH (09:00)
== END 2024-07-22 07:42 | disposition home or self-care (01) ==
LOC: ED 20:41 → EDINP 20:41 → 2N 07-22 00:46

== ENCOUNTER 2024-10-06 18:19 | Observation (INO) ==
--- NOTE | 2024-10-06 18:31 | Emergency Department Note ---
Impression & Plan Multiple rib fractures, Fall, Acute chest wall pain ED Provider Note NAME: DONNA CEBALLOS AGE: 84 SEX: M : 1940 ARRIVES VIA: Walk-In INFORMANT: Patient, ED PROVIDER(S): Adelfo Angel MD CHIEF COMPLAINT: Fall, chest and side pain, elbow pain MEDICAL DECISION MAKING: Patient presents with above. No obvious deformity of the elbows. The patient did have CT head cervical spine chest abdomen pelvis performed given the patient's fall and pain. Patient did receive IV morphine as well as IV Tylenol. Patient with a normal white count hemoglobin 12 normal platelet count. Kidney function with creatinine 1.32. Sugars elevated 319. LFTs and lipase unremarkable. Patient CT head cervical spine chest abdomen pelvis does show 3 left-sided rib fractures. Patient does have a small a pleural effusion. I did reevaluate the patient he was resting comfortably but after further discussion he would like to stay in hospital for monitoring and treatment. Patient does not have an oxygen requirement. I did speak the on-call hospitalist service Dr. Dupree and the patient was admitted to the medicine service. Discussion w/ other healthcare providers: Dr. Dupree inpatient medicine service Prior /Outside records reviewed: none Differential diagnosis: Fracture, dislocation, contusion, strain, sprain, ICH, hemothorax, intra- abdominal injury, anemia among other causes were considered. Diagnostics, as interpreted by me: ECG: None Cardiac monitoring: An order was placed for continuous cardiac monitoring. The monitor shows a rate of 65 with sinus rhythm. Patient was placed on pulse oximetry Medical decision rules: None Imaging studies: I informally interpreted the patient's chest x-ray does not show obvious pneumothorax with formal report to follow. HPI: Patient presents due to concern for fall. Patient states that he fell yesterday coming to the library fell to his right side after tripping over the curb and landing onto his left side. Tana patient states that he did take an oxycodone which did allow him to sleep. The patient states that today the pain has gotten a little bit worse and wanted present here. The patient states that he does take Plavix. No head strike or LOC and denies any head or neck pain. PAST MEDICAL HISTORY: See Below PAST SURGICAL HISTORY: See Below SOCIAL HISTORY: See Below HOME MEDICATIONS: See Below ALLERGIES: See Below VITALS: See Below PHYSICAL EXAMINATION: Primary Survey Airway: Intact Breathing: Normal, breath sounds equal bilaterally Circulation: Skin warm, well perfused, capillary refill less than 2 seconds Disability Pupils: Equal and reactive to light, 3mm, brisk GCS: 15, E = 4 V=5 M= 6 Motor Function: Moves all extremities. Sensory: No deficits Secondary Survey GENERAL: NAD, non-toxic. Wearing glasses. HEAD: Normal cephalic atraumatic EYE EXAM: Normal conjunctiva. PERRL, no anisocoria and EOM's grossly intact w/o pain. OROPHARYNX: Moist mucus membranes. Grossly normal dentition. NECK: Supple, trachea midline, no midline C spine TTP. Chest: Left-sided lower reproducible chest wall pain without crepitus or flail chest. LUNGS: Clear to auscultation. Normal chest wall mechanics. HEART: NSR, no MRG. ABDOMEN: Abdomen soft, non-tender, no obvious bruising, normo-active bowel sounds, no masses, no rebound or guarding. BACK: No CVA TTP. No midline thoracic or lumbar TTP SKIN: No rashes and no bruising. UPPER EXTREMITIES: Upper extremities are grossly normal. Well-perfused and compartments are soft throughout. LOWER EXTREMITIES: Grossly normal, no edema. Well-perfused and compartments are soft throughout. NEURO EXAM: A&O x3, cranial nerves II-XII grossly intact, normal speech, moves all 4 extremities. Past Med/Surg History Problem List (Updated 10/06/24 @ 22:48 by Adelfo Angel MD) Acute chest wall pain (Acute) Fall (Acute) Multiple rib fractures (Acute) HTN (hypertension) (Acute) Syncope (Acute) Cervical radiculopathy Acute hyperglycemia (Acute) Elevated troponin I level (Acute) Atrial fibrillation with rapid ventricular response (Acute) Syncope (Acute) Ischial bursitis Piriformis syndrome Low back pain Ambulatory dysfunction (Acute) Fracture of L5 vertebra (Acute) Coccyx contusion Lumbar transverse process fracture Fall (Acute) Syncope and collapse Paroxysmal atrial fibrillation Lightheadedness S/P TAVR (transcatheter aortic valve replacement) Exertional angina Type 2 diabetes mellitus GI bleed (Acute) Atrial fibrillation (Acute) Aortic stenosis (Acute) S/P coronary artery stent placement CAD (coronary artery disease) Hypertension (Chronic) Hypercholesteremia (Chronic) Medical History Paroxysmal ventricular tachycardia Osteoarthritis GERD (gastroesophageal reflux disease) Diabetes mellitus, type 2 Hypertension Hyperlipidemia Surgical History S/P inguinal hernia repair [place] [facility] [place] of total hip arthroplasty RT History of colonoscopy History of tonsillectomy History of cardiac cath 2009 Social History Smoking Status: Never smoker Second Hand Exposure: No; Do You Dip or Chew Tobacco: No; Tobacco Cessation Education Requested by Patient: No Hx Alcohol Use: Yes Alcohol type: wine Hx Substance Use: No Preferred Language: Portuguese Communication Ability: Effective Pull Up Hand Required: No Beliefs That Will Affect Care: None Current Living Situation: Other Current Living Situation Comment: Friend, Jerry, lives with pt Other Information That Helps Us Care for You: No Feels Safe at Home: Yes Safety Concerns: Feels Safe At This Time Assistive Devices: Cane and Walker Allergies Allergies Allergy/AdvReac Type Severity Reaction Status Date / Time hydrocodone [From [place]] AdvReac Mild Nausea Verified 07/21/24 22:04 Home Meds Home Medications Medication Instructions Recorded Confirmed atorvastatin 80 mg tablet 80 mg PO DAILY 04/13/19 07/21/24 metformin 500 mg tablet 1,000 mg PO BIDM 04/13/19 07/21/24 glimepiride 4 mg tablet 8 mg PO QDB 04/14/19 07/21/24 linagliptin 5 mg tablet (Tradjenta) 5 mg PO QAM 05/28/24 07/21/24 amoxicillin 500 mg capsule 2,000 mg PO DIRECTED PRN 1 HR 07/21/24 07/21/24 PRIOR TO DENTAL WORK cholecalciferol (vitamin D3) 25 25 mcg PO DAILY 07/21/24 07/21/24 mcg (1,000 unit) capsule (Vitamin D3) cyanocobalamin (vitamin B-12) 500 500 mcg PO DAILY 07/21/24 07/21/24 mcg tablet (Vitamin B-12) gabapentin 100 mg capsule 200 mg PO TID 07/21/24 07/21/24 lidocaine 4 % topical patch 1 patch topical DAILY PRN Pain 07/21/24 07/21/24 metoprolol succinate 25 mg 25 mg PO QAM 07/21/24 07/21/24 tablet,extended release 24 hr nitroglycerin 0.4 mg sublingual 0.4 mg sublingual DIRECTED PRN 07/21/24 07/21/24 tablet (Nitrostat) Chest Pain oxycodone-acetaminophen 5 mg-325 1 tab PO Q8H PRN Pain 07/21/24 07/21/24 mg tablet Previous Rx's Medication Instructions Recorded clopidogrel 75 mg tablet 75 mg PO DAILY #90 tabs 03/12/24 Results & Data (ED) Vital Signs Vital Signs - 24 hr 10/06/24 18:19 10/06/24 18:28 10/06/24 18:42 Temperature 36.4 C L Temperature Source Temporal Artery Scan Pulse Rate 108 H 107 H Pulse Rate [Apical] 98 H Respiratory Rate 20 24 Respiratory Effort / Characteristics Non-Labored Spontaneous Non-Labored Spontaneous Respiratory Depth Normal Normal Respiratory Pattern Regular Blood Pressure 107/77 Blood Pressure [Right Arm] 133/91 Blood Pressure Mean 87 Blood Pressure Mean [Right Arm] 105 Blood Pressure Position [Right Arm] Sitting Pulse Oximetry 97 98 Oxygen Delivery Method Room Air Room Air Sepsis New/Unexplained Change in Mental Status N/A Sepsis Action Taken by Nursing No Action Required 10/06/24 19:17 10/06/24 19:56 10/06/24 20:00 Temperature Temperature Source Pulse Rate Pulse Rate [Apical] 90 82 Respiratory Rate 18 18 Respiratory Effort / Characteristics Non-Labored Respiratory Depth Normal Respiratory Pattern Regular Blood Pressure Blood Pressure [Right Arm] 148/98 H 153/85 H Blood Pressure Mean Blood Pressure Mean [Right Arm] 114 107 Blood Pressure Position [Right Arm] Pulse Oximetry 97 98 97 Oxygen Delivery Method Room Air Room Air Room Air Sepsis New/Unexplained Change in Mental Status Sepsis Action Taken by Nursing 10/06/24 21:00 10/06/24 22:00 10/06/24 22:37 Temperature Temperature Source Pulse Rate 84 Pulse Rate [Apical] 95 H 85 Respiratory Rate 20 18 Respiratory Effort / Characteristics Non-Labored Spontaneous Respiratory Depth Normal Respiratory Pattern Regular Blood Pressure Blood Pressure [Right Arm] 128/96 139/94 Blood Pressure Mean Blood Pressure Mean [Right Arm] 106 109 Blood Pressure Position [Right Arm] Pulse Oximetry 97 97 Oxygen Delivery Method Room Air Room Air Sepsis New/Unexplained Change in Mental Status Sepsis Action Taken by Nursing 10/06/24 23:00 Temperature Temperature Source Pulse Rate Pulse Rate [Apical] 95 H Respiratory Rate 20 Respiratory Effort / Characteristics Respiratory Depth Respiratory Pattern Blood Pressure Blood Pressure [Right Arm] 142/86 H Blood Pressure Mean Blood Pressure Mean [Right Arm] 104 Blood Pressure Position [Right Arm] Pulse Oximetry 97 Oxygen Delivery Method Room Air Sepsis New/Unexplained Change in Mental Status Sepsis Action Taken by [facility] Medications Current Medication List: was personally reviewed by me Laboratory Data Attestation: I reviewed the patient's lab results. 10/07/24 08:12 10/07/24 08:12 Lab Results 10/06/24 10/06/24 10/06/24 Range/Units 18:56 19:02 23:23 WBC 9.01 (4.8-10.8) K/ul RBC 3.79 L (4.70-6.10) M/uL Hgb 12.0 L (14.0-18.0) g/dl POC Hgb 11.9 L (14.0-18.0) g/dl Hct 35.6 L (42.0-52.0) % POC Hct 35 L (42-52) % MCV 93.9 (80.0-100.0) fL MCH 31.7 (25.0-34.0) pg MCHC 33.7 (32.0-36.0) g/dL RDW Std Deviation 48.0 H (36.4-46.3) fL RDW Coeff of Jasvir 14.0 (11.5-14.5) % Plt Count 173 (130-400) K/uL MPV 9.8 (9.4-12.4) fL Immature Gran % (Auto) 0.4 % Neut % (Auto) 76.1 % Lymph % (Auto) 14.4 % Scott % (Auto) 7.3 % Eos % (Auto) 1.2 % Baso % (Auto) 0.6 % Neut # (Auto) 6.85 H (1.40-6.50) K/uL Lymph # (Auto) 1.30 (1.20-3.40) K/uL Scott # (Auto) 0.66 H (0.11-0.59) K/uL Eos # (Auto) 0.11 (0.00-0.50) K/uL Baso # (Auto) 0.05 (0.00-0.20) K/uL Immature Gran # (Auto) 0.04 (0.01-0.20) K/uL PT 11.4 (9.0-12.0) Seconds INR 1.1 (0.9-1.1) APTT 29 (21-31) Seconds PTT Ratio 1.1 POC Sodium 139 (135-144) mmol/L Sodium 139 (136-145) mmol/L POC Potassium 3.9 (3.3-5.0) mmol/L Potassium 3.7 (3.5-5.1) mmol/L POC Chloride 97 L (101-112) mmol/L Chloride 98 (98-107) mmol/L Carbon Dioxide 31 (21-32) mmol/L POC Total CO2 29 (24-31) mmol/L Anion Gap 10 (3-11) POC Anion Gap 17.0 (16-25) mmol/L POC BUN 32 H (7-18) mg/dl BUN 29 H (6-23) mg/dl Creatinine 1.32 (0.6-1.4) mg/dl POC Creatinine 1.3 (0.6-1.3) mg/dl Est Cr Clr Drug Dosing 36.6 ml/min eGFR 52.86 BUN/Creatinine Ratio 22.0 H (10-20) Glucose 319 H* (70-99(Fasting)) mg/dl POC Glucose 240 H (70-99) mg/dl POC Glucose (other) 309 H (70-99) mg/dl Calcium 9.2 (8.6-10.3) mg/dl POC Ioniz Calcium Hermann 1.14 (1.12-1.32) mmol/l Total Bilirubin 0.9 (0.2-1.0) mg/dl AST 15 (13-39) U/L ALT 16 (7-52) U/L Alkaline Phosphatase 75 (34-104) U/L Total Protein 7.2 (6.0-8.3) gm/dl Albumin 3.9 (3.4-5.0) gm/dl Globulin 3.3 (2.5-4.0) gm/dl Albumin/Globulin Ratio 1.2 (0.9-2) Lipase 61 (11-82) U/L Administered Medications Acetaminophen (Acetaminophen 500 Mg Tab) 1,000 mg PO Q8H PRN PRN Reason: pain, first line Stop: 11/06/24 02:13 Last Admin: 10/07/24 07:54 Dose: 1,000 mg Documented By: ASUNCION Atorvastatin Calcium (Atorvastatin 40 Mg Tab) 80 mg PO DAILY [facility] Stop: 11/06/24 08:59 Last Admin: 10/07/24 07:54 Dose: 80 mg Documented By: ASUNCION Clopidogrel Bisulfate (Clopidogrel Bisulfate 75 Mg Tab) 75 mg PO DAILY [facility] Stop: 11/06/24 08:59 Last Admin: 10/07/24 07:54 Dose: 75 mg Documented By: ASUNCION Diclofenac Sodium (Diclofenac Sod 1% Gel 100 Gm Tube) 2 gm EXT QID [facility]; Protocol Stop: 11/06/24 08:59 Last Admin: 10/07/24 13:05 Dose: 2 gm Documented By: Admin: 10/07/24 07:55 Dose: 2 gm Documented By: ASUNCION Enoxaparin Sodium (Enoxaparin Inj 40 Mg/0.4 Ml Syr) 40 mg SQ Q24H [facility] Stop: 11/06/24 08:59 Last Admin: 10/07/24 07:55 Dose: 40 mg Documented By: ASUNCION Gabapentin (Gabapentin 100 Mg Cap) 200 mg PO TID [facility] Stop: 11/06/24 08:59 Last Admin: 10/07/24 13:05 Dose: 200 mg Documented By: Admin: 10/07/24 07:53 Dose: 200 mg Documented By: ASUNCION Insulin Aspart (Insulin Aspart Per Unit Charge) 0 units SC ACHS [facility] Stop: 11/06/24 03:29 Last Admin: 10/07/24 11:47 Dose: 5 units Documented By: ASUNCION Co-signed By: AM Admin: 10/07/24 07:56 Dose: Not Given Documented By: Admin: 10/07/24 05:43 Dose: Not Given Documented By: [facility] Insulin Glargine (Lantus Per Unit Charge) 5 units SQ BID [facility] Stop: 11/06/24 08:59 Last Admin: 10/07/24 08:47 Dose: 5 units Documented By: ASUNCION Co-signed By: CMP Metoprolol Succinate (Metoprolol Succ 25mg Ext Rel Tab) 25 mg PO QAM [facility] Stop: 11/06/24 08:59 Last Admin: 10/07/24 07:54 Dose: 25 mg Documented By: ASUNCION Vitamin D (Cholecalciferol 25 Mcg (1000 Units) Tab) 25 mcg PO DAILY [facility] Stop: 11/06/24 08:59 Last Admin: 10/07/24 07:54 Dose: 25 mcg Documented By: ASUNCION Discontinued Medications Sodium Chloride (Nss) 500 mls @ 999 mls/hr IV .Q31M [facility] Stop: 10/06/24 19:30 Last Infusion: 10/06/24 19:38 Dose: Infused Documented By: Admin: 10/06/24 19:07 Dose: 999 mls/hr Documented By: JESUS MANUEL Acetaminophen (Ofirmev) 1,000 mg in 100 mls @ 400 mls/hr IV NOW STA Stop: 10/06/24 19:01 Last Infusion: 10/06/24 19:30 Dose: Infused Documented By: Admin: 10/06/24 19:15 Dose: 400 mls/hr Documented By: JESUS MANUEL Ioversol (Optiray 320 100ml) 90 ml IV ONCE ONE Stop: 10/06/24 19:42 Last Admin: 10/06/24 19:41 Dose: 90 ml Documented By: LELO Lidocaine (Lidocaine 5% 1 Patch) 1 patch TD NOW STA Stop: 10/06/24 18:48 Last Admin: 10/06/24 19:16 Dose: 1 patch Documented By: JESUS MANUEL Miscellaneous (Remove Lidoderm Patch) 1 each N/A ONE ONE Stop: 10/07/24 07:01 Last Admin: 10/07/24 07:55 Dose: 1 each Documented By: ASUNCION Morphine Sulfate (Morphine Sulfate 4 Mg/Ml 1 Ml Carp\Vial) 2 mg IV NOW STA Stop: 10/06/24 18:48 Last Admin: 10/06/24 19:09 Dose: 2 mg Documented By: JESUS MANUEL Imaging Data Radiologist's Impression: Abdomen/Pelvis CT 10/06/24 18:47 EXAM: CT abd pelvis IV con only CLINICAL HISTORY: Trauma. TECHNIQUE: Contrast-enhanced CT of the abdomen and pelvis was performed, with the following protocol: axial images with, and reconstructed coronal and sagittal images. Intravenous contrast was administered. One of the following dose reduction techniques was utilized for this exam: Automated exposure control, adjustment of the mA and/or kV according to patient size, and use of iterative reconstruction. COMPARISON: prior 03/05/2024. FINDINGS: Abdomen: Liver: Normal in size, shape, and density. No focal lesions, cysts, or masses were identified. Hepatic vasculature and biliary ducts are unremarkable. Gallbladder and Biliary System: The gallbladder is normal in size and shape. No wall thickening, pericholecystic fluid, or gallstones were identified. The common bile duct is normal in caliber without dilation. Pancreas: Pancreatic head, body, and tail are visualized and appear normal in size and density. No pancreatic masses or calcifications were noted. The pancreatic duct is not dilated. Spleen: Normal in size, shape, and density. No splenic lesions or masses were identified. Appendix: No signs of acute appendicitis Kidneys and Adrenal Glands: Both kidneys are normal in size, shape, and position. Cortical thickness is within normal limits. No renal calculi or hydronephrosis. Adrenal glands are unremarkable with no evidence of masses or hyperplasia. aortoiliac extensive atherosclerotic changes Pelvis: Urinary Bladder: Normal in contour and wall thickness. No intraluminal lesions were identified. Prostate: prostatomegaly. Rectum and Sigmoid Colon: Normal wall thickness and no evidence of mass. Peritoneal and Retroperitoneal Structures: No free fluid or abnormal fluid collections were identified within the abdomen or pelvis. No lymphadenopathy was noted. Bowel: The visualized bowel loops are normal in caliber and appearance. No evidence of bowel obstruction or wall thickening. Mild colonic fecal loading Bones and Soft Tissues: Bilateral hip replacement degnerative change of the scanned spine osteopenia left sided inguinal hernia scanned chest cuts : acute fracture of left 10th rib dorsal aspect and 8th rib lateral aspect with mild pleural effusion IMPRESSION: 1. acute fracture of left 10th rib dorsal aspect and 8th rib lateral aspect with mild pleural effusion (newly developed) 2. No acute intraabdominal abnormalities 3. prostatomegaly (unchanged) 4. Mild colonic fecal loading (unchanged) Electronically signed by Magdi Kenny 10-06-2024 10:[address] 10/06/24 18:47 CT cervical spine without IV contrast History: Trauma Comparison: 04/10/2022 Technique: Using multidetector thin collimation helical acquisition technique, axial, coronal and sagittal CT images through the cervical spine were obtained without intravenous contrast. Dose reduction techniques were achieved by using automatic exposure control and/or adjustment of mA and/or kV according to patient size and/or use of iterative reconstruction technique. Findings: The cervical vertebrae are normally aligned. Normal cervical lordosis. No acute fracture or subluxation. No prevertebral edema. Moderate multilevel discogenic and facet degenerative changes which appear hypertrophic. No abnormality of the paraspinous soft tissues. Impression: No acute fracture or traumatic subluxation. Electronically signed by Ismael Amos 10-06-2024 8:[address] 10/06/24 18:47 EXAM: CT chest diagnostic w con CLINICAL HISTORY: Trauma. TECHNIQUE: Contiguous 3.[address] images of the chest were acquired with administration of intravenous contrast. Coronal and sagittal reconstructions were obtained. 90 ml Optiray 320 was administered for post contrast images. One of the following dose reduction techniques were utilized for this exam: Automated exposure control, adjustment of the mA and/or kV according to patient size, and use of iterative reconstruction COMPARISON: X-ray chest on 07/21/2024. FINDINGS: Lungs: Mild groundglass haziness and atelectatic bands in left lower lobe. Right Lung is clear with no evidence of consolidation, collapse, or focal lesions. No ground-glass opacities or interstitial changes. Mild left pleural effusion. No right pleural effusion or pleural thickening. Mediastinum: No mediastinal mass or abnormal lymphadenopathy. Hilar Structures: Normal size and configuration, no enlargement. Heart and Great Vessels: Normal heart size and configuration. No pericardial effusion. Normal caliber and course of the thoracic aorta and other great vessels. Normal enhancement of the great vessels post-contrast. Transcatheter Aortic Valve Replacement (TAVR) is noted. LAD and right coronary artery stents are seen. Pulmonary Arteries: No evidence of pulmonary embolism. Normal size and course of the pulmonary arteries. Esophagus: Normal course and caliber. No masses or dilatation. Bones: No fractures or lytic/sclerotic lesions. Normal bone density and alignment. No evidence of rib fractures. Thoracic spondylotic and osteoporotic changes. Chest Wall: No masses or soft tissue abnormalities. Upper Abdomen: Visualized portions of the liver, spleen, pancreas, adrenal glands, and kidneys are normal. No abnormalities noted in the visualized upper abdominal organs. Thyroid: Normal size and morphology. No nodules or masses. IMPRESSION: 1. Undisplaced fractures of the left 8th, 9th and 10th ribs posteriorly. 2. Mild groundglass haziness and atelectatic bands in left lower lobe. 3. Mild left pleural effusion. 4. Transcatheter Aortic Valve Replacement (TAVR) is noted. 5. LAD and right coronary artery stents are seen. Electronically signed by Magdi Kenny 10-06-2024 10:05 PM Chest X-Ray 10/06/24 18:47 HISTORY: Trauma TECHNIQUE: Portable AP radiograph of the chest. COMPARISON: Chest radiograph dated 07/21/2024. FINDINGS: Clear right lung. Small left pleural effusion and mild left basilar opacity. No pneumothorax. Top normal heart size. Status post TAVR. Coronary artery calcifications. Left-sided aortic arch. Midline trachea. Degenerative changes of the shoulders and spine. IMPRESSION: * Small left pleural effusion and adjacent nonspecific left basilar airspace opacity, which may reflect atelectasis or pneumonia. * Status post TAVR. Electronically signed by William Stern 10-06-2024 8:[address] 10/06/24 18:47 CT head without contrast History: Trauma Comparison: None Technique: Using multidetector thin collimation helical acquisition technique, axial, coronal and sagittal CT images from the skull base to the vertex were obtained without intravenous contrast. Dose reduction techniques were achieved by using automatic exposure control and/or adjustment of mA and/or kV according to patient size and/or use of iterative reconstruction technique. Findings: No intracranial hemorrhage, mass-effect, or midline shift. The ventricles are proportionate to the cerebral sulci. 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 Otherwise no other evidence for acute infarct. The basal cisterns are patent. There is moderate cerebral atrophy. Moderate, patchy low-attenuation changes in the white matter, most suggestive of sequelae of chronic small vessel ischemic disease. The visualized paranasal sinuses are clear. Mastoid air cells are clear. Pseudophakia. Impression: No acute intracranial pathology. Electronically signed by Ismael Amos 10-06-2024 8:07 PM Discharge Plan Visit Data Chief Complaint: Fall Stated Complaint: FALL, LEFT RIB INJURY ED Provider: Adelfo Angel Discharge Problem: Multiple rib fractures, Fall, Acute chest wall pain Patient Disposition: Admitted As Inpatient Condition: Good Discharge Instructions Interventions: ED Discharge Assessment Last Done: 10/07/24 02:14 Discharge Problem: Multiple rib fractures Qualifiers: Encounter type: initial encounter Fracture type: closed Laterality: left Q ualified Code(s): S22.42XA - Multiple fractures of ribs, left side, initial encounter for closed fracture Fall Qualifiers: Encounter type: initial encounter Qualified Code(s): W19.XXXA - Unspecified fall, initial encounter
[2024-10-06] MEDS: SODIUM CHLORIDE 0.9% 500 ML IV SCH (19:07)
[2024-10-06] MEDS: MoRPHine SULFATE 4 MG/ML 1 ML CARP\\VIAL IV STA (19:09)
[2024-10-06] MEDS: ACETAMINOPHEN 1,000 MG/100 ML VIAL IV STA (19:15)
[2024-10-06] MEDS: LIDOCAINE 5% 1 PATCH TD STA (19:16)
[2024-10-06 19:24] LABS: Hematocrit (blood only) 35.6 % (42.0-52.0); Hemoglobin 12.0 g/dl (14.0-18.0); Immature Granulocytes # (auto) 0.04 K/uL (0.01-0.20); Immature Granulocytes % (auto) 0.4 %; Mean Corpuscular Hemoglobin 31.7 pg (25.0-34.0); Mean Corpuscular Volume 93.9 fL (80.0-100.0); Platelet Count 173 K/uL (130-400); RDW Standard Deviation 48.0 fL (36.4-46.3); Red Blood Count 3.79 M/uL (4.70-6.10); White Blood Count 9.01 K/ul (4.8-10.8)
[2024-10-06] MEDS: OPTIRAY 320 100ml IV ONE (19:41)
[2024-10-06 19:52] LABS: Alanine Aminotransferase 16.0 U/L (7-52); Albumin Globulin Ratio 1.2 (0.9-2); Alkaline Phosphatase 75.0 U/L (34-104); Anion Gap 10.0 (3-11); Bilirubin,Total 0.9 mg/dl (0.2-1.0); Blood Urea Nitrogen 29.0 mg/dl (6-23); Calcium 9.2 mg/dl (8.6-10.3); Carbon Dioxide 31.0 mmol/L (21-32); Chloride 98.0 mmol/L (98-107); Creatinine Clr Calc Pharmacy 36.6 ml/min; Globulin 3.3 gm/dl (2.5-4.0); Glucose 319.0 mg/dl (70-99(Fasting)); Lipase 61.0 U/L (11-82); Potassium 3.7 mmol/L (3.5-5.1); Sodium 139.0 mmol/L (136-145); Total Protein 7.2 gm/dl (6.0-8.3)
[2024-10-06 19:56] LABS: INR 1.1 (0.9-1.1); Partial Thromboplastin Time 29 Seconds (21-31); Prothrombin Time 11.4 Seconds (9.0-12.0)
--- NOTE | 2024-10-06 20:08 | CT Scan Report ---
CT head without contrast History: Trauma Comparison: None Technique: Using multidetector thin collimation helical acquisition technique, axial, coronal and sagittal CT images from the skull base to the vertex were obtained without intravenous contrast. Dose reduction techniques were achieved by using automatic exposure control and/or adjustment of mA and/or kV according to patient size and/or use of iterative reconstruction technique. Findings: No intracranial hemorrhage, mass-effect, or midline shift. The ventricles are proportionate to the cerebral sulci. 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 Otherwise no other evidence for acute infarct. The basal cisterns are patent. There is moderate cerebral atrophy. Moderate, patchy low-attenuation changes in the white matter, most suggestive of sequelae of chronic small vessel ischemic disease. The visualized paranasal sinuses are clear. Mastoid air cells are clear. Pseudophakia. Impression: No acute intracranial pathology. Electronically signed by Ismael Amos 10-06-2024 8:07 PM
--- NOTE | 2024-10-06 20:17 | CT Scan Report ---
CT cervical spine without IV contrast History: Trauma Comparison: 04/10/2022 Technique: Using multidetector thin collimation helical acquisition technique, axial, coronal and sagittal CT images through the cervical spine were obtained without intravenous contrast. Dose reduction techniques were achieved by using automatic exposure control and/or adjustment of mA and/or kV according to patient size and/or use of iterative reconstruction technique. Findings: The cervical vertebrae are normally aligned. Normal cervical lordosis. No acute fracture or subluxation. No prevertebral edema. Moderate multilevel discogenic and facet degenerative changes which appear hypertrophic. No abnormality of the paraspinous soft tissues. Impression: No acute fracture or traumatic subluxation. Electronically signed by Ismael Amos 10-06-2024 8:15 PM
--- NOTE | 2024-10-06 20:35 | XRay Report ---
HISTORY: Trauma TECHNIQUE: Portable AP radiograph of the chest. COMPARISON: Chest radiograph dated 07/21/2024. FINDINGS: Clear right lung. Small left pleural effusion and mild left basilar opacity. No pneumothorax. Top normal heart size. Status post TAVR. Coronary artery calcifications. Left-sided aortic arch. Midline trachea. Degenerative changes of the shoulders and spine. IMPRESSION: * Small left pleural effusion and adjacent nonspecific left basilar airspace opacity, which may reflect atelectasis or pneumonia. * Status post TAVR. Electronically signed by William Stern 10-06-2024 8:34 PM
--- NOTE | 2024-10-06 22:05 | CT Scan Report ---
EXAM: CT chest diagnostic w con CLINICAL HISTORY: Trauma. TECHNIQUE: Contiguous 3.[address] images of the chest were acquired with administration of intravenous contrast. Coronal and sagittal reconstructions were obtained. 90 ml Optiray 320 was administered for post contrast images. One of the following dose reduction techniques were utilized for this exam: Automated exposure control, adjustment of the mA and/or kV according to patient size, and use of iterative reconstruction COMPARISON: X-ray chest on 07/21/2024. FINDINGS: Lungs: Mild groundglass haziness and atelectatic bands in left lower lobe. Right Lung is clear with no evidence of consolidation, collapse, or focal lesions. No ground-glass opacities or interstitial changes. Mild left pleural effusion. No right pleural effusion or pleural thickening. Mediastinum: No mediastinal mass or abnormal lymphadenopathy. Hilar Structures: Normal size and configuration, no enlargement. Heart and Great Vessels: Normal heart size and configuration. No pericardial effusion. Normal caliber and course of the thoracic aorta and other great vessels. Normal enhancement of the great vessels post-contrast. Transcatheter Aortic Valve Replacement (TAVR) is noted. LAD and right coronary artery stents are seen. Pulmonary Arteries: No evidence of pulmonary embolism. Normal size and course of the pulmonary arteries. Esophagus: Normal course and caliber. No masses or dilatation. Bones: No fractures or lytic/sclerotic lesions. Normal bone density and alignment. No evidence of rib fractures. Thoracic spondylotic and osteoporotic changes. Chest Wall: No masses or soft tissue abnormalities. Upper Abdomen: Visualized portions of the liver, spleen, pancreas, adrenal glands, and kidneys are normal. No abnormalities noted in the visualized upper abdominal organs. Thyroid: Normal size and morphology. No nodules or masses. IMPRESSION: 1. Undisplaced fractures of the left 8th, 9th and 10th ribs posteriorly. 2. Mild groundglass haziness and atelectatic bands in left lower lobe. 3. Mild left pleural effusion. 4. Transcatheter Aortic Valve Replacement (TAVR) is noted. 5. LAD and right coronary artery stents are seen. Electronically signed by Magdi Kenny 10-06-2024 10:05 PM
--- NOTE | 2024-10-06 22:06 | CT Scan Report ---
EXAM: CT abd pelvis IV con only CLINICAL HISTORY: Trauma. TECHNIQUE: Contrast-enhanced CT of the abdomen and pelvis was performed, with the following protocol: axial images with, and reconstructed coronal and sagittal images. Intravenous contrast was administered. One of the following dose reduction techniques was utilized for this exam: Automated exposure control, adjustment of the mA and/or kV according to patient size, and use of iterative reconstruction. COMPARISON: prior 03/05/2024. FINDINGS: Abdomen: Liver: Normal in size, shape, and density. No focal lesions, cysts, or masses were identified. Hepatic vasculature and biliary ducts are unremarkable. Gallbladder and Biliary System: The gallbladder is normal in size and shape. No wall thickening, pericholecystic fluid, or gallstones were identified. The common bile duct is normal in caliber without dilation. Pancreas: Pancreatic head, body, and tail are visualized and appear normal in size and density. No pancreatic masses or calcifications were noted. The pancreatic duct is not dilated. Spleen: Normal in size, shape, and density. No splenic lesions or masses were identified. Appendix: No signs of acute appendicitis Kidneys and Adrenal Glands: Both kidneys are normal in size, shape, and position. Cortical thickness is within normal limits. No renal calculi or hydronephrosis. Adrenal glands are unremarkable with no evidence of masses or hyperplasia. aortoiliac extensive atherosclerotic changes Pelvis: Urinary Bladder: Normal in contour and wall thickness. No intraluminal lesions were identified. Prostate: prostatomegaly. Rectum and Sigmoid Colon: Normal wall thickness and no evidence of mass. Peritoneal and Retroperitoneal Structures: No free fluid or abnormal fluid collections were identified within the abdomen or pelvis. No lymphadenopathy was noted. Bowel: The visualized bowel loops are normal in caliber and appearance. No evidence of bowel obstruction or wall thickening. Mild colonic fecal loading Bones and Soft Tissues: Bilateral hip replacement degnerative change of the scanned spine osteopenia left sided inguinal hernia scanned chest cuts : acute fracture of left 10th rib dorsal aspect and 8th rib lateral aspect with mild pleural effusion IMPRESSION: 1. acute fracture of left 10th rib dorsal aspect and 8th rib lateral aspect with mild pleural effusion (newly developed) 2. No acute intraabdominal abnormalities 3. prostatomegaly (unchanged) 4. Mild colonic fecal loading (unchanged) Electronically signed by Magdi Kenny 10-06-2024 10:06 PM
[2024-10-06] MEDS ORDERED: NALOXONE HCL 0.4 MG/1 ML VIAL/CARP IV PRN (23:23)
[2024-10-06] MEDS ORDERED: MoRPHine SULFATE 2 MG/ML CARP IV PRN (23:23)
[2024-10-06] MEDS ORDERED: CARBOHYDRATES FOR HYPOGLYCEMIA PO PRN (23:24)
[2024-10-06] MEDS ORDERED: GLUCOSE 40% GEL 15 GM TUBE PO PRN (23:24)
[2024-10-06] MEDS ORDERED: GLUCAGON FOR INJ 1 MG VIAL SQ PRN (23:24)
[2024-10-06] MEDS ORDERED: DEXTROSE 50% 50 ML SYRINGE IV PRN (23:24)
[2024-10-06] MEDS ORDERED: GLUCOSE 10 TAB/TUBE PO PRN (23:24)
--- NOTE | 2024-10-06 23:30 | History & Physical Report ---
Date of Service October 06, 2024 Assessment & Plan (1) Multiple rib fractures: Plan: 84-year-old male with a fall 1 day ago presents for persistent pain in his ribs restricting his movement and shallow breathing. Was admitted for pain control and PT/OT. Gisella PCP patient however was admitted to [facility]ist service due to insurance Fall Mechanical, 1 day prior to ER presentation, no syncope/presyncope/weakness that led to event CThead: No acute findings CTchest: Nondisplaced fractures of the left 8th/9th/10th ribs posteriorly. Mild atelectatic bands in left lower lobe. TAVR noted. Mild left pleural effusions. CTC-spine: No acute fracture or subluxation CTA/P: Rib fractures as noted. No acute intra-abdominal abnormalities. Unchanged mild colonic fecal loading and prostatomegaly Hemoglobin 12, last 9.9. No acute bleeding Rib fractures managed as below No acute bleeding. Per trauma Recommendations started on early DVT medical prophylaxis with Lovenox Due to significant pain, activity/ambulatory limitation and patient not comfortable return home is recommended for observation, PT/OT, and potential placement if needed Rib fractures CTchest with 8th/9th/10th nondisplaced rib fractures Continue incentive spirometry, goal 1500 Multimodal pain control. Tylenol, lidocaine patch, ice, morphine as needed for breakthrough. Ambulate as tolerated DVT prophylaxis with Lovenox Oral NSAIDs deferred due to age and borderline renal function, Voltaren ordered to alternate with lidocaine patch Type II DM, poorly controlled Last A1c greater than 12% Hold metformin held, glimepiride held Transition to weight-based basal bolus. Lantus 5 units twice daily, SSI CF 50, CR 25 BSG 309 while in the ER. Stat [id number] repeat ordered at time of admitting consultation, patient has received saline ER. Downtrending at a240. Sliding scale insulin ordered CAD s/p PCI, aortic stenosis s/p TAVR, paroxysmal A-fib Last echo with EF 60 to 65% History of PCI LMCA/LAD/proximal RCA/distal RCA No recent anginal symptoms Stopped aspirin due to blood loss anemia and aspirin. Is continued on Plavix. Continue metoprolol He is not on A-fib anticoagulation due to history of life-threatening GI bleed. Patient declined watchman as an outpatient. DVT prophylaxis: Lovenox Diet: Heart healthy, DM2 Disposition medical telemetry due to fall with rib trauma CODE STATUS: Full code (2) HTN (hypertension): (3) Syncope: (4) Atrial fibrillation with rapid ventricular response: (5) Paroxysmal atrial fibrillation: (6) Type 2 diabetes mellitus: (7) GI bleed: (8) Atrial fibrillation: History of Present Illness Primary Care Provider: Carroll Conley MD Michele is an 84-year-old male with a past medical history of syncope, hypertension, A-fib with RVR, TAVR, type II DM, CAD, HLD who presented to the ER after a fall. Patient was walking out of the library when he tripped over the c urb landed on an outstretched right arm and struck his ribs on a metal grate. He does not have any lightheadedness/dizziness/syncope that led to his fall and reports he tripped on the curb. Patient is a [facility] PCP patient however due to [employer] insurance will be admitted to [facility] hospitalist service Michele is seen at the bedside. He reports he tripped and fell over a curb yesterday landing on his left side and his ribs. Initially did okay however over the course of the day was having a lot of pain in his ribs when breathing and pain overlying his left hip. He reports he does not have pain bearing weight and has not had any difference in pain or symptoms in his hip on ambulation, but is very sore overlying his left side. he has not had any chest pain with exertion, shortness of breath, or difficulty breathing prior to falling. After falling he does endorse rib pain on his left anterior and posterior ribs. He reports right headedness/dizziness did not contribute to his fall, he tripped coming out of the library. He does not feel safe/comfortable returning home due to his discomfort which is slightly limiting his breathing, pain worsened on deep breathing and ambulation. No nausea/vomiting/diarrhea Denies loss of consciousness Denies headache/vision change Denies shortness of breath at rest but notes he does have increased pain when taking a deep breath which is restricting his breathing slightly. He notes a lot of his pain is actually lower under his ribs overlying his left hip, but is able to bear weight on this and internally/externally rotate this without exa cerbating the discomfort. Medical History: Reviewed Medications: Reviewed Surgical History: Reviewed Family history: Reviewed Allergies: Reviewed Social History: No tobacco/ETOH use Code Status: Full Code Allergies Allergy/AdvReac Type Severity Reaction Status Date / Time hydrocodone [From [place]] AdvReac Mild Nausea Verified 07/21/24 22:04 Home Medications Medication Instructions Recorded Confirmed Type atorvastatin 80 mg tablet 80 mg PO DAILY 04/13/19 07/21/24 History metformin 500 mg tablet 1,000 mg PO BIDM 04/13/19 07/21/24 History glimepiride 4 mg tablet 8 mg PO QDB 04/14/19 07/21/24 History clopidogrel 75 mg tablet 75 mg PO DAILY #90 tabs 03/12/24 07/21/24 Rx linagliptin 5 mg tablet (Tradjenta) 5 mg PO QAM 05/28/24 07/21/24 History amoxicillin 500 mg capsule 2,000 mg PO DIRECTED PRN 1 HR 07/21/24 07/21/24 History PRIOR TO DENTAL WORK cholecalciferol (vitamin D3) 25 25 mcg PO DAILY 07/21/24 07/21/24 History mcg (1,000 unit) capsule (Vitamin D3) cyanocobalamin (vitamin B-12) 500 500 mcg PO DAILY 07/21/24 07/21/24 History mcg tablet (Vitamin B-12) gabapentin 100 mg capsule 200 mg PO TID 07/21/24 07/21/24 History lidocaine 4 % topical patch 1 patch topical DAILY PRN Pain 07/21/24 07/21/24 History metoprolol succinate 25 mg 25 mg PO QAM 07/21/24 07/21/24 History tablet,extended release 24 hr nitroglycerin 0.4 mg sublingual 0.4 mg sublingual DIRECTED PRN 07/21/24 07/21/24 History tablet (Nitrostat) Chest Pain oxycodone-acetaminophen 5 mg-325 1 tab PO Q8H PRN Pain 07/21/24 07/21/24 History mg tablet Past Med/Surg History Problem List (Updated 10/06/24 @ 22:48 by Adelfo Angel MD) Acute chest wall pain (Acute) Fall (Acute) Multiple rib fractures (Acute) HTN (hypertension) (Acute) Syncope (Acute) Cervical radiculopathy Acute hyperglycemia (Acute) Elevated troponin I level (Acute) Atrial fibrillation with rapid ventricular response (Acute) Syncope (Acute) Ischial bursitis Piriformis syndrome Low back pain Ambulatory dysfunction (Acute) Fracture of L5 vertebra (Acute) Coccyx contusion Lumbar transverse process fracture Fall (Acute) Syncope and collapse Paroxysmal atrial fibrillation Lightheadedness S/P TAVR (transcatheter aortic valve replacement) Exertional angina Type 2 diabetes mellitus GI bleed (Acute) Atrial fibrillation (Acute) Aortic stenosis (Acute) S/P coronary artery stent placement CAD (coronary artery disease) Hypertension (Chronic) Hypercholesteremia (Chronic) Medical History Paroxysmal ventricular tachycardia Osteoarthritis GERD (gastroesophageal reflux disease) Diabetes mellitus, type 2 Hypertension Hyperlipidemia Surgical History S/P inguinal hernia repair H/O cataract extraction RIGHT EYE (02/01/18, [facility]) History of total hip arthroplasty RT History of colonoscopy History of tonsillectomy History of cardiac cath 2009 Social History Smoking Status: Never smoker Second Hand Exposure: No; Do You Dip or Chew Tobacco: No; Hx Alcohol Use: No Hx Substance Use: No Preferred Language: [place] Communication Ability: Effective Cabinet Installer Required: No Beliefs That Will Affect Care: None Current Living Situation: Other Current Living Situation Comment: lives with friend Feels Safe at Home: Yes Assistive Devices: Cane and Walker Physical Exam Physical Exam: General: A&Ox3. NAD. Cooperative. HEENT: Atraumatic, normocephalic. Vision and hearing grossly intact. Pupils equal and reactive to light. Pulm: CTAB A&P. -wheezes, -rales, -rhonchi. Symmetrical chest rise. No increased work of breathing. No respiratory distress. Patient is taking slightly shallower breaths endorsing pain in his left ribs on deep breathing. On palpation does endorse tenderness anteriorly and posteriorly overlying the left [id number] ribs. No crepitus is appreciated. No paradoxic movement Cardiac: Regular, tachycardic. SM. Radial pulses intact and symmetrical. Abdominal: Nontender, nondistended, soft. BS present. Extremities: Tender to palpation overlying the anterior and lateral left hip. Hip flexion, extension, internal rotation, external rotation are intact passively and with active 5/5 strength bilaterally without exacerbation or worsening pain. No deformity to suggest hip fracture. Sensation of soft touch is intact in the feet bilaterally. Knee extension, ankle dorsiflexion/plantarflexion 5/5 PT pulse intact in the lower extremities bilaterally. Results & Data Results & Data Vital Signs (Past 12 Hours) Vital Signs Temp Pulse Pulse Resp BP BP Pulse Ox 10/06/24 23:00 95 H 20 142/86 H 97 10/06/24 22:37 84 10/06/24 22:00 85 18 139/94 97 10/06/24 21:00 95 H 20 128/96 97 10/06/24 20:00 82 18 153/85 H 97 10/06/24 19:56 90 18 148/98 H 98 10/06/24 19:17 97 10/06/24 18:42 107 H 10/06/24 18:28 98 H 24 133/91 98 10/06/24 18:19 36.4 C L 108 H 20 107/77 97 O2 Del Method 10/06/24 23:00 Room Air 10/06/24 22:37 10/06/24 22:00 Room Air 10/06/24 21:00 Room Air 10/06/24 20:00 Room Air 10/06/24 19:56 Room Air 10/06/24 19:17 Room Air 10/06/24 18:42 10/06/24 18:28 Room Air 10/06/24 18:19 Room Air PG Care Time/CCT Total # of Minutes Spent Total Time Spent with Patient: Total time spent is greater than 50% in coordination of care (as documented) at patient's floor/unit and/or counseling patient: Coding Level of Care Code 94483 INT INP/OBS CARE 3/75MIN Diagnoses Multiple rib fractures S22.42XA Encounter type: initial encounter Fracture type: closed Laterality: left HTN (hypertension) I10 Hypertension type: unspecified Syncope R55 Syncope type: unspecified Atrial fibrillation with rapid ventricular response I48.91 Paroxysmal atrial fibrillation I48.0 Type 2 diabetes mellitus E11.9 GI bleed K92.2 Atrial fibrillation I48.91 (1) Multiple rib fractures Encounter type: initial encounter Fracture type: closed Laterality: left Qualified Code(s): S22.42XA - Multiple fractures of ribs, left side, initial encounter for closed fracture (2) HTN (hypertension) Hypertension type: unspecified Qualified Code(s): I10 - Essential (primary) hypertension (3) Syncope Syncope type: unspecified Qualified Code(s): R55 - Syncope and collapse
[2024-10-07] MEDS: INSULIN ASPART PER UNIT CHARGE SC SCH (05:43)
--- NOTE | 2024-10-07 07:16 | Hospitalist Progress Note ---
Date of Service October 07, 2024 Assessment & Plan (1) Multiple rib fractures: Plan: 84-year-old male with a fall with trauma to L lower posterior chest pall 2 days ago presented for persistent pain in his ribs restricting his movement and shallow breathing, nondisplaced L posterior rib 8-10 fractures seen on imaging, admitted for pain control and PT/OT. [facility]. #L posterior rib 8-10 fractures, nondisplaced #Fall, mechanical occurred 1 day prior to ER presentation on 10/06/24, no syncope/presyncope/weakness that led to event CThead: No acute findings CTchest: Nondisplaced fractures of the left 8th/9th/10th ribs posteriorly. Mild atelectatic bands in left lower lobe. TAVR noted. Mild left pleural effusions. CTC-spine: No acute fracture or subluxation CTA/P: Rib fractures as noted. No acute intra-abdominal abnormalities. Unchanged mild colonic fecal loading and prostatomegaly Hemoglobin 12, last 9.9. No acute bleeding concern Rib fractures managed as below DVT medical prophylaxis with Lovenox Due to significant pain, activity/ambulatory limitation and patient not comfortable return home is recommended for observation, PT/OT, and potential placement if needed Rib fractures CTchest with 8th/9th/10th nondisplaced rib fractures Continue incentive spirometry, goal 1500 Multimodal pain control: Tylenol, lidocaine patch, ice, morphine as needed for breakthrough. Ambulate as tolerated - PT/OT ordered DVT prophylaxis with Lovenox Oral NSAIDs deferred due to age and borderline renal function, Voltaren ordered to alternate with lidocaine patch #Type II DM, poorly controlled Last A1c greater than 12% Hold metformin held, glimepiride held Continue basal/bolus inpatient regimen: Lantus 5 units twice daily, SSI CF 50, CR 25 - BMP AM #CAD s/p PCI, aortic stenosis s/p TAVR, paroxysmal A-fib Last echo with EF 60 to 65% History of PCI LMCA/LAD/proximal RCA/distal RCA No recent anginal symptoms Stopped aspirin due to blood loss anemia and aspirin. Is continued on Plavix. Continue metoprolol succinate 25mg daily He is not on A-fib anticoagulation due to history of life-threatening GI bleed. Patient declined watchman as an outpatient. DVT prophylaxis: Lovenox Diet: Heart healthy, DM2 Disposition: medical tele CODE STATUS: Full code (2) HTN (hypertension): (3) Syncope: (4) Atrial fibrillation with rapid ventricular response: (5) Paroxysmal atrial fibrillation: (6) Type 2 diabetes mellitus: (7) GI bleed: Admission and Anticipated Discharge Date Admission Date: October 06, 2024 Supervising Physician Co-Signing Physician Notes I personally examined the patient and verified all miguel points of history and exam, discussed case, and agree with decision making with Dr Vines feeling pretty good overall. Pain under good control. Awaiting PT and OT assessments. No other new complaints. Vitals noted, in general he is awake and alert pleasant no distress. HEENT normocephalic atraumatic mucous membranes moist. Breathing unlabored no accessory muscle use good effort. Skin without rashes pallor or icterus. Labs and diagnostics noted. Multiple rib fracturesnondisplaced, probably has a little bit of a surrounding pulmonary contusion, pain under surprisingly easy control. Continue current care. PT/OT eval and treat. Disposition depending on how he does with therapy. Safe/stable for medical. DVT prophylaxisLovenox Subjective Michele was seen and evaluated at bedside, feeling well aside from L sided back rib pain. Endorses his shoes don't have great traction, and when he was walking out of the library to get to his car, he slipped and fell on his L posterior chest wall onto a metal [employer] grate. Denies head trauma or loss of consciousness. Notes he felt okay at first, but a little while after he started having severe L posterior chest wall pain with SOB and pain with deep breathing. Today he is feeling better though still having pain in the site of interest, though much less pain with deep inspiration. Has been eating without issue. Denies any recent dizziness, blurry vision, loss of balance, or other falls. States he uses a cane but no walker. Endorses having a student at home who helps out often with chores and errands. Physical Exam Physical Exam: General: A&Ox3, in no acute distress HEENT: NC/AT, EOM intact, PERRL b/l, moist mucus membranes Resp: clear to auscultation b/l A&P, no w/r/R. Symmetrical chest rise. No increased work of breathing. No respiratory distress. - tenderness to palpation of [place] teral chest wall overlying the left lower ribs. No crepitus, no paradoxic movement CV: RRR, +s1/s2, no m/r/g. Radial pulses intact and symmetrical GI/Abd: Nontender, nondistended, soft. BS present. MSK: tenderness to palpation as above, no deformity or ecchymosis appreciated; tenderness to palpation of anterior and lateral L hip, otherwise 5/5 strength in b/l UE and LE Neuro: no facial droop, speech intact, sensation of soft touch is intact in the feet b/l Results & Data Results & Data Vital Signs (Past 12 Hours) Vital Signs Temp Pulse Pulse Resp BP Pulse Ox Pulse Ox 10/07/24 05:00 10/07/24 05:00 36.3 C L 77 16 141/78 H 98 10/07/24 03:45 71 17 134/86 65 L 10/07/24 03:45 96 10/07/24 02:23 66 10/07/24 02:00 71 18 152/104 H 94 10/07/24 01:00 78 18 136/92 96 10/07/24 00:00 72 18 141/90 H 97 10/06/24 23:00 95 H 20 142/86 H 97 10/06/24 22:37 84 10/06/24 22:00 85 18 139/94 97 10/06/24 21:00 95 H 20 128/96 97 10/06/24 20:00 82 18 153/85 H 97 10/06/24 19:56 90 18 148/98 H 98 10/06/24 19:17 97 O2 Del Method O2 Del Method 10/07/24 05:00 Room Air 10/07/24 05:00 Room Air 10/07/24 03:45 Room Air 10/07/24 03:45 Room Air 10/07/24 02:23 10/07/24 02:00 Room Air 10/07/24 01:00 Room Air 10/07/24 00:00 Room Air 10/06/24 23:00 Room Air 10/06/24 22:37 10/06/24 22:00 Room Air 10/06/24 21:00 Room Air 10/06/24 20:00 Room Air 10/06/24 19:56 Room Air 10/06/24 19:17 Room Air Resident Activity Tracking Resident Involvement: Resident Care Provided Care Provided: Adult Hospital Medicine (1) Multiple rib fractures Encounter type: initial encounter Fracture type: closed Laterality: left Qualified Code(s): S22.42XA - Multiple fractures of ribs, left side, initial encounter for closed fracture (2) HTN (hypertension) Hypertension type: unspecified Qualified Code(s): I10 - Essential (primary) hypertension (3) Syncope Syncope type: unspecified Qualified Code(s): R55 - Syncope and collapse
[2024-10-07] MEDS: GABAPENTIN 100 MG CAP PO SCH (07:53)
[2024-10-07] MEDS: CLOPIDOGREL BISULFATE 75 MG TAB PO SCH (07:54)
[2024-10-07] MEDS: ATORVASTATIN 40 MG TAB PO SCH (07:54)
[2024-10-07] MEDS: ACETAMINOPHEN 500 MG TAB PO PRN (07:54)
[2024-10-07] MEDS: CHOLECALCIFEROL 25 MCG (1000 UNITS) TAB PO SCH (07:54)
[2024-10-07] MEDS: METOPROLOL SUCC 25MG EXT REL TAB PO SCH (07:54)
[2024-10-07] MEDS: ENOXAPARIN INJ 40 MG/0.4 ML SYR SQ SCH (07:55)
[2024-10-07] MEDS: DICLOFENAC SOD 1% GEL 100 GM TUBE EXT SCH (07:55)
[2024-10-07] MEDS: REMOVE LIDODERM PATCH ONE (07:55)
[2024-10-07 08:27] LABS: Hematocrit (blood only) 32.9 % (42.0-52.0); Hemoglobin 11.0 g/dl (14.0-18.0); Immature Granulocytes # (auto) 0.02 K/uL (0.01-0.20); Immature Granulocytes % (auto) 0.3 %; Mean Corpuscular Hemoglobin 32.1 pg (25.0-34.0); Mean Corpuscular Volume 95.9 fL (80.0-100.0); Platelet Count 162 K/uL (130-400); RDW Standard Deviation 49.6 fL (36.4-46.3); Red Blood Count 3.43 M/uL (4.70-6.10); White Blood Count 6.97 K/ul (4.8-10.8)
[2024-10-07 08:40] LABS: Hemoglobin A1C 8.0 % (4.5-5.6)
[2024-10-07 08:42] LABS: Anion Gap 5.0 (3-11); Blood Urea Nitrogen 23.0 mg/dl (6-23); Calcium 8.9 mg/dl (8.6-10.3); Carbon Dioxide 34.0 mmol/L (21-32); Chloride 102.0 mmol/L (98-107); Creatinine Clr Calc Pharmacy 47.2 ml/min; Glucose 224.0 mg/dl (70-99(Fasting)); Potassium 3.5 mmol/L (3.5-5.1); Sodium 141.0 mmol/L (136-145)
[2024-10-07] MEDS: LANTUS PER UNIT CHARGE SQ SCH (08:47)
--- NOTE | 2024-10-07 13:54 | Billing Data ---
Date of Service October 07, 2024 Coding Level of Care Code 25862 SUB INP/OBS CARE
[2024-10-07] MEDS: MoRPHine SULFATE 4 MG/ML 1 ML CARP\\VIAL IV PRN (22:06)
[2024-10-08] MEDS: REMOVE LIDODERM PATCH SCH (07:19)
[2024-10-08 07:37] LABS: Hematocrit (blood only) 29.6 % (42.0-52.0); Hemoglobin 10.1 g/dl (14.0-18.0); Mean Corpuscular Hemoglobin 32.2 pg (25.0-34.0); Mean Corpuscular Volume 94.3 fL (80.0-100.0); Platelet Count 151 K/uL (130-400); RDW Standard Deviation 47.9 fL (36.4-46.3); Red Blood Count 3.14 M/uL (4.70-6.10); White Blood Count 6.36 K/ul (4.8-10.8)
[2024-10-08 07:56] LABS: Anion Gap 5.0 (3-11); Blood Urea Nitrogen 27.0 mg/dl (6-23); Calcium 8.7 mg/dl (8.6-10.3); Carbon Dioxide 33.0 mmol/L (21-32); Chloride 105.0 mmol/L (98-107); Creatinine Clr Calc Pharmacy 45.8 ml/min; Glucose 89.0 mg/dl (70-99(Fasting)); Potassium 3.4 mmol/L (3.5-5.1); Sodium 143.0 mmol/L (136-145)
--- NOTE | 2024-10-08 10:20 | Hospitalist Progress Note ---
Date of Service October 08, 2024 Assessment & Plan (1) Multiple rib fractures: Plan: An 84 year old male who presented into the ED due to a fall the day prior to admission. Presented into the ED with worsening pain. A nondisplaced L posterior rib 8-10 fractures seen on imaging, admitted for pain control and PT/OT. [facility]. #L posterior rib 8-10 fractures, nondisplaced #Fall, mechanical occurred 1 day prior to ER presentation on 10/06/24, no syncope/presyncope/weakness that led to event CThead: No acute findings CTchest: Nondisplaced fractures of the left 8th/9th/10th ribs posteriorly. Mild atelectatic bands in left lower lobe. TAVR noted. Mild left pleural effusions. LAD and R. coronary artery stents are seen. CTC-spine: No acute fracture or subluxation CTA/P: Rib fractures as noted. No acute intra-abdominal abnormalities. Unchanged mild colonic fecal loading and prostatomegaly - CXR: Small left pleural effusion as noted above, adjacent nonspecfic left basilar airspace opacity, which may reflect atelectasis or pneumonia. Post TAVR. Hemoglobin has steadily decreased since time of admission to current (12 to 10.1). Will order Hemoccult stool test to rule out any GI bleeding due to PMH of GI bleeding. Will continue to monitor. Rib fractures managed as below - DVT medical prophylaxis with Lovenox Rib fractures CTchest with 8th/9th/10th nondisplaced rib fractures Continue incentive spirometry, goal 1500 Multimodal pain control: Tylenol, lidocaine patch, ice, morphine as needed for breakthrough. Ambulate as tolerated - PT/OT ordered to reduce risk of recurring fall DVT prophylaxis with Lovenox. Oral NSAIDs deferred due to age, borderline renal function, and history of severe GI bleeding. Voltaren ordered to alternate with lidocaine patch #Type II DM Last A1c is 8% on current hospital admission. Hold metformin held, glimepiride held Continue basal/bolus inpatient regimen: Lantus 5 units twice daily, SSI CF 50, CR 25 - BMP AM if not discharged today. - Continue DM, heart healthy diet - Will provide patient education on DM #CAD s/p PCI, aortic stenosis s/p TAVR, paroxysmal A-fib Last echo with EF 60 to 65% History of PCI LMCA/LAD/proximal RCA/distal RCA No recent anginal symptoms Stopped aspirin due to blood loss anemia and aspirin. Is continued on Plavix. Continue metoprolol succinate 25mg daily He is not on A-fib anticoagulation due to history of life-threatening GI bleed. Patient declined watchman as an outpatient. - Continue DM and Heart Healthy diet. DVT prophylaxis: Lovenox Diet: Heart healthy, DM2 Disposition: medical tele CODE STATUS: Full code (2) HTN (hypertension): (3) Atrial fibrillation with rapid ventricular response: (4) Paroxysmal atrial fibrillation: (5) Type 2 diabetes mellitus: Admission and Anticipated Discharge Date Admission Date: October 06, 2024 Supervising Physician Co-Signing Physician Notes Attending attestation Pt seen and examined in concert with Dr. Colon. In agreement with the documented findings as noted in the resident documentation with any exceptions or additions as noted here. Pain well controlled on present regimen. No splinting reported. VS as noted. On examination, S1/S2 nl RRR no MCG. CTAB. Abd NT/ND BS+ve Multiple rib fractures following mechanical fall - pain control as noted. PT/OT ongoing. Else see resident documentation as noted. Subjective Patient is an 84 year old male with PMH of type II DM, and HTN presented into the ED due to a fall. Patient fell on a curb and landed on a metal grate. Patient appears to be stable. He reports that his ribs aren't as painful now Patient states he is eating, drinking, and breathing okay. He also said his last bowel movement was last night. Patient does live with a housemate named, Lolita. Review of Systems Constitutional: as per Subjective / HPI Respiratory: as per Subjective / HPI Cardiovascular: + problem reported (Heart murmur) Gastrointestinal: as per Subjective / HPI Physical Exam Constitutional: WD/WN, vitals as above Respiratory: normal respiratory effort, lungs clear to auscultation Cardiovascular: RRR, no murmur, no edema Heart Sounds: + murmur (systolic) Musculoskeletal: Head/Neck/Chest: + chest tenderness (on L. side ) Psychiatric: Eye Contact: good eye contact Speech: normal rate/rhythm/volume of speech Thought Process: clear/coherent thought process Results & Data Results & Data Vital Signs (Past 12 Hours) Vital Signs Temp Pulse Resp BP Pulse Ox Pulse Ox O2 Del Method 10/08/24 09:00 96 10/08/24 07:54 36.3 C L 74 19 158/76 H 95 Room Air 10/08/24 03:27 36.7 C 61 16 138/77 95 Room Air 10/07/24 23:10 36.5 C 72 20 153/83 H 99 Room Air O2 Del Method 10/08/24 09:00 Room Air 10/08/24 07:54 10/08/24 03:27 10/07/24 23:10 (1) Multiple rib fractures Encounter type: initial encounter Fracture type: closed Laterality: left Qualified Code(s): S22.42XA - Multiple fractures of ribs, left side, initial encounter for closed fracture (2) HTN (hypertension) Hypertension type: unspecified Qualified Code(s): I10 - Essential (primary) hypertension
[2024-10-08 10:55] VITALS: RESP 17
[2024-10-08 14:36] VITALS: TEMP 97.7; O2SAT 97
--- NOTE | 2024-10-08 17:53 | Discharge Summary ---
Date of Service October 08, 2024 Admission HPI Per Admitting Provider Michele is an 84-year-old male with a past medical history of syncope, hypertension, A-fib with RVR, TAVR, type II DM, CAD, HLD who presented to the ER after a fall. Patient was walking out of the library when he tripped over the curb landed on an outstretched right arm and struck his ribs on a metal grate. He does not have any lightheadedness/dizziness/syncope that led to his fall and reports he tripped on the curb. Patient is a [facility] PCP patient however due to [employer] insurance will be admitted to [facility] hospitalist service Michele is seen at the bedside. He reports he tripped and fell over a curb yesterday landing on his left side and his ribs. Initially did okay however over the course of the day was having a lot of pain in his ribs when breathing and pain overlying his left hip. He reports he does not have pain bearing weight and has not had any difference in pain or symptoms in his hip on ambulation, but is very sore overlying his left side. he has not had any chest pain with exertion, shortness of breath, or difficulty breathing prior to falling. After falling he does endorse rib pain on his left anterior and posterior ribs. He reports right headedness/dizziness did not contribute to his fall, he tripped coming out of the library. He does not feel safe/comfortable returning home due to his discomfort which is slightly limiting his breathing, pain worsened on deep breathing and ambulation. No nausea/vomiting/diarrhea Denies loss of consciousness Denies headache/vision change Denies shortness of breath at rest but notes he does have increased pain when taking a deep breath which is restricting his breathing slightly. He notes a lot of his pain is actually lower under his ribs overlying his left hip, but is able to bear weight on this and internally/externally rotate this without exacerbating the discomfort. Medical History: Reviewed Medications: Reviewed Surgical History: Reviewed Family history: Reviewed Allergies: Reviewed Social History: No tobacco/ETOH use Code Status: Full Code Principal Diagnosis Rib Fracture Discharge Exam Constitutional WD/WN, vitals as above Respiratory normal respiratory effort, lungs clear to auscultation Cardiovascular RRR, no murmur, no edema Heart Sounds: + murmur (systolic) Musculoskeletal Head/Neck/Chest: + chest tenderness (on L. side ) Psychiatric Eye Contact: good eye contact Speech: normal rate/rhythm/volume of speech Thought Process: clear/coherent thought process Discharge Data Allergies Allergy/AdvReac Type Severity Reaction Status Date / Time hydrocodone [From [place]] AdvReac Mild Nausea Verified 07/21/24 22:04 Consultations 10/06/24 22:48 ED Decision to Admit Stat 10/06/24 23:15 ED Decision to Admit Stat Ordered Studies Abdomen/Pelvis CT 10/06/24 18:47 EXAM: CT abd pelvis IV con only CLINICAL HISTORY: Trauma. TECHNIQUE: Contrast-enhanced CT of the abdomen and pelvis was performed, with the following protocol: axial images with, and reconstructed coronal and sagittal images. Intravenous contrast was administered. One of the following dose reduction techniques was utilized for this exam: Automated exposure control, adjustment of the mA and/or kV according to patient size, and use of iterative reconstruction. COMPARISON: prior 03/05/2024. FINDINGS: Abdomen: Liver: Normal in size, shape, and density. No focal lesions, cysts, or masses were identified. Hepatic vasculature and biliary ducts are unremarkable. Gallbladder and Biliary System: The gallbladder is normal in size and shape. No wall thickening, pericholecystic fluid, or gallstones were identified. The common bile duct is normal in caliber without dilation. Pancreas: Pancreatic head, body, and tail are visualized and appear normal in size and density. No pancreatic masses or calcifications were noted. The pancreatic duct is not dilated. Spleen: Normal in size, shape, and density. No splenic lesions or masses were identified. Appendix: No signs of acute appendicitis Kidneys and Adrenal Glands: Both kidneys are normal in size, shape, and position. Cortical thickness is within normal limits. No renal calculi or hydronephrosis. Adrenal glands are unremarkable with no evidence of masses or hyperplasia. aortoiliac extensive atherosclerotic changes Pelvis: Urinary Bladder: Normal in contour and wall thickness. No intraluminal lesions were identified. Prostate: prostatomegaly. Rectum and Sigmoid Colon: Normal wall thickness and no evidence of mass. Peritoneal and Retroperitoneal Structures: No free fluid or abnormal fluid collections were identified within the abdomen or pelvis. No lymphadenopathy was noted. Bowel: The visualized bowel loops are normal in caliber and appearance. No evidence of bowel obstruction or wall thickening. Mild colonic fecal loading Bones and Soft Tissues: Bilateral hip replacement degnerative change of the scanned spine osteopenia left sided inguinal hernia scanned chest cuts : acute fracture of left 10th rib dorsal aspect and 8th rib lateral aspect with mild pleural effusion IMPRESSION: 1. acute fracture of left 10th rib dorsal aspect and 8th rib lateral aspect with mild pleural effusion (newly developed) 2. No acute intraabdominal abnormalities 3. prostatomegaly (unchanged) 4. Mild colonic fecal loading (unchanged) Electronically signed by Magdi Kenny 10-06-2024 10:[address] 10/06/24 18:47 CT cervical spine without IV contrast History: Trauma Comparison: 04/10/2022 Technique: Using multidetector thin collimation helical acquisition technique, axial, coronal and sagittal CT images through the cervical spine were obtained without intravenous contrast. Dose reduction techniques were achieved by using automatic exposure control and/or adjustment of mA and/or kV according to patient size and/or use of iterative reconstruction technique. Findings: The cervical vertebrae are normally aligned. Normal cervical lordosis. No acute fracture or subluxation. No prevertebral edema. Moderate multilevel discogenic and facet degenerative changes which appear hypertrophic. No abnormality of the paraspinous soft tissues. Impression: No acute fracture or traumatic subluxation. Electronically signed by Ismael Amos 10-06-2024 8:[address] 10/06/24 18:47 EXAM: CT chest diagnostic w con CLINICAL HISTORY: Trauma. TECHNIQUE: Contiguous 3.[address] images of the chest were acquired with administration of intravenous contrast. Coronal and sagittal reconstructions were obtained. 90 ml Optiray 320 was administered for post contrast images. One of the following dose reduction techniques were utilized for this exam: Automated exposure control, adjustment of the mA and/or kV according to patient size, and use of iterative reconstruction COMPARISON: X-ray chest on 07/21/2024. FINDINGS: Lungs: Mild groundglass haziness and atelectatic bands in left lower lobe. Right Lung is clear with no evidence of consolidation, collapse, or focal lesions. No ground-glass opacities or interstitial changes. Mild left pleural effusion. No right pleural effusion or pleural thickening. Mediastinum: No mediastinal mass or abnormal lymphadenopathy. Hilar Structures: Normal size and configuration, no enlargement. Heart and Great Vessels: Normal heart size and configuration. No pericardial effusion. Normal caliber and course of the thoracic aorta and other great vessels. Normal enhancement of the great vessels post-contrast. Transcatheter Aortic Valve Replacement (TAVR) is noted. LAD and right coronary artery stents are seen. Pulmonary Arteries: No evidence of pulmonary embolism. Normal size and course of the pulmonary arteries. Esophagus: Normal course and caliber. No masses or dilatation. Bones: No fractures or lytic/sclerotic lesions. Normal bone density and alignment. No evidence of rib fractures. Thoracic spondylotic and osteoporotic changes. Chest Wall: No masses or soft tissue abnormalities. Upper Abdomen: Visualized portions of the liver, spleen, pancreas, adrenal glands, and kidneys are normal. No abnormalities noted in the visualized upper abdominal organs. Thyroid: Normal size and morphology. No nodules or masses. IMPRESSION: 1. Undisplaced fractures of the left 8th, 9th and 10th ribs posteriorly. 2. Mild groundglass haziness and atelectatic bands in left lower lobe. 3. Mild left pleural effusion. 4. Transcatheter Aortic Valve Replacement (TAVR) is noted. 5. LAD and right coronary artery stents are seen. Electronically signed by Magdi Kenny 10-06-2024 10:05 PM Chest X-Ray 10/06/24 18:47 HISTORY: Trauma TECHNIQUE: Portable AP radiograph of the chest. COMPARISON: Chest radiograph dated 07/21/2024. FINDINGS: Clear right lung. Small left pleural effusion and mild left basilar opacity. No pneumothorax. Top normal heart size. Status post TAVR. Coronary artery calcifications. Left-sided aortic arch. Midline trachea. Degenerative changes of the shoulders and spine. IMPRESSION: * Small left pleural effusion and adjacent nonspecific left basilar airspace opacity, which may reflect atelectasis or pneumonia. * Status post TAVR. Electronically signed by William Stern 10-06-2024 8:[address] 10/06/24 18:47 CT head without contrast History: Trauma Comparison: None Technique: Using multidetector thin collimation helical acquisition technique, axial, coronal and sagittal CT images from the skull base to the vertex were obtained without intravenous contrast. Dose reduction techniques were achieved by using automatic exposure control and/or adjustment of mA and/or kV according to patient size and/or use of iterative reconstruction technique. Findings: No intracranial hemorrhage, mass-effect, or midline shift. The ventricles are proportionate to the cerebral sulci. 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 Otherwise no other evidence for acute infarct. The basal cisterns are patent. There is moderate cerebral atrophy. Moderate, patchy low-attenuation changes in the white matter, most suggestive of sequelae of chronic small vessel ischemic disease. The visualized paranasal sinuses are clear. Mastoid air cells are clear. Pseudophakia. Impression: No acute intracranial pathology. Electronically signed by Ismael Amos 10-06-2024 8:07 PM 10/06/24 18:47 CT abd pelvis IV con only Stat CT cervical spine wo con Stat CT chest diagnostic w con Stat CT head/brain wo con Stat Hospital Course (1) Multiple rib fractures: An 84 year old male who presented into the ED due to a fall the day prior to admission. Presented into the ED with worsening pain. A nondisplaced L posterior rib 8-10 fractures seen on imaging, admitted for pain control and PT/OT. [facility] PCP patient however was admitted to [facility] [facility] service due to insurance. #L posterior rib 8-10 fractures, nondisplaced #Fall, mechanical occurred 1 day prior to ER presentation on 10/06/24, no syncope/presyncope/weakness that led to event CThead: No acute findings CTchest: Nondisplaced fractures of the left 8th/9th/10th ribs posteriorly. CTC-spine: No acute fracture or subluxation Hemoglobin has steadily decreased since time of admission to current (12 to 10.1). Was hemodynamically stable. Will recommend hemoccult test outpatient. Rib fractures CTchest with 8th/9th/10th nondisplaced rib fractures Continue incentive spirometry, goal 1500 Patient treated with Multimodal pain control: Tylenol, lidocaine patch, ice, morphine as needed for breakthrough. Ambulated as tolerated - PT/OT while inpatient Oral NSAIDs were deferred due to age, borderline renal function, and history of severe GI bleeding. Voltaren ordered to alternate with lidocaine patch -Patient had oxycodone at home #Type II DM Last A1c is 8% on current hospital admission. Continue Metformin , glimepiride - Continue DM, heart healthy diet - provide patient education on DM #CAD s/p PCI, aortic stenosis s/p TAVR, paroxysmal A-fib Last echo with EF 60 to 65% History of PCI LMCA/LAD/proximal RCA/distal RCA No recent anginal symptoms Stopped aspirin due to blood loss anemia and aspirin. Was continued on Plavix. Continue metoprolol succinate 25mg daily He is not on A-fib anticoagulation due to history of life-threatening GI bleed. Patient declined watchman as an outpatient. - Continue DM and Heart Healthy diet. (2) HTN (hypertension): (3) Atrial fibrillation with rapid ventricular response: (4) Paroxysmal atrial fibrillation: (5) Type 2 diabetes mellitus: Total Time Total Time Spent Total Time Spent (In Minutes): per attending Discharge Plan Discharge Items Patient Disposition: Home - Self-Care Reason For Visit: FALL,RIB PAIN,RIB FXR Discharge Diagnosis: Rib Fracture due to fall Condition on Discharge: Good Activity: Per Instructions section Lifting: Gradually increase as tolerated Bathing: No limitations Non-emergency contact: Primary Care Provider Call non-emergency contact if: your symptoms worsen and your temperature is above 101.5 Follow-up/Referrals: Carroll Conley MD [Primary Care Provider] - Diet: Carb Consistent or DM2 Addtl Attending Provider Instructions: You were admitted to the ED due to falling onto the ground with pain on your left side. We imaged your chest and saw your left ribs were broken, likely as a result of your fall. We had an physical therapist and occupational therapist to evaluate for any weakness and to help reduce the chance for falling in the future. We also instructed for what is called an "incentive spirometry". It is a device you breathe into to help keep your lungs open to reduce the chance for pneumonia. No heavy lifting, especially lifting objects overhead. Rib fractures will hurt and will take time to heal. If needed for pain continue to use tylenol and your oxycodone at home as prescribed. Can use voltaren gel 4 times a day as needed for pain. If using voltaren gel expect pain to improve after a day or two if using consistently 4 times a day. If your breathing worsens, come to ED. When you were admitted to the hospital, your sugars were high so we prescribed insulin to lessen your sugar level, which was achieved. Once out of the hospital, continue with your current diabetes medication regiment. Continue home medications. Pending Studies at Discharge: No Stand-Alone Forms: My [facility], Smoking Cessation Medications and DC Order Prescriptions: New diclofenac sodium [Voltaren Arthritis Pain] 1 % Gel 2 g EXT QID Qty: 50 0RF Continued clopidogrel 75 mg tablet 75 mg PO DAILY Qty: 90 3RF glimepiride 4 mg tablet 8 mg PO QDB atorvastatin 80 mg Tablet 80 mg PO DAILY metformin 500 mg Tablet 1,000 mg PO BIDM Tradjenta 5 mg tablet 5 mg PO QAM oxycodone-acetaminophen 5-325 mg tablet 1 tab PO Q8H PRN (Reason: Pain) gabapentin 100 mg capsule 200 mg PO TID amoxicillin 500 mg Capsule 2,000 mg PO DIRECTED PRN (Reason: 1 HR PRIOR TO DENTAL WORK) lidocaine 4 % Adhesive Patch,Medicated 1 patch TOPICAL DAILY PRN (Reason: Pain) cyanocobalamin (vitamin B-12) [Vitamin B-12] 500 mcg Tablet 500 mcg PO DAILY nitroglycerin [Nitrostat] 0.4 mg Tablet, Sublingual 0.4 mg sublingual DIRECTED PRN (Reason: Chest Pain) cholecalciferol (vitamin D3) [Vitamin D3] 25 mcg (1,000 unit) Capsule 25 mcg PO DAILY metoprolol succinate 25 mg tablet extended release 24 hr 25 mg PO QAM Discharge Orders: Discharge Order (Routine); Ordered 10/08/24 Ordered By: William Colon Admission Data Admit Date/Time: 10/06/24 23:51 Attending Provider: Ismael Marques Admit Provider: Pete Dupree Primary Care Provider: Carroll Conley Other Providers: Brendan Romo Paul Other Interventions: Discharge Summary Assessment (RN) Last Done: 10/08/24 18:40 Resident Activity Tracking Resident Involvement: Resident Care Provided Care Provided: Adult Hospital Medicine
[2024-10-08 18:42] VITALS: BP 129/78; PULSE 74
== END 2024-10-08 18:42 | disposition home or self-care (01) ==
LOC: ED 18:19 → EDINP 18:19 → SUATTDRO 23:51 → 2S 10-07 02:14
DX: I48.0 Paroxysmal atrial fibrillation; W19.XXXA Unspecified fall, initial encounter; S22.42XA Multiple fractures of ribs, left side, initial encounter for closed fracture; E11.9 Type 2 diabetes mellitus without complications; I25.10 Atherosclerotic heart disease of native coronary artery without angina pectoris; I10 Essential (primary) hypertension; Z88.5 Allergy status to narcotic agent